=== PATIENT | female | born 1985 | race Two or more races ===

== ENCOUNTER 2020-02-15 14:07 | Outpatient (REF) | payer OTHER, SELFPAY ==
[2020-02-17 13:12] LABS: BV Int Neg Control Negative (Negative); BV Int Pos Control Positive (Positive)
[2020-02-22 14:20] LABS: CT PCR NOT DETECTED (Not Detect.); NG PCR NOT DETECTED (Not Detect.)
== END 2020-02-15 14:08 | disposition home or self-care (01) ==
LOC: HO.LAB 14:07
PROVIDERS: PCP Internal Medicine; Visit Provider Advanced Practice Midwife
DX: N89.8 Other specified noninflammatory disorders of vagina (principal)
CPT/HCPCS: 87480; 87491; 87510; 87591; 87660

== ENCOUNTER → 2020-03-17 13:53 | Outpatient (BNVA) | payer OTHER, SELFPAY | PROVIDERS: PCP Internal Medicine; Visit Provider Advanced Practice Midwife | DX: Z76.89 Persons encountering health services in other specified circumstances (principal) ==

== ENCOUNTER 2020-07-02 13:53 | Outpatient (REF) | payer OTHER, SELFPAY ==
[2020-07-03 09:38] LABS: CT PCR NOT DETECTED (Not Detect.); NG PCR NOT DETECTED (Not Detect.)
[2020-07-03 09:52] LABS: BV Int Neg Control Negative (Negative); BV Int Pos Control Positive (Positive)
[2020-07-04 17:46] LABS: HPV mRNA E6/E7 rflx Not Detected (Not Detected)
== END 2020-07-02 13:54 | disposition home or self-care (01) ==
LOC: HO.LAB 13:53
PROVIDERS: PCP Internal Medicine; Visit Provider Advanced Practice Midwife
DX: Z01.419 Encounter for gynecological examination (general) (routine) without abnormal findings (principal); Z11.51 Encounter for screening for human papillomavirus (HPV); Z11.3 Encounter for screening for infections with a predominantly sexual mode of transmission; Z20.2 Contact with and (suspected) exposure to infections with a predominantly sexual mode of transmission
CPT/HCPCS: 87480; 87491; 87510; 87591; 87624; 87660; 88141; 88142

== ENCOUNTER 2021-02-12 14:12 | Outpatient (REF) | payer OTHER, SELFPAY | END 2021-02-12 14:13 | disposition home or self-care (01) | LOC: HO.LNP 14:12 | PROVIDERS: Visit Provider Physician Assistant Medical | DX: Z20.822 Contact with and (suspected) exposure to COVID-19 (principal); B34.9 Viral infection, unspecified | CPT/HCPCS: U0003; U0005 ==

== ENCOUNTER 2021-03-06 18:04 | Emergency (ER) | payer OTHER, SELFPAY ==
--- NOTE | 2021-03-06 18:14 | ED_ITS ---
HPI - Overdose General Chief Complaint: ETOH/Substance Use Stated Complaint: too many edibles Time Seen by Provider: 03/06/21 18:26 Source: patient and EMS Mode of arrival: EMS Limitations: no limitations History of Present Illness HPI Narrative: 35-year-old female presents with anxiety from eating too many marijuana edibles. complaint: other (Marijuana edible intoxication) Onset (ago): hour(s) How Overdose Was Discovered: called 911 Context: Intentional Overdose: other (Ate too many edibles) Context: Accidental Overdose: wanted to get high Treatments Prior to Arrival: none Related Data Home Medications Medication Instructions Recorded Confirmed montelukast 10 mg tablet 10 mg PO DAILY 02/15/20 03/02/21 multivit with min-folic tab PO 02/15/20 03/02/21 acid-lutein 200 mcg-137.5 mcg chewable tablet albuterol sulfate 90 mcg/actuation 2 puff INHALATION Q6H PRN 07/02/20 03/02/21 aerosol inhaler Previous Rx's Medication Instructions Recorded fluconazole 150 mg tablet 150 mg PO Q3D 0 Days #2 tab 02/18/20 (Diflucan) valacyclovir 1 gram tablet 1,000 mg PO DAILY #5 tab 07/02/20 albuterol sulfate 90 mcg/actuation 1 inh INHALATION QID PRN #8.5 g 02/12/21 aerosol inhaler amoxicillin 875 mg-potassium 1 tab PO BID 7 Days #14 tab 03/02/21 clavulanate 125 mg tablet (Augmentin) Allergies Allergy/AdvReac Type Severity Reaction Status Date / Time cephalexin [From KEFLEX] Allergy Unknown ANAPHYLAXIS Verified 03/02/21 11:00 Sulfa (Sulfonamide Allergy Unknown rash,swelli Verified 03/02/21 11:00 Antibiotics) ng sulfamethoxazole Allergy Unknown ANAPHYLAXIS Verified 03/02/21 11:00 [From BACTRIM] trimethoprim [From BACTRIM] Allergy Unknown ANAPHYLAXIS Verified 03/02/21 11:00 Review of Systems Review of Systems: Constitutional: No Fever, No Chills ENT/Mouth: No Ear Pain, No Nasal Congestion, No sore throat Eyes: No Eye Pain, No Swelling, No Redness Cardiovascular: No Chest Pain, No SOB Respiratory: No Cough, No Sputum, No Dyspnea Gastrointestinal: No Nausea, No Vomiting, No Diarrhea, No Hematochezia, No Melena Genitourinary: No Dysuria, No Urinary Frequency, No Hematuria Musculoskeletal: No Myalgias Skin: No Skin Lesions, No rash Neuro: No Weakness, No Numbness, No Paresthesias, No Dizziness, No Headache Psych: positive Anxiety, positive marijuana intoxication, no Depression, no SI/HI Heme/Lymph: No Lymphadenopathy Endocrine: No Polyuria, No Polydipsia Yes all other systems are reviewed and are negative REPLACED BY [facility] Past Medical History Attestation statement: The following information was validated with the patient. Source: old records reviewed Medical History Allergic rhinitis Asthma Dizziness Migraine with aura Surgical History No history of previous surgery Family History Family History Father Diabetes mellitus HTN (hypertension) Mother Diabetes mellitus HTN (hypertension) Maternal Grandmother Diabetes mellitus Paternal Grandmother Diabetes mellitus Social History Social History Housing: House Alcohol intake: never Patient : No service: No Current occupational status: employed Gender identity: Female Physical Exam Vital Signs: Vital Signs: Last Vital Signs Temp 97.6 F 03/06/21 18:20 Pulse 112 H 03/06/21 18:20 Resp 22 H 03/06/21 18:20 BP 126/62 03/06/21 18:20 Pulse Ox 100 03/06/21 18:20 BMI result Body Mass Index 44.9 Appearance: Alert. Oriented X3. Mild anxiety distress. Eyes: Pupils equal, round and reactive to light. ENT: Pharynx normal. Moist mucous membranes Neck: Normal inspection. Neck supple. CVS: Normal heart rate and rhythm. Pulses normal. Respiratory: No respiratory distress. Breath sounds normal. Abdomen: Soft and nontender. Skin: Skin warm and dry. Normal skin color. Normal skin turgor. Extremities: No lower extremity edema. Moves all extremities answers Neuro: No motor deficit. No sensory deficit. Cranial nerves 2-12 intact Course Course Course Narrative: 35-year-old female presents via EMS for marijuana edible intoxication. States to feel anxious nauseous. Is describing tingling feelings going down her arms and legs. Emotional support provided. Plan of care is to discharge home when she finds a sober ride. Will give Zofran for nausea. Vital signs are stable and within normal limits. Answering questions politely and appropriately. No Indication of toxicity. No indication of abuse or foul play. MDM - Overdose MDM Narrative Medical decision making narrative: Marijuana intoxication Medical Records Attestation: I reviewed the patient's medical records. Discharge Plan Discharge Clinical Impression: Accidental marijuana overdose Qualifiers: Encounter type: initial encounter Qualified Code(s): T40.711A - Poisoning by cannabis, accidental (unintentional), initial encounter Patient Disposition: Home, Self-Care Instructions: Cannabis Abuse (ED) Additional Instructions: Please decrease the amount of marijuana edibles you use. Thank you for choosing this emergency department for evaluation. Please follow-up with primary care physician as needed. Return to the emergency department for any new, concerning, or worsening symptoms. Prescriptions: No Action fluconazole [Diflucan] 150 mg tablet 150 mg PO Q3D 0 Days Qty: 2 RF: 0 albuterol sulfate 90 mcg/actuation HFA aerosol inhaler 1 inh inhalation QID PRN (Reason: shortness of breath or wheezing) Qty: 8.5 RF: 0 amoxicillin-pot clavulanate [Augmentin] 875-125 mg tablet 1 tab PO BID 7 Days Qty: 14 RF: 0 albuterol sulfate 90 mcg/actuation HFA aerosol inhaler 2 puff inhalation Q6H PRNRF: 0 valacyclovir 1 gram tablet 1,000 mg PO DAILY Qty: 5 RF: 3 [id number] acid-lutein 200-137.5 mcg tablet,chewable PO RF: 0 montelukast 10 mg tablet 10 mg PO DAILY RF: 0
[2021-03-06 18:20] VITALS: BP 126/62; BP 142/74; PULSE 112; RESP 22; TEMP 36.4; O2SAT 100; BMI 44.9
[2021-03-06] MEDS: Ondansetron ODT 4 MG TAB.RAPDIS TRANSLINGU (18:26)
--- NOTE | 2021-03-06 18:26 | ECG_ITS ---
Test Reason : SUBSTANCE ABUSE Blood Pressure : / mmHG Vent. Rate : 087 BPM Atrial Rate : 087 BPM P-R Int : 146 ms QRS Dur : 080 ms QT Int : 350 ms P-R-T Axes : 056 056 034 degrees QTc Int : 421 ms Normal sinus rhythm Normal ECG When compared with ECG of 08-NOV-2013 10:13, No significant change was found Referred By: Main Marshall Electronically Signed By:DANIELLE ROGERS
--- NOTE | 2021-03-06 18:27 | ED_ITS ---
HPI - General Adult General Chief complaint: ETOH/Substance Use Stated complaint: too many edibles Time Seen by Provider: 03/06/21 18:26 Source: patient and EMS Mode of arrival: EMS Limitations: no limitations History of Present Illness HPI narrative: 35-year-old female brought in by ambulance to be evaluated for fe eling palpitation and dizziness. Patient ate an edibles containing marijuana, patient normally consumes marijuana under occasional circumstances only, 4 hours later patient started feeling palpitation, generalized numbness, unable to speak. Patient called 911, on arrival patient's symptoms improved, normal neuro exam. Patient appear anxious. Related Data Home Medications Medication Instructions Recorded Confirmed montelukast 10 mg tablet 10 mg PO DAILY 02/15/20 03/02/21 multivit with min-folic tab PO 02/15/20 03/02/21 acid-lutein 200 mcg-137.5 mcg chewable tablet albuterol sulfate 90 mcg/actuation 2 puff INHALATION Q6H PRN 07/02/20 03/02/21 aerosol inhaler Previous Rx's Medication Instructions Recorded fluconazole 150 mg tablet 150 mg PO Q3D 0 Days #2 tab 02/18/20 (Diflucan) valacyclovir 1 gram tablet 1,000 mg PO DAILY #5 tab 07/02/20 albuterol sulfate 90 mcg/actuation 1 inh INHALATION QID PRN #8.5 g 02/12/21 aerosol inhaler amoxicillin 875 mg-potassium 1 tab PO BID 7 Days #14 tab 03/02/21 clavulanate 125 mg tablet (Augmentin) Allergies Allergy/AdvReac Type Severity Reaction Status Date / Time cephalexin [From KEFLEX] Allergy Unknown ANAPHYLAXIS Verified 03/02/21 11:00 Sulfa (Sulfonamide Allergy Unknown rash,swelli Verified 03/02/21 11:00 Antibiotics) ng sulfamethoxazole Allergy Unknown ANAPHYLAXIS Verified 03/02/21 11:00 [From BACTRIM] trimethoprim [From BACTRIM] Allergy Unknown ANAPHYLAXIS Verified 03/02/21 11:00 Review of Systems Review of Systems: All other systems are reviewed and are negative Constitutional: Reports as per HPI and Reports no additional constitutional complaints Eyes: Reports as per HPI and Reports no additional eye complaints Reports system reviewed and no additional complaints, except as documented Cardiovascular: Reports as per HPI and Reports no additional cardiovascular complaints Respiratory: Reports as per HPI and Reports no additional respiratory complaints Gastrointestinal: Reports as per HPI and Reports no additional gastrointestinal complaints Genitourinary: Reports no additional female genitourinary complaints Musculoskeletal: Reports no additional musculoskeletal complaints Skin/Breast: Reports system reviewed and no additional complaints, except as docu Psychiatric: Reports no additional psychiatric complaints Endocrine: Reports no additional endocrine complaints Hematologic/Lymphatic: Reports no additional hematologic/lymphatic complaints Allergic/Immunologic: Reports no additional allergic/immunologic complaints Reports system reviewed and no additional complaints, except as documented and Reports Abnormal speech present [facility] Past Medical History Medical History Allergic rhinitis Asthma Dizziness Migraine with aura Surgical History No history of previous surgery Family History Family History Father Diabetes mellitus HTN (hypertension) Mother Diabetes mellitus HTN (hypertension) Maternal Grandmother Diabetes mellitus Paternal Grandmother Diabetes mellitus Social History Social History Housing: House Alcohol intake: never Advance Directives: No Advance Directives Information Provided: Yes Patient : No service: No Current occupational status: employed Gender identity: Female Physical Exam Vital Signs: Vital Signs: Last Vital Signs Temp 97.6 F 03/06/21 18:20 Pulse 112 H 03/06/21 18:20 Resp 22 H 03/06/21 18:20 BP 126/62 03/06/21 18:20 Pulse Ox 100 03/06/21 18:20 BMI result Body Mass Index 44.9 Vital signs have been reviewed as appeared to be correct. Blood pressure normal. Heart rate elevated. Respiration rate normal. Temperature normal. Oxygen saturation normal. Appearance: Alert. Oriented X3. No acute distress. Anxious. Head: Normal external exam. Normocephalic. Atraumatic. No Awad signs noted. No raccoon eyes noted Eyes: PERRLA. EOMI. Conjunctiva and sclera normal. Eyelids normal. ENT: TM's Normal. Pharynx normal. Uvula midline. Moist mucous membranes. No trismus noted. No drooling noted. No muffled voice noted. Neck: Normal inspection. Neck supple. FROM. No adenopathy. Thyroid Normal. No meningeal signs. No neck mass noted. CVS: Normal heart rate and rhythm. Heart sound normal. No murmurs noted. Pulses normal throughout. Respiratory: No respiratory distress. Painless inspiration. Breath sounds normal. No wheezes/rales/rhonchi noted. Chest nontender. No accessory muscle usage noted or decreased air movement noted. Abdomen: Soft and nontender. Bowel sounds normal in all 4 quadrants. No distention noted. No organomegaly noted. No visible injury noted. Back: No CVA tenderness. Full range of motion noted. Skin: Skin warm and dry. Normal skin color. Normal skin turgor. No rashes/lesions/lacerations noted. Extremities: No lower extremity edema. Extremities exhibit normal range of motion. Extremities nontender. Neuro: Oriented X 3. Cranial nerve exam: II-XII are grossly intact No motor deficit. No sensory deficit. Reflexes normal. Course Course Course Narrative: Assessment and plan. 35-year-old female developed anxiety attack triggered by edible marijuana, patient received a L of fluid, improvement of the symptoms. Medical Decision Making Lab Data Lab results reviewed: Yes I reviewed the patient's lab results. Result diagrams: 03/06/21 19:00 03/06/21 19:00 Labs: Lab Results 03/06/21 03/06/21 03/06/21 Range/Units 18:38 18:38 18:38 WBC (4.8-10.8) X10*3/uL RBC (4.20-5.50) X10*6/uL Hgb (12.0-16.0) g/dl Hct (37.0-47.0) % MCV (80.0-98.0) fL MCH (27.0-33.0) pg MCHC (31.0-35.0) g/dl RDW (11.0-16.0) % Plt Count (160-400) X10*3/uL MPV (9.4-12.3) fL Immature Gran % (Auto) (0.0-0.4) % Neut % (Auto) (45-73) % Lymph % (Auto) (20-40) % [place] % (Auto) (2-11) % Eos % (Auto) (0-4) % Baso % (Auto) (0-2) % Lymph # (Auto) (1.2-4.9) X10*3/uL [place] # (Auto) (0.1-1.2) X10*3/uL Eos # (Auto) (0.0-0.4) X10*3/uL Baso # (Auto) (0.0-0.2) X10*3/uL Abs Immat Gran (auto) (0.00-0.03) X10*3/uL Absolute Neuts (auto) (2.0-8.3) x10*3/uL Absolute Nucleated RBC (0.0-0.012) X10*3/uL Nucleated RBC % (auto) (0.0-0.2) /100WBC Sodium (135-145) mmol/L Potassium (3.3-5.1) mmol/L Chloride (96-108) mmol/L Carbon Dioxide (22-29) mmol/L Anion Gap (12-20) BUN (9-16) mg/dL Creatinine (0.5-1.4) mg/dL Estim Creat Clear Calc Estimated GFR Random Glucose (60-115) mg/dL Calcium (8.4-10.2) mg/dL Total Bilirubin (0.0-1.0) mg/dL Direct Bilirubin (0.0-0.5) mg/dL AST (5-31) U/L ALT (0-31) U/L Alkaline Phosphatase (39-117) U/L Total Protein (6.5-8.0) g/dL Albumin (3.5-5.0) g/dL Lipase (8-78) U/L Urine Color YELLOW Urine Appearance CLEAR Urine pH 5.5 (5.0-8.0) Ur Specific [place] >= 1.030 H (1.005-1.025) Urine Protein TRACE (NEG-TRACE) MG/DL Urine Glucose (UA) NEG (NEG) MG/DL Urine Ketones NEG (NEG) MG/DL Urine Blood 2+ H (NEG) Urine Nitrite NEG (NEG) Ur Leukocyte Esterase NEG (NEG) Urine Test NEGATIVE (NEGATIVE) Urine Opiates Screen Not Detected (Not Detect) Urine Fentanyl Screen Not Detected (Not Detect) Ur Barbiturates Screen Not Detected (Not Detect) Ur Phencyclidine Scrn Not Detected (Not Detect) Ur Amphetamines Screen Not Detected (Not Detect) U Benzodiazepines Scrn Not Detected (Not Detect) Urine Cocaine Screen Not Detected (Not Detect) U Marijuana (THC) Screen POSITIVE H (Not Detect) 03/06/21 03/06/21 Range/Units 19:00 19:00 WBC 9.7 (4.8-10.8) X10*3/uL RBC 4.72 (4.20-5.50) X10*6/uL Hgb 12.8 (12.0-16.0) g/dl Hct 39.7 (37.0-47.0) % MCV 84.1 (80.0-98.0) fL MCH 27.1 (27.0-33.0) pg MCHC 32.2 (31.0-35.0) g/dl RDW 13.5 (11.0-16.0) % Plt Count 291 (160-400) X10*3/uL MPV 9.7 (9.4-12.3) fL Immature Gran % (Auto) 0.2 (0.0-0.4) % Neut % (Auto) 68.0 (45-73) % Lymph % (Auto) 25.3 (20-40) % [place] % (Auto) 5.7 (2-11) % Eos % (Auto) 0.6 (0-4) % Baso % (Auto) 0.2 (0-2) % Lymph # (Auto) 2.5 (1.2-4.9) X10*3/uL [place] # (Auto) 0.6 (0.1-1.2) X10*3/uL Eos # (Auto) 0.1 (0.0-0.4) X10*3/uL Baso # (Auto) 0.0 (0.0-0.2) X10*3/uL Abs Immat Gran (auto) 0.02 (0.00-0.03) X10*3/uL Absolute Neuts (auto) 6.6 (2.0-8.3) x10*3/uL Absolute Nucleated RBC 0.000 (0.0-0.012) X10*3/uL Nucleated RBC % (auto) 0.0 (0.0-0.2) /100WBC Sodium 140 (135-145) mmol/L Potassium 3.8 (3.3-5.1) mmol/L Chloride 105 (96-108) mmol/L Carbon Dioxide 27 (22-29) mmol/L Anion Gap 12 (12-20) BUN 9 (9-16) mg/dL Creatinine 0.83 (0.5-1.4) mg/dL Estim Creat Clear Calc 123.0 Estimated GFR > 60 Random Glucose 99 (60-115) mg/dL Calcium 9.7 (8.4-10.2) mg/dL Total Bilirubin 0.6 (0.0-1.0) mg/dL Direct Bilirubin 0.2 (0.0-0.5) mg/dL AST 15 (5-31) U/L ALT 19 (0-31) U/L Alkaline Phosphatase 77 (39-117) U/L Total Protein 7.3 (6.5-8.0) g/dL Albumin 4.1 (3.5-5.0) g/dL Lipase 14 (8-78) U/L Urine Color Urine Appearance Urine pH (5.0-8.0) Ur Specific [place] (1.005-1.025) Urine Protein (NEG-TRACE) MG/DL Urine Glucose (UA) (NEG) MG/DL Urine Ketones (NEG) MG/DL Urine Blood (NEG) Urine Nitrite (NEG) Ur Leukocyte Esterase (NEG) Urine Test (NEGATIVE) Urine Opiates Screen (Not Detect) Urine Fentanyl Screen (Not Detect) Ur Barbiturates Screen (Not Detect) Ur Phencyclidine Scrn (Not Detect) Ur Amphetamines Screen (Not Detect) U Benzodiazepines Scrn (Not Detect) Urine Cocaine Screen (Not Detect) U Marijuana (THC) Screen (Not Detect) ECG Data Attestation: I personally reviewed and interpreted this ECG as follows: Interpretation: Normal sinus rhythm at 87 beats per minutes, normal intervals, normal axis deviation, no ST-T changes. Discharge Plan Discharge Clinical Impression: Accidental marijuana overdose Qualifiers: Encounter type: initial encounter Qualified Code(s): T40.711A - Poisoning by cannabis, accidental (unintentional), initial encounter Patient Disposition: Home, Self-Care Instructions: Cannabis Abuse (ED) Additional Instructions: Please decrease the amount of marijuana edibles you use. Thank you for choosing this emergency department for evaluation. Please follow-up with primary care physician as needed. Return to the emergency department for any new, concerning, or worsening symptoms. Prescriptions: No Action fluconazole [Diflucan] 150 mg tablet 150 mg PO Q3D 0 Days Qty: 2 RF: 0 albuterol sulfate 90 mcg/actuation HFA aerosol inhaler 1 inh inhalation QID PRN (Reason: shortness of breath or wheezing) Qty: 8.5 RF: 0 amoxicillin-pot clavulanate [Augmentin] 875-125 mg tablet 1 tab PO BID 7 Days Qty: 14 RF: 0 albuterol sulfate 90 mcg/actuation HFA aerosol inhaler 2 puff inhalation Q6H PRNRF: 0 valacyclovir 1 gram tablet 1,000 mg PO DAILY Qty: 5 RF: 3 [id number] acid-lutein 200-137.5 mcg tablet,chewable PO RF: 0 montelukast 10 mg tablet 10 mg PO DAILY RF: 0 Referrals: Yary Way MD [Primary Care Provider] - 2 weeks
[2021-03-06] MEDS: 0.9 % Sodium Chloride 1,000 ML 999 ML IVCONT (19:01)
[2021-03-06 19:07] LABS: MANUAL DIFF FLAG NO
--- NOTE | 2021-03-06 19:08 | PC.NURSE ---
IV established, labs and urine obtained and sent. IVF infusing per MAR.
[2021-03-06 19:09] LABS: Basophils Percent Auto 0.2 % (0-2); Eosinophils Absolute Auto 0.1 X10*3/uL (0.0-0.4); Eosinophils Percent Auto 0.6 % (0-4); Hematocrit 39.7 % (37.0-47.0); Hemoglobin 12.8 g/dl (12.0-16.0); Imm Gran Abs Auto 0.02 X10*3/uL (0.00-0.03); Imm Gran Pct Auto 0.2 % (0.0-0.4); Lymphocytes Absolute Auto 2.5 X10*3/uL (1.2-4.9); Lymphocytes Percent Auto 25.3 % (20-40); Mean Corpuscular HGB Conc 32.2 g/dl (31.0-35.0); Mean Corpuscular Hemoglobin 27.1 pg (27.0-33.0); Mean Corpuscular Volume 84.1 fL (80.0-98.0); Mean Platelet Volume 9.7 fL (9.4-12.3); Monocytes Absolute Auto 0.6 X10*3/uL (0.1-1.2); Monocytes Percent Auto 5.7 % (2-11); Neutrophils Absolute Auto 6.6 x10*3/uL (2.0-8.3); Platelet Count 291 X10*3/uL (160-400); Red Blood Count 4.72 X10*6/uL (4.20-5.50); Red Cell Distribution Width 13.5 % (11.0-16.0); White Blood Count 9.7 X10*3/uL (4.8-10.8)
[2021-03-06 19:11] LABS: Appearance Urine CLEAR; Color Urine YELLOW; Glucose Urine UA NEG (NEG); Leukocyte Esterase Urine NEG (NEG); Nitrite Urine NEG (NEG); PH 5.5 (5.0-8.0); Specific Gravity - Urine >= 1.030 (1.005-1.025); UACC Culture Trigger NO; Urine Blood 2+ (NEG); Urine Ketones NEG (NEG); Urine Protein TRACE MG/DL (NEG-TRACE)
[2021-03-06 19:14] LABS: UPreg QC Valid YES; Urine Pregnancy NEGATIVE (NEGATIVE)
[2021-03-06 19:22] LABS: Amphetamine Screen Urine Not Detected (Not Detect); Barbiturates, Urine Not Detected (Not Detect); Benzodiazepines Screen Urine Not Detected (Not Detect); Cannabinoid Screen Urine POSITIVE (Not Detect); Cocaine Screen Urine Not Detected (Not Detect); Fentanyl, urine Not Detected (Not Detect); Opiate Screen Urine Not Detected (Not Detect); Phencyclidine Screen Urine Not Detected (Not Detect)
[2021-03-06 19:34] LABS: Alanine Aminotransferase 19 U/L (0-31); Albumin Level 4.1 g/dL (3.5-5.0); Alkaline Phosphatase 77 U/L (39-117); Anion Gap 12 (12-20); Aspartate Amino Transferase 15 U/L (5-31); Bilirubin Direct 0.2 mg/dL (0.0-0.5); Bilirubin Total 0.6 mg/dL (0.0-1.0); Blood Urea Nitrogen 9 mg/dL (9-16); Calcium 9.7 mg/dL (8.4-10.2); Carbon Dioxide 27 mmol/L (22-29); Chloride 105 mmol/L (96-108); Estimated Glomerular Filt Rate > 60; Glucose Random 99 mg/dL (60-115); Lipase 14 U/L (8-78); Potassium 3.8 mmol/L (3.3-5.1); Sodium 140 mmol/L (135-145); Total Protein 7.3 g/dL (6.5-8.0)
[2021-03-06 20:11] VITALS: BP 113/63; PULSE 86; RESP 18; TEMP 36.6; O2SAT 100
[2021-03-06 21:14] LABS: Bacteria Urine TRACE /LPF; Squamous Epithelial Cell Urine TRACE /LPF
== END 2021-03-06 20:23 | disposition home or self-care (01) ==
LOC: HO.ED 18:59
PROVIDERS: Emergency Provider Emergency Medicine; PCP Internal Medicine
DX: F41.9 Anxiety disorder, unspecified (principal); T40.711A Poisoning by cannabis, accidental (unintentional), initial encounter; Y92.9 Unspecified place or not applicable; F12.90 Cannabis use, unspecified, uncomplicated
CPT/HCPCS: 36415; 80048; 80076; 80307; 81001; 81025; 83690; 85025; 93005; 96360; 99284

== ENCOUNTER 2021-05-19 13:55 | Outpatient (REF) | payer OTHER, SELFPAY ==
[2021-05-20 09:46] LABS: CT PCR NOT DETECTED (Not Detect.); NG PCR NOT DETECTED (Not Detect.)
[2021-05-20 10:06] LABS: BV Int Neg Control Negative (Negative); BV Int Pos Control Positive (Positive)
== END 2021-05-19 13:56 | disposition home or self-care (01) ==
LOC: HO.LAB 13:55
PROVIDERS: PCP Internal Medicine; Visit Provider Advanced Practice Midwife
DX: N76.0 Acute vaginitis (principal)
CPT/HCPCS: 87480; 87491; 87510; 87591; 87660

== ENCOUNTER 2021-06-29 11:52 | Outpatient (REF) | payer OTHER, SELFPAY ==
[2021-07-01 02:02] LABS: Rubella IgG Antibody 4.69 Index
[2021-07-01 11:16] LABS: TS Negative Control Passed; TS Panel A 0; TS Panel B 0; TS Positive Control Passed; TSpotTB Negative (Negative)
== END 2021-06-29 11:53 | disposition home or self-care (01) ==
LOC: HO.LAB 11:52
PROVIDERS: PCP Internal Medicine; Visit Provider Internal Medicine
DX: Z01.84 Encounter for antibody response examination (principal); Z11.1 Encounter for screening for respiratory tuberculosis
CPT/HCPCS: 36415; 86481; 86735; 86762; 86765; 86787

== ENCOUNTER 2021-10-27 17:12 | Emergency (ER) | payer OTHER, SELFPAY | END 2021-10-27 18:44 | disposition left against medical advice (07) | PROVIDERS: Emergency Provider Emergency Medicine | DX: F41.1 Generalized anxiety disorder (principal); F43.0 Acute stress reaction ==

== ENCOUNTER 2021-11-12 01:33 | Emergency (ER) | payer OTHER, SELFPAY ==
--- NOTE | ~2021-11-12 | XR_ITS ---
EXAMINATION: XR CHEST CLINICAL INFORMATION: Chest pressure COMPARISON: None TECHNIQUE: 2 views of the chest were obtained. FINDINGS: Normal symmetric lung volumes. No parenchymal consolidation. No pleural effusion. No pneumothorax. Cardiomediastinal silhouette and pulmonary vascularity are within normal limits. No acute osseous abnormalities. XR/XR chest 2V IMPRESSION: No acute findings
[2021-11-12 01:49] VITALS: BP 149/77; PULSE 93; RESP 16; TEMP 36.2; O2SAT 98; BMI 44.9
--- NOTE | 2021-11-12 02:54 | ECG_ITS ---
Test Reason : ANIEXTY Blood Pressure : / mmHG Vent. Rate : 074 BPM Atrial Rate : 074 BPM P-R Int : 148 ms QRS Dur : 082 ms QT Int : 382 ms P-R-T Axes : 046 045 037 degrees QTc Int : 424 ms Normal sinus rhythm Normal ECG When compared with ECG of 06-MAR-2021 19:03, No significant change was found Referred By: Tana Maza Electronically Signed By:DAVIDA LIMA
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
[2021-11-12 03:26] LABS: Basophils Percent Auto 0.3 % (0-2); Eosinophils Percent Auto 0.3 % (0-4); Hematocrit 43.5 % (37.0-47.0); Hemoglobin 14.3 g/dl (12.0-16.0); Imm Gran Abs Auto 0.03 X10*3/uL (0.00-0.03); Imm Gran Pct Auto 0.3 % (0.0-0.4); Lymphocytes Absolute Auto 1.7 X10*3/uL (1.2-4.9); Lymphocytes Percent Auto 17.6 % (20-40); MANUAL DIFF FLAG NO; Mean Corpuscular HGB Conc 32.9 g/dl (31.0-35.0); Mean Corpuscular Hemoglobin 28.5 pg (27.0-33.0); Mean Corpuscular Volume 86.7 fL (80.0-98.0); Mean Platelet Volume 10.5 fL (9.4-12.3); Monocytes Absolute Auto 0.5 X10*3/uL (0.1-1.2); Monocytes Percent Auto 5.2 % (2-11); Neutrophils Absolute Auto 7.1 x10*3/uL (2.0-8.3); Neutrophils Percent Auto 76.3 % (45-73); Platelet Count 257 X10*3/uL (160-400); Red Blood Count 5.02 X10*6/uL (4.20-5.50); Red Cell Distribution Width 13.8 % (11.0-16.0); White Blood Count 9.4 X10*3/uL (4.8-10.8)
[2021-11-12 03:28] VITALS: BP 117/65; PULSE 72; RESP 16; TEMP 36.8; O2SAT 97
[2021-11-12 03:48] LABS: Troponin-I High Sensitivity < 3.5 ng/L (<3.5-17.0)
[2021-11-12 04:41] LABS: Anion Gap 15 (12-20); Blood Urea Nitrogen 7 mg/dL (9-16); Calcium 9.4 mg/dL (8.4-10.2); Carbon Dioxide 26 mmol/L (22-29); Chloride 103 mmol/L (96-108); Creatinine Clr Calc Pharmacy 129.6; Estimated Glomerular Filt Rate > 60; Glucose Random 116 mg/dL (60-115); Potassium 4.4 mmol/L (3.3-5.1); Sodium 140 mmol/L (135-145)
== END 2021-11-12 04:45 | disposition home or self-care (01) ==
PROVIDERS: Nurse Practitioner Family; Emergency Provider Emergency Medicine; PCP Internal Medicine
DX: F41.9 Anxiety disorder, unspecified (principal); F41.0 Panic disorder [episodic paroxysmal anxiety]
CPT/HCPCS: 36415; 71046; 80048; 84484; 85025; 93005; 99283; 99284

== ENCOUNTER 2021-12-01 10:55 | Outpatient (REF) | payer OTHER, SELFPAY ==
[2021-12-02 03:18] LABS: CT PCR NOT DETECTED (Not Detect.); NG PCR NOT DETECTED (Not Detect.)
[2021-12-02 13:22] LABS: BV Int Neg Control Negative (Negative); BV Int Pos Control Positive (Positive)
[2021-12-07 23:37] LABS: HPV mRNA E6/E7 rflx Not Detected (Not Detected)
== END 2021-12-01 10:56 | disposition home or self-care (01) ==
LOC: HO.LNP 10:55
PROVIDERS: Visit Provider Advanced Practice Midwife
DX: Z01.419 Encounter for gynecological examination (general) (routine) without abnormal findings (principal); Z11.3 Encounter for screening for infections with a predominantly sexual mode of transmission; Z11.51 Encounter for screening for human papillomavirus (HPV)
CPT/HCPCS: 87480; 87491; 87510; 87591; 87624; 87660; 88142

== ENCOUNTER 2022-01-06 18:55 | Emergency (ER) | payer OTHER, SELFPAY ==
[2022-01-06 20:09] VITALS: BP 150/83; PULSE 72; RESP 16; TEMP 36.8; O2SAT 99; BMI 43.2
[2022-01-06 20:29] LABS: MANUAL DIFF FLAG NO
[2022-01-06 20:31] LABS: Basophils Percent Auto 0.1 % (0-2); Eosinophils Absolute Auto 0.1 X10*3/uL (0.0-0.4); Eosinophils Percent Auto 0.6 % (0-4); Hematocrit 38.3 % (37.0-47.0); Hemoglobin 12.8 g/dl (12.0-16.0); Imm Gran Abs Auto 0.02 X10*3/uL (0.00-0.03); Imm Gran Pct Auto 0.2 % (0.0-0.4); Lymphocytes Absolute Auto 2.8 X10*3/uL (1.2-4.9); Lymphocytes Percent Auto 30.3 % (20-40); Mean Corpuscular HGB Conc 33.4 g/dl (31.0-35.0); Mean Corpuscular Hemoglobin 27.5 pg (27.0-33.0); Mean Corpuscular Volume 82.4 fL (80.0-98.0); Mean Platelet Volume 10.2 fL (9.4-12.3); Monocytes Absolute Auto 0.6 X10*3/uL (0.1-1.2); Monocytes Percent Auto 6.1 % (2-11); Neutrophils Absolute Auto 5.8 x10*3/uL (2.0-8.3); Neutrophils Percent Auto 62.7 % (45-73); Platelet Count 293 X10*3/uL (160-400); Red Blood Count 4.65 X10*6/uL (4.20-5.50); Red Cell Distribution Width 13.7 % (11.0-16.0); White Blood Count 9.3 X10*3/uL (4.8-10.8)
[2022-01-06 20:45] LABS: Alanine Aminotransferase 20 U/L (0-31); Albumin Level 4.2 g/dL (3.5-5.0); Alkaline Phosphatase 78 U/L (39-117); Anion Gap 15 (12-20); Aspartate Amino Transferase 14 U/L (5-31); Bilirubin Total 0.3 mg/dL (0.0-1.0); Blood Urea Nitrogen 8 mg/dL (9-16); Calcium 9.7 mg/dL (8.4-10.2); Carbon Dioxide 25 mmol/L (22-29); Chloride 105 mmol/L (96-108); Creatinine Clr Calc Pharmacy 130.1; Estimated Glomerular Filt Rate > 60; Glucose Random 103 mg/dL (60-115); Potassium 3.9 mmol/L (3.3-5.1); Sodium 141 mmol/L (135-145)
[2022-01-06 20:46] LABS: COVID-19 Test Negative (Negative); IDNOW Serial# 55D5AD1C
--- NOTE | 2022-01-07 00:15 | ED_ITS ---
HPI - Dizziness General Chief Complaint: Dizziness Stated Complaint: dizziness/vertigo symptoms/weakness Time Seen by Provider: 01/07/22 00:15 Source: patient Mode of arrival: ambulatory Limitations: no limitations History of Present Illness HPI Narrative: 36-year-old female presents with 3 days of intermittent dizziness, nausea, trouble focusing, photophobia, feeling like things are moving in slow motion, pressure around her head and pulse a guidry behind her eyes, and intermittent blurred vision. She has been able to eat and drink without difficulty, denies fevers, chills, chest pain or pressure, palpitations, near-syncope, abdominal pain, abdominal distention, dysuria, hematuria, edema, weakness or fatigue. MD elicited complaint: dizziness and vertigo Pertinent past history: BPPV Onset (ago): day(s) Timing: gradual onset Severity: moderate Description: lightheadedness Context: anxiety History of similar symptoms: Yes Exacerbating factors: movement/ambulation Relieving factors: nothing Associated symptoms: nausea Stroke scale total: 0 Related Data Previous Rx's Medication Instructions Recorded albuterol sulfate 90 mcg/actuation 1 inh inhalation QID PRN shortness 04/22/21 aerosol inhaler of breath or wheezing #8.5 grams meclizine 25 mg tablet 25 mg PO DAILY PRN motion sickness 04/22/21 30 days #30 tabs montelukast 10 mg tablet 10 mg PO DAILY 90 days #90 tabs 04/22/21 valacyclovir 1 gram tablet 1,000 mg PO DAILY #5 tabs 04/22/21 citalopram 10 mg tablet 10 mg PO DAILY 90 days #90 tabs 11/30/21 hydroxyzine HCl 25 mg tablet 25 mg PO BID PRN itching 30 days 11/30/21 #60 tabs fluconazole 150 mg tablet 150 mg PO DAILY 1 dose #1 tab 12/04/21 (Diflucan) metronidazole 500 mg tablet 500 mg PO BID 7 days #14 tabs 12/04/21 qsdjxqulhd-tbpkrvvojodpw-otgkvvex 1 cap PO Q6H PRN migraine headache 01/07/22 50 mg-300 mg-40 mg capsule #14 caps (Fioricet) Allergies Allergy/AdvReac Type Severity Reaction Status Date / Time cephalexin [From KEFLEX] Allergy Unknown ANAPHYLAXIS Verified 12/01/21 10:04 Sulfa (Sulfonamide Allergy Unknown rash,swelli Verified 12/01/21 10:04 Antibiotics) ng sulfamethoxazole Allergy Unknown ANAPHYLAXIS Verified 12/01/21 10:04 [From BACTRIM] trimethoprim [From BACTRIM] Allergy Unknown ANAPHYLAXIS Verified 12/01/21 10:04 Review of Systems Review of Systems: Constitutional: No Fever, No Chills ENT/Mouth: No Ear Pain, No Hoarseness, No sore throat Eyes: No Eye Pain, No Swelling, No Redness, No Foreign Body Cardiovascular: No Chest Pain, No SOB Respiratory: No Cough, No Dyspnea Gastrointestinal: No Nausea, No Vomiting, No Diarrhea, No abdominal Pain Genitourinary: No Dysuria, No Hematuria Musculoskeletal: No joint pain, No Myalgias, No Joint Swelling Skin: No Skin lacerations, No rash Neuro: Positive photophobia, No Weakness, No Numbness, No Paresthesias, No Loss of Consciousness, positive Dizziness, positive Headache Psych: No Anxiety/Panic, No Depression Heme/Lymph: no easy bruising, no Lymphadenopathy Endocrine: No Polyuria, No Polydipsia Yes all other systems are reviewed and are negative [facility] Past Medical History Attestation statement: The following information was validated with the patient. Source: old records reviewed Medical History Allergic rhinitis Asthma Dizziness NATALIE (generalized anxiety disorder) Immunization due Migraine with aura Physical exam Surgical History No history of previous surgery Family History Family History Father Diabetes mellitus HTN (hypertension) Mother Diabetes mellitus HTN (hypertension) Maternal Grandmother Diabetes mellitus Paternal Grandmother Diabetes mellitus Social History Social History Housing: House Alcohol intake: never Patient Tobacco Use Status: Never used Tobacco e-Cigarette/Vaping Use: Never Used Second Hand Smoke Exposure: No Advance Directives: No Advance Directives Information Provided: No service: No Current occupational status: employed Current occupational exposures/hazards: No Gender identity: Female Cognitive needs: No Hearing needs: No Vision needs: No Physical Exam Vital Signs: Vital Signs: Last Vital Signs Temp 98.2 F 01/06/22 20:09 Pulse 66 01/07/22 00:59 Resp 16 01/06/22 20:09 BP 106/48 L 01/07/22 00:59 Pulse Ox 99 01/06/22 20:09 O2 Del Method 01/06/22 20:09 BMI result Body Mass Index 43.2 Appearance: Alert. Oriented X3. No acute distress. Eyes: Pupils equal, round and reactive to light. EOMI. No pain on extraocular movements. Sclera nonicteric. ENT: Pharynx normal. Neck: Normal inspection. Neck supple. No nuchal rigidity. No vertebral tenderness. CVS: Normal heart rate and rhythm. Pulses normal. Respiratory: No respiratory distress. Breath sounds normal. Abdomen: Soft and nontender. No rigidity or distention. Skin: Skin warm and dry. Normal skin color. Normal skin turgor. Extremities: No lower extremity edema. Gait well-balanced well coordinated. Neuro: No motor deficit. No sensory deficit. Cranial nerves 2-12 intact. Course Course Course Narrative: 36-year-old female presents for evaluation of several days of dizziness, nauseousness, unable to focus, photophobia, band like pressure going around her forehead and pulsation behind her eyes, and intermittent blurry vision. She states that she does have significant anxiety, on was not sure if the symptoms were consistent anxiety and panic. She has multiple episodes like this in the past. She does have a prescription for meclizine, hydroxyzine which she has taken. She states these medications are ineffective for the symptoms that she has been experiencing. NIH stroke scale is 0, cranial nerves 2-12 intact, no focal neural deficits. Labs drawn while patient was in the emergency department waiting room, negative for acute findings requiring emergent intervention, urinalysis and U preg are pending. Urinalysis is negative, test is negative, will give Fioricet for suspected complex migraine symptoms. Urinalysis negative for acute findings. Fioricet and Zofran given 01:50, patient states that she does not feel significantly worse or better, but has no symptoms at this time. I do feel like patient's complaints are consistent with migraine symptoms, could also be anxiety. While patient does not have any neural deficits, has full range of motion to all extremities, gait is well balanced well coordinated, and symptoms have been present for several days low likelihood intracranial bleeding. Will have patient follow-up with primary care physician for further workup. She does have an ophthalmology appointment within the next month. Will give patient a prescription for Fioricet, and have patient follow-up with primary. Patient verbalized understanding of and agrees plan of care discharge home. Verbalized understanding of signs symptoms indicating need for emergent intervention. MDM - Dizziness MDM Narrative Medical decision making narrative: Migraine, viral syndrome, UTI, , anxiety Medical Records Attestation: I reviewed the patient's medical records. Lab Data Attestation: I reviewed the patient's lab results. Result diagrams: 01/06/22 20:21 01/06/22 20:21 Labs: Lab Results 01/06/22 01/06/22 01/06/22 Range/Units 20:21 20:21 20:21 WBC 9.3 (4.8-10.8) X10*3/uL RBC 4.65 (4.20-5.50) X10*6/uL Hgb 12.8 (12.0-16.0) g/dl Hct 38.3 (37.0-47.0) % MCV 82.4 (80.0-98.0) fL MCH 27.5 (27.0-33.0) pg MCHC 33.4 (31.0-35.0) g/dl RDW 13.7 (11.0-16.0) % Plt Count 293 (160-400) X10*3/uL MPV 10.2 (9.4-12.3) fL Immature Gran % (Auto) 0.2 (0.0-0.4) % Neut % (Auto) 62.7 (45-73) % Lymph % (Auto) 30.3 (20-40) % [place] % (Auto) 6.1 (2-11) % Eos % (Auto) 0.6 (0-4) % Baso % (Auto) 0.1 (0-2) % Lymph # (Auto) 2.8 (1.2-4.9) X10*3/uL [place] # (Auto) 0.6 (0.1-1.2) X10*3/uL Eos # (Auto) 0.1 (0.0-0.4) X10*3/uL Baso # (Auto) 0.0 (0.0-0.2) X10*3/uL Abs Immat Gran (auto) 0.02 (0.00-0.03) X10*3/uL Absolute Neuts (auto) 5.8 (2.0-8.3) x10*3/uL Absolute Nucleated RBC 0.000 (0.0-0.012) X10*3/uL Nucleated RBC % (auto) 0.0 (0.0-0.2) /100WBC Sodium 141 (135-145) mmol/L Potassium 3.9 (3.3-5.1) mmol/L Chloride 105 (96-108) mmol/L Carbon Dioxide 25 (22-29) mmol/L Anion Gap 15 (12-20) BUN 8 L (9-16) mg/dL Creatinine 0.76 (0.5-1.4) mg/dL Estim Creat Clear Calc 130.1 Estimated GFR > 60 Random Glucose 103 (60-115) mg/dL Calcium 9.7 (8.4-10.2) mg/dL Total Bilirubin 0.3 (0.0-1.0) mg/dL AST 14 (5-31) U/L ALT 20 (0-31) U/L Alkaline Phosphatase 78 (39-117) U/L Total Protein 7.0 (6.5-8.0) g/dL Albumin 4.2 (3.5-5.0) g/dL Urine Color Urine Appearance Urine pH (5.0-9.0) Ur Specific [place] (1.005-1.025) Urine Protein (Neg-Trace) mg/dL Urine Glucose (UA) (Negative) mg/dL Urine Ketones (Negative) mg/dL Urine Blood (Negative) Urine Nitrite (Negative) Ur Leukocyte Esterase (Negative) Urine Test (NEGATIVE) COVID-19 (GREGORY) Negative (Negative) COVID-19 Clin Com See Note 01/07/22 01/07/22 Range/Units 00:32 00:32 WBC (4.8-10.8) X10*3/uL RBC (4.20-5.50) X10*6/uL Hgb (12.0-16.0) g/dl Hct (37.0-47.0) % MCV (80.0-98.0) fL MCH (27.0-33.0) pg MCHC (31.0-35.0) g/dl RDW (11.0-16.0) % Plt Count (160-400) X10*3/uL MPV (9.4-12.3) fL Immature Gran % (Auto) (0.0-0.4) % Neut % (Auto) (45-73) % Lymph % (Auto) (20-40) % [place] % (Auto) (2-11) % Eos % (Auto) (0-4) % Baso % (Auto) (0-2) % Lymph # (Auto) (1.2-4.9) X10*3/uL [place] # (Auto) (0.1-1.2) X10*3/uL Eos # (Auto) (0.0-0.4) X10*3/uL Baso # (Auto) (0.0-0.2) X10*3/uL Abs Immat Gran (auto) (0.00-0.03) X10*3/uL Absolute Neuts (auto) (2.0-8.3) x10*3/uL Absolute Nucleated RBC (0.0-0.012) X10*3/uL Nucleated RBC % (auto) (0.0-0.2) /100WBC Sodium (135-145) mmol/L Potassium (3.3-5.1) mmol/L Chloride (96-108) mmol/L Carbon Dioxide (22-29) mmol/L Anion Gap (12-20) BUN (9-16) mg/dL Creatinine (0.5-1.4) mg/dL Estim Creat Clear Calc Estimated GFR Random Glucose (60-115) mg/dL Calcium (8.4-10.2) mg/dL Total Bilirubin (0.0-1.0) mg/dL AST (5-31) U/L ALT (0-31) U/L Alkaline Phosphatase (39-117) U/L Total Protein (6.5-8.0) g/dL Albumin (3.5-5.0) g/dL Urine Color Yellow Urine Appearance Cloudy Urine pH 5.0 (5.0-9.0) Ur Specific [place] 1.020 (1.005-1.025) Urine Protein Negative (Neg-Trace) mg/dL Urine Glucose (UA) Negative (Negative) mg/dL Urine Ketones Negative (Negative) mg/dL Urine Blood Negative (Negative) Urine Nitrite Negative (Negative) Ur Leukocyte Esterase Negative (Negative) Urine Test NEGATIVE (NEGATIVE) COVID-19 ([place]) (Negative) COVID-19 Clin Com Discharge Plan Discharge Clinical Impression: Dizziness, Migraine Patient Disposition: Home, Self-Care Instructions: Migraine Headache (ED), Vertigo (ED) Additional Instructions: You were evaluated for dizziness, nausea, photosensitivity, and a band-like pressure across her head and behind her eyes. Your symptoms are consistent with a migraine. Please take Fioricet as needed for symptoms consistent with migraine and tension headache. Continue take your prescribed medications as directed. Drink plenty of fluids. Follow-up with primary care physician, you may need Neurology referral for migraine symptoms. Please keep your ophthalmology appointment. Thank you for choosing this emergency department for evaluation. Please follow-up with primary care physician as needed. Return to the emergency department for any new, concerning, or worsening symptoms. Prescriptions: New gbqpnicvhb-xbsimbbpojrwv-bswz [Fioricet] 50-300-40 mg capsule 1 cap PO Q6H PRN (Reason: migraine headache) Qty: 14 0RF No Action metronidazole 500 mg tablet 500 mg PO BID 7 Days Qty: 14 0RF Rx Instructions: Take with food, Avoid alcohol and vinegar products fluconazole [Diflucan] 150 mg tablet 150 mg PO DAILY Qty: 1 1RF Rx Instructions: administer on day 1 of therapy albuterol sulfate 90 mcg/actuation HFA aerosol inhaler 1 inh inhalation QID PRN (Reason: shortness of breath or wheezing) Qty: 8.5 0RF montelukast 10 mg tablet 10 mg PO DAILY 90 Days Qty: 90 0RF valacyclovir 1 gram tablet 1,000 mg PO DAILY Qty: 5 3RF meclizine 25 mg tablet 25 mg PO DAILY PRN (Reason: motion sickness) 30 Days Qty: 30 1RF hydroxyzine HCl 25 mg tablet 25 mg PO BID PRN (Reason: itching) 30 Days Qty: 60 0RF citalopram 10 mg tablet 10 mg PO DAILY 90 Days Qty: 90 1RF Referrals: Yary Way MD [Primary Care Provider] - 1 week (Migraine symptoms) Stand Alone Forms: Work/School Release
[2022-01-07 00:37] LABS: Appearance Urine Cloudy; Color Urine Yellow; Glucose Urine UA Negative (Negative); Leukocyte Esterase Urine Negative (Negative); Nitrite Urine Negative (Negative); Urine Blood Negative (Negative); Urine Ketones Negative (Negative); Urine Protein Negative (Neg-Trace)
[2022-01-07 00:39] LABS: UPreg QC Valid YES; Urine Pregnancy NEGATIVE (NEGATIVE)
[2022-01-07 00:57] VITALS: BP 127/79; PULSE 64
[2022-01-07 00:58] VITALS: BP 127/71; PULSE 65
[2022-01-07 00:59] VITALS: BP 106/48; PULSE 66
[2022-01-07] MEDS: Butalb/Acetamin/Caff 50/325/40 TABLET 1 TAB PO (01:28)
[2022-01-07] MEDS: Ondansetron ODT 4 MG TAB.RAPDIS TRANSLINGU (01:28)
[2022-01-07 02:11] VITALS: BP 108/91; PULSE 98; RESP 18; O2SAT 99
== END 2022-01-07 02:21 | disposition home or self-care (01) ==
PROVIDERS: Emergency Provider Internal Medicine; PCP Internal Medicine
DX: G43.909 Migraine, unspecified, not intractable, without status migrainosus (principal); R42 Dizziness and giddiness; Z20.822 Contact with and (suspected) exposure to COVID-19; Z79.899 Other long term (current) drug therapy
CPT/HCPCS: 80053; 81003; 81025; 85025; 87635; 99283; 99284

== ENCOUNTER 2022-03-18 10:07 | Outpatient (REF) | payer OTHER, SELFPAY ==
[2022-04-03 03:18] LABS: HPV mRNA E6/E7 rflx Not Detected (Not Detected)
== END 2022-03-18 10:08 | disposition home or self-care (01) ==
LOC: HO.LNP 10:07
PROVIDERS: PCP Internal Medicine; Visit Provider Advanced Practice Midwife
DX: R87.615 Unsatisfactory cytologic smear of cervix (principal); Z79.899 Other long term (current) drug therapy; Z12.4 Encounter for screening for malignant neoplasm of cervix
CPT/HCPCS: 87624; 88142

== ENCOUNTER → 2022-03-29 10:59 | Outpatient (BNVA) | payer OTHER, SELFPAY | PROVIDERS: PCP Internal Medicine; Visit Provider Physician Assistant Surgical | DX: Z13.89 Encounter for screening for other disorder (principal) ==

== ENCOUNTER 2022-04-01 13:35 | Outpatient (REF) | payer OTHER, SELFPAY | END 2022-04-01 13:36 | disposition home or self-care (01) | LOC: HO.LNP 13:35 | PROVIDERS: PCP Internal Medicine; Visit Provider Obstetrics & Gynecology | DX: N87.0 Mild cervical dysplasia (principal) | CPT/HCPCS: 57456; 88305 ==

== ENCOUNTER → 2022-04-06 15:04 | Outpatient (BNVA) | payer OTHER, SELFPAY | PROVIDERS: PCP Internal Medicine; Visit Provider Physician Assistant Surgical | DX: Z13.89 Encounter for screening for other disorder (principal) ==

== ENCOUNTER → 2022-04-15 14:51 | Outpatient (BNVA) | payer OTHER, SELFPAY | PROVIDERS: PCP Internal Medicine; Visit Provider Obstetrics & Gynecology | DX: Z13.89 Encounter for screening for other disorder (principal) ==

== ENCOUNTER 2022-06-01 08:03 | Outpatient (REF) | payer OTHER, SELFPAY ==
--- NOTE | ~2022-06-01 | XR_ITS ---
EXAMINATION: XR CHEST CLINICAL INFORMATION: Morbid obesity. COMPARISON: 11/12/2021 TECHNIQUE: 2 views of the chest were obtained. FINDINGS: Large body habitus. Lungs are well-inflated and clear. Trachea is midline in position. No interstitial disease, consolidation or mass. No pleural effusion or pneumothorax. Cardiac silhouette and pulmonary vessels are normal in size. The mediastinum and kavon have normal contour. Mild dextrocurvature and minimal spondylosis of thoracic spine. Otherwise, the visualized bones, and upper abdomen, are unremarkable. XR/XR chest 2V IMPRESSION: No acute cardiopulmonary abnormality.
--- NOTE | ~2022-06-01 | CT_ITS ---
EXAMINATION: CT HEAD WITHOUT CONTRAST CLINICAL INFORMATION: Headache. COMPARISON: No relevant prior imaging. TECHNIQUE: Contiguous axial imaging was performed from the skull base to vertex without intravenous administration of contrast. This CT examination was performed using dose optimization techniques as appropriate, variously including the following: *Automated exposure control *Adjustment of mA and/or kV according to patient size (this includes techniques or standardized protocols for targeted exams where dose is matched to indication/reason for exam; i.e. extremities or head) *Use of iterative reconstruction technique DLP: 738 mGy-cm FINDINGS: There is no acute intracranial hemorrhage or abnormal extra-axial collection. No intracranial mass effect or midline shift. Lateral and third ventricles are normal. No hydrocephalus. Stallworth-white matter differentiation is preserved and there is no evidence of acute territorial infarct. The calvarium and skull base are intact. No mastoid middle ear effusion. No active paranasal sinus disease. Globes and orbits are grossly symmetric. CT/CT head/brain wo IV con IMPRESSION: Normal CT scan of the head.
--- NOTE | 2022-06-01 08:10 | ECG_ITS ---
Test Reason : morbid obesity Blood Pressure : / mmHG Vent. Rate : 060 BPM Atrial Rate : 060 BPM P-R Int : 138 ms QRS Dur : 082 ms QT Int : 392 ms P-R-T Axes : 049 056 046 degrees QTc Int : 392 ms Normal sinus rhythm Normal ECG When compared with ECG of 12-NOV-2021 03:06, No significant change was found Referred By: Parag Lee Electronically Signed By:DARLYN HAWK MD
[2022-06-01 08:23] LABS: MANUAL DIFF FLAG NO
[2022-06-01 09:42] LABS: Basophils Percent Auto 0.5 % (0-2); Eosinophils Absolute Auto 0.1 X10*3/uL (0.0-0.4); Eosinophils Percent Auto 1.4 % (0-4); Hematocrit 42.1 % (37.0-47.0); Hemoglobin 13.3 g/dl (12.0-16.0); Imm Gran Abs Auto 0.03 X10*3/uL (0.00-0.03); Imm Gran Pct Auto 0.5 % (0.0-0.4); Lymphocytes Percent Auto 30.8 % (20-40); Mean Corpuscular HGB Conc 31.6 g/dl (31.0-35.0); Mean Corpuscular Volume 82.2 fL (80.0-98.0); Mean Platelet Volume 10.3 fL (9.4-12.3); Monocytes Absolute Auto 0.4 X10*3/uL (0.1-1.2); Monocytes Percent Auto 6.2 % (2-11); Neutrophils Percent Auto 60.6 % (45-73); Platelet Count 342 X10*3/uL (160-400); Red Blood Count 5.12 X10*6/uL (4.20-5.50); Red Cell Distribution Width 13.6 % (11.0-16.0); White Blood Count 6.5 X10*3/uL (4.8-10.8)
[2022-06-01 09:49] LABS: Estimated Average Glucose 100 mg/dL; Hemoglobin A1c % 5.1 %
[2022-06-01 11:16] LABS: Alanine Aminotransferase 18 U/L (0-31); Albumin Level 4.2 g/dL (3.5-5.0); Alkaline Phosphatase 81 U/L (39-117); Anion Gap 16 (12-20); Aspartate Amino Transferase 16 U/L (5-31); Bilirubin Total 0.7 mg/dL (0.0-1.0); Blood Urea Nitrogen 11 mg/dL (9-16); C Reactive Protein 0.87 mg/dL (< or = 0.50); Calcium 9.3 mg/dL (8.4-10.2); Carbon Dioxide 26 mmol/L (22-29); Chloride 103 mmol/L (96-108); Cholesterol 183 mg/dL; Estimated Glomerular Filt Rate > 60; Glucose Fasting 89 mg/dL (60-99); Glucose Random 89 mg/dL (60-115); HDL Cholesterol 48 mg/dL; Iron 70 mcg/dL (30-160); LDL Cholesterol Calculated 112 mg/dl; Percent Iron Saturation 24 % (15-50); Potassium 4.2 mmol/L (3.3-5.1); Sodium 141 mmol/L (135-145); Total Iron Binding Capacity 286 mcg/dL (228-428); Total Protein 7.1 g/dL (6.5-8.0); Triglycerides 115 mg/dL; Unsaturated Iron Binding 216 ug/dL
[2022-06-01 11:56] LABS: Ferritin 45 ng/mL (10-122)
[2022-06-01 12:30] LABS: Folate 6.5 ng/mL (> or = 4.0); Insulin 24 uU/mL (2-29); TSH reflex Free T4 1.47 uIU/mL (0.32-4.0); Vitamin B12 353 pg/mL (200-900)
[2022-06-02 14:24] LABS: Calcium (PTHI) 9.6 mg/dL (8.6-10.2); PTHI 58 pg/mL (16-77)
[2022-06-05 01:18] LABS: Zinc 75 mcg/dL (60-130)
[2022-06-06 15:04] LABS: Vitamin B1 14 nmol/L (8-30)
[2022-06-08 18:58] LABS: Vitamin A 44 mcg/dL (38-98)
== END 2022-06-01 08:04 | disposition home or self-care (01) ==
LOC: HO.CT 08:03
PROVIDERS: Absent Provider Physician Assistant Surgical; PCP Internal Medicine; Visit Provider Nurse Practitioner Family
DX: Z00.00 Encounter for general adult medical examination without abnormal findings (principal); G43.109 Migraine with aura, not intractable, without status migrainosus; E66.01 Morbid (severe) obesity due to excess calories
CPT/HCPCS: 36415; 70450; 71046; 80053; 80061; 82306; 82607; 82728; 82746; 83036; 83525; 83540; 83970; 84425; 84443; 84590; 84630; 85025; 86140; 93005

== ENCOUNTER 2022-06-07 08:10 | Outpatient (REF) | payer OTHER, SELFPAY ==
[2022-06-09 15:20] LABS: H Pylori Breath Test Negative (Negative)
== END 2022-06-07 08:11 | disposition home or self-care (01) ==
LOC: HO.LNP 08:10
PROVIDERS: PCP Internal Medicine; Visit Provider Physician Assistant Surgical
DX: E66.01 Morbid (severe) obesity due to excess calories (principal); Z71.3 Dietary counseling and surveillance; Z11.0 Encounter for screening for intestinal infectious diseases; Z79.899 Other long term (current) drug therapy; Z68.42 Body mass index [BMI] 45.0-49.9, adult
CPT/HCPCS: 83013

== ENCOUNTER → 2022-07-07 08:07 | Outpatient (BNVA) | payer OTHER, SELFPAY | PROVIDERS: PCP Internal Medicine; Visit Provider Nurse Practitioner Family | DX: Z13.89 Encounter for screening for other disorder (principal) ==

== ENCOUNTER → 2022-07-20 16:08 | Outpatient (REF) | payer OTHER, SELFPAY | LOC: HO.SL 16:08 | PROVIDERS: PCP Internal Medicine; Visit Provider Nurse Practitioner Family | DX: G47.19 Other hypersomnia (principal); R06.83 Snoring; E66.01 Morbid (severe) obesity due to excess calories | CPT/HCPCS: 95806 ==

== ENCOUNTER → 2022-08-03 08:24 | Outpatient (BNVA) | payer OTHER, SELFPAY | PROVIDERS: PCP Internal Medicine; Visit Provider Nurse Practitioner Family ==

== ENCOUNTER → 2022-09-08 09:01 | Outpatient (BNVA) | payer OTHER, SELFPAY | PROVIDERS: PCP Internal Medicine; Visit Provider Nurse Practitioner Family | DX: E66.01 Morbid (severe) obesity due to excess calories (principal); R06.83 Snoring; G47.19 Other hypersomnia ==

== ENCOUNTER 2023-01-07 08:31 | Outpatient (AMB) | payer OTHER, SELFPAY ==
--- NOTE | 2023-01-07 08:33 | A.OFFVIS_ITS ---
Intake VS Expanded 01/07/23 08:39 BP 135/71 Blood Pressure Location Rt brachial Blood Pressure Position Sitting Pulse 77 Pulse Source Pulse Oximeter Temp 95.8 F L Temperature Source Temporal Artery Scan Pulse Oximetry 98 Oxygen Delivery Method Room Air Height 5 ft 5 in Weight 289 lb 3.2 oz BMI 48.1 Body Fat % 49.4 Body Fat Mass 142.8 Fat Free Mass 146.2 Visceral Fat Rating 16.0 Body Water % 36.2 Body Water Mass 104.8 Muscle Mass/Score 138.8 Basal Metabolic Rate/Score 2,111 Intake Visit Reasons: (OV) Re-Establish [facility] Joint Creaser Required: No Allergies cephalexin [From KEFLEX] Allergy (Unknown, Verified 01/07/23 08:35) ANAPHYLAXIS Sulfa (Sulfonamide Antibiotics) Allergy (Unknown, Verified 01/07/23 08:35) rash,swelling sulfamethoxazole [From BACTRIM] Allergy (Unknown, Verified 01/07/23 08:35) ANAPHYLAXIS trimethoprim [From BACTRIM] Allergy (Unknown, Verified 01/07/23 08:35) ANAPHYLAXIS Medication List - Last Reconciled 01/07/23 by AJ Norton albuterol sulfate 90 mcg/actuation 1 inh inhalation QID PRN bupropion HCl 75 mg PO QAM dabymulsyj-jpllutmjjbvym-pyyk 50-300-40 mg (Fioricet) 1 cap PO Q6H PRN cholecalciferol (vitamin D3) 125 mcg PO DAILY cyanocobalamin (vitamin B-12) 500 mcg PO DAILY hydroxyzine HCl 25 mg PO BID PRN 30 days magnesium oxide 400 mg PO BEDTIME 30 days meclizine 25 mg PO DAILY PRN 30 days riboflavin (vitamin B2) 400 mg PO DAILY 30 days sertraline 100 mg PO DAILY sumatriptan succinate 50 - 100 mg orally at onset of headache, may repeat in 2 hrs PRN; max 2 tabs per day or 4 tabs/week (may take with Ibuprofen) 30 days valacyclovir 1,000 mg PO DAILY HPI HPI Comments History of Present Illness Details 37-year-old female returns to the [facility] to reestablish care. She was seen from March through May 2022 with a 1 lb weight gain. Last known weight in May of 2022 was 271.4 lb. Weight today is 289.2 lb with a BMI of 48.1. She states that she had to withdraw from the program in May to address mental health issues which she feels she has successfully done. She has obtained a new behavior health therapist and has been started on new medications that have substantially helped her mental well-being and she feels as though she is now in a much better place and able to commit to the surgical weight loss program. Has body composition scale and will communicate weights weekly. Meal plan: nothing organized Drinking 128 oz daily, no soda or juice Exercise: joined [employer], 3 x per week, willing to join [employer] [facility] Medical History Immunization due NATALIE (generalized anxiety disorder) Physical exam Migraine with aura Allergic rhinitis Asthma Dizziness Surgical History No history of previous surgery Family History Father Diabetes mellitus HTN (hypertension) Mother Diabetes mellitus HTN (hypertension) Maternal Grandmother Diabetes mellitus Paternal Grandmother Diabetes mellitus Brother Diabetes mellitus Brother Diabetes mellitus Social History Housing: House Alcohol intake: current Alcohol intake frequency: holidays/special occasions only Patient Tobacco Use Status: Never used Tobacco e-Cigarette/Vaping Use: Never Used Second Hand Smoke Exposure: No service: No Current occupational status: employed Current occupational exposures/hazards: No Gender identity: Female Cognitive needs: No Hearing needs: No Vision needs: No Female Reproductive History Menstrual Age of Menarche: 12 Review of Systems Const All systems reviewed & are unremarkable except as noted in HPI and below Physical Exam Vital Signs: Last Vital Signs Temp 95.8 F L 01/07/23 08:39 Pulse 77 01/07/23 08:39 BP 135/71 01/07/23 08:39 Pulse Ox 98 01/07/23 08:39 Oxygen Delivery Method Room Air 01/07/23 08:39 BMI result Body Mass Index 48.1 Const General: cooperative, healthy appearing and no acute distress Orientation/consciousness: patient oriented x3 HEENT Head: Yes normal to inspection Ears: hearing grossly normal bilaterally General nose exam: Normal external nose present Face and sinus: Yes normal facial exam Eyes General: appearance normal, both eyes and all related structures Resp Effort & Inspection: normal respiratory effort Auscultation: clear to auscultation bilaterally Cardio Rate: regular rate Rhythm: regular rhythm Heart sounds: S1 normal heart sound present and S2 normal heart sound present GI Inspection: Yes normal to inspection, No distended and Yes obesity Palpation (GI): Soft to palpation, nontender and no guarding Auscultation: normal bowel sounds Skin General skin exam: no rashes or lesions noted Neuro General: patient oriented x3 Extrem General: No edema Psych Appearance: grossly normal Mental Status: mental status grossly normal Speech and movement: Normal speech and movement present Affect: normal affect Attitude: cooperative Assessment & Plan Assessment & Plan (1) Obesity, morbid, BMI 40.0-49.9: Code(s): E66.01 - Morbid (severe) obesity due to excess calories Plan: This is a?37 yo female who will start our SWL program to prepare for bariatric surgery.? Blood work, h pylori , CXR, ECG, Abd US and UGI have been ordered. She is being scheduled for RD and BH initial consultations. She will start SWL classes and watch the first three videos before her next appointment. ? Adequate sleep of 7-8 hours per night discussed, awakening at 06:00 and going to bed around 9:00 ? You mentioned that you have purchased a body composition scale, so be sure and check weight weekly. The best time to do this is first thing in the morning after going to the bathroom. 1. Nutritional counseling: Be sure to careful read the number of scoops per shake Start with 2 Celebrate Rebuild shakes ([facility] [employer], [employer], [employer]), (2 scoops in 20 oz unsweetened almond milk) First shake at 7am-9am, Second shake at 10am-12pm 2 protein bar ([employer]scape[employer] bars at [facility] [employer], [employer], [employer]) First bar at 12pm-2pm. Second bar at 3pm-5pm Dinner at 6pm (10 forks of protein and 10 forks of salad/vegetables). Meal to include lean meat (beef, fish, pork, turkey, chicken), cooked vegetables or a salad with olive oil and/or fruits (berries, pears, apples, kiwi). Avoid salt, breads, potatoes, rice, pasta, desserts. Try to drink 64 oz of water daily and avoid soda and juices. ?2. Each shake would be drunk slowly, like coffee in a period of 2 hours. ?3. Cut each bar in 4 pieces and eat each piece in 30 min ?to make each bar last 2 hours. ?4. I emphasized the importance of measuring accurately the food portion and measure it carefully when serving the food on the plate ?5. The meal portions include 10 full-size forks of meat and 10 full-size forks of salad. You always eat the meat portion but you can replace up to half of the forks of salad/vegetables with rice, potatoes or pasta, or a fruit ?if you like. The less you do it the better weight loss will be. ?6. One full-size fork is what can be scooped on the fork without falling aside and not what can be bit with the fork. Use regular forks like those you find in a typical restaurant. ?7.? Please send me weight measurements as soon as possible and then once a week. Always include your diet and exercise plan. Alternatively come weekly at the office for weight checks and send me the measurements. ?8. Exercise counseling: Begin by watching a stretching for beginners video. Start slowly and begin to stretch your muscles. You should do this before and after each exercise session to prevent injury. Please join [employer] [facility] near your home. Ask the territory account manager or one of the trainers how to use the machines if you are unfamiliar with them. Start elliptical with a resistance of 2. Increase resistance by 1 every 3 min to your most comfortable resistance with a max resistance of 8. Reduce the resistance by 1 every 3 minutes back down to 2 and repeat cycles for 300 calories. Alternatively, start treadmill with a speed of 3.0 and incline of 0, increasing incline by 1 every 3 minutes to the highest comfortable level (max 6 for now) then decrease in the same fashion. Repeat p rocess to a goal of 300 calories. Goal of 2000 calories burned or more weekly. You may also consider use of the stationary bike. The easiest would be to chose the fat-burn or interval training program on the machine and do this until you reach the 300 calorie goal. Alternatively, you can manually adjust the resistance in a similar fashion as mentioned above, (resistance of 2-8 with a goal speed of 12 mph). Tracking calories is essential. 9. Alternatively start walking outside daily, tracking calories with a goal of 300 calories per day, daily. You can download the benedict [employer] which can track your time, distance and calories while walking outside. You press start in the benedict when you start and then stop when you are finished. 10.? It is important to communicate by text with me weekly including your weight measurements from your scale and if you are having any issues with the plans 11. Please get labs, EKG and chest X-Ray within 1 week. 12. Discussed and answered all questions regarding?obtained consent to participate in the [place] [facility]?Registry. 13. Please follow the diet plan exactly, without any change. If you do not like something about the plan or you feel hungry, you need to communicate with me so I can help you revise the plan. You should not change the plan yourself. Text me at [phone] 14. Goal is to lose at least 12 pounds in the first month 15. Goal is to lose 10% of your weight before surgery, which is about 29 lbs. Ultimate weight goal: 260 lbs before surgery Patient is morbidly obese and is not considered stable at this time.?I spent a total of 70 minutes reviewing/updating records, examining the patient and counseling the patient on weight management as detailed above. Orders: Orders Lipid Panel Today E53.8 - Deficiency of other specified B group vitamins, E55.9 - Vitamin D deficiency, unspecified, E66.01 - Morbid (severe) obesity due to excess calories IRON PROFILE Today E53.8 - Deficiency of other specified B group vitamins, E55.9 - Vitamin D deficiency, unspecified, E66.01 - Morbid (severe) obesity due to excess calories Complete Blood Count Auto Diff Today E53.8 - Deficiency of other specified B group vitamins, E55.9 - Vitamin D deficiency, unspecified, E66.01 - Morbid (severe) obesity due to excess calories Zinc Today E53.8 - Deficiency of other specified B group vitamins, E55.9 - Vitamin D deficiency, unspecified, E66.01 - Morbid (severe) obesity due to excess calories Vitamin A Today E53.8 - Deficiency of other specified B group vitamins, E55.9 - Vitamin D deficiency, unspecified, E66.01 - Morbid (severe) obesity due to excess calories C Reactive Protein Today E53.8 - Deficiency of other specified B group vitamins, E55.9 - Vitamin D deficiency, unspecified, E66.01 - Morbid (severe) obesity due to excess calories PTHI Today E53.8 - Deficiency of other specified B group vitamins, E55.9 - Vitamin D deficiency, unspecified, E66.01 - Morbid (severe) obesity due to excess calories Vitamin D 25-OH Total Today E53.8 - Deficiency of other specified B group vitamins, E55.9 - Vitamin D deficiency, unspecified, E66.01 - Morbid (severe) obesity due to excess calories Hemoglobin A1c Today E53.8 - Deficiency of other specified B group vitamins, E55.9 - Vitamin D deficiency, unspecified, E66.01 - Morbid (severe) obesity due to excess calories US abdomen comp w elastography Today E53.8 - Deficiency of other specified B group vitamins, E55.9 - Vitamin D deficiency, unspecified, E66.01 - Morbid (severe) obesity due to excess calories XR chest 2V Today E53.8 - Deficiency of other specified B group vitamins, E55.9 - Vitamin D deficiency, unspecified, E66.01 - Morbid (severe) obesity due to excess calories FL upper GI w air Today E53.8 - Deficiency of other specified B group vitamins, E55.9 - Vitamin D deficiency, unspecified, E66.01 - Morbid (severe) obesity due to excess calories Insulin Today E53.8 - Deficiency of other specified B group vitamins, E55.9 - Vitamin D deficiency, unspecified, E66.01 - Morbid (severe) obesity due to excess calories Vitamin B12 and Folate Today E53.8 - Deficiency of other specified B group vitamins, E55.9 - Vitamin D deficiency, unspecified, E66.01 - Morbid (severe) obesity due to excess calories Comprehensive Met. Panel Today E53.8 - Deficiency of other specified B group vitamins, E55.9 - Vitamin D deficiency, unspecified, E66.01 - Morbid (severe) obesity due to excess calories Vitamin B1 Today E53.8 - Deficiency of other specified B group vitamins, E55.9 - Vitamin D deficiency, unspecified, E66.01 - Morbid (severe) obesity due to excess calories Ferritin Today E53.8 - Deficiency of other specified B group vitamins, E55.9 - Vitamin D deficiency, unspecified, E66.01 - Morbid (severe) obesity due to excess calories TSH reflex Free T4 Today E53.8 - Deficiency of other specified B group vitamins, E55.9 - Vitamin D deficiency, unspecified, E66.01 - Morbid (severe) obesity due to excess calories H Pylori Breath Test Today E53.8 - Deficiency of other specified B group vitamins, E55.9 - Vitamin D deficiency, unspecified, E66.01 - Morbid (severe) obesity due to excess calories ECG 12 lead EKG Today E53.8 - Deficiency of other specified B group vitamins, E55.9 - Vitamin D deficiency, unspecified, E66.01 - Morbid (severe) obesity due to excess calories Referrals Nutrition/Dietitian Referral E53.8 - Deficiency of other specified B group vitamins, E55.9 - Vitamin D deficiency, unspecified, E66.01 - Morbid (severe) obesity due to excess calories Behavioral Health Referral E53.8 - Deficiency of other specified B group vitamins, E55.9 - Vitamin D deficiency, unspecified, E66.01 - Morbid (severe) obesity due to excess calories Coding Level of Care Code Est Pt Level 5 (92057) Diagnoses Obesity, morbid, BMI 40.0-49.9 E66.01 Time Spent (min) 75
[2023-01-07 08:39] VITALS: BP 135/71; PULSE 77; TEMP 35.4; O2SAT 98; BMI 48.1
== END 2023-01-07 09:16 | disposition home or self-care (01) ==
PROVIDERS: PCP Internal Medicine; Visit Provider Physician Assistant Surgical
DX: E66.01 Morbid (severe) obesity due to excess calories (principal); Z68.42 Body mass index [BMI] 45.0-49.9, adult
CPT/HCPCS: 99215

== ENCOUNTER → 2023-01-07 08:31 | Outpatient (BNVA) | payer OTHER, SELFPAY | PROVIDERS: PCP Internal Medicine; Visit Provider Physician Assistant Surgical ==

== ENCOUNTER → 2023-01-24 15:00 | Outpatient (BNVA) | payer OTHER, SELFPAY | PROVIDERS: PCP Internal Medicine; Visit Provider Dietitian, Registered | DX: E66.01 Morbid (severe) obesity due to excess calories (principal); E53.8 Deficiency of other specified B group vitamins; E55.9 Vitamin D deficiency, unspecified; Z83.3 Family history of diabetes mellitus; Z71.3 Dietary counseling and surveillance | CPT/HCPCS: 97802 ==

== ENCOUNTER 2023-01-28 13:41 | Outpatient (REF) | payer OTHER, SELFPAY ==
--- NOTE | 2023-01-28 13:48 | ECG_ITS ---
Test Reason : E66.01 Blood Pressure : / mmHG Vent. Rate : 070 BPM Atrial Rate : 070 BPM P-R Int : 146 ms QRS Dur : 082 ms QT Int : 390 ms P-R-T Axes : 048 050 052 degrees QTc Int : 421 ms Normal sinus rhythm Normal ECG When compared with ECG of 01-JUN-2022 08:23, No significant change was found Referred By: Parag Lee Electronically Signed By:SHEMAR MARTINEZ MD
[2023-01-28 14:02] LABS: MANUAL DIFF FLAG NO
[2023-01-28 14:12] LABS: Basophils Percent Auto 0.2 % (0-2); Eosinophils Absolute Auto 0.1 X10*3/uL (0.0-0.4); Eosinophils Percent Auto 0.9 % (0-4); Hematocrit 39.4 % (37.0-47.0); Hemoglobin 12.9 g/dl (12.0-16.0); Imm Gran Abs Auto 0.01 X10*3/uL (0.00-0.03); Imm Gran Pct Auto 0.2 % (0.0-0.4); Lymphocytes Absolute Auto 1.8 X10*3/uL (1.2-4.9); Lymphocytes Percent Auto 28.2 % (20-40); Mean Corpuscular HGB Conc 32.7 g/dl (31.0-35.0); Mean Corpuscular Hemoglobin 26.6 pg (27.0-33.0); Mean Corpuscular Volume 81.2 fL (80.0-98.0); Mean Platelet Volume 9.9 fL (9.4-12.3); Monocytes Absolute Auto 0.4 X10*3/uL (0.1-1.2); Monocytes Percent Auto 5.8 % (2-11); Neutrophils Absolute Auto 4.1 x10*3/uL (2.0-8.3); Neutrophils Percent Auto 64.7 % (45-73); Platelet Count 290 X10*3/uL (160-400); Red Blood Count 4.85 X10*6/uL (4.20-5.50); White Blood Count 6.3 X10*3/uL (4.8-10.8)
[2023-01-28 14:45] LABS: Estimated Average Glucose 97 mg/dL
[2023-01-28 15:24] LABS: Alanine Aminotransferase 21 U/L (0-31); Albumin Level 3.9 g/dL (3.5-5.0); Alkaline Phosphatase 84 U/L (39-117); Anion Gap 11 (12-20); Aspartate Amino Transferase 21 U/L (5-31); Bilirubin Total 0.6 mg/dL (0.0-1.0); Blood Urea Nitrogen 6 mg/dL (9-16); C Reactive Protein 2.68 mg/dL (< or = 0.50); Calcium 9.2 mg/dL (8.4-10.2); Carbon Dioxide 25 mmol/L (22-29); Chloride 106 mmol/L (96-108); Cholesterol 195 mg/dL (<200); Estimated Glomerular Filt Rate > 60; Glucose Random 90 mg/dL (60-115); HDL Cholesterol 38 mg/dL (>40); Iron 78 mcg/dL (30-160); LDL Cholesterol Calculated 131 mg/dL (<100); Percent Iron Saturation 28 % (15-50); Potassium 3.7 mmol/L (3.3-5.1); Sodium 138 mmol/L (135-145); Total Iron Binding Capacity 275 mcg/dL (228-428); Total Protein 7.3 g/dL (6.5-8.0); Triglycerides 130 mg/dL (<150); Unsaturated Iron Binding 197 ug/dL
[2023-01-28 15:29] LABS: Ferritin 84 ng/mL (10-122); Insulin 18 uU/mL (2-29); TSH reflex Free T4 1.26 uIU/mL (0.32-4.0); Vitamin D 25-OH Total 31.6 ng/mL (>30)
[2023-01-28 15:41] LABS: Folate 8.6 ng/mL (> or = 4.0); Vitamin B12 458 pg/mL (200-900)
[2023-01-31 11:53] LABS: Calcium (PTHI) 9.3 mg/dL (8.6-10.2); PTHI 57 pg/mL (16-77)
[2023-02-01 00:52] LABS: Zinc 75 mcg/dL (60-130)
[2023-02-01 17:57] LABS: Vitamin A 30 mcg/dL (38-98)
[2023-02-03 08:54] LABS: Vitamin B1 9 nmol/L (8-30)
== END 2023-01-28 13:42 | disposition home or self-care (01) ==
LOC: HO.LAB 13:41
PROVIDERS: PCP Internal Medicine; Visit Provider Physician Assistant Surgical
DX: E66.01 Morbid (severe) obesity due to excess calories (principal); E55.9 Vitamin D deficiency, unspecified; E53.8 Deficiency of other specified B group vitamins
CPT/HCPCS: 36415; 80053; 80061; 82306; 82607; 82728; 82746; 83036; 83525; 83540; 83970; 84425; 84443; 84590; 84630; 85025; 86140; 93005

== ENCOUNTER 2023-01-31 16:16 | Outpatient (AMB) | payer OTHER, SELFPAY ==
--- NOTE | 2023-01-31 10:51 | A.OFFVIS_ITS ---
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 Allergies cephalexin [From KEFLEX] Allergy (Unknown, Verified 01/07/23 08:35) ANAPHYLAXIS Sulfa (Sulfonamide Antibiotics) Allergy (Unknown, Verified 01/07/23 08:35) rash,swelling sulfamethoxazole [From BACTRIM] Allergy (Unknown, Verified 01/07/23 08:35) ANAPHYLAXIS trimethoprim [From BACTRIM] Allergy (Unknown, Verified 01/07/23 08:35) ANAPHYLAXIS Medication List - Last Reconciled 01/31/23 by AJ Norton albuterol sulfate 90 mcg/actuation 1 inh inhalation QID PRN bupropion HCl 75 mg PO QAM smijeaczge-eblstcqzpzfit-zbhp 50-300-40 mg (Fioricet) 1 cap PO Q6H PRN cholecalciferol (vitamin D3) 125 mcg PO DAILY cyanocobalamin (vitamin B-12) 500 mcg PO DAILY hydroxyzine HCl 25 mg PO BID PRN 30 days magnesium oxide 400 mg PO BEDTIME 30 days meclizine 25 mg PO DAILY PRN 30 days riboflavin (vitamin B2) 400 mg PO DAILY 30 days sertraline 100 mg PO DAILY sumatriptan succinate 50 - 100 mg orally at onset of headache, may repeat in 2 hrs PRN; max 2 tabs per day or 4 tabs/week (may take with Ibuprofen) 30 days valacyclovir 1,000 mg PO DAILY HPI HPI Comments History of Present Illness Details The patient is a pleasant 37 year old female who returns to the clinic for pre-operative surgical weight loss management. They were last seen in the office on 01/07/23, recorded weight at that time was 289.2 pounds, with a BMI of 48.1. Today's weight is 289 pounds and BMI is 48.1. There has been a weight loss of 0.2 pounds since initiating the surgical weight loss program on 01/07/23 with a total body weight loss of 0.06 %. Pre op work up completed as follows: SWL classes:? []/8 BH appts: 02/01/23 ? ? RD appts: f/u 03/09/23 Labs: 01/28/23-B12:458 H. pylori: 02/01/23 CXR: not yet done EK01/28/23-normal ABD U/S: 02/08/23 UGI: 03/29/23 The patient reports she is doing well. She had rice a couple of times. She did not start the meal plan until about 2.5 weeks ago. She has been using 8 oz of almond milk per shake. The patient does have a body composition scale, but has not set it up yet. They also have not been communicating weekly. She has not been follwoing the plan exactly as she has been having the bars between shakes Current meal plan includes: 2 Celebrate Rebuild shakes, (2 scoops in 20 oz unsweetened almond milk) First shake at 7am-9am, Second shake at 10am-12pm 2 protein bar (Celebrate bars at [facility] [employer], [employer], [employer]) First bar at 12pm-2pm. Second bar at 3pm-5pm Dinner at 6pm (10 forks of protein and 10 forks of salad/vegetables). Drinking 40 oz of water, no soda or juice Current exercise plan includes: 2 x per week, PF, elliptical, 300 calori es, job requiring training at this time PFSH Medical History Immunization due NATALIE (generalized anxiety disorder) Physical exam Migraine with aura Allergic rhinitis Asthma Dizziness Surgical History No history of previous surgery Family History Father Diabetes mellitus HTN (hypertension) Mother Diabetes mellitus HTN (hypertension) Maternal Grandmother Diabetes mellitus Paternal Grandmother Diabetes mellitus Brother Diabetes mellitus Brother Diabetes mellitus Social History Housing: House Alcohol intake: current Alcohol intake frequency: holidays/special occasions only Patient Tobacco Use Status: Never used Tobacco e-Cigarette/Vaping Use: Never Used Second Hand Smoke Exposure: No service: No Current occupational status: employed Current occupational exposures/hazards: No Gender identity: Female Cognitive needs: No Hearing needs: No Vision needs: No Female Reproductive History Menstrual Age of Menarche: 12 Assessment & Plan Assessment & Plan (1) Obesity, morbid, BMI 40.0-49.9: Code(s): E66.01 - Morbid (severe) obesity due to excess calories Plan: Patient was encouraged to re read the e-mail that I sent her on 01/07/2023 as this has a very detailed and explicit schedule to follow. She was additionally encouraged to go to the gym more frequently than twice a week, reminded the goal is 300 calories per day, 2000 calories per week. Given her current work requirements this has been challenging but she states that she is going to be off of training soon and will be able to spend more time at the gym. She was additionally encouraged to download the benedict for the body composition scale and continue texting weekly her weight. Telehealth Telehealth Location of provider rendering services: practice address Location of patient: address on file Patient Identification confirmed using: Name, : Yes Telehealth method: voice only Patient verbally consented to treatment: Yes Patient verbally consented to billing insurance company: Yes Patient informed of any privacy concerns related to visit: Yes Minutes spent on Phone/Video with Pt.: 15 Coding Level of Care Code Tele Est Pt Level 3 (61194) Diagnoses Obesity, morbid, BMI 40.0-49.9 E66.01 Time Spent (min) 20
[2023-01-31 10:52] VITALS: BMI 48.1
== END 2023-01-31 16:19 | disposition home or self-care (01) ==
LOC: HO.HBS 16:16
PROVIDERS: PCP Internal Medicine; Visit Provider Physician Assistant Surgical
DX: E66.01 Morbid (severe) obesity due to excess calories (principal)
CPT/HCPCS: 99213

== ENCOUNTER → 2023-01-31 16:16 | Outpatient (BNVA) | payer OTHER, SELFPAY | PROVIDERS: PCP Internal Medicine; Visit Provider Physician Assistant Surgical ==

== ENCOUNTER 2023-02-01 12:30 | Outpatient (AMB) | payer OTHER, SELFPAY ==
--- NOTE | 2023-02-01 12:42 | A.OFFWM_ITS ---
Intake Intake Visit Reasons: VIDEO BH Intake Allergies cephalexin [From KEFLEX] Allergy (Unknown, Verified 01/07/23 08:35) ANAPHYLAXIS Sulfa (Sulfonamide Antibiotics) Allergy (Unknown, Verified 01/07/23 08:35) rash,swelling sulfamethoxazole [From BACTRIM] Allergy (Unknown, Verified 01/07/23 08:35) ANAPHYLAXIS trimethoprim [From BACTRIM] Allergy (Unknown, Verified 01/07/23 08:35) ANAPHYLAXIS [facility] Medical History Immunization due NATALIE (generalized anxiety disorder) Physical exam Migraine with aura Allergic rhinitis Asthma Dizziness Surgical History No history of previous surgery Family History Father Diabetes mellitus HTN (hypertension) Mother Diabetes mellitus HTN (hypertension) Maternal Grandmother Diabetes mellitus Paternal Grandmother Diabetes mellitus Brother Diabetes mellitus Brother Diabetes mellitus Housing: House Alcohol intake: current Alcohol intake frequency: holidays/special occasions only Patient Tobacco Use Status: Never used Tobacco e-Cigarette/Vaping Use: Never Used Second Hand Smoke Exposure: No service: No Current occupational status: employed Current occupational exposures/hazards: No Gender identity: Female Cognitive needs: No Hearing needs: No Vision needs: No Female Reproductive History Menstrual Age of Menarche: 12 Behavioral Health Assessment Weight Management Therapy Therapy Notes Details Patient is in therapy with Dr. Brewer at [facility] as well as the perscriber Chani Shultz. She is being treated for depression and anxiety as well as panic attacks. She reported improvement in her symptoms since starting treatment there. She has no history of inpatient psychiatric admissions or hx of disordered eating. She has no hx of alcohol or drug abuse. Pt stated that after working in a difficult job environment for years, she started to struggle with her mental health. Presenting Concerns Referral Source provider Reason for referral weight loss surgery evaluation Precipitating Event obesity Living Situation Current Living Situation Rent At risk of losing current housing? No Satisfied with current living situation? Yes Comments Pt lives with her two children 15 and 9 years old. She is from her for 4 years now and they co-parent together. Food/Weight/Diet Expectations of change weight loss and maintenance History/Relationship with food Pt stated that her biggest issue is that she snacks a lot on candy, chips, baked goods, juices. Also will skip meals, eat fast, over eat, emotional eat, binge eat (one week). History/Relationship with weight Patient stated that she has been overweight all of her life. She is currently at her heaviest. History/Relationship with dieting no hx of dieting. At age 16 she lost weight due to walking to work twice a day and not eating as much. Binge Eating Do you frequently eat large amounts of food in short periods of time, not feeling physically hungry? Yes Do you feel out of control when you eat a large amount of food in a short period of time? Yes Do you eat large amounts of food rapidly and typically alone? Yes Night Eating Do you wake up at least once during the night to eat? No If you wake up in the night, do you find that it is necessary to eat something in order to fall back asleep? No Do you have little or no appetite in the morning and feel very hungry in the evening, often overeating between dinner and when you go to bed? Yes Social History Family history and relationship Pt reported that she was born and raised by her mother with her sister. Patient reported trauma in her childhood. She has two children and is from her . 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 none reported Education Highest grade completed 12 th grade Preferred learning style Auditory, Verbal, Written, Learn by doing and Visual Currently enrolled in educational program? No Interested in further educational program? 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 No Financial Situation Describe current financial situation Occasional struggle Financial assistance? None Service Service? No Mental Health and Addiction Treatment Current/Past substance abuse? No Current/Past addictive behavior concerns? No Medical and Physical Health Summary Physical exam in the last year? Yes Pain Screening Current pain? No Pain in the last few months? No Medications Is the patient compliant with medications? Yes Does the patient have [place] Guardian in place? Not applicable Does the patient use complimentary health approaches? No Trauma/Abuse History History of trauma? Yes Questionnaires PHQ-9 Over the last 2 weeks, how often have you been bothered by any of the following problems? 1. Little interest or pleasure in doing things: several days 2. Feeling down, depressed, or hopeless: not at all 3. Trouble falling or staying asleep, or sleeping too much: nearly every day 4. Feeling tired or having little energy: nearly every day 5. Poor appetite or overeating: more than half the days 6. Feeling bad about yourself - or that you are a failure or have let yourself or your family down: not at all 7. Trouble concentrating on things, such as reading the newspaper or watching television: more than half the days 8. Moving or speaking so slowly that other people could have noticed. Or the opposite - being so fidgety or restless that you have been moving around a lot more than usual: more than half the days 9. Thoughts that you would be better off or of hurting yourself in some way: not at all Total score: 13 Depression Screening Interpretation: Positive Depression Screening Done: Yes Source: Developed by Drs. Edd Madison, Bushra Burdick, El Esposito and colleagues, with an educational delmer from [employer]. Binge Eating Scale Group 1 A. I don't feel self-conscious about my wt. or body size when I'm with others. B. I feel concerned about how I look to others, but it normally does not make me fell disappointed with myself C. I do get self-conscious about my appearance and wt. which makes me feel disappointed in myself. D. I feel very self-conscious about my wt. and frequently I feel intense shame and disgust for myself. I try to avoid social contacts because of my self- consciousness. Response Group 1: B Group 2 A. I don't have any difficulty eating slowly in the proper manner. B. Although I seem to gobble down foods, I don't end up feeling stuffed because of eating to much. C. At times, I tend to eat quickly and then, I feel uncomfortably full afterwards. D. I have the habit of bolting down my food, without really chewing it. When this happens I usually feel uncomfortably stuffed because I've eaten to much. Response Group 2: D Group 3 A. I feel capable to control my eating urges when I want to. B. I feel like I have failed to control my eating more than the average person. C. I feel utterly helpless when it comes to feeling in control of my eating urges. D. Because I feel so helpless about controlling my eating I have become very desperate about trying to get control. Response Group 3: C Group 4 A. I don't have the habit of eating when I'm bored. B. I sometimes eat when I'm bored, but often I'm able to get busy and get my mind off food. C. I have a regular habit of eating when I'm bored, but occasionally, I can use some other activity to get my mind off eating. D. I have a strong habit of eating when I'm bored. Nothing seems to help me breath the habit. Response Group 4: B Group 5 A. I'm usually physically hungry when I eat something. B. Occasionally, I eat something on impulse even though I really am not hungry. C. I have the regular habit of eating foods, that I might not really enjoy, to satisfy a hungry feeling even though physically, I don't need the food. D. Although I'm not physically hungry, I get a hungry feeling in my mouth that only seems to be satisfied when I eat a food, like sandwich, that fills my mouth. Sometimes, when I eat the food to satisfy my mouth hunger, I then spit the food out so I won't gain weight. Response Group 5: C Group 6 A. I don't feel any guilt or self-hate after I overeat. B. After I overeat, occasionally I feel guilt or self-hate. C. Almost all the time I experience strong guilt or self-hate after I overeat. Response Group 6: C Group 7 A. I don't lose total control of my eating when dieting even after periods when I overeat. B. Sometimes when I eat a forbidden food on a diet, I feel like I blew it and eat even more. C. Frequently, I have the habit of saying to myself, I've blown it now, why not go all the way, when I overeat on a diet. When that happens I eat more. D. I have a regular habit of starting a strict diets for myself but I break the diets by going on an eating binge. My life seems to be either a feast or famine. Response Group 7: C Group 8 A. I rarely eat so much food that I feel uncomfortably stuffed afterwards. B. Usually about once a month, I each such a quantity of food, I end up feeling very stuffed. C. I have regular periods during the month when I eat large amounts of food, either at mealtime or at snacks. D. I eat so much food that I regularly feel quite uncomfortable after eating and sometimes a bit nauseous. Response Group 8: C Group 9 A. My level of calorie intake does not go up very high or go down very low on a regular basis. B. Sometimes after I overeat, I will try to reduce my caloric intake to almost nothing to compensate for the excess calories I've eaten. C. I have a regular habit of overeating during the night. It seems that my routine is not to be hungry in the morning but overeat in the evening. D. In my adult years, I have had week-long periods where I practically starve myself. This follows periods when I overeat. It seems I live a life of either feast or famine. Response Group 9: B Group 10 A. I usually am able to stop eating when I want to. I know when enough is enough. B. Every so often, I experience a compulsion to eat which I can't seem to control. C. Frequently, I experience strong urges to eat which I seem unable to control, but at other times I can control my eating urges. D. I feel incapable of controlling urges to eat. I have a fear of not being able to stop eating voluntarily. Response Group 10: B Group 11 A. I don't have any problem stopping eating when I feel full. B. I usually can stop eating when I feel full but occasionally overeat leaving me feeling uncomfortably stuffed. C. I have a problem stopping eating once I start and usually I feel uncomfo rtably stuffed after I eat a meal. D. Because I have a problem not being able to stop eating when I want, I sometimes have to induce vomiting to relieve my stuffed feeling. Response Group 11: B Group 12 A. I seem to eat just as much when I'm with others, Family social gatherings as when I'm by myself. B. Sometimes, when I'm with other persons, I don't eat as much as I want to eat because I'm self-conscious about my eating. C. Frequently, I eat only a small amount of food when others are present, because I'm very embarrassed about my eating. D. I feel so ashamed about overeating that I pick times to overeat when I know no one will see me. I feel like a closet eater. Response Group 12: C Group 13 A. I eat three meals a day with only an occasional between meal snack. B. I eat 3 meals a day, but I also normally snack between meals. C. When I am snacking heavily, I get in the habit of skipping regular meals. D. There are regular periods when I seem to be continually eating, with no planned meals. Response Group 13: C Group 14 A. I don't think much about trying to control unwanted eating urges. B. At least some of the time, I feel my thoughts are pre-occupied with trying to control my eating urges. C. I feel that frequently I spend much time thinking about how much I ate or about trying not to eat anymore. D. It seems to me that most of my waking hours are pre-occupied by thoughts about eating or not eating. I feel like I'm constantly struggling not to eat. Response Group 14: B Group 15 A. I don't think about food a great deal. B. I have strong craving for food but they last only for brief periods of time. C. I have days when I can't seem to think about anything else but food. D. Most of my days seem to be pre-occupied with thoughts about food. I feel like I live to eat. Response Group 15: B Group 16 A. I usually know whether or not I'm physically hungry. I take the right portion of food to satisfy me. B. Occasionally, I feel uncertain about knowing whether or not I'm physically hungry. A these times it's hard to know how much food I should take to satisfy me. C. Even though I might know how many calories I should eat, I don't have any idea what is a normal amount of food for me. Response Group 16: C Binge Eating Score: 26 Score less than 17 Minimal Risk Score between 18-26 Moderate Risk Score between 27-46 High Risk Assessment & Plan Assessment & Plan (1) Moderate recurrent major depression: Code(s): F33.1 - Major depressive disorder, recurrent, moderate Plan Patient is aware of how her mental health symptoms (binge eating, emotional eating, depression, trauma) could impact her later on in regards to weight loss surgery and weight regain. She understands that she needs to continue working with her providers on healing and improving symptoms. She will be seen again. Telehealth Telehealth Location of provider rendering services: other Location of patient: other Patient Identification confirmed using: Name, : Yes Telehealth method: video Patient verbally consented to treatment: Yes Patient verbally consented to billing insurance company: Yes Patient informed of any privacy concerns related to visit: Yes Minutes spent on Phone/Video with Pt.: 45 Coding Level of Care Code Tele Psy Diag Yamsineal ([id number]) Diagnoses Moderate recurrent major depression F33.1 Time Spent (min) 45
== END 2023-02-01 13:23 | disposition home or self-care (01) ==
LOC: HO.HBST 12:43
PROVIDERS: PCP Internal Medicine; Visit Provider Counselor Mental Health
DX: F33.1 Major depressive disorder, recurrent, moderate (principal)
CPT/HCPCS: 90791

== ENCOUNTER → 2023-02-01 12:30 | Outpatient (BNVA) | payer OTHER, SELFPAY | PROVIDERS: PCP Internal Medicine; Visit Provider Counselor Mental Health ==

== ENCOUNTER 2023-02-08 09:44 | Outpatient (REF) | payer OTHER, SELFPAY ==
--- NOTE | ~2023-02-08 | US_ITS ---
EXAMINATION: US COMPLETE ABDOMEN WITH LIVER ELASTOGRAPHY CLINICAL INFORMATION: Morbid obesity. COMPARISON: Abdominal ultrasound dated 08/07/2008. TECHNIQUE: Real-time imaging of the abdominal viscera. Noninvasive ultrasound liver fibrosis assessment is performed using [employer]ast[employer] point quantification shear wave elastography (2D-SWE) with a C5-2 MHz transducer. Multiple elastography samples are obtained. FINDINGS: PANCREAS: Limited. The visualized pancreatic head and body are normal in appearance. The remainder of the pancreas is obscured from visualization by the overlying bowel gas. ABDOMINAL AORTA: The proximal, middle, and distal aortic segments are normal in caliber. INFERIOR VENA CAVA: Visualized portions are normal. LIVER: The liver demonstrates normal size, contour and increased echogenicity. No focal lesion or intrahepatic biliary duct dilatation. The right lobe measures 16.0 cm in length. The left lobe measures 11.4 cm in length. Portal flow is towards the liver (hepatopetal). Shear wave liver elastography median stiffness is 1.46 m/s (reference: normal median stiffness is 1.3 m/s or less). IQR/median stiffness to assess sampling precision is 0.11 (reference: good quality data set is IQR/median stiffness of 0.15 or less). GALLBLADDER: Normal. The gallbladder is physiologically distended without evidence of stones, sludge, polyps, wall thickening or pericholecystic fluid. COMMON BILE DUCT: Normal in caliber measuring 0.4 cm in diameter. RIGHT KIDNEY: Normal. No hydronephrosis. No renal calculi or focal parenchymal lesions. The kidney measures 11.4 cm in maximum dimension. LEFT KIDNEY: Normal. No hydronephrosis. No renal calculi or focal parenchymal lesions. The kidney measures 11.5 cm in maximum dimension. SPLEEN: Normal. The spleen measures 10.8 cm in maximum dimension. FREE FLUID: None. US/US abdomen comp w elastography IMPRESSION: 1. There is generalized increase in hepatic echotexture, consistent with fatty infiltration or hepatocellular disease. Please correlate clinically. No focal hepatic mass or intrahepatic biliary dilatation is seen. 2. Liver elastography: In the absence of other known clinical signs, measurements rule out compensated advanced chronic liver disease. If there are known clinical signs, further testing may be needed for confirmation. 3. Technically limited ultrasound examination of the pancreas. REFERENCE: Society of Radiologists in Ultrasound Liver Stiffness Thresholds (2020): LIVER STIFFNESS THRESHOLDS: *Liver Stiffness equal or less than 1.3 m/s: High probability of being normal. *Liver Stiffness less than 1.7 m/s: In the absence of other known clinical signs, rules out compensated advanced chronic liver disease. *Liver Stiffness 1.7-2.1 m/s: Suggestive of compensated advanced chronic liver disease but need further test for confirmation. *Liver Stiffness over 2.1 m/s: Rules in compensated advanced chronic liver disease. *Liver Stiffness over 2.4 m/s: Suggestive of clinically significant portal hypertension. QUALITY OF DATA SET: *IQR/Median value equal or less than 0.15 implies a quality data set. *IQR/Median value over 0.15 implies a poor quality data set. SIGNIFICANT CHANGE FROM PRIOR EXAM: Significant change if liver stiffness measurement is 10% or greater from prior exam. OTHER CONSIDERATIONS: The stage of liver fibrosis may be overestimated in the setting of acute hepatitis, liver inflammation, elevated liver function tests, hepatic vascular congestion, obstructive cholestasis, non-fasting state, and infiltrative diseases such as amyloidosis and lymphoma. In some patients with NAFLD, the liver stiffness thresholds for compensated advanced chronic liver disease may be lower. In causes other than viral hepatitis and NAFLD, liver stiffness thresholds are not well established.
== END 2023-02-08 09:45 | disposition home or self-care (01) ==
LOC: HO.US 09:44
PROVIDERS: PCP Internal Medicine; Visit Provider Physician Assistant Surgical
DX: E66.01 Morbid (severe) obesity due to excess calories (principal); E55.9 Vitamin D deficiency, unspecified; E53.8 Deficiency of other specified B group vitamins
CPT/HCPCS: 76705; 76981

== ENCOUNTER 2023-02-17 12:09 | Outpatient (AMB) | payer OTHER, SELFPAY ==
--- NOTE | 2023-02-17 15:00 | A.OFFWM_ITS ---
Intake Intake Visit Reasons: VIDEO BH F/U Allergies cephalexin [From KEFLEX] Allergy (Unknown, Verified 01/07/23 08:35) ANAPHYLAXIS Sulfa (Sulfonamide Antibiotics) Allergy (Unknown, Verified 01/07/23 08:35) rash,swelling sulfamethoxazole [From BACTRIM] Allergy (Unknown, Verified 01/07/23 08:35) ANAPHYLAXIS trimethoprim [From BACTRIM] Allergy (Unknown, Verified 01/07/23 08:35) ANAPHYLAXIS [facility] Medical History Immunization due NATALIE (generalized anxiety disorder) Physical exam Migraine with aura Allergic rhinitis Asthma Dizziness Surgical History No history of previous surgery Family History Father Diabetes mellitus HTN (hypertension) Mother Diabetes mellitus HTN (hypertension) Maternal Grandmother Diabetes mellitus Paternal Grandmother Diabetes mellitus Brother Diabetes mellitus Brother Diabetes mellitus Social History Housing: House Alcohol intake: current Alcohol intake frequency: holidays/special occasions only Patient Tobacco Use Status: Never used Tobacco e-Cigarette/Vaping Use: Never Used Second Hand Smoke Exposure: No service: No Current occupational status: employed Current occupational exposures/hazards: No Gender identity: Female Cognitive needs: No Hearing needs: No Vision needs: No Female Reproductive History Menstrual Age of Menarche: 12 Behavioral Health Assessment Weight Management Therapy Therapy Notes Details Patient stated that she would like to start exercising more and prioritizing herself. She was thinking of decreasing her hours by not working her second job to full devote to this program and herself. We talked about her past history of trauma and also recent with how it correlates with emotional eating. She has a history of depression, more severe after she broke up with her and lost him and family/community. Patient is in therapy with Dr. Brewer at [facility] as well as the perscriber Chani Shultz. She is being treated for depression and anxiety as well as panic attacks. She reported improvement in her symptoms since starting treatment there. She has no history of inpatient psychiatric admissions or hx of disordered eating. She has no hx of alcohol or drug abuse. Pt stated that after working in a difficult job environment for years, she started to struggle with her mental health. Presenting Concerns Referral Source provider Reason for referral weight loss surgery evaluation Precipitating Event obesity Living Situation Current Living Situation Rent At risk of losing current housing? No Satisfied with current living situation? Yes Comments Pt lives with her two children 15 and 9 years old. She is from her for 4 years now and they co-parent together. Food/Weight/Diet Expectations of change weight loss and maintenance History/Relationship with food Pt stated that her biggest issue is that she snacks a lot on candy, chips, baked goods, juices. Also will skip meals, eat fast, over eat, emotional eat, binge eat (one week). History/Relationship with weight Patient stated that she has been overweight all of her life. She is currently at her heaviest. History/Relationship with dieting no hx of dieting. At age 16 she lost weight due to walking to work twice a day and not eating as much. Binge Eating Do you frequently eat large amounts of food in short periods of time, not feeling physically hungry? Yes Do you feel out of control when you eat a large amount of food in a short period of time? Yes Do you eat large amounts of food rapidly and typically alone? Yes Night Eating Do you wake up at least once during the night to eat? No If you wake up in the night, do you find that it is necessary to eat something in order to fall back asleep? No Do you have little or no appetite in the morning and feel very hungry in the evening, often overeating between dinner and when you go to bed? Yes Social History Family history and relationship Pt reported that she was born and raised by her mother with her sister. Patient reported trauma in her childhood. She has two children and is from her . 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 none reported Education Highest grade completed 12 th grade Preferred learning style Auditory, Verbal, Written, Learn by doing and Visual Currently enrolled in educational program? No Interested in further educational program? 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 No Financial Situation Describe current financial situation Occasional struggle Financial assistance? None Service Service? No Mental Health and Addiction Treatment Current/Past substance abuse? No Current/Past addictive behavior concerns? No Medical and Physical Health Summary Physical exam in the last year? Yes Pain Screening Current pain? No Pain in the last few months? No Medications Is the patient compliant with medications? Yes Does the patient have [place] Guardian in place? Not applicable Does the patient use complimentary health approaches? No Trauma/Abuse History History of trauma? Yes Assessment & Plan Assessment & Plan (1) Moderate recurrent major depression: Code(s): F33.1 - Major depressive disorder, recurrent, moderate Plan Patient is aware of how her mental health symptoms (binge eating, emotional eating, depression, trauma) could impact her later on in regards to weight loss surgery and weight regain. She understands that she needs to continue working with her providers on healing and improving symptoms. Patient sees her therapist monthly. In this marine underwriter's opinion, that is not enough to be able to do active work in the areas of attachment and trauma. She will be seen again and we will work on some of the core struggles. . Telehealth Telehealth Location of provider rendering services: other Location of patient: other Patient Identification confirmed using: Name, : Yes Telehealth method: video Patient verbally consented to treatment: Yes Patient verbally consented to billing insurance company: Yes Patient informed of any privacy concerns related to visit: Yes Minutes spent on Phone/Video with Pt.: 40 Coding Level of Care Code Tele Psytx 45 mins (14565) Diagnoses Moderate recurrent major depression F33.1 Time Spent (min) 40
== END 2023-02-17 15:00 | disposition home or self-care (01) ==
LOC: HO.HBST 12:09
PROVIDERS: PCP Internal Medicine; Visit Provider Counselor Mental Health
DX: F33.1 Major depressive disorder, recurrent, moderate (principal)
CPT/HCPCS: 90834

== ENCOUNTER → 2023-02-17 12:09 | Outpatient (BNVA) | payer OTHER, SELFPAY | PROVIDERS: PCP Internal Medicine; Visit Provider Counselor Mental Health ==

== ENCOUNTER 2023-03-03 08:21 | Outpatient (AMB) | payer OTHER, SELFPAY ==
--- NOTE | 2023-03-03 08:33 | A.OFFPC_ITS ---
Vital Signs 03/03/23 08:34 Height 5 ft 5 in Weight 295 lb 6 oz BMI 49.1 BP 120/72 Blood Pressure Location Lt brachial Position Sitting Pulse 82 Pulse Source Pulse Oximeter Pulse Oximetry (%) 97 Oxygen Delivery Method Room Air Intake Visit Reasons: panic attacks Intake Note: Patient is here to follow up on panic attacks, medication does not always help. Music Worker Required: No Nutrition Internship: Not Required per policy Accompanied by: Self / Same As Patient Allergies cephalexin [From KEFLEX] Allergy (Unknown, Verified 03/03/23 09:11) ANAPHYLAXIS Sulfa (Sulfonamide Antibiotics) Allergy (Unknown, Verified 03/03/23 09:11) rash,swelling sulfamethoxazole [From BACTRIM] Allergy (Unknown, Verified 03/03/23 09:11) ANAPHYLAXIS trimethoprim [From BACTRIM] Allergy (Unknown, Verified 03/03/23 09:11) ANAPHYLAXIS Medication List - Last Reconciled 03/03/23 by Efrem Jacobson MD albuterol sulfate 90 mcg/actuation 1 inh inhalation QID PRN khrelkkisr-hxllnrgyrmfbw-oyjn 50-300-40 mg (Fioricet) 1 cap PO Q6H PRN cholecalciferol (vitamin D3) 125 mcg PO DAILY cyanocobalamin (vitamin B-12) 500 mcg PO DAILY hydroxyzine HCl 25 mg PO BID PRN 30 days magnesium oxide 400 mg PO BEDTIME 30 days meclizine 25 mg PO DAILY PRN 30 days riboflavin (vitamin B2) 400 mg PO DAILY 30 days sertraline 100 mg PO DAILY sumatriptan succinate 50 - 100 mg orally at onset of headache, may repeat in 2 hrs PRN; max 2 tabs per day or 4 tabs/week (may take with Ibuprofen) 30 days valacyclovir 1,000 mg PO DAILY vitamin A palmitate 3,000 mcg PO DAILY 90 days Tobacco use date assessed: 03/03/23 Dental Screening Dental Screen Date: 03/03/23 Did you have a dental visit in the last 12 months?: Yes Did you have a dental problem in the last 6 months where you did not have access to dental care?: No Was dental information given to patient?: Patient has dentist HPI panic attacks HPI Details 37-year-old female presents to the [facility] for a sick visit. I am covering for her primary care provider. Patient gives history of panic attacks for the past 18 months. She has started sertraline and sees a therapist. Symptoms have resolved but recently she started getting symptoms of trembling. She is wondering if it is a part of anxiety or any other neurological condition. She was seen by a neurologist last year for migraine headaches. No longer taking the medications. The only medication she is on is sertraline and vitamin supplementation. Patient is gainfully employed and works at [employer]. Denies any substance use or smoking. [facility] Medical History Immunization due NATALIE (generalized anxiety disorder) Physical exam Migraine with aura Allergic rhinitis Asthma Dizziness Surgical History No history of previous surgery Family History Father Diabetes mellitus HTN (hypertension) Mother Diabetes mellitus HTN (hypertension) Maternal Grandmother Diabetes mellitus Paternal Grandmother Diabetes mellitus Brother Diabetes mellitus Brother Diabetes mellitus Social History Housing: House Alcohol intake: current Alcohol intake frequency: holidays/special occasions only Patient Tobacco Use Status: Never used Tobacco e-Cigarette/Vaping Use: Never Used Second Hand Smoke Exposure: No service: No Current occupational status: employed Current occupational exposures/hazards: No Gender identity: Female Cognitive needs: No Hearing needs: No Vision needs: No Female Reproductive History Menstrual Age of Menarche: 12 Questionnaire PHQ-9 Over the last 2 weeks, how often have you been bothered by any of the following problems? 1. Little interest or pleasure in doing things: several days 2. Feeling down, depressed, or hopeless: several days 3. Trouble falling or staying asleep, or sleeping too much: several days 4. Feeling tired or having little energy: several days 5. Poor appetite or overeating: several days 6. Feeling bad about yourself - or that you are a failure or have let yourself or your family down: several days 7. Trouble concentrating on things, such as reading the newspaper or watching television: several days 8. Moving or speaking so slowly that other people could have noticed. Or the opposite - being so fidgety or restless that you have been moving around a lot more than usual: several days 9. Thoughts that you would be better off or of hurting yourself in some way: not at all Total score: 8 Source: Developed by Drs. Edd Madison, Bushra Burdick, El Esposito and colleagues, with an educational delmer from [employer]. Thrive Questionnaire Date Thrive assessed: 04/29/22 NATALIE-7 AMB Questionnaire NATALIE-7 Date NATALIE - 7 assessed: 03/03/23 Feeling nervous, anxious, or on edge: 1 = Several days Not being able to stop or control worryin = Several days Worrying too much about different things: 1 = Several days Trouble relaxin = Several days Being so restless that it is hard to sit still: 1 = Several days Becoming easily annoyed or irritable: 3 = Nearly every day Feeling afraid as if something awful might happen: 1 = Several days Total NATALIE-7 score (0-4 normal; 5-9 mild; 10-14 moderate; 15-21 severe): 9 Source: Developed by Drs. Edd Madison, Bushra Burdick, El Esposito and colleagues, with an educational delmer from [employer]. Physical exam (Primary Care) Vital Signs: Last Vital Signs Pulse 82 03/03/23 08:34 BP 120/72 03/03/23 08:34 Pulse Ox 97 03/03/23 08:34 Oxygen Delivery Method Room Air 03/03/23 08:34 Care Plan Goal for BP management: Blood pressure is in range. Continue current medications. BMI result Body Mass Index 49.1 BMI Assessment/Plan discussion: High Tobacco/Smoking Status: Tobacco use Status Tobacco use date assessed 03/03/23 03/03/23 08:42 Patient Tobacco Use Status Never used Tobacco 03/03/23 08:42 e-Cigarette/Vaping Use Never Used 03/03/23 08:42 PHQ-9: PHQ-9 Score PHQ-9: Total score 8 03/03/23 08:42 Thrive Assessment: Date of Thrive Assessment Date Thrive assessed 04/29/22 03/03/23 08:42 Const General: cooperative and healthy appearing Nutritional Appearance: well nourished Orientation/consciousness: patient oriented x3 Limitations: no limitations HENMT Head: Yes normal to inspection Eyes General: appearance normal, both eyes and all related structures Neck Neck: Yes normal visual inspection Chest Chest palpation & inspection: normal palpation of entire chest wall Resp Effort & Inspection: normal respiratory effort Neuro Other: Neurological exam was essentially normal. No tremors noted. General: patient oriented x3 Assessment and Plan Assessment & Plan (1) Moderate recurrent major depression: Code(s): F33.1 - Major depressive disorder, recurrent, moderate Plan: Current symptoms could be an exacerbation of anxiety. Concurrent neurological illness is unlikely. Patient was advised that her sertraline dose could be increased or a short-acting benzodiazepine added. However it would be prudent to wait another 4 weeks and observe the symptoms before any medication changes are made. Patient agreed. She has a follow-up appointment in 4 weeks. Coding Level of Care Code Est Pt Level 4 (54744) Diagnoses Moderate recurrent major depression F33.1
[2023-03-03 08:34] VITALS: BP 120/72; PULSE 82; O2SAT 97; BMI 49.1
== END 2023-03-03 09:12 | disposition home or self-care (01) ==
PROVIDERS: PCP Internal Medicine; Visit Provider Internal Medicine
DX: F33.1 Major depressive disorder, recurrent, moderate (principal)
CPT/HCPCS: 99214

== ENCOUNTER 2023-03-10 10:25 | Outpatient (REF) | payer OTHER, SELFPAY ==
[2023-03-10 14:04] LABS: CT PCR NOT DETECTED (Not Detect.); NG PCR NOT DETECTED (Not Detect.)
[2023-03-11 15:22] LABS: BV Int Neg Control Negative (Negative); BV Int Pos Control Positive (Positive)
== END 2023-03-10 10:26 | disposition home or self-care (01) ==
LOC: HO.LNP 10:25
PROVIDERS: PCP Internal Medicine; Visit Provider Advanced Practice Midwife
DX: R10.2 Pelvic and perineal pain (principal); N92.6 Irregular menstruation, unspecified
CPT/HCPCS: 0353U; 81025; 87480; 87510; 87660

== ENCOUNTER 2023-03-10 10:25 | Outpatient (AMB) | payer OTHER, SELFPAY ==
--- NOTE | 2023-03-10 10:29 | A.OFFVIS_ITS ---
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 Present (Inez Dean RADHA) Accompanied by: Self / Same As Patient Allergies cephalexin [From KEFLEX] Allergy (Unknown, Verified 03/10/23 10:39) ANAPHYLAXIS Sulfa (Sulfonamide Antibiotics) Allergy (Unknown, Verified 03/10/23 10:39) rash,swelling sulfamethoxazole [From BACTRIM] Allergy (Unknown, Verified 03/10/23 10:39) ANAPHYLAXIS trimethoprim [From BACTRIM] Allergy (Unknown, Verified 03/10/23 10:39) ANAPHYLAXIS Is last menstrual period known: Yes Last menstrual period: 03/05/23 HPI HPI Comments History of Present Illness Details Patient is here today with concerns that her last menstrual period was off, late for 4 days, stop and started flow. Home test was negative. She reports some pelvic cramping and some pressure. She is sexually active not using condoms not avoiding , she reports if it happens she would be fine with that. She is not taking vitamins at this time. She denies any stressors are additional changes in her life that may affect her menstrual cycle. [facility] Medical History Immunization due NATALIE (generalized anxiety disorder) Physical exam Migraine with aura Allergic rhinitis Asthma Dizziness Surgical History No history of previous surgery Family History Father Diabetes mellitus HTN (hypertension) Mother Diabetes mellitus HTN (hypertension) Maternal Grandmother Diabetes mellitus Paternal Grandmother Diabetes mellitus Brother Diabetes mellitus Brother Diabetes mellitus Social History Housing: House Alcohol intake: current Alcohol intake frequency: holidays/special occasions only Patient Tobacco Use Status: Never used Tobacco e-Cigarette/Vaping Use: Never Used Second Hand Smoke Exposure: No service: No Current occupational status: employed Current occupational exposures/hazards: No Gender identity: Female Cognitive needs: No Hearing needs: No Vision needs: No Female Reproductive History Menstrual Age of Menarche: 12 Date of last menstrual period: 03/05/23 Review of Systems Const All systems reviewed & are unremarkable except as noted in HPI and below Physical Exam Vital Signs: Last Vital Signs BP 124/82 03/10/23 10:38 BMI result Body Mass Index 48.8 Const General: cooperative, healthy appearing and no acute distress Orientation/consciousness: patient oriented x3 GI Inspection: Yes normal to inspection Palpation (GI): Soft to palpation and Other GI palpation findings present (Nontender) Rectal Exam - Female: visual inspection normal General: Yes bladder normal to palpation External Female Exam: normal appearance of the urethra Speculum Exam - Vagina: normal appearance of the vagina, normal palpation and normal vaginal discharge Speculum Exam - Cervix: normal appearance of the cervix and normal palpation Bimanual exam- vagina & uterus: normal bimanual exam, normal palpation, uterine size normal, bladder normal to palpation, normal palpation, uterine shape normal and non-tender Bimanual Exam- Adnexa, other: normal adnexae and Other (Slightly tender in the right adnexa) Neuro General: patient oriented x3 Results AMB Test Urine AMB Test Urine Negative Last Edit by Inez Dean CMA on 10:41 Assessment & Plan Assessment & Plan (1) Pelvic cramping: Code(s): R10.2 - Pelvic and perineal pain Plan Plan pelvic ultrasound, urine clean-catch. Start vitamins. If late menses do a home test, if positive report to the office. Discussed AMA in referral to BABS services, patient declines today. Encouraged a healthy diet and lifestyle OTC meds for any pelvic discomfort if any significant pain repeat report to the emergency room. Return to the office in 2 weeks for ultrasound results. All of her questions and concerns were addressed to the best of my ability and shared decision making. She is agreeable to the plan of care. This note is constructed using voice recognition software. While every effort has been made to ensure accuracy, associate teacher errors may have been included. Orders: Orders AMB HCG Urine Test Today Z32.02 - Encounter for test, result negative US pelvic and transvaginal Today R10.2 - Pelvic and perineal pain CT NG by PCR Today N92.6 - Irregular menstruation, unspecified Bacterial Vaginosis Panel Today N92.6 - Irregular menstruation, unspecified Medications: New PNV,calcium [id number]-yojgk acid 27 mg iron- 1 mg ( Vitamins Plus Low Iron) 1 tab PO DAILY 90 tabs 4RF Coding Level of Care Code Est Pt Level 4 (51835) Diagnoses Pelvic cramping R10.2
[2023-03-10 10:38] VITALS: BP 124/82; BMI 48.8
== END 2023-03-10 10:49 | disposition home or self-care (01) ==
LOC: HO.HWS 10:25
PROVIDERS: PCP Internal Medicine; Visit Provider Advanced Practice Midwife
DX: R10.2 Pelvic and perineal pain (principal); Z32.02 Encounter for pregnancy test, result negative
CPT/HCPCS: 99214

== ENCOUNTER 2023-03-11 13:43 | Outpatient (REF) | payer OTHER, SELFPAY | END 2023-03-11 13:44 | disposition home or self-care (01) | LOC: HO.US 13:43 | PROVIDERS: PCP Internal Medicine; Visit Provider Advanced Practice Midwife | DX: R10.2 Pelvic and perineal pain (principal) | CPT/HCPCS: 76830; 76856 ==

== ENCOUNTER 2023-03-25 10:45 | Outpatient (AMB) | payer OTHER, SELFPAY ==
--- NOTE | 2023-03-25 10:46 | A.OFFVIS_ITS ---
Intake Vital Signs 03/25/23 10:49 Height 5 ft 5 in Weight 293 lb 3.437 oz BMI 48.8 BP 116/72 Intake Visit Reasons: US follow up [employer] Required: No Information Interpreted: non-clinical & clinical Accompanied by: Self / Same As Patient Allergies cephalexin [From KEFLEX] Allergy (Unknown, Verified 03/25/23 10:49) ANAPHYLAXIS Sulfa (Sulfonamide Antibiotics) Allergy (Unknown, Verified 03/25/23 10:49) rash,swelling sulfamethoxazole [From BACTRIM] Allergy (Unknown, Verified 03/25/23 10:49) ANAPHYLAXIS trimethoprim [From BACTRIM] Allergy (Unknown, Verified 03/25/23 10:49) ANAPHYLAXIS Is last menstrual period known: Yes Last menstrual period: 03/05/23 HPI HPI Comments History of Present Illness Details Patient presents for ultrasound follow-up results due to heavy menstrual bleeding. She also reports just recently starting treatment for BV over the last 2 days. She reports UTI symptoms, foul urine odor. Currently sexually active and not using condoms. Menses approximately 2 weeks ago. She denies any contraindications to control such as: history of DVT or pulmonary emboli, high blood pressure, liver disease, thrombolic disorders, Lupus, +YARY, breast cancer, or smoking. History of migraine with aura. [facility] Medical History (Updated 03/25/23 @ 10:50 by Inez Dean CMA) Morbid obesity Immunization due NATALIE (generalized anxiety disorder) Physical exam Migraine with aura Allergic rhinitis Asthma Dizziness Surgical History No history of previous surgery Family History Father Diabetes mellitus HTN (hypertension) Mother Diabetes mellitus HTN (hypertension) Maternal Grandmother Diabetes mellitus Paternal Grandmother Diabetes mellitus Brother Diabetes mellitus Brother Diabetes mellitus Social History Housing: House Alcohol intake: current Alcohol intake frequency: holidays/special occasions only Patient Tobacco Use Status: Never used Tobacco e-Cigarette/Vaping Use: Never Used Second Hand Smoke Exposure: No service: No Current occupational status: employed Current occupational exposures/hazards: No Gender identity: Female Cognitive needs: No Hearing needs: No Vision needs: No Female Reproductive History Menstrual Age of Menarche: 12 Date of last menstrual period: 03/05/23 Review of Systems Const All systems reviewed & are unremarkable except as noted in HPI and below Physical Exam Vital Signs: Last Vital Signs BP 116/72 03/25/23 10:49 BMI result Body Mass Index 48.8 Const General: cooperative, healthy appearing and no acute distress Orientation/consciousness: patient oriented x3 GI Inspection: Yes normal to inspection Palpation (GI): Soft to palpation and Other GI palpation findings present (Nontender) Rectal Exam - Female: visual inspection normal General: Yes bladder normal to palpation (slightly tender) External Female Exam: normal appearance of the urethra Speculum Exam - Vagina: normal appearance of the vagina, normal palpation and normal vaginal discharge Speculum Exam - Cervix: normal appearance of the cervix and normal palpation Bimanual exam- vagina & uterus: normal bimanual exam, normal palpation, uterine size normal, bladder normal to palpation (slightly tender), normal palpation, uterine shape normal and non-tender Bimanual Exam- Adnexa, other: normal adnexae Neuro General: patient oriented x3 Results AMB Urinalysis Dipstick UR Leukocytes Trace Last Edit by Inez Dean CMA on 03/25/23 11:21 UR Nitrite Negative Last Edit by Inez Dean CMA on 03/25/23 11:21 UR Urobilinogen Normal Last Edit by Inez Dean CMA on 03/25/23 11:21 UR Protein Trace Last Edit by Inez Dean CMA on 03/25/23 11:21 UR Ph 7.0 Last Edit by Inez Dean CMA on 03/25/23 11:21 UR Blood Negative Last Edit by Inez Dean CMA on 03/25/23 11:21 UR Specific [place] 1.020 Last Edit by Inez Dean CMA on 03/25/23 11:21 UR Ketone Trace Last Edit by Inez Dean CMA on 03/25/23 11:21 UR Bilirubin Negative Last Edit by Inez Dean CMA on 03/25/23 11:21 UR Glucose Negative Last Edit by Inez Dean CMA on 03/25/23 11:21 Results Reviewed Results Reviewed: [address] [address] Ultrasound Report Signed Patient: Jazmin Christian MR#: [id number] : 1985 Acct:[id number] Age/Sex: 37 / F ADM Date: 03/11/23 Loc: HO.US Attending Dr: Harmony Galicia CNM Ordering Physician: Harmony Galicia CNM Date of Service: 03/11/23 Procedure(s): US pelvic and transvaginal Accession Number(s): [id number] cc: Harmony Galicia CNM; Yary Way MD~ EXAMINATION: US PELVIS CLINICAL INFORMATION: Pelvic and perineal pain pelvic and perineal pain COMPARISON: 04/15/2008 LMP 01/27/2023 TECHNIQUE: Ultrasound of the pelvis is performed using both transabdominal and transvaginal transducers along with Doppler. Transvaginal imaging is performed due to inadequate visualization transabdominally. FINDINGS: Uterus: The uterus is anteverted and measures 8.5 x 4.7 x 4.6 cm. The double wall endometrial thickness is 0.7 mm. The uterus is smooth in contour and has normal myometrial echogenicity. No visible fibroid. Adnexa: There is single evidence of a degree. Fibroid measured 0.7 x 0.7 x 0.9 cm. Both ovaries are visualized. There is normal color flow to the adnexa. There is no ovarian torsion. There is no pelvic ascites or fluid collection. Right ovary measures 2.7 x 1.3 x 1.1 cm. The volume of right ovary is 2.1 cm. Left ovary measures left ovary measures 2.8 x 1.7 x 1.9 cm. The volume of left ovary is 4.6 mL US/US pelvic and transvaginal IMPRESSION: Small exophytic uterine fibroid, unremarkable ovaries Dictated By: Jatinder Schumacher MD Signed By: <Electronically signed by Jatinder Schumacher MD in OV> 03/16/23 1620 DD/ 1419 TD/TT: [employer] Bench: [address] [address] Ultrasound Report Signed Patient: Jazmin Christian MR#: [id number] : 1985 Acct:[id number] Age/Sex: 37 / F ADM Date: 03/11/23 Loc: HO.US Attending Dr: Harmony Galicia CNM Ordering Physician: Harmony Galicia CNM Date of Service: 03/11/23 Procedure(s): US pelvic and transvaginal Accession Number(s): [id number] cc: Harmony Galicia CNM; Yary Way MD~ EXAMINATION: US PELVIS CLINICAL INFORMATION: Pelvic and perineal pain pelvic and perineal pain COMPARISON: 04/15/2008 LMP 01/27/2023 TECHNIQUE: Ultrasound of the pelvis is performed using both transabdominal and transvaginal transducers along with Doppler. Transvaginal imaging is performed due to inadequate visualization transabdominally. FINDINGS: Uterus: The uterus is anteverted and measures 8.5 x 4.7 x 4.6 cm. The double wall endometrial thickness is 0.7 mm. The uterus is smooth in contour and has normal myometrial echogenicity. No visible fibroid. Adnexa: There is single evidence of a degree. Fibroid measured 0.7 x 0.7 x 0.9 cm. Both ovaries are visualized. There is normal color flow to the adnexa. There is no ovarian torsion. There is no pelvic ascites or fluid collection. Right ovary measures 2.7 x 1.3 x 1.1 cm. The volume of right ovary is 2.1 cm. Left ovary measures left ovary measures 2.8 x 1.7 x 1.9 cm. The volume of left ovary is 4.6 mL US/US pelvic and transvaginal IMPRESSION: Small exophytic uterine fibroid, unremarkable ovaries Dictated By: Jatinder Schumacher MD Signed By: <Electronically signed by Jatinder Schumacher MD in OV> 03/16/23 1620 DD/ 1419 TD/TT: [employer] Bench: Assessment & Plan Assessment & Plan (1) UTI (urinary tract infection): Code(s): N39.0 - Urinary tract infection, site not specified Qualifiers: Encounter type: initial encounter (2) Encounter to discuss test results: Code(s): Z71.2 - Person consulting for explanation of examination or test findings (3) Fibroid: Code(s): D21.9 - Benign neoplasm of connective and other soft tissue, unspecified (4) control counseling: Code(s): Z30.09 - Encounter for other general counseling and advice on contraception Plan Discussed; UTI. Await urine culture results for sensitivity Increase hydration, mostly water. Limit caffeine to one cup a day or eliminate altogether. Avoid carbonated, sugary or artificial sweetened beverages. Always clean and wipe from front to back. Empty your bladder often and when the urge. Urinate after intimacy. Take as directed and complete any medications that may be ordered. Report to the ED immediately if any fever >100.4, flu like symptoms, lighthead edness, dizziness, significant flank pain. Counseled re: Leiomyoma: common pelvic neoplasm. Differential diagnosis-may include leiomyosarcoma which is a rare uterine sarcoma 3-7/100,000, difficult to distinguish from fibroids on ultrasound from uterine sarcoma's. Unlikely any single test will have a highly positive predictive value. Hysterectomy is not recommended for sole purpose of excluding malignant neoplasm. Report any AUB. Pelvic pressure, bloating, or pain. Patient prefers US eval in 6 months. Expectant management follow up in 6 months, then yearly for stability. Referral to MD if indicated for level of care. Control Counseling Use and side effects of control: Guidelines per CDC reviewed, options for her with migraines with aura. She prefers not to do an IUD at this time and is concerned about weight gain. Instructed to start the progesterone only pill within the first 5 days of the menstrual period. Recommended to take pill at same time every day and with food to prevent stomach upset. Switch to bedtime intake with food if still experiencing nausea. Consider setting the cell phone for alerts as a reminder to take the pill at the same time. Use a back up method (condoms or abstinence if needed) if any late or missed doses until the end of the pill pack. Take the dose as soon as possible, and take your regular pill on time. If you miss the pill often, then consider another option of control. Always use condoms for STI prevention if indicated. Instructed patient to take for at least 3 months the body is acclimated to it. Most side effects go away with time in the first three months. Warnings: go to ED if and loss of vision/blindness, severe headache, chest pain or difficulty breathing, severe abdominal pain, or any pain or swelling in an extremity. Return in 3 months for pill check, or sooner if any concerns. All of her questions and concerns were addressed to the best of my ability and shared decision making. She is agreeable to plan of care. Orders: Orders US pelvic and transvaginal 6 Months D21.9 - Benign neoplasm of connective and other soft tissue, unspecified Urine Culture Today N39.0 - Urinary tract infection, site not specified AMB Urinalysis Dipstick Today N39.0 - Urinary tract infection, site not specified Medications: New nitrofurantoin monohyd/m-cryst 100 mg (Macrobid) must administer with a meal/food 100 mg PO BID 5 days 10 caps 0RF UTI norethindrone (contraceptive) (Itzel) 0.35 mg PO DAILY 90 days 90 tabs 0RF OCP Coding Level of Care Code Est Pt Level 4 (86043) Diagnoses UTI (urinary tract infection) N39.0 Encounter type: initial encounter Encounter to discuss test results Z71.2 Fibroid D21.9 control counseling Z30.09
[2023-03-25 10:49] VITALS: BP 116/72; BMI 48.8
== END 2023-03-25 11:38 | disposition home or self-care (01) ==
PROVIDERS: PCP Internal Medicine; Visit Provider Advanced Practice Midwife
DX: N39.0 Urinary tract infection, site not specified (principal); Z71.2 Person consulting for explanation of examination or test findings; D21.9 Benign neoplasm of connective and other soft tissue, unspecified; Z30.09 Encounter for other general counseling and advice on contraception
CPT/HCPCS: 99214

== ENCOUNTER 2023-03-25 10:45 | Outpatient (REF) | payer OTHER, SELFPAY | END 2023-03-25 10:46 | disposition home or self-care (01) | LOC: HO.LNP 10:45 | PROVIDERS: PCP Internal Medicine; Visit Provider Advanced Practice Midwife | DX: N39.0 Urinary tract infection, site not specified (principal); D21.9 Benign neoplasm of connective and other soft tissue, unspecified | CPT/HCPCS: 81002; 87086 ==

== ENCOUNTER 2023-03-25 21:44 | Emergency (ER) | payer OTHER, SELFPAY ==
--- NOTE | ~2023-03-25 | CT_ITS ---
EXAMINATION: CT ABDOMEN AND PELVIS WITHOUT CONTRAST CLINICAL INFORMATION: Flank pain. Evaluate for stones. COMPARISON: Pelvic ultrasound 03/11/2023. Abdominal ultrasound 02/08/2023. TECHNIQUE: Multidetector volumetric imaging was performed from the superior aspect of the liver through the pubic symphysis. Sagittal and coronal reformatted images were obtained on the technologist's workstation. This CT examination was performed using dose optimization techniques as appropriate, variously including the following: *Automated exposure control *Adjustment of mA and/or kV according to patient size (this includes techniques or standardized protocols for targeted exams where dose is matched to indication/reason for exam; i.e. extremities or head) *Use of iterative reconstruction technique DLP: 1039 mGy-cm FINDINGS: The lack of intravenous contrast limits evaluation of the solid visceral organs including the liver, spleen, pancreas, and kidneys. LUNG BASES: The visualized lung bases are unremarkable. LIVER, GALLBLADDER, AND BILIARY TREE: Decreased attenuation of liver parenchyma suggestive of hepatic steatosis is. No focal hepatic lesion or biliary ductal dilatation is present. The gallbladder is unremarkable with no evidence of radiopaque gallstones, gallbladder wall thickening, or obvious pericholecystic inflammatory changes. PANCREAS: Unremarkable. SPLEEN: Unremarkable. ADRENAL GLANDS: Unremarkable. KIDNEYS AND URETERS: The kidneys are normal in size, shape, and attenuation. No hydronephrosis, hydroureter, or calculi seen. No perinephric stranding. BLADDER: Unremarkable. GASTROINTESTINAL TRACT: The small and large bowel are unremarkable. The appendix is unremarkable. ABDOMINAL WALL: No significant hernia is appreciated. LYMPH NODES: No lymphadenopathy by CT short axis size criteria. VASCULAR: Normal caliber abdominal aorta. PELVIC VISCERA: Unremarkable. OSSEOUS STRUCTURES: No acute or aggressive appearing osseous findings. CT/CT abdomen pelvis wo IV con IMPRESSION: 1. Hepatic steatosis. 2. No nephrolithiasis or hydronephrosis. 3. Aside from hepatic steatosis, no acute abdominal or pelvic abnormalities to explain the patient's symptoms.
[2023-03-25 22:18] VITALS: BP 151/91; PULSE 89; RESP 16; TEMP 36.6; O2SAT 97; BMI 46.6
[2023-03-25 23:16] LABS: Basophils Percent Auto 0.2 % (0-2); Eosinophils Absolute Auto 0.1 X10*3/uL (0.0-0.4); Eosinophils Percent Auto 0.9 % (0-4); Hematocrit 38.6 % (37.0-47.0); Hemoglobin 12.8 g/dl (12.0-16.0); Imm Gran Abs Auto 0.04 X10*3/uL (0.00-0.03); Imm Gran Pct Auto 0.4 % (0.0-0.4); Lymphocytes Absolute Auto 2.4 X10*3/uL (1.2-4.9); Lymphocytes Percent Auto 24.5 % (20-40); MANUAL DIFF FLAG NO; Mean Corpuscular HGB Conc 33.2 g/dl (31.0-35.0); Mean Corpuscular Hemoglobin 26.5 pg (27.0-33.0); Mean Corpuscular Volume 79.9 fL (80.0-98.0); Mean Platelet Volume 9.6 fL (9.4-12.3); Monocytes Absolute Auto 0.6 X10*3/uL (0.1-1.2); Monocytes Percent Auto 5.7 % (2-11); Neutrophils Absolute Auto 6.8 x10*3/uL (2.0-8.3); Neutrophils Percent Auto 68.3 % (45-73); Platelet Count 290 X10*3/uL (160-400); Red Blood Count 4.83 X10*6/uL (4.20-5.50); Red Cell Distribution Width 14.2 % (11.0-16.0)
[2023-03-25 23:18] LABS: Appearance Urine Clear; Color Urine Yellow; Glucose Urine UA Negative (Negative); Leukocyte Esterase Urine Trace (Negative); Nitrite Urine Negative (Negative); PH 5.5 (5.0-9.0); Specific Gravity - Urine 1.025 (1.005-1.025); UMIC TRIGGER UACC YES; Urine Blood Negative (Negative); Urine Ketones Negative (Negative); Urine Protein Negative (Neg-Trace)
[2023-03-25 23:30] LABS: Alanine Aminotransferase 25 U/L (0-31); Albumin Level 4.2 g/dL (3.5-5.0); Alkaline Phosphatase 89 U/L (39-117); Anion Gap 13 (12-20); Aspartate Amino Transferase 18 U/L (5-31); Bilirubin Total 0.3 mg/dL (0.0-1.0); Blood Urea Nitrogen 10 mg/dL (9-16); Carbon Dioxide 25 mmol/L (22-29); Chloride 104 mmol/L (96-108); Creatinine Clr Calc Pharmacy 127.9; Estimated Glomerular Filt Rate > 60; Glucose Random 153 mg/dL (60-115); Potassium 3.8 mmol/L (3.3-5.1); Sodium 138 mmol/L (135-145); Total Protein 7.9 g/dL (6.5-8.0)
[2023-03-25 23:40] LABS: Bacteria Urine None Seen (None Seen); Calcium Oxalate Crystals Urine Present; Hyaline Casts Urine 0-2 /LPF (0-2); RBC Urine 0-2 /HPF (0-2); WBC Urine 0-5 /HPF (0-5)
--- NOTE | 2023-03-25 23:58 | ED_ITS ---
HPI - General Adult General Chief complaint: General Medical Stated complaint: UTI, pain Time Seen by Provider: 03/25/23 23:58 Source: patient and RN notes reviewed History of Present Illness HPI narrative: 37-year-old female with a history of asthma, presents for evaluation of lower abdominal pain and pressure. Patient states she 1st began having pressure to her lower abdomen approximately 1 week ago. It has progressively worsened since that time. She reports having her menses for only 1 day earlier in the month which was abnormal for her. She had made a follow-up appoint with her OBGYN which was today. Patient had previously had pelvic ultrasound. In addition to today's visit, she was diagnosed with a urinary tract infection and placed on nitrofurantoin. Patient states that while she was ambulating earlier today she had increased lower abdominal pain and therefore presents to the emergency department. She does report dysuria and urgency. She denies any fevers chills nausea or vomiting. Patient states that her pain has worsened, in his particularly on the right lower abdomen. It is sharp in nature. It does not radiate to her back. She denies any history of kidney stones and thinks that her mom has a history of this. Related Data Home Medications Medication Instructions Recorded Confirmed sertraline 25 mg tablet 100 mg PO DAILY 01/07/23 03/03/23 Previous Rx's Medication Instructions Recorded albuterol sulfate 90 mcg/actuation 1 inh inhalation QID PRN shortness 04/22/21 aerosol inhaler of breath or wheezing #8.5 grams meclizine 25 mg tablet 25 mg PO DAILY PRN motion sickness 04/22/21 30 days #30 tabs zckhmmkzcu-plphhgteekmmw-riekwuhb 1 cap PO Q6H PRN migraine headache 01/07/22 50 mg-300 mg-40 mg capsule #14 caps (Fioricet) cholecalciferol (vitamin D3) 125 125 mcg PO DAILY #90 caps 06/01/22 mcg (5,000 unit) capsule sumatriptan succinate 100 mg tablet 50 - 100 mg (0.5 - 1 x 100 mg) PO 08/03/22 .COMPLEX PRN migraine headache 30 days #12 tabs valacyclovir 1 gram tablet 1,000 mg PO DAILY #5 tabs 08/20/22 hydroxyzine HCl 25 mg tablet 25 mg PO BID PRN itching 30 days 12/11/22 #60 tabs vitamin A palmitate 3,000 mcg 3,000 mcg PO DAILY 90 days #90 caps 02/02/23 (10,000 unit) capsule magnesium oxide 400 mg PO BEDTIME 30 days #30 tabs 02/03/23 cyanocobalamin (vitamin B-12) 500 500 mcg PO DAILY #90 tabs 02/07/23 mcg tablet riboflavin (vitamin B2) 400 mg 400 mg PO DAILY 30 days #30 tabs 02/07/23 tablet vitamin with calcium 1 tab PO DAILY #90 tabs 03/10/23 no.72-iron 27 mg-folic acid 1 mg tablet ( Vitamins Plus Low Iron) metronidazole 500 mg tablet 500 mg PO BID 7 days #14 tabs 03/23/23 nitrofurantoin 100 mg PO BID UTI 5 days #10 caps 03/25/23 monohydrate/macrocrystals 100 mg capsule (Macrobid) norethindrone (contraceptive) 0.35 0.35 mg PO DAILY OCP 90 days #90 03/25/23 mg tablet (Itzel) tabs phenazopyridine 100 mg tablet 100 mg PO TID PRN pain 6 doses #6 03/26/23 (Pyridium) tabs Allergies Allergy/AdvReac Type Severity Reaction Status Date / Time cephalexin [From KEFLEX] Allergy Unknown ANAPHYLAXIS Verified 03/25/23 22:18 Sulfa (Sulfonamide Allergy Unknown rash,swelli Verified 03/25/23 22:18 Antibiotics) ng sulfamethoxazole Allergy Unknown ANAPHYLAXIS Verified 03/25/23 22:18 [From BACTRIM] trimethoprim [From BACTRIM] Allergy Unknown ANAPHYLAXIS Verified 03/25/23 22:18 Review of Systems 2 Constitutional: Constitutional: Denies chills, Denies fever(s) and Denies headache(s) Eyes: Eyes: Denies change in vision and Denies other (No redness.) ENT: Denies headache(s), Denies nasal congestion, Denies nasal discharge, Denies neck pain and Denies sore throat Cardiovascular: Cardiovascular: Denies chest pain, Denies palpitations, Denies dyspnea, Denies dyspnea on exertion and Denies orthopnea Respiratory: Respiratory: Denies cough, Denies dyspnea and Denies dyspnea on exertion Gastrointestinal: Gastrointestinal: Reports abdominal pain, Denies melena, Denies hematochezia, Denies diarrhea, Denies nausea and Denies vomiting Genitourinary: Genitourinary: Reports dysuria and Reports urinary urgency C omments: She denies any vaginal discharge bleeding or spotting. Musculoskeletal: Musculoskeletal: Denies back pain, Denies muscle weakness, Denies neck pain and Denies numbness Integumentary/Breasts: Skin/Breast: Denies rash Neurologic: Denies headache(s), Denies focal weakness and Denies numbness Psychiatric: Psychiatric: Denies depression Endocrine: Endocrine: Denies palpitations [facility] Past Medical History Attestation statement: The following information was validated with the patient. Onset Date is defined in the Problem List Problems that require an onset date and time if occurred within 24 hrs of arrival to the ED Aortic Dissection and Rupture; Neurologic impairment; Cardiopulmonary Arrest; Endotracheal Intubation; Insertion or Replacement of Mechanical Circulatory Assist Device Medical History Morbid obesity Immunization due NATALIE (generalized anxiety disorder) Physical exam Migraine with aura Allergic rhinitis Asthma Dizziness Surgical History No history of previous surgery Family History Family History Father Diabetes mellitus HTN (hypertension) Mother Diabetes mellitus HTN (hypertension) Maternal Grandmother Diabetes mellitus Paternal Grandmother Diabetes mellitus Brother Diabetes mellitus Brother Diabetes mellitus Social History Social History Housing: House Alcohol intake: current Alcohol intake frequency: holidays/special occasions only Patient Tobacco Use Status: Never used Tobacco e-Cigarette/Vaping Use: Never Used Second Hand Smoke Exposure: No Advance Directives: No Advance Directives Information Provided: Yes service: No Current occupational status: employed Current occupational exposures/hazards: No Gender identity: Female Cognitive needs: No Hearing needs: No Vision needs: No Physical Exam ED Vital Signs: Vital Signs - 24 hr 03/25/23 22:18 Temperature 97.8 F Pulse Rate 89 Respiratory Rate 16 Blood Pressure 151/91 H Pulse Oximetry 97 Oxygen Delivery Method Room Air BMI result Body Mass Index 46.6 Const General: cooperative Resp Auscultation: clear to auscultation bilaterally Cardio Rate: regular rate Rhythm: regular rhythm GI Other: Abdomen is soft with mild tenderness to the right lower quadrant. There is no rebound or guarding. No CVAT. No peritoneal signs. No suprapubic tenderness. Course Course Course Narrative: 1:00 a.m. patient is resting comfortably at this time. Reviewed CT findings, no acute process. Patient feels comfortable with discharge plan home. She will continue her nitrofurantoin. Trial of Pyridium for any urinary discomfort. In addition the patient will continue Tylenol ibuprofen. She will continue to monitor for symptoms and follow up with her OBGYN. Patient expresses understanding of all discharge instructions has no further questions at this time. Medical Decision Making Medical Decision Making [facility] Narrative: 37-year-old female with lower abdominal pain, diagnosis of UTI today. Patient is well-appearing and nontoxic. He does have tenderness to the right quadrant. Check labs, UA. There is no leukocytosis. Renal function is normal. Urinalysis with trace leukocytes but no white blood cells or bacteria. Calcium oxalate crystals are present. This would be concerning for possible kidney stone. Also consideration for appendicitis or ovarian pathology. Check CT for further evaluation. Patient had vaginal examination by her OBGYN today. No reviewed, no acute process. Defer on any repeat exam at this time. Differential Diagnosis Differential Diagnoses: The differential diagnosis associated with the presentation includes Appendicitis Nephrolithiasis Pyelonephritis UTI Ovarian cyst Lab Data [facility] Lab Attestation statement: I reviewed the patient's lab results. 03/25/23 23:10 03/25/23 23:10 Labs: Lab Results 03/25/23 Range/Units 23:10 WBC 10.0 (4.8-10.8) X10*3/uL RBC 4.83 (4.20-5.50) X10*6/uL Hgb 12.8 (12.0-16.0) g/dl Hct 38.6 (37.0-47.0) % MCV 79.9 L (80.0-98.0) fL MCH 26.5 L (27.0-33.0) pg MCHC 33.2 (31.0-35.0) g/dl RDW 14.2 (11.0-16.0) % Plt Count 290 (160-400) X10*3/uL MPV 9.6 (9.4-12.3) fL Immature Gran % (Auto) 0.4 (0.0-0.4) % Neut % (Auto) 68.3 (45-73) % Lymph % (Auto) 24.5 (20-40) % [place] % (Auto) 5.7 (2-11) % Eos % (Auto) 0.9 (0-4) % Baso % (Auto) 0.2 (0-2) % Lymph # (Auto) 2.4 (1.2-4.9) X10*3/uL [place] # (Auto) 0.6 (0.1-1.2) X10*3/uL Eos # (Auto) 0.1 (0.0-0.4) X10*3/uL Baso # (Auto) 0.0 (0.0-0.2) X10*3/uL Abs Immat Gran (auto) 0.04 H (0.00-0.03) X10*3/uL Absolute Neuts (auto) 6.8 (2.0-8.3) x10*3/uL Absolute Nucleated RBC 0.000 (0.0-0.012) X10*3/uL Nucleated RBC % (auto) 0.0 (0.0-0.2) /100WBC Sodium 138 (135-145) mmol/L Potassium 3.8 (3.3-5.1) mmol/L Chloride 104 (96-108) mmol/L Carbon Dioxide 25 (22-29) mmol/L Anion Gap 13 (12-20) BUN 10 (9-16) mg/dL Creatinine 0.80 (0.5-1.4) mg/dL Estim Creat Clear Calc 127.9 Estimated GFR > 60 Random Glucose 153 H (60-115) mg/dL Calcium 10.0 D (8.4-10.2) mg/dL Total Bilirubin 0.3 (0.0-1.0) mg/dL AST 18 (5-31) U/L ALT 25 (0-31) U/L Alkaline Phosphatase 89 (39-117) U/L Total Protein 7.9 (6.5-8.0) g/dL Albumin 4.2 (3.5-5.0) g/dL Urine Color Yellow Urine Appearance Clear Urine pH 5.5 (5.0-9.0) Ur Specific [place] 1.025 (1.005-1.025) Urine Protein Negative (Neg-Trace) mg/dL Urine Glucose (UA) Negative (Negative) mg/dL Urine Ketones Negative (Negative) mg/dL Urine Blood Negative (Negative) Urine Nitrite Negative (Negative) Ur Leukocyte Esterase Trace H (Negative) Urine RBC 0-2 (0-2) /HPF Urine WBC 0-5 (0-5) /HPF Ur Squamous Epith Cells 6-10 (0-2) /HPF Calcium Oxalate Crystal Present Urine Bacteria None Seen (None Seen) Hyaline Casts 0-2 (0-2) /LPF Radiology Impression Discussion of test interpretation with radiology: I have reviewed the radiologist's reading. Radiologist Impression: [address] [address] [address] Scan Report Signed Patient: Jazmin Christian MR#: [id number] : 1985 Acct:[id number] Age/Sex: 37 / F ADM Date: 03/26/23 Loc: HO.ED Attending Dr: Ordering Physician: Yash Escobedo Date of Service: 03/26/23 Procedure(s): CT abdomen pelvis wo IV con Accession Number(s): [id number] cc: Yary Way MD; Yash Escobedo~ EXAMINATION: CT ABDOMEN AND PELVIS WITHOUT CONTRAST CLINICAL INFORMATION: Flank pain. Evaluate for stones. COMPARISON: Pelvic ultrasound 03/11/2023. Abdominal ultrasound 02/08/2023. TECHNIQUE: Multidetector volumetric imaging was performed from the superior aspect of the liver through the pubic symphysis. Sagittal and coronal reformatted images were obtained on the technologist's workstation. This CT examination was performed using dose optimization techniques as appropriate, variously including the following: *Automated exposure control *Adjustment of mA and/or kV according to patient size (this includes techniques or standardized protocols for targeted exams where dose is matched to indication/reason for exam; i.e. extremities or head) *Use of iterative reconstruction technique DLP: 1039 mGy-cm FINDINGS: The lack of intravenous contrast limits evaluation of the solid visceral organs including the liver, spleen, pancreas, and kidneys. LUNG BASES: The visualized lung bases are unremarkable. LIVER, GALLBLADDER, AND BILIARY TREE: Decreased attenuation of liver parenchyma suggestive of hepatic steatosis is. No focal hepatic lesion or biliary ductal dilatation is present. The gallbladder is unremarkable with no evidence of radiopaque gallstones, gallbladder wall thickening, or obvious pericholecystic inflammatory changes. PANCREAS: Unremarkable. SPLEEN: Unremarkable. ADRENAL GLANDS: Unremarkable. KIDNEYS AND URETERS: The kidneys are normal in size, shape, and attenuation. No hydronephrosis, hydroureter, or calculi seen. No perinephric stranding. BLADDER: Unremarkable. GASTROINTESTINAL TRACT: The small and large bowel are unremarkable. The appendix is unremarkable. ABDOMINAL WALL: No significant hernia is appreciated. LYMPH NODES: No lymphadenopathy by CT short axis size criteria. VASCULAR: Normal caliber abdominal aorta. PELVIC VISCERA: Unremarkable. OSSEOUS STRUCTURES: No acute or aggressive appearing osseous findings. CT/CT abdomen pelvis wo IV con IMPRESSION: 1. Hepatic steatosis. 2. No nephrolithiasis or hydronephrosis. 3. Aside from hepatic steatosis, no acute abdominal or pelvic abnormalities to explain the patient's symptoms. Dictated By: Krys Shaikh Signed By: <Electronically signed by Krys Shaikh in OV> Discharge Plan Discharge Clinical Impression: Bilateral lower abdominal pain, Dysuria Patient Disposition: Home, Self-Care Instructions: Dysuria (ED), Abdominal Pain (ED) Additional Instructions: Continue to drink plenty of fluids. Tylenol or ibuprofen as directed for pain. Pyridium as directed for urinary discomfort. This will turn your urine orange. If you wear soft contacts, do not wear them while taking this medication as it will turn the orange. Follow-up with your primary care provider. Call this week to schedule a follow- up appointment. Return to the emergency department if you have any worsening of symptoms, or any concerns. Get well soon! Prescriptions: New phenazopyridine [Pyridium] 100 mg tablet 100 mg PO TID PRN (Reason: pain) Qty: 6 0RF No Action cholecalciferol (vitamin D3) 125 mcg (5,000 unit) capsule 125 mcg PO DAILY Qty: 90 1RF valacyclovir 1 gram tablet 1,000 mg PO DAILY Qty: 5 3RF hydroxyzine HCl 25 mg tablet 25 mg PO BID PRN (Reason: itching) 30 Days Qty: 60 0RF vitamin A palmitate 3,000 mcg (10,000 unit) capsule 3,000 mcg PO DAILY 90 Days Qty: 90 0RF magnesium oxide 400 mg magnesium tablet 400 mg PO BEDTIME 30 Days Qty: 30 1RF riboflavin (vitamin B2) 400 mg tablet 400 mg PO DAILY 30 Days Qty: 30 6RF cyanocobalamin (vitamin B-12) 500 mcg tablet 500 mcg PO DAILY Qty: 90 1RF metronidazole 500 mg tablet 500 mg PO BID 7 Days Qty: 14 0RF Rx Instructions: Take with food, Avoid alcohol and vinegar products ocidxdlfma-evqytwigucrae-[id number] [Fioricet] 50-300-40 mg capsule 1 cap PO Q6H PRN (Reason: migraine headache) Qty: 14 0RF albuterol sulfate 90 mcg/actuation HFA aerosol inhaler 1 inh inhalation QID PRN (Reason: shortness of breath or wheezing) Qty: 8.5 0RF meclizine 25 mg tablet 25 mg PO DAILY PRN (Reason: motion sickness) 30 Days Qty: 30 1RF sertraline 25 mg tablet 100 mg PO DAILY sumatriptan succinate 100 mg tablet 50 - 100 mg PO .COMPLEX PRN (Reason: migraine headache) 30 Days Qty: 12 6RF Rx Instructions: 50 - 100 mg orally at onset of headache, may repeat in 2 hrs PRN; max 2 tabs per day or 4 tabs/week (may take with Ibuprofen) Vitamin Plus Low Iron 27 mg iron- 1 mg tablet 1 tab PO DAILY Qty: 90 4RF nitrofurantoin monohyd/m-cryst [Macrobid] 100 mg capsule 100 mg PO BID 5 Days Qty: 10 0RF Rx Instructions: must administer with a meal/food norethindrone (contraceptive) [Itzel] 0.35 mg tablet 0.35 mg PO DAILY 90 Days Qty: 90 0RF Stand Alone Forms: Work/School Release
[2023-03-26 01:28] VITALS: BP 147/78; PULSE 77; RESP 14; TEMP 36.7; O2SAT 99
== END 2023-03-26 01:38 | disposition home or self-care (01) ==
PROVIDERS: Emergency Provider Emergency Medicine; PCP Internal Medicine
DX: R10.32 Left lower quadrant pain (principal); R10.31 Right lower quadrant pain; R30.0 Dysuria; E66.9 Obesity, unspecified; Z68.42 Body mass index [BMI] 45.0-49.9, adult
CPT/HCPCS: 36415; 74176; 80053; 81001; 85025; 99284

== ENCOUNTER 2023-04-14 12:57 | Outpatient (REF) | payer OTHER, SELFPAY ==
[2023-04-15 02:51] LABS: CT PCR NOT DETECTED (Not Detect.); NG PCR NOT DETECTED (Not Detect.)
[2023-04-15 08:02] LABS: Syphilis Screen Nonreactive (Nonreactive)
[2023-04-15 08:17] LABS: HBsAGNum1 0.36 S/CO (0.00-0.99); HIV AB/AG Nonreactive (Nonreactive); HIV Num 1 0.06 S/CO (0.00-0.99); Hepatitis B Surface Antigen Negative (Negative); ~HepC Num1 0.11 S/CO (0.00-0.79); ~Hepatitis C Antibody Nonreactive (Nonreactive)
[2023-04-15 14:00] LABS: BV Int Neg Control Negative (Negative); BV Int Pos Control Positive (Positive)
[2023-04-21 04:23] LABS: HPV mRNA E6/E7 rflx Not Detected (Not Detected)
== END 2023-04-14 12:58 | disposition home or self-care (01) ==
LOC: HO.LNP 12:57
PROVIDERS: PCP Internal Medicine; Visit Provider Advanced Practice Midwife
DX: Z01.419 Encounter for gynecological examination (general) (routine) without abnormal findings (principal); Z11.51 Encounter for screening for human papillomavirus (HPV); N87.0 Mild cervical dysplasia; Z20.2 Contact with and (suspected) exposure to infections with a predominantly sexual mode of transmission
CPT/HCPCS: 0353U; 86780; 86803; 87340; 87389; 87480; 87510; 87624; 87660; 88142

== ENCOUNTER 2023-04-14 12:57 | Outpatient (AMB) | payer OTHER, SELFPAY ==
--- NOTE | 2023-04-14 12:58 | A.OFFVIS_ITS ---
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 Allergies cephalexin [From KEFLEX] Allergy (Unknown, Verified 04/14/23 13:07) ANAPHYLAXIS Sulfa (Sulfonamide Antibiotics) Allergy (Unknown, Verified 04/14/23 13:07) rash,swelling sulfamethoxazole [From BACTRIM] Allergy (Unknown, Verified 04/14/23 13:07) ANAPHYLAXIS trimethoprim [From BACTRIM] Allergy (Unknown, Verified 04/14/23 13:07) ANAPHYLAXIS Medication List - Last Reconciled 04/14/23 by Cheryl Bailey CNM albuterol sulfate 90 mcg/actuation 1 inh inhalation QID PRN cyeuplrsky-gklgbacwffdwd-icgn 50-300-40 mg (Fioricet) 1 cap PO Q6H PRN cholecalciferol (vitamin D3) 125 mcg PO DAILY cyanocobalamin (vitamin B-12) 500 mcg PO DAILY hydroxyzine HCl 25 mg PO BID PRN 30 days magnesium oxide 400 mg PO BEDTIME 30 days meclizine 25 mg PO DAILY PRN 30 days norethindrone (contraceptive) (Itzel) 0.35 mg PO DAILY 90 days phenazopyridine (Pyridium) 100 mg PO TID PRN 6 doses PNV,calcium 41-dcgy-gxnrq acid 27 mg iron- 1 mg ( Vitamins Plus Low Iron) 1 tab PO DAILY riboflavin (vitamin B2) 400 mg PO DAILY 30 days sertraline 100 mg PO DAILY sumatriptan succinate 50 - 100 mg orally at onset of headache, may repeat in 2 hrs PRN; max 2 tabs per day or 4 tabs/week (may take with Ibuprofen) 30 days valacyclovir 1,000 mg PO DAILY vitamin A palmitate 3,000 mcg PO DAILY 90 days Is last menstrual period known: Yes (04/05/23) Last menstrual period: 04/05/23 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 She is doing much better in terms of panic attacks this year she is feels that she is on the right dose of the medication for her and she has a prescribing MD as well as a therapist in [place]. She is hoping to get working on weight loss this year however she is very nervous about the idea of weight loss surgery she had been referred to the weight management program but that was the thing that made her nervous she is also somewhat interested in getting a breast reduction though I cautioned not to do that before she loses weight. She has not sure when her primary care provider appointment is coming up and she could not remember what labs she might have done but thought it was over year ago (((at the end of the visit I found that there were labs in the system that she had done recently which according to the glucose which she said was fasting, was elevated.)) [facility] Medical History Morbid obesity Immunization due NATALIE (generalized anxiety disorder) Physical exam Migraine with aura Allergic rhinitis Asthma Dizziness Surgical History No history of previous surgery Family History Father Diabetes mellitus HTN (hypertension) Mother Diabetes mellitus HTN (hypertension) Maternal Grandmother Diabetes mellitus Paternal Grandmother Diabetes mellitus Brother Diabetes mellitus Brother Diabetes mellitus Social History Housing: House Alcohol intake: current Alcohol intake frequency: does not drink Patient Tobacco Use Status: Never used Tobacco e-Cigarette/Vaping Use: Never Used Second Hand Smoke Exposure: No service: No Current occupational status: employed Current occupational exposures/hazards: No Gender identity: Female Cognitive needs: No Hearing needs: No Vision needs: No Female Reproductive History Menstrual Age of Menarche: 12 Duration of menses: 3-5 days Date of last menstrual period: 04/05/23 control method: none Total pregnancies: 2 Full term: 2 Number of Living Children: 2 Date of last pap smear: 03/18/22 History of abnormal pap smear: Yes History of STI: No Physical Exam Vital Signs: Last Vital Signs BP 132/80 04/14/23 13:05 BMI result Body Mass Index 48.3 Const General: healthy appearing, comfortable, no acute distress, well developed and alert Nutritional Appearance: average body habitus and obese Orientation/consciousness: patient oriented x3 Limitations: no limitations HEENT Head: Yes normocephalic Neck Neck: Yes normal visual inspection Thyroid: Thyroid normal Chest Chest palpation & inspection: normal inspection of the chest Breast/axilla inspection: normal inspection of the breasts and normal inspection of the axillae Breast/axilla palpation: normal palpation of the breasts and normal palpation of the axillae Resp Effort & Inspection: normal respiratory effort GI Inspection: Yes normal to inspection, No Abdominal wall edema and No distended Palpation (GI): Soft to palpation and nontender Other: Vagina pink moist cervix appears multiparous pink smooth with no lesions normal discharge scant uterus small midposition nontender adnexa nontender fair tone with Kegel General: Yes bladder normal to palpation External Female Exam: normal external appearance and normal appearance of the urethra Speculum Exam - Vagina: normal appearance of the vagina, normal palpation and normal vaginal discharge Speculum Exam - Cervix: normal appearance of the cervix, normal palpation and nontender Bimanual exam- vagina & uterus: normal bimanual exam, normal palpation, uterine size normal, bladder normal to palpation, consistency normal, normal palpation, uterine mobility normal, uterine shape normal, No Cervical tenderness present, non-tender and no cervical motion tenderness Bimanual Exam- Adnexa, other: normal adnexae, no masses, normal and No adnexal tenderness Neuro General: patient oriented x3 Results Reviewed Results Reviewed: Name: Jazmin Christian Age/Sex: 36/F Attending: Cheryl Bailey CNM : 1985 Submitted by: Cheryl Bailey CNM Copies to: Yary Way MD MR #: [id number] Status: DEP REF Collected: 03/18/22 Location: [facility] Received: 03/18/22 ADDENDUM REPORT Addendum Addendum #1 HPV mRNA E6/E7: Not Detected This assay detects E6/E7 viral messenger RNA (mRNA) from 14 high-risk HPV types (16, 18, 31, 33, 35, 39, 45, 51, 52, 56, 58, 59, 66, 68) HPV testing performed by [employer] [facility] [place], [place]. See reference laboratory portion of the EMR for entire report. Electronically Signed By: Aida Lancaster 04/07/22 0901 Interpretation General Category: Epithelial cell abnormality. Adequacy: Endocervical component present. Interpretation: Low grade squamous intraepithelial lesion (KALEY I). Coccobacilli consistent with shift in vaginal david. Clinical Information LMP: 02/2022 Previous PAP test: 2020, Abnormal Other history: Ascus Material Received ThinPrep-Cervical Copies To Cheryl Bailey [address] [place] [address] Patient: Jazmin Christian Age/Sex: 36/F MR#: [id number] Page 1 of 2 Gynecologic Cytology CY23-[address] MD [address] [place] [address] [address] [place] [address] Electronically Signed By: Aida Lancaster 03/30/22 1741 The Pap Test is a screening procedure with the inherent possibility of both false negative and false positive results. Results should be interpreted in the context of historic and current clinical findings. Reliability of the Pap Test is enhanced by performing the test on a regular repetitive basis. Patient: Jazmin Christian Age/Sex: 36/F MR#: [id number] Name: Jazmin Christian Age/Sex: 36/F Attending: Eduardo Ross MD : 1985 Submitted by: Eduardo Ross MD Copies to: Yary Way MD MR #: [id number] Status: DEP REF Collected: 04/01/22 Location: [facility] Received: 04/02/22 Diagnosis Endocervix, curettage: - Inflamed squamous epithelium with reactive changes. - Strips of endocervical epithelium within normal limits; mucoinflammatory material. Clinical History Dysplasia of cervix, low grade KALEY 1 Microscopic Description Microscopic sections reviewed. Material Received ECC Gross Description Received in formalin labeled ECC is a 0.4 x 0.5 x 0.1 cm. aggregate of mucus, blood and multiple irregular fragments of soft, dinero-pink and red-maroon tissue. The specimen is submitted in toto in a single cassette labeled A. KG Copies To Yary Way MD [address] [place] [address] [address] [place] [address] Eduardo Ross MD [address] [place] [address] [address] [place] [address] NOTE: Some or all of the immunohistochemical tests reported herein may have been developed and their performance characteristics determined by [facility]. They have not been cleared or approved by the U.S. Food and Drug Administration (FDA). However, the FDA has determined that such clearance or approval is not necessary. This laboratory is certified under the Clinical Laboratory Improvement Amendments of 1988 (CLIA) as qualified to perform high complexity clinical laboratory testing. Patient: Jazmin Christian Age/Sex: 36/F MR#: [id number] Page 1 of 2 Patient: Jazmin Christian MR#: [id number] : 1985 Acct:[id number] Age/Sex: 37 / F ADM Date: 03/11/23 Loc: HO.US Attending Dr: Harmony Galicia CNM Ordering Physician: Harmony Galicia CNM Date of Service: 03/11/23 Procedure(s): US pelvic and transvaginal Accession Number(s): [id number] cc: Harmony Galicia CNM; Yary Way MD~ EXAMINATION: US PELVIS CLINICAL INFORMATION: Pelvic and perineal pain pelvic and perineal pain COMPARISON: 04/15/2008 LMP 01/27/2023 TECHNIQUE: Ultrasound of the pelvis is performed using both transabdominal and transvaginal transducers along with Doppler. Transvaginal imaging is performed due to inadequate visualization transabdominally. FINDINGS: Uterus: The uterus is anteverted and measures 8.5 x 4.7 x 4.6 cm. The double wall endometrial thickness is 0.7 mm. The uterus is smooth in contour and has normal myometrial echogenicity. No visible fibroid. Adnexa: There is single evidence of a degree. Fibroid measured 0.7 x 0.7 x 0.9 cm. Both ovaries are visualized. There is normal color flow to the adnexa. There is no ovarian torsion. There is no pelvic ascites or fluid collection. Right ovary measures 2.7 x 1.3 x 1.1 cm. The volume of right ovary is 2.1 cm. Left ovary measures left ovary measures 2.8 x 1.7 x 1.9 cm. The volume of left ovary is 4.6 mL US/US pelvic and transvaginal IMPRESSION: Small exophytic uterine fibroid, unremarkable ovaries Dictated By: Jatinder Schumacher MD Signed By: <Electronically signed by Jatinder Schumacher MD in OV> 03/16/23 1620 DD/ 1419 TD/TT: Name: Jazmin Christian Age/Sex: 37/F : 1985 Unit#: [id number] Attend Dr: Shruthi Wells DO Re03/26/23 Status: DEP ER Location: .ED Disch: SPEC : [id number] JULIO CESAR: 03/25/23 STATUS: COMP REQ : [id number] RECD: 03/25/[address]: Shruthi Wells DO COMP: 03/25/23 ENTERED: 03/25/[address]: Generic ED Physician Yary Way MD ORDERED: CMP Test Result Flag Reference Sodium 138 135-145 mmol/L Potassium 3.8 3.3-5.1 mmol/L CL 104 96-108 mmol/L CO2 25 22-29 mmol/L Gap 13 12-20 BUN 10 9-16 mg/dL Creat 0.80 0.5-1.4 mg/dL Estimated CrCl 127.9 Provided height and weight: 165.1 cm, 127.006 kg. eGFR (calculated from the MDRD study equation) and eCrCl (calculated from the Cockcroft-Gault equation) are based on different parameters and may not yield comparable results. If eCrCl result is absurd, please check patient's height/weight. EGFR > 60 NOTE: For -Cymraes individuals, multiply the result by 1.210. Chronic Kidney Disease: Estimated GFR < 60 mL/min/1.73m2 Severe Kidney Disease: Estimated GFR < 15 mL/min/1.73m2 Glucose, Random 153 H 60-115 mg/dL CA 10.0 # 8.4-10.2 mg/dL Total Bili 0.3 0.0-1.0 mg/dL AST (GOT) 18 5-31 U/L ALT (GPT) 25 0-31 U/L Protein, Total 7.9 6.5-8.0 g/dL Alb 4.2 3.5-5.0 g/dL Alk Phos 89 39-117 U/L Name: Jazmin Christian Age/Sex: 37/F : 1985 Unit#: [id number] Attend Dr: Parag Lee Re01/28/23 Status: DEP [facility] Dis[facility]: SPEC : [id number] JULIO CESAR: 01/28/23 STATUS: COMP REQ : [id number] RECD: 01/28/[address]: Parag Lee COMP: 01/28/23-152 ENTERED: 01/28/23-[address]: Yary Way MD ORDERED: CMP, IRON PROF, Ferritin, C Reactive Prot, Lipid Panel, Vitamin D 25- OH, Insulin Test Result Flag Reference Sodium 138 135-145 mmol/L Potassium 3.7 3.3-5.1 mmol/L CL 106 96-108 mmol/L CO2 25 22-29 mmol/L Gap 11 L 12-20 BUN 6 L 9-16 mg/dL Creat 0.65 0.5-1.4 mg/dL EGFR > 60 NOTE: For -Cymraes individuals, multiply the result by 1.210. Chronic Kidney Disease: Estimated GFR < 60 mL/min/1.73m2 Severe Kidney Disease: Estimated GFR < 15 mL/min/1.73m2 Glucose, Random 90 60-115 mg/dL CA 9.2 8.4-10.2 mg/dL Iron 78 30-160 mcg/dL TIBC 275 228-428 mcg/dL Saturation 28 15-50 % UIBC 197 ug/dL Ferritin 84 10-122 ng/mL Total Bili 0.6 0.0-1.0 mg/dL AST (GOT) 21 5-31 U/L ALT (GPT) 21 0-31 U/L CRP 2.68 H < or = 0.50 mg/dL Protein, Total 7.3 6.5-8.0 g/dL Alb 3.9 3.5-5.0 g/dL Triglyceride 130 <150 mg/dL Desirable Triglyceride: less than 150 mg/dL Borderline High Triglyceride 150-199 mg/dL High Triglyceride: 200-499 mg/dL Very High Triglyceride: greater than or equal to 5OO mg/dL Cholesterol 195 <200 mg/dL Desirable Cholesterol: less than 200 mg/dL Borderline High Cholesterol: 200-239 mg/dL High Cholesterol: greater than 239 mg/dL LDL Calculated 131 H <100 mg/dL Desirable LDL: less than 100 mg/dL Near Optimal/Above Optimal LDL: 110-129 mg/dL Borderline High LDL: 130-159 mg/dL High LDL: 160-189 mg/dL Very High LDL: greater than or equal to 190 mg/dL HDL 38 L >40 mg/dL Desirable HDL: greater than 40 mg/dL Note: This HDL assay may give artificially low results in patients with liver disease. Alk Phos 84 39-117 U/L Vit D 25-OH Tot 31.6 >30 ng/mL Health Based Reference Values* < 20 ng/mL Deficient 20-30 ng/mL Insufficient > 30 ng/mL Sufficient *Jocelyne CONRAD. N Engl J Med. 2007;357:266-280 Care must be taken in interpreting Vitamin D results from different laboratories and methodologies. Published data demonstrated that results from patients undergoing hemodialysis may show a negative bias when tested with various automated 25-OH vitamin D assays when compared to LC-MS/MS. When testing samples from patients whose predominant form of Vitamin D is Vitamin D2, such as patients receiving Vitamin D2 supplementation, results that are subtherapeutic should be confirmed with another method such as LC-MS/MS. TSH 1.26 0.32-4.0 uIU/mL Insulin, total 18 2-29 uU/mL This test was performed using the Berger chemiluminescent method. Values obtained from different assay methods cannot be used interchangeably. This insulin assay shows a possible cross-reactivity with antibodies generated against insulin (immunoreactive insulin and some patients treated with bovine or porcine insulin). Insulin levels may be measured lower in patients with insulin autoimmune syndrome or familial high pro-insulinemia. Assessment & Plan Assessment & Plan (1) Dysplasia of cervix, low grade (KALEY 1): Comment: kaley 1, hpv neg, colpo and ecc neg- cotest in 1 yr( ) Code(s): N87.0 - Mild cervical dysplasia (2) LGSIL on Pap smear of cervix: Comment: Colpo and ECC negative Code(s): R87.612 - Low grade squamous intraepithelial lesion on cytologic smear of cervix (LGSIL) (3) Screen for sexually transmitted diseases: Code(s): Z11.3 - Encounter for screening for infections with a predominantly sexual mode of transmission Plan -----Discussed in this visit the following: healthy balanced diet, regular and consistent exercise, getting recommended health screens, doing the best she can for her particular health concerns, kegel exercises, pap smear screening and followup recommendations, mammography screening and SBE, normal changes in cycles in her life stage--- . Patient is not planning to be sexually active currently so did not need any other method of control. Discussed safer sex. Discussed following up with her primary care provider and was encouraging this when I found that there had been some lab work already done but that she needs follow-up from/with the primary care provider to discuss the results. Discussed considerations around weight loss and that this would be a very good time to tackle this problem and discussed that there are also other modalities that are proving to be of assistance to people including various weight loss surgeries and medications. Discussed ways to increase one's motivation to begin to work at the problem before there are other health problems from the weight. Patient is going to call her primary care provider and follow-up on labs that already have been done and begin to make plans to address it. Orders: Orders Hepatitis C Antibody Today N87.0 - Mild cervical dysplasia, R87.612 - Low grade squamous intraepithelial lesion on cytologic smear of cervix (LGSIL), Z11.3 - E ncounter for screening for infections with a predominantly sexual mode of transmission Syphilis Screen Today N87.0 - Mild cervical dysplasia, R87.612 - Low grade squamous intraepithelial lesion on cytologic smear of cervix (LGSIL), Z11.3 - Encounter for screening for infections with a predominantly sexual mode of transmission CT NG by PCR Today Z01.419 - Encounter for gynecological examination (general) (routine) without abnormal findings Pap Smear Today N87.0 - Mild cervical dysplasia Hepatitis B Surface Antigen Today N87.0 - Mild cervical dysplasia, R87.612 - Low grade squamous intraepithelial lesion on cytologic smear of cervix (LGSIL), Z11.3 - Encounter for screening for infections with a predominantly sexual mode of transmission HIV Ab/Ag Today N87.0 - Mild cervical dysplasia, R87.612 - Low grade squamous intraepithelial lesion on cytologic smear of cervix (LGSIL), Z11.3 - Encounter for screening for infections with a predominantly sexual mode of transmission Bacterial Vaginosis Panel Today Z01.419 - Encounter for gynecological examination (general) (routine) without abnormal findings Coding Level of Care Code Est Pt Prev Care 18-39y([id number]) Diagnoses Dysplasia of cervix, low grade (KALEY 1) N87.0 LGSIL on Pap smear of cervix R87.612 Screen for sexually transmitted diseases Z11.3
[2023-04-14 13:05] VITALS: BP 132/80; BMI 48.3
== END 2023-04-14 13:57 | disposition home or self-care (01) ==
LOC: HO.HWSM 12:57
PROVIDERS: PCP Internal Medicine; Visit Provider Advanced Practice Midwife
DX: Z01.419 Encounter for gynecological examination (general) (routine) without abnormal findings (principal); R87.612 Low grade squamous intraepithelial lesion on cytologic smear of cervix (LGSIL)
CPT/HCPCS: 99395

== ENCOUNTER 2023-09-23 11:02 | Outpatient (REF) | payer OTHER, SELFPAY ==
--- NOTE | ~2023-09-23 | US_ITS ---
EXAMINATION: US PELVIS COMPLETE CLINICAL INFORMATION: Benign neoplasm of connective and other soft tissue; the last menstrual period was one month prior. COMPARISON: Pelvic ultrasound dated 03/11/2023; CT abdomen and pelvis dated 03/26/2023. TECHNIQUE: Transabdominal and transvaginal imaging were performed. FINDINGS: The uterus is of normal size and echogenicity, measuring 10.0 x 4.5 x 5.5 cm. The uterus is anteverted and anteflexed. A regular, homogeneous endometrium is identified measuring 0.7 cm. There is trace endometrial free fluid. FIBROIDS: There is 1 fibroid seen. 1. Location: Posterior body, exophytic subserosal. Size: 0.6 x 0.7 x 0.6 cm. Prior: 0.7 x 0.7 x 0.9 cm. Fibroid characteristics: Hypoechoic. Both ovaries are of normal size and echogenicity. The right ovary measures 3.6 x 1.7 x 1.7 cm for a volume of 5.4 mL. The right ovary contains an 8 mm dominant physiologic follicle. The left ovary measures 2.1 x 1.1 x 1.7 cm for a volume of 2.1 mL. The left ovary contains a 7 mm dominant physiologic follicle. There is no pelvic free fluid. US/US pelvic and transvaginal IMPRESSION: 1. A small uterine fibroid is seen, as detailed. 2. Nabothian cysts are seen within the cervix.
== END 2023-09-23 11:03 | disposition home or self-care (01) ==
LOC: HO.US 11:02
PROVIDERS: PCP Internal Medicine; Visit Provider Advanced Practice Midwife
DX: D21.9 Benign neoplasm of connective and other soft tissue, unspecified (principal)
CPT/HCPCS: 76830; 76856

== ENCOUNTER 2023-11-01 17:37 | Emergency (ER) | payer OTHER, SELFPAY ==
[2023-11-01 17:41] VITALS: BP 140/83; PULSE 89; RESP 18; TEMP 36.6; O2SAT 99; BMI 46.6
--- NOTE | 2023-11-01 17:41 | ED_ITS ---
HPI - General Adult General Chief complaint: General Medical Stated complaint: provider sent/feels like she's going to pass out Time Seen by Provider: 11/02/23 00:43 Source: patient Mode of arrival: ambulatory Limitations: no limitations History of Present Illness ED Provider: Dr. Sheree Flores HPI narrative: patient comes to the emergency room complaining of having a strange sensation consisting of feeling brain shaking, eyes moving around, a burning sensation running from the head to the toes. Patient states that she has history of anxiety, is very compliant with her medications. Patient states that when she is menstruating, she tends to have more triggers for anxiety. At this time, patient states that she feels completely back to normal. Related Data Home Medications ?Medication ?Instructions ?Recorded ?Confirmed sertraline 25 mg tablet 100 mg PO DAILY 01/07/23 04/14/23 Previous Rx's ?Medication ?Instructions ?Recorded albuterol sulfate 90 mcg/actuation 1 inh inhalation QID PRN shortness 04/22/21 aerosol inhaler of breath or wheezing #8.5 grams meclizine 25 mg tablet 25 mg PO DAILY PRN motion sickness 04/22/21 30 days #30 tabs miofgexyfx-nuxmnmeespvmj-uzocvcsv 1 cap PO Q6H PRN migraine headache 01/07/22 50 mg-300 mg-40 mg capsule #14 caps (Fioricet) cholecalciferol (vitamin D3) 125 125 mcg PO DAILY #90 caps 06/01/22 mcg (5,000 unit) capsule sumatriptan succinate 100 mg tablet 50 - 100 mg (0.5 - 1 x 100 mg) PO 08/03/22 .COMPLEX PRN migraine headache 30 days #12 tabs valacyclovir 1 gram tablet 1,000 mg PO DAILY #5 tabs 08/20/22 hydroxyzine HCl 25 mg tablet 25 mg PO BID PRN itching 30 days 12/11/22 #60 tabs vitamin A palmitate 3,000 mcg 3,000 mcg PO DAILY 90 days #90 caps 02/02/23 (10,000 unit) capsule magnesium oxide 400 mg PO BEDTIME 30 days #30 tabs 02/03/23 cyanocobalamin (vitamin B-12) 500 500 mcg PO DAILY #90 tabs 02/07/23 mcg tablet riboflavin (vitamin B2) 400 mg 400 mg PO DAILY 30 days #30 tabs 02/07/23 tablet vitamin with calcium 1 tab PO DAILY #90 tabs 03/10/23 no.72-iron 27 mg-folic acid 1 mg tablet ( Vitamins Plus Low Iron) norethindrone (contraceptive) 0.35 0.35 mg PO DAILY OCP 90 days #90 03/25/23 mg tablet (Itzel) tabs phenazopyridine 100 mg tablet 100 mg PO TID PRN pain 6 doses #6 03/26/23 (Pyridium) tabs metronidazole 500 mg tablet 500 mg PO BID 7 days #14 tabs 04/15/23 Allergies Allergy/AdvReac Type Severity Reaction Status Date / Time cephalexin [From KEFLEX] Allergy Unknown ANAPHYLAXIS Verified 11/01/23 17:43 Sulfa (Sulfonamide Allergy Unknown rash,swelli Verified 11/01/23 17:43 Antibiotics) ng sulfamethoxazole Allergy Unknown ANAPHYLAXIS Verified 11/01/23 17:43 [From BACTRIM] trimethoprim [From BACTRIM] Allergy Unknown ANAPHYLAXIS Verified 11/01/23 17:43 Review of Systems 2 Review of Systems: Constitutional : No Weight loss, No Fever, No Chills, No Night Sweats, No Fatigue, No Malaise , strange sensation running from head to toes ENT/Mouth : No Hearing loss, No Ear Pain, No Nasal Congestion, No Sinus Pain, No Hoarseness, No sore throat, No Rhinorrhea, No Swallowing Difficulty Eyes: No Eye Pain, No Swelling, No Redness, No Foreign Body, No Discharge, No Vision Changes Cardiovascular : No Chest Pain, No SOB, No Dyspnea on Exertion, No Orthopnea, No Edema, No Palpitations Respiratory : No Cough, No Sputum, No Wheezing, No Smoke Exposure, No Dyspnea Gastrointestinal : No Nausea, No Vomiting, No Diarrhea, No Constipation, No abdominal Pain, No Hematochezia, No Melena Genitourinary : no irregular bleeding, No Dysuria, No Urinary Frequency, No Hematuria, No Urinary Incontinence, No Urgency, No Flank Pain, No Urinary Flow Changes, No Hesitancy Musculoskeletal : No joint pain, No Myalgias, No Joint Swelling Skin : No Skin Lesions, No rash Neuro : No Weakness, No Numbness, No Paresthesias, No Loss of Consciousness, No Dizziness, No Headache Psych : admits to having anxiety,No Depression, No SI/HI/AH/VH, No Social Issues, Heme/Lymph: No Bruising, No Bleeding,No Lymphadenopathy Endocrine : No Polyuria, No Polydipsia, No Temperature Intolerance [facility] Past Medical History Medical History Morbid obesity Immunization due NATALIE (generalized anxiety disorder) Physical exam Migraine with aura Allergic rhinitis Asthma Dizziness Surgical History No history of previous surgery Family History Family History Father Diabetes mellitus HTN (hypertension) Mother Diabetes mellitus HTN (hypertension) Maternal Grandmother Diabetes mellitus Paternal Grandmother Diabetes mellitus Brother Diabetes mellitus Brother Diabetes mellitus Social History Social History Housing: House Alcohol intake: current Alcohol intake frequency: holidays/special occasions only Patient Tobacco Use Status: Never used Tobacco Smoked in Last 30 Days: No e-Cigarette/Vaping Use: Never Used Second Hand Smoke Exposure: No Use of substances other than those prescribed or required for medical reasons: No Advance Directives: No Advance Directives Information Provided: No Do you have a plan to hurt others: No Plan Patient : No service: No Current occupational status: employed Current occupational exposures/hazards: No Gender identity: Female Cognitive needs: No Hearing needs: No Vision needs: No Physical Exam ED Vital Signs: Vital Signs - 24 hr 11/01/23 17:41 11/01/23 22:16 11/02/23 00:17 Temperature 97.8 F 98.1 F 97.8 F Pulse Rate 89 95 104 H Respiratory Rate 18 18 19 Blood Pressure 140/83 H 153/75 H 143/70 H Pulse Oximetry 99 98 97 Oxygen Delivery Method Room Air Room Air Room Air BMI result Body Mass Index 46.6 Const Other: Appearance: Alert. Oriented X3. No acute distress. Eyes: Pupils equal, round and reactive to light. ENT: Pharynx normal. Neck: Normal inspection. Neck supple. No lymph nodes noted. No crepitus CVS: Normal heart rate and rhythm. Pulses normal. Normal S1 and S2 Respiratory: No respiratory distress. Breath sounds normal. No Wheezing. No rales Abdomen: Soft and nontender. No rigidity. No distention. Skin: Skin warm and dry. Normal skin color. Normal skin turgor. Extremities: No lower extremity edema. No Lacerations. No Rash Neuro: Oriented X 3. No motor deficit. No sensory deficit. Moving all extremities. No slurred speech. CN 2 through 12 grossly intact Psych: calm, cooperative, normal affect Course Course Course Narrative: RME, this is a rapid medical exam performed by Keith Forrest please refer to primary provider for complete H&P- 38 year old female presents for evaluation of headache and a burning sensation. She reports that while at work she experienced a headache and described a burning sensation from my head to my toes. This episode lasted about 30 seconds before resolving completely. She felt as though she was going to pass out.She called her doctor and was referred to the ED. She has a history of migraine headaches Medical Decision Making Medical Decision Making MDM Narrative: my interpretation of labs, normal hematology, chemistry, troponin, negative hCG - my interpretation of EKG: Normal sinus rhythm, 179, no ST segment depression or elevation, no T-wave inversion, QTC 431 - patient is asymptomatic - patient's symptoms likely secondary to anxiety Differential Diagnosis Differential Diagnoses: The differential diagnosis associated with the presentation includes ( anxiety, ACS) Lab Data [facility] Lab Attestation statement: I reviewed the patient's lab results. 11/01/23 18:02 11/01/23 18:02 Labs: Lab Results 11/01/23 Range/Units 18:02 WBC 9.6 (4.8-10.8) X10*3/uL RBC 4.89 (4.20-5.50) X10*6/uL Hgb 13.1 (12.0-16.0) g/dl Hct 38.7 (37.0-47.0) % MCV 79.1 L (80.0-98.0) fL MCH 26.8 L (27.0-33.0) pg MCHC 33.9 (31.0-35.0) g/dl RDW 14.8 (11.0-16.0) % Plt Count 309 (160-400) X10*3/uL MPV 9.5 (9.4-12.3) fL Immature Gran % (Auto) 0.5 H (0.0-0.4) % Neut % (Auto) 65.0 (45-73) % Lymph % (Auto) 26.1 (20-40) % Gates % (Auto) 7.2 (2-11) % Eos % (Auto) 0.9 (0-4) % Baso % (Auto) 0.3 (0-2) % Lymph # (Auto) 2.5 (1.2-4.9) X10*3/uL Gates # (Auto) 0.7 (0.1-1.2) X10*3/uL Eos # (Auto) 0.1 (0.0-0.4) X10*3/uL Baso # (Auto) 0.0 (0.0-0.2) X10*3/uL Abs Immat Gran (auto) 0.05 H (0.00-0.03) X10*3/uL Absolute Neuts (auto) 6.2 (2.0-8.3) x10*3/uL Absolute Nucleated RBC 0.000 (0.0-0.012) X10*3/uL Nucleated RBC % (auto) 0.0 (0.0-0.2) /100WBC Sodium 140 (135-145) mmol/L Potassium 3.9 (3.3-5.1) mmol/L Chloride 104 (96-108) mmol/L Carbon Dioxide 26 (22-29) mmol/L Anion Gap 14 (12-20) BUN 12 (9-16) mg/dL Creatinine 0.77 (0.5-1.4) mg/dL Estim Creat Clear Calc 131.6 Estimated GFR > 60 Random Glucose 95 (60-115) mg/dL Calcium 10.1 (8.4-10.2) mg/dL Total Bilirubin 0.3 (0.0-1.0) mg/dL AST 25 (5-31) U/L ALT 29 (0-31) U/L Alkaline Phosphatase 87 (39-117) U/L Total Protein 8.0 (6.5-8.0) g/dL Albumin 4.3 (3.5-5.0) g/dL Lipase 17 (8-78) U/L Beta HCG, Quant < 2 mIU/mL Independent Interpretation I performed an independent interpretation of an: EKG Discharge Plan Discharge Clinical Impression: Anxiety Patient Disposition: Home, Self-Care Instructions: Anxiety (ED) Additional Instructions: Please follow-up with your primary care physician tomorrow. If you have any worsening or new symptoms, please return to the emergency room or call 911 Prescriptions: No Action cholecalciferol (vitamin D3) 125 mcg (5,000 unit) capsule 125 mcg PO DAILY Qty: 90 1RF valacyclovir 1 gram tablet 1,000 mg PO DAILY Qty: 5 3RF hydroxyzine HCl 25 mg tablet 25 mg PO BID PRN (Reason: itching) 30 Days Qty: 60 0RF vitamin A palmitate 3,000 mcg (10,000 unit) capsule 3,000 mcg PO DAILY 90 Days Qty: 90 0RF magnesium oxide 400 mg magnesium tablet 400 mg PO BEDTIME 30 Days Qty: 30 1RF riboflavin (vitamin B2) 400 mg tablet 400 mg PO DAILY 30 Days Qty: 30 6RF cyanocobalamin (vitamin B-12) 500 mcg tablet 500 mcg PO DAILY Qty: 90 1RF metronidazole 500 mg tablet 500 mg PO BID 7 Days Qty: 14 0RF wjnqixeoqh-xlaewbebjjlmd-bwas [Fioricet] 50-300-40 mg capsule 1 cap PO Q6H PRN (Reason: migraine headache) Qty: 14 0RF phenazopyridine [Pyridium] 100 mg tablet 100 mg PO TID PRN (Reason: pain) Qty: 6 0RF albuterol sulfate 90 mcg/actuation HFA aerosol inhaler 1 inh inhalation QID PRN (Reason: shortness of breath or wheezing) Qty: 8.5 0RF meclizine 25 mg tablet 25 mg PO DAILY PRN (Reason: motion sickness) 30 Days Qty: 30 1RF sertraline 25 mg tablet 100 mg PO DAILY sumatriptan succinate 100 mg tablet 50 - 100 mg PO .COMPLEX PRN (Reason: migraine headache) 30 Days Qty: 12 6RF Rx Instructions: 50 - 100 mg orally at onset of headache, may repeat in 2 hrs PRN; max 2 tabs per day or 4 tabs/week (may take with Ibuprofen) Vitamin Plus Low Iron 27 mg iron- 1 mg tablet 1 tab PO DAILY Qty: 90 4RF norethindrone (contraceptive) [Itzel] 0.35 mg tablet 0.35 mg PO DAILY 90 Days Qty: 90 0RF Stand Alone Forms: Work/School Release Print Language: Paraguayan
--- NOTE | 2023-11-01 17:42 | ECG_ITS ---
Test Reason : PRESYNCOPAL Blood Pressure : / mmHG Vent. Rate : 079 BPM Atrial Rate : 079 BPM P-R Int : 138 ms QRS Dur : 080 ms QT Int : 376 ms P-R-T Axes : 038 055 040 degrees QTc Int : 431 ms Normal sinus rhythm Normal ECG When compared with ECG of 28-JAN-2023 13:55, No significant change was found Referred By: Darshan Forrest Electronically Signed By:DAVIDA LIMA
[2023-11-01 18:07] LABS: MANUAL DIFF FLAG NO
[2023-11-01 18:08] LABS: Basophils Percent Auto 0.3 % (0-2); Eosinophils Absolute Auto 0.1 X10*3/uL (0.0-0.4); Eosinophils Percent Auto 0.9 % (0-4); Hematocrit 38.7 % (37.0-47.0); Hemoglobin 13.1 g/dl (12.0-16.0); Imm Gran Abs Auto 0.05 X10*3/uL (0.00-0.03); Imm Gran Pct Auto 0.5 % (0.0-0.4); Lymphocytes Absolute Auto 2.5 X10*3/uL (1.2-4.9); Lymphocytes Percent Auto 26.1 % (20-40); Mean Corpuscular HGB Conc 33.9 g/dl (31.0-35.0); Mean Corpuscular Hemoglobin 26.8 pg (27.0-33.0); Mean Corpuscular Volume 79.1 fL (80.0-98.0); Mean Platelet Volume 9.5 fL (9.4-12.3); Monocytes Absolute Auto 0.7 X10*3/uL (0.1-1.2); Monocytes Percent Auto 7.2 % (2-11); Neutrophils Absolute Auto 6.2 x10*3/uL (2.0-8.3); Platelet Count 309 X10*3/uL (160-400); Red Blood Count 4.89 X10*6/uL (4.20-5.50); Red Cell Distribution Width 14.8 % (11.0-16.0); White Blood Count 9.6 X10*3/uL (4.8-10.8)
[2023-11-01 18:24] LABS: Alanine Aminotransferase 29 U/L (0-31); Albumin Level 4.3 g/dL (3.5-5.0); Alkaline Phosphatase 87 U/L (39-117); Anion Gap 14 (12-20); Aspartate Amino Transferase 25 U/L (5-31); Bilirubin Total 0.3 mg/dL (0.0-1.0); Blood Urea Nitrogen 12 mg/dL (9-16); Calcium 10.1 mg/dL (8.4-10.2); Carbon Dioxide 26 mmol/L (22-29); Chloride 104 mmol/L (96-108); Creatinine Clr Calc Pharmacy 131.6; Estimated Glomerular Filt Rate > 60; Glucose Random 95 mg/dL (60-115); Lipase 17 U/L (8-78); Potassium 3.9 mmol/L (3.3-5.1); Sodium 140 mmol/L (135-145)
[2023-11-01 18:31] LABS: HCG Quantitative < 2 mIU/mL
[2023-11-01 22:16] VITALS: BP 153/75; PULSE 95; RESP 18; TEMP 36.7; O2SAT 98
[2023-11-02 00:17] VITALS: BP 143/70; PULSE 104; RESP 19; TEMP 36.6; O2SAT 97
[2023-11-02 01:12] VITALS: BP 143/70; PULSE 104; RESP 19; TEMP 36.6; O2SAT 97
== END 2023-11-02 01:15 | disposition home or self-care (01) ==
PROVIDERS: Physician Assistant; Emergency Provider Emergency Medicine; PCP Internal Medicine Nephrology
DX: F41.1 Generalized anxiety disorder (principal); R10.2 Pelvic and perineal pain; R94.31 Abnormal electrocardiogram [ECG] [EKG]; Z79.899 Other long term (current) drug therapy
CPT/HCPCS: 36415; 80053; 83690; 84702; 85025; 93005; 99283; 99284

== ENCOUNTER 2023-12-16 08:52 | Outpatient (REF) | payer OTHER, SELFPAY ==
[2023-12-16 11:56] LABS: HCG Quantitative < 2 mIU/mL
[2023-12-18 18:48] LABS: Follicle Stimulating Hormone 7.1 mIU/mL
[2023-12-23 11:47] LABS: Testosterone, Free 1.2 pg/mL (0.1-6.4); Testosterone, Total 9 ng/dL (2-45)
[2023-12-29 21:44] LABS: Estradiol Free 0.38 pg/mL; Estradiol, Ultrasensitive 19 pg/mL
== END 2023-12-16 08:53 | disposition home or self-care (01) ==
LOC: HO.LAB 08:52
PROVIDERS: Absent Provider Advanced Practice Midwife; PCP Internal Medicine; Visit Provider Surgery
DX: L68.0 Hirsutism (principal); N92.6 Irregular menstruation, unspecified; R23.2 Flushing
CPT/HCPCS: 36415; 82670; 82681; 83001; 83498; 84402; 84403; 84443; 84702

== ENCOUNTER 2023-12-16 09:51 | Outpatient (AMB) | payer OTHER, SELFPAY ==
--- NOTE | 2023-12-16 09:59 | A.OFFVIS_ITS ---
Intake Visit Reasons: Ultrasound follow up Management Information Systems Director: Management Information Systems Director Present Allergies cephalexin [From KEFLEX] Allergy (Unknown, Verified 12/16/23 09:59) ANAPHYLAXIS Sulfa (Sulfonamide Antibiotics) Allergy (Unknown, Verified 12/16/23 09:59) rash,swelling sulfamethoxazole [From BACTRIM] Allergy (Unknown, Verified 12/16/23 09:59) ANAPHYLAXIS trimethoprim [From BACTRIM] Allergy (Unknown, Verified 12/16/23 09:59) ANAPHYLAXIS Is last menstrual period known: Yes Last menstrual period: 12/13/23 HPI Comments Details: Patient is here for a follow up ultrasound due to a history of fibroids, check for stability. She also was prescribed Henny and never started it as she is concerned about other symptoms including hot flashes, weight gain, facial hair growth, and reports her cycles have been very irregular spotting 2 weeks before her cycle bleeds heavy for the 1st 1-3 days over 5 days of her cycle. She denies being sexually active for the last 4-5 months. Currently having back issues started prednisone today. [facility] Medical History Morbid obesity Immunization due NATALIE (generalized anxiety disorder) Physical exam Migraine with aura Allergic rhinitis Asthma Dizziness Surgical History No history of previous surgery Family History Father Diabetes mellitus HTN (hypertension) Mother Diabetes mellitus HTN (hypertension) Maternal Grandmother Diabetes mellitus Paternal Grandmother Diabetes mellitus Brother Diabetes mellitus Brother Diabetes mellitus Social History Housing: House Alcohol intake: current Alcohol intake frequency: holidays/special occasions only Patient Tobacco Use Status: Never used Tobacco e-Cigarette/Vaping Use: Never Used Second Hand Smoke Exposure: No service: No Current occupational status: employed Current occupational exposures/hazards: No Gender identity: Female Cognitive needs: No Hearing needs: No Vision needs: No Female Reproductive History Menstrual Age of Menarche: 12 Date of last menstrual period: 12/13/23 Review of Systems Const All systems reviewed & are unremarkable except as noted in HPI and below Endo Reports no additional complaints Physical Exam Const General: cooperative, healthy appearing and no acute distress Psych Appearance: well kempt Attitude: cooperative Thought process: Normal thought process present Results Reviewed Results Reviewed: [address] [address] Ultrasound Report Signed Patient: Jazmin Christian MR#: [id number] : 1985 Acct:[id number] Age/Sex: 37 / F ADM Date: 09/23/23 Loc: .[place] Attending Dr: Harmony Galicia CNM Ordering Physician: Harmony Galicia CNM Date of Service: 09/23/23 Procedure(s): US pelvic and transvaginal Accession Number(s): [id number] cc: Harmony Galicia CNM; Laz Schmitz MD~ EXAMINATION: US PELVIS COMPLETE CLINICAL INFORMATION: Benign neoplasm of connective and other soft tissue; the last menstrual period was one month prior. COMPARISON: Pelvic ultrasound dated 03/11/2023; CT abdomen and pelvis dated 03/26/2023. TECHNIQUE: Transabdominal and transvaginal imaging were performed. FINDINGS: The uterus is of normal size and echogenicity, measuring 10.0 x 4.5 x 5.5 cm. The uterus is anteverted and anteflexed. A regular, homogeneous endometrium is identified measuring 0.7 cm. There is trace endometrial free fluid. FIBROIDS: There is 1 fibroid seen. 1. Location: Posterior body, exophytic subserosal. Size: 0.6 x 0.7 x 0.6 cm. Prior: 0.7 x 0.7 x 0.9 cm. Fibroid characteristics: Hypoechoic. Both ovaries are of normal size and echogenicity. The right ovary measures 3.6 x 1.7 x 1.7 cm for a volume of 5.4 mL. The right ovary contains an 8 mm dominant physiologic follicle. The left ovary measures 2.1 x 1.1 x 1.7 cm for a volume of 2.1 mL. The left ovary contains a 7 mm dominant physiologic follicle. There is no pelvic free fluid. US/US pelvic and transvaginal IMPRESSION: 1. A small uterine fibroid is seen, as detailed. 2. Nabothian cysts are seen within the cervix. Dictated By: Leonardo Celestin MD Signed By: <Electronically signed by Leonardo Celestin MD in OV> 10/11/232020 DD/ 1139 TD/TT: Child Life Assistant: ADILIA Assessment & Plan Assessment & Plan (1) Fibroid: Code(s): D21.9 - Benign neoplasm of connective and other soft tissue, unspecified Category: Medical Plan Discussed: Ultrasound findings-small stable fibroid. Cycle history irregular advised endometrial biopsy procedure, preprocedure planning including eating and drinking and taking Tylenol 2 tablets 1 hour before the procedure. Plan lab workup due to concerns, advised labs today. No unprotected intimacy. Plan ultrasound follow up for yearly check in March and schedule her annual a month later to review. Counseled re: Leiomyoma: common pelvic neoplasm. Differential diagnosis-may include but not limited to- leiomyosarcoma which is a rare uterine sarcoma 3- 7/100,000, difficult to distinguish from fibroids on ultrasound from uterine sarcoma's. Unlikely any single test will have a highly positive predictive value. Hysterectomy is not recommended for sole purpose of excluding malignant neoplasm. Consult for surgical exploration, medical treatment, other treatments, verses expectant management, pros and cons, risks and benefits. Expectant management follow up in 6 months, then yearly for stability. Referral to MD if indicated for level of care if indicated. Schedule lab follow up in [facility] same-day visit in 2-3 weeks. All of her questions and concerns were addressed to the best of my ability and shared decision making. She is agreeable to the plan of care. This note is constructed using voice recognition software. While every effort has been made to ensure accuracy, early childhood education instructor errors may have been included. Orders: Orders Testosterone, Free/Total Today L68.0 - Hirsutism, N92.6 - Irregular menstruation, unspecified, R23.2 - Flushing 17 Hydroxyprogesterone Today L68.0 - Hirsutism, N92.6 - Irregular menstruation, unspecified, R23.2 - Flushing Estrad Free (Tot Ultra + Free) Today L68.0 - Hirsutism, N92.6 - Irregular menstruation, unspecified, R23.2 - Flushing HCG Quantitative Today N92.6 - Irregular menstruation, unspecified US pelvic and transvaginal 03/19/24 D21.9 - Benign neoplasm of connective and other soft tissue, unspecified Thyroid Stimulating Hormone Today L68.0 - Hirsutism, N92.6 - Irregular menstruation, unspecified, R23.2 - Flushing Follicle Stimulating Hormone Today L68.0 - Hirsutism, N92.6 - Irregular menstruation, unspecified, R23.2 - Flushing Coding Level of Care Code Est Pt Level 4 (75762) Diagnoses Fibroid D21.9
== END 2023-12-16 10:21 | disposition home or self-care (01) ==
PROVIDERS: PCP Internal Medicine Nephrology; Visit Provider Advanced Practice Midwife
DX: D21.9 Benign neoplasm of connective and other soft tissue, unspecified (principal)
CPT/HCPCS: 99214

== ENCOUNTER 2023-12-19 08:07 | Outpatient (AMB) | payer OTHER, SELFPAY ==
--- NOTE | 2023-12-19 14:19 | A.OFFVIS_ITS ---
VS Expanded 12/19/23 14:28 Height 5 ft 5 in Weight 308 lb 6 oz BMI 51.3 Body Fat % 50.2 Body Fat Mass 154.8 Fat Free Mass 153.6 Visceral Fat Rating 17 Body Water % 35.7 Body Water Mass 110 Basal Metabolic Rate/Score 2,230 Intake Visit Reasons: TV Re-Est SWL BMI 51.3 Allergies cephalexin [From KEFLEX] Allergy (Unknown, Verified 12/19/23 14:19) ANAPHYLAXIS Sulfa (Sulfonamide Antibiotics) Allergy (Unknown, Verified 12/19/23 14:19) rash,swelling sulfamethoxazole [From BACTRIM] Allergy (Unknown, Verified 12/19/23 14:19) ANAPHYLAXIS trimethoprim [From BACTRIM] Allergy (Unknown, Verified 12/19/23 14:19) ANAPHYLAXIS Medication List - Last Reconciled 12/19/23 by Jack Pham MD albuterol sulfate 90 mcg/actuation 2 puffs inhalation Q6H PRN cyclobenzaprine 10 mg PO BEDTIME PRN hydroxyzine HCl 25 mg PO BID PRN 30 days omeprazole 40 mg PO DAILY sertraline 100 mg PO DAILY HPI HPI TV Re-Est SWL BMI 51.3: Details: Start time: 2pm, End time: 2.40pm ?I spent 35 minutes speaking with the patient on the phone plus an additional 5 minutes reviewing and updating records for a total of 40 minutes HPI Comments Details: Previous weight loss efforts: WW, Exercise, [facility] program Wakes up: 7.30am, sleeps: 11pm Breakfast: skips Lunch: 12pm (oatmeal, toast) Dinner: 6pm (rice, beans, chicken) Snacks: 10am (chips), 4pm (chips or chocolate), 8pm (chocolate, chips) Exercise: none Fluids: Coffee: none, tea: none, soda: occasionally Sparkling flavored water, Coke zero, ETOH: none PFSH Medical History (Updated 12/19/23 @ 14:23 by Jack Pham MD) Back pain Depression GERD (gastroesophageal reflux disease) Morbid obesity Immunization due NATALIE (generalized anxiety disorder) Physical exam Migraine with aura Allergic rhinitis Asthma Dizziness Surgical History No history of previous surgery Family History Father Diabetes mellitus HTN (hypertension) Mother Diabetes mellitus HTN (hypertension) Maternal Grandmother Diabetes mellitus Paternal Grandmother Diabetes mellitus Brother Diabetes mellitus Brother Diabetes mellitus Social History Housing: House Alcohol intake: current Alcohol intake frequency: holidays/special occasions only Patient Tobacco Use Status: Never used Tobacco e-Cigarette/Vaping Use: Never Used Second Hand Smoke Exposure: No service: No Current occupational status: employed Current occupational exposures/hazards: No Gender identity: Female Cognitive needs: No Hearing needs: No Vision needs: No Female Reproductive History Menstrual Age of Menarche: 12 Telehealth Telehealth Telehealth Platform: Telephone Location of provider rendering services: practice address Location of patient: address on file Patient Identification confirmed using: Name, : Yes Telehealth method: voice only Patient verbally consented to treatment: Yes Patient verbally consented to billing insurance company: Yes Patient informed of any privacy concerns related to visit: Yes Minutes spent on Phone/Video with Pt.: 40 Assessment & Plan Assessment & Plan (1) Morbid obesity: Code(s): E66.01 - Morbid (severe) obesity due to excess calories Category: Medical Plan: 1.? Plan for lap sleeve gastrectomy. If diaphragmatic or ventral hernias are present at time of surgery, these will be repaired laparoscopically as well. Risks and complications include possible conversion to an open procedure, anasto motic leak, bleeding requiring transfusion, small bowel obstruction, , DVT and pulmonary embolism, cardiac, or pulmonary complications, as ferry terminal agent complications such as anastomotic ulcer, insufficient weight loss and vitamin deficiencies. I emphasized the importance of close follow-up, adherence to instructions and good communication. 2. You will receive a link of our software benedict to generate an individualized nutritional and exercise plan specific for you. Please send me a screenshot of the plans you will generate Meal to include lean meat (beef, fish, pork, turkey, chicken), or swiss yogurt, or egg whites, or beans with a salad with olive oil and fruits (berries, pears, apples, kiwi). Avoid salt, breads, potatoes, rice, pasta, desserts. ?3. If you choose shakes, each shake would be drunk slowly, like coffee in a period of 2 hours. ?4. If you choose bars, cut each bar in 4 pieces and eat each piece in 30min ?to make each bar last 2 hours. ?5. I emphasized the importance of measuring accurately the food portion and measure it when serving the food in plate ?6. The meal portions include a specific number of forks of meat and salad. You always eat the meat portion but you can replace up to half of salad/vegetables portion with rice, potatoes or pasta, or a fruit ?if you like. The less you do it the better weight loss will be. ?7. One full-size fork is what it can be scooped on the fork without falling aside and not what can be bit with the fork. Use regular forks like those you find in a typical restaurant. ?8.? Please send me weight measurements as soon as possible and then once a week. Always include your diet and exercise plan. 9. The best choice would be to purchase a stationary bike, elliptical or treadmill at home that can track calories. Let me know if you do so I can give you an exercise plan. ?10.?It is important of avoiding and for at least 18 months postoperatively and has been discussed at the infosession. ?11. Goal is to lose at least 1.5-2lbs per week ?12. Goal to lose 10% of your weight before surgery, which is about 31lbs. Ultimate weight goal: 278lbs before surgery 13. Please follow the diet plan exactly without any change. If you don't like something about the plan or you feel hungry you need to communicate with me so I can help you revise the plan. You should not change the plan yourself. 14. To be scheduled for EGD due to history of GERD. The possibility of biopsies was discussed. Patient needs to avoid use of NSAIDs and aspirin for 1 week prior to EGD. Risks of perforation and bleeding was discussed with the patient. This will be an outpatient procedure with IV sedation. Orders: Orders Hemoglobin A1c Today E66.01 - Morbid (severe) obesity due to excess calories, J45.909 - Unspecified asthma, uncomplicated, K21.9 - Gastro-esophageal reflux disease without esophagitis H Pylori Breath Test Today E66.01 - Morbid (severe) obesity due to excess calories, J45.909 - Unspecified asthma, uncomplicated, K21.9 - Gastro-esophageal reflux disease without esophagitis Complete Blood Count Auto Diff Today E66.01 - Morbid (severe) obesity due to excess calories, J45.909 - Unspecified asthma, uncomplicated, K21.9 - Gastro- esophageal reflux disease without esophagitis Lipid Panel Today E66.01 - Morbid (severe) obesity due to excess calories, J45.909 - Unspecified asthma, uncomplicated, K21.9 - Gastro-esophageal reflux disease without esophagitis IRON PROFILE Today E66.01 - Morbid (severe) obesity due to excess calories, J45.909 - Unspecified asthma, uncomplicated, K21.9 - Gastro-esophageal reflux disease without esophagitis Vitamin B12 and Folate Today E66.01 - Morbid (severe) obesity due to excess calories, J45.909 - Unspecified asthma, uncomplicated, K21.9 - Gastro-esophageal reflux disease without esophagitis Zinc Today E66.01 - Morbid (severe) obesity due to excess calories, J45.909 - Unspecified asthma, uncomplicated, K21.9 - Gastro-esophageal reflux disease without esophagitis Vitamin B1 Today E66.01 - Morbid (severe) obesity due to excess calories, J45.909 - Unspecified asthma, uncomplicated, K21.9 - Gastro-esophageal reflux disease without esophagitis Vitamin A Today E66.01 - Morbid (severe) obesity due to excess calories, J45.909 - Unspecified asthma, uncomplicated, K21.9 - Gastro-esophageal reflux disease without esophagitis Vitamin D 25-OH Total Today E66.01 - Morbid (severe) obesity due to excess calories, J45.909 - Unspecified asthma, uncomplicated, K21.9 - Gastro-esophageal reflux disease without esophagitis FL upper GI w air Today E66.01 - Morbid (severe) obesity due to excess calories, J45.909 - Unspecified asthma, uncomplicated, K21.9 - Gastro-esophageal reflux disease without esophagitis Insulin Today E66.01 - Morbid (severe) obesity due to excess calories, J45.909 - Unspecified asthma, uncomplicated, K21.9 - Gastro-esophageal reflux disease without esophagitis Comprehensive Met. Panel Today E66.01 - Morbid (severe) obesity due to excess calories, J45.909 - Unspecified asthma, uncomplicated, K21.9 - Gastro-esophageal reflux disease without esophagitis C Reactive Protein Today E66.01 - Morbid (severe) obesity due to excess calories, J45.909 - Unspecified asthma, uncomplicated, K21.9 - Gastro-esophageal reflux disease without esophagitis TSH reflex Free T4 Today E66.01 - Morbid (severe) obesity due to excess calories, J45.909 - Unspecified asthma, uncomplicated, K21.9 - Gastro-esophageal reflux disease without esophagitis Ferritin Today E66.01 - Morbid (severe) obesity due to excess calories, J45.909 - Unspecified asthma, uncomplicated, K21.9 - Gastro-esophageal reflux disease without esophagitis US abdomen comp w elastography Today E66.01 - Morbid (severe) obesity due to excess calories, J45.909 - Unspecified asthma, uncomplicated, K21.9 - Gastro- esophageal reflux disease without esophagitis XR chest 2V Today E66.01 - Morbid (severe) obesity due to excess calories, J45.909 - Unspecified asthma, uncomplicated, K21.9 - Gastro-esophageal reflux disease without esophagitis ECG 12 lead EKG Today E66.01 - Morbid (severe) obesity due to excess calories, J45.909 - Unspecified asthma, uncomplicated, K21.9 - Gastro-esophageal reflux disease without esophagitis Referrals Behavioral Health Referral E66.01 - Morbid (severe) obesity due to excess calories, J45.909 - Unspecified asthma, uncomplicated, K21.9 - Gastro-esophageal reflux disease without esophagitis Nutrition/Dietitian Referral E66.01 - Morbid (severe) obesity due to excess calories, J45.909 - Unspecified asthma, uncomplicated, K21.9 - Gastro-esophageal reflux disease without esophagitis
[2023-12-19 14:28] VITALS: BMI 51.3
== END 2023-12-19 14:41 | disposition home or self-care (01) ==
LOC: HO.HBS 08:07
PROVIDERS: PCP Internal Medicine; Visit Provider Surgery
DX: E66.01 Morbid (severe) obesity due to excess calories (principal); Z68.43 Body mass index [BMI] 50.0-59.9, adult
CPT/HCPCS: 99214

== ENCOUNTER → 2023-12-19 08:07 | Outpatient (BNVA) | payer OTHER, SELFPAY | PROVIDERS: PCP Internal Medicine; Visit Provider Surgery ==

== ENCOUNTER 2023-12-23 10:39 | Outpatient (REF) | payer OTHER, SELFPAY ==
[2023-12-23 13:16] LABS: MANUAL DIFF FLAG NO
[2023-12-23 13:41] LABS: Basophils Percent Auto 0.3 % (0-2); Eosinophils Absolute Auto 0.1 X10*3/uL (0.0-0.4); Eosinophils Percent Auto 0.9 % (0-4); Hemoglobin 12.8 g/dl (12.0-16.0); Imm Gran Abs Auto 0.11 X10*3/uL (0.00-0.03); Imm Gran Pct Auto 1.4 % (0.0-0.4); Lymphocytes Absolute Auto 1.9 X10*3/uL (1.2-4.9); Lymphocytes Percent Auto 24.4 % (20-40); Mean Corpuscular HGB Conc 32.8 g/dl (31.0-35.0); Mean Corpuscular Hemoglobin 26.2 pg (27.0-33.0); Mean Corpuscular Volume 79.8 fL (80.0-98.0); Mean Platelet Volume 9.9 fL (9.4-12.3); Monocytes Absolute Auto 0.5 X10*3/uL (0.1-1.2); Monocytes Percent Auto 6.2 % (2-11); Neutrophils Absolute Auto 5.2 x10*3/uL (2.0-8.3); Neutrophils Percent Auto 66.8 % (45-73); Platelet Count 327 X10*3/uL (160-400); Red Blood Count 4.89 X10*6/uL (4.20-5.50); Red Cell Distribution Width 14.9 % (11.0-16.0); White Blood Count 7.8 X10*3/uL (4.8-10.8)
[2023-12-23 13:47] LABS: Estimated Average Glucose 114 mg/dL; Hemoglobin A1C 125.4677 umol/L; Hemoglobin A1c % 5.6 % (<6.0); Total Hemoglobin (HGBA1C) 3301.2279 umol/L
[2023-12-23 13:59] LABS: Alanine Aminotransferase 33 U/L (0-31); Albumin Level 4.1 g/dL (3.5-5.0); Alkaline Phosphatase 84 U/L (39-117); Anion Gap 11 (12-20); Aspartate Amino Transferase 25 U/L (5-31); Bilirubin Total 0.4 mg/dL (0.0-1.0); Blood Urea Nitrogen 10 mg/dL (9-16); C Reactive Protein 2.45 mg/dL (< or = 0.50); Calcium 9.7 mg/dL (8.4-10.2); Carbon Dioxide 24 mmol/L (22-29); Chloride 106 mmol/L (96-108); Cholesterol 212 mg/dL (<200); Estimated Glomerular Filt Rate > 60; Glucose Random 107 mg/dL (60-115); HDL Cholesterol 42 mg/dL (>40); Iron 72 mcg/dL (30-160); LDL Cholesterol Calculated 141 mg/dL (<100); Percent Iron Saturation 25 % (15-50); Sodium 137 mmol/L (135-145); Total Iron Binding Capacity 293 mcg/dL (228-428); Total Protein 7.4 g/dL (6.5-8.0); Triglycerides 146 mg/dL (<150); Unsaturated Iron Binding 221 ug/dL
[2023-12-23 14:18] LABS: Ferritin 129 ng/mL (10-122); Insulin 29 uU/mL (2-29); TSH reflex Free T4 1.26 uIU/mL (0.32-4.0); Vitamin D 25-OH Total 35.4 ng/mL (>30)
[2023-12-23 14:31] LABS: Folate 13.8 ng/mL (> or = 4.0); Vitamin B12 370 pg/mL (200-900)
== END 2023-12-23 10:40 | disposition home or self-care (01) ==
LOC: HO.HHCL 10:39
PROVIDERS: Visit Provider Surgery
DX: E66.01 Morbid (severe) obesity due to excess calories (principal); K21.9 Gastro-esophageal reflux disease without esophagitis; J45.909 Unspecified asthma, uncomplicated; Z13.1 Encounter for screening for diabetes mellitus
CPT/HCPCS: 36415; 80053; 80061; 82306; 82607; 82728; 82746; 83036; 83525; 83540; 84443; 85025; 86140

== ENCOUNTER 2024-01-04 08:22 | Outpatient (REF) | payer OTHER, SELFPAY ==
--- NOTE | ~2024-01-04 | XR_ITS ---
EXAMINATION: XR CHEST 2 VIEWS CLINICAL INFORMATION: Morbid (severe) obesity due to excess calories E66.01. COMPARISON: XR Chest 06/01/2022 TECHNIQUE: 2 views of the chest were obtained. FINDINGS: Low lung volumes. Right hemidiaphragm remains elevated. No focal consolidation. No pleural effusion. Cardiac silhouette is unchanged. XR/XR chest 2V IMPRESSION: No acute abnormality. Electronically signed by: Rohan Ayala MD 02/23/2024 02:20 PM [facility]
--- NOTE | 2024-01-04 09:27 | ECG_ITS ---
Test Reason : OBS Blood Pressure : / mmHG Vent. Rate : 063 BPM Atrial Rate : 063 BPM P-R Int : 150 ms QRS Dur : 082 ms QT Int : 398 ms P-R-T Axes : 047 064 052 degrees QTc Int : 407 ms Normal sinus rhythm Normal ECG When compared with ECG of 01-NOV-2023 17:53, No significant change was found Referred By: Jack Pham Electronically Signed By:Hugh Carlson
== END 2024-01-04 08:23 | disposition home or self-care (01) ==
LOC: HO.US 08:22
PROVIDERS: PCP Internal Medicine; Visit Provider Surgery
DX: E66.01 Morbid (severe) obesity due to excess calories (principal); K21.9 Gastro-esophageal reflux disease without esophagitis; J45.909 Unspecified asthma, uncomplicated
CPT/HCPCS: 71046; 76700; 76981; 93005

== ENCOUNTER → 2024-01-04 09:27 | Outpatient (BNV) | payer OTHER, SELFPAY | PROVIDERS: PCP Internal Medicine; Visit Provider Internal Medicine Cardiovascular Disease | DX: E66.01 Morbid (severe) obesity due to excess calories (principal) | CPT/HCPCS: 93010 ==

== ENCOUNTER 2024-01-06 10:27 | Outpatient (REF) | payer OTHER, SELFPAY ==
[2024-01-06 18:18] LABS: Bacterial Vaginosis PCR POSITIVE (Negative); Candida Group PCR NOT DETECTED (Not Detect); Candida glab krusei PCR NOT DETECTED (Not Detect); Trichomonas vaginalis PCR NOT DETECTED (Not Detect)
[2024-01-07 10:48] LABS: CT PCR NOT DETECTED (Not Detect.); NG PCR NOT DETECTED (Not Detect.)
== END 2024-01-06 10:28 | disposition home or self-care (01) ==
LOC: HO.LAB 10:27
PROVIDERS: PCP Internal Medicine Nephrology; Visit Provider Advanced Practice Midwife
DX: N93.9 Abnormal uterine and vaginal bleeding, unspecified (principal); D21.9 Benign neoplasm of connective and other soft tissue, unspecified
CPT/HCPCS: 0352U; 58100; 81025; 87491; 87591; 88305

== ENCOUNTER 2024-01-06 10:27 | Outpatient (AMB) | payer OTHER, SELFPAY ==
--- NOTE | 2024-01-06 10:32 | MHC.OFFVIS ---
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 She is considering a Mirena IUD, had it in the past immediate the in the hospital and had an issue with it migrating and was concerned if that would happen again. She admits to forgetting pills. She is currently not sexually active. She denies any pelvic pain or vaginal odor. WXG=898, H/H=12.8/39.0. [facility] Medical History (Updated 12/19/23 @ 14:23 by Jack Pham MD) Back pain Depression GERD (gastroesophageal reflux disease) Morbid obesity Immunization due NATALIE (generalized anxiety disorder) Physical exam Migraine with aura Allergic rhinitis Asthma Dizziness Surgical History No history of previous surgery Family History Father Diabetes mellitus HTN (hypertension) Mother Diabetes mellitus HTN (hypertension) Maternal Grandmother Diabetes mellitus Paternal Grandmother Diabetes mellitus Brother Diabetes mellitus Brother Diabetes mellitus Social History Housing: House Alcohol intake: current Alcohol intake frequency: holidays/special occasions only Patient Tobacco Use Status: Never used Tobacco e-Cigarette/Vaping Use: Never Used Second Hand Smoke Exposure: No service: No Current occupational status: employed Current occupational exposures/hazards: No Gender identity: Female Cognitive needs: No Hearing needs: No Vision needs: No Female Reproductive History Menstrual Age of Menarche: 12 Date of last menstrual period: 12/13/23 Review of Systems Const All systems reviewed & are unremarkable except as noted in HPI and below Physical Exam Vital Signs: Last Vital Signs BP 114/70 01/06/24 10:40 Const General: cooperative, healthy appearing and no acute distress Orientation/consciousness: patient oriented x3 GI Inspection: Yes normal to inspection Palpation (GI): Soft to palpation and Other GI palpation findings present (Nontender) Rectal Exam - Female: visual inspection normal General: Yes bladder normal to palpation External Female Exam: normal appearance of the urethra Speculum Exam - Vagina: normal appearance of the vagina, normal palpation, normal vaginal discharge and vaginal bleeding (Small amount at cervix) Speculum Exam - Cervix: normal appearance of the cervix and normal palpation Bimanual exam- vagina & uterus: normal bimanual exam, normal palpation, uterine size normal, bladder normal to palpation, normal palpation, uterine shape normal and non-tender Bimanual Exam- Adnexa, other: normal adnexae OB/external & speculum: vaginal bleeding (Small amount at cervix) Neuro General: patient oriented x3 Office Procedures Endometrial Biopsy Details: The patient is here today for an endometrial biopsy due to AUB to rule out any pathology including atypical, hyperplasia or cancer cells of the uterus. She was counseled regarding anticipatory guidance for the procedure including the risks for pain, infection, bleeding, perforation, potential injury to the tissues may include the cervix, uterus, tubes, bladder and bowels. These injuries may include further treatment and evaluation including surgery, blood transfusions, antibiotics, hospitalizations and anesthesia. Permanent injury and scarring can occur. She was consented for the procedure, and the consent forms were signed. She is agreeable to have the procedure today. All questions were answered. Endometrial Biopsy Procedure: The patient was placed in the dorsal lithotomy position and a sterile speculum inserted. Using aseptic technique for the procedure. The cervix was cleansed with Betadine x 3 swabs. A single toothed tenaculum was placed on the cervix for stabilization and the uterus was sounded to 9 cm with a 4mm pipelle, and tissue sample obtained. Minimal bleeding was observed. The tissue sample was placed in formalin in a patient labeled container by staff assisting and sent to the pathology department for processing and interpretation. The patient tolerate the procedure well and was in good condition when leaving the department. Endometrial Biopsy Post Procedure Care: Nothing in the vagina including: tampons, douching or intimacy until all the bleeding has subsided. There may be some post procedure bleeding for several days, this bleeding is usually light and may turn to a light brown or pink color. Mild cramps may occurs. Nothing in the vaginal including: tampons, douching, or intimacy until all the bleeding has subsided. You may take an over the counter mild analgesic such as Tylenol or Advil (if no allergies) per the manufactures recommendation on dosing, frequency, and follow the directions completely. Call the office if any: fever (over 100.4), flu like symptoms, abdominal pain (worse than cramping), foul smelling, infected appearing vaginal discharge, or heavy bleeding. If indicated: Use condoms to prevent and STI's, and only after the bleeding has stopped completely. Return to the office in 2 weeks for results and plan of care. This note is constructed using voice recognition software. While every effort has been made to ensure accuracy, intellectual property counsel errors may have been included. [id number] Biopsy Results AMB Test Urine AMB Test Urine Negative Last Edit by RADHA Kraft on 01/06/24 10:42 Assessment & Plan Assessment & Plan (1) Abnormal uterine bleeding (AUB): Code(s): N93.9 - Abnormal uterine and vaginal bleeding, unspecified Plan Plans Mirena IUD at her next visit. Anticipatory guidance reviewed advised to take 3 Advil with food and fluids 1 hour before her appointment. Previous experience with the Mirena IUD may have been contributed to early insertion and migration due to involution. Reviewed risks benefits. See procedure notes. All of her questions and concerns were addressed to the best of my ability and shared decision making. She is agreeable to the plan of care. This note is constructed using voice recognition software. While every effort has been made to ensure accuracy, intellectual property counsel errors may have been included. Orders: Orders AMB HCG Urine Test Today N93.9 - Abnormal uterine and vaginal bleeding, unspecified Surgical Today D21.9 - Benign neoplasm of connective and other soft tissue, unspecified, N93.9 - Abnormal uterine and vaginal bleeding, unspecified Bacterial Vaginosis Panel Today N93.9 - Abnormal uterine and vaginal bleeding, unspecified CT NG by PCR Today N93.9 - Abnormal uterine and vaginal bleeding, unspecified Coding Level of Care Code Procedure Only Diagnoses Abnormal uterine bleeding (AUB) N93.9 CPT Codes Endometrial Biopsy - CPT: 91321-[id number] Biopsy ([id number])
[2024-01-06 10:40] VITALS: BP 114/70
== END 2024-01-06 14:45 | disposition home or self-care (01) ==
PROVIDERS: PCP Internal Medicine Nephrology; Visit Provider Advanced Practice Midwife
DX: N93.9 Abnormal uterine and vaginal bleeding, unspecified (principal)
CPT/HCPCS: 58100

== ENCOUNTER 2024-01-06 10:56 | Outpatient (REF) | payer OTHER, SELFPAY | END 2024-01-06 10:57 | disposition home or self-care (01) | LOC: HO.LNP 10:56 | PROVIDERS: Visit Provider Advanced Practice Midwife | DX: Z13.89 Encounter for screening for other disorder (principal) ==

== ENCOUNTER 2024-01-20 08:29 | Outpatient (AMB) | payer OTHER, SELFPAY ==
--- NOTE | 2024-01-20 08:37 | MHC.OFFVIS ---
Vital Signs 01/20/24 08:39 Height 5 ft 5 in Weight 308 lb BMI 51.2 BP 124/78 Intake Visit Reasons: Mirena insertion/EMB results Allergies cephalexin [From KEFLEX] Allergy (Unknown, Verified 01/06/24 10:32) ANAPHYLAXIS Sulfa (Sulfonamide Antibiotics) Allergy (Unknown, Verified 01/06/24 10:32) rash,swelling sulfamethoxazole [From BACTRIM] Allergy (Unknown, Verified 01/06/24 10:32) ANAPHYLAXIS trimethoprim [From BACTRIM] Allergy (Unknown, Verified 01/06/24 10:32) ANAPHYLAXIS HPI Comments Details: Patient is here today for a follow up EMB results and a Mirena insert. History of AUB. [facility] Medical History (Updated 01/20/24 @ 09:10 by Harmony Galicia CNM) IUD (intrauterine device) in place Back pain Depression GERD (gastroesophageal reflux disease) Morbid obesity Immunization due NATALIE (generalized anxiety disorder) Physical exam Migraine with aura Allergic rhinitis Asthma Dizziness Surgical History No history of previous surgery Family History Father Diabetes mellitus HTN (hypertension) Mother Diabetes mellitus HTN (hypertension) Maternal Grandmother Diabetes mellitus Paternal Grandmother Diabetes mellitus Brother Diabetes mellitus Brother Diabetes mellitus Social History Housing: House Alcohol intake: current Alcohol intake frequency: holidays/special occasions only Patient Tobacco Use Status: Never used Tobacco e-Cigarette/Vaping Use: Never Used Second Hand Smoke Exposure: No service: No Current occupational status: employed Current occupational exposures/hazards: No Gender identity: Female Cognitive needs: No Hearing needs: No Vision needs: No Female Reproductive History Menstrual Age of Menarche: 12 Date of last menstrual period: 01/16/24 control method: none and progestin IUCD Total pregnancies: 2 Full term: 2 Review of Systems Const All systems reviewed & are unremarkable except as noted in HPI and below Physical Exam Vital Signs: Last Vital Signs BP 124/78 01/20/24 08:39 BMI result Body Mass Index 51.2 Const General: cooperative, healthy appearing and no acute distress Orientation/consciousness: patient oriented x3 GI Inspection: Yes normal to inspection Palpation (GI): Soft to palpation and Other GI palpation findings present (Nontender) Rectal Exam - Female: visual inspection normal General: Yes bladder normal to palpation External Female Exam: normal appearance of the urethra Speculum Exam - Vagina: normal appearance of the vagina, normal palpation, normal vaginal discharge and vaginal bleeding Speculum Exam - Cervix: normal appearance of the cervix and normal palpation Bimanual exam- vagina & uterus: normal bimanual exam, normal palpation, uterine size normal, bladder normal to palpation, normal palpation, uterine shape normal and non-tender Bimanual Exam- Adnexa, other: normal adnexae OB/external & speculum: vaginal bleeding Neuro General: patient oriented x3 Office Procedures IUD Insert/Removal Details 11321-YYI Insertion Procedure code (CPT) selection complete Contraception Insert/Removal Details Details: The patient is here today for a Mirena IUD insertion. She was counseled on the side effects including: menstrual cycle changes, pain, infection, bleeding, or expulsion. Risks of injury to the vagina, cervix, uterus, tubes, ovaries, bowel, bladder, and any adjacent tissue, resulting in nerve damage, scarring, and pain. Risks complications for the procedure that may require other test including ultrasounds, Xray, CT or MRI scan, surgery, anesthesia, blood transfusion. A urine test was completed and was negative. She was consented for the IUD insertion and has signed the consent form. All questions were answered. IUD Insertion: The patient was placed in the dorsal lithotomy position and a sterile speculum was inserted. The procedure was completed under aseptic technique. The cervix was cleansed with a Betadine solution x 3 swabs. A single toothed tenaculum was applied to the cervix for stabilization, and the uterus was sounded to 8.5 cm. The device was inserted and released with a gentle motion. Bleeding from the tenaculum sites and the procedure were minimal. The strings were trimmed to 3cm. All of the equipment was removed and the bimanual was normal, no tip was palpable at the cervical os. The patient tolerated the procedure well and left the office in good condition. Post IUD Insertion Care: There may be some post insertion bleeding for several days that is usually light and can turn to a light brown or pink in color. Mild cramping may occur. Nothing in the vagina including: tampons, douching or intimacy for several days. You may take an over the counter mild analgesia like Tylenol or Advil (if no allergies), per the manufacturers recommendations on dosing and frequency. Follow the directions completely. Call the office if any: fever (over 100.4), flu like symptoms, abdominal pain, worsening cramping not resolved with over the counter medications, foul smelling vaginal odor, signs of infected appearing discharge, or heavy bleeding. Use a condom for a back up method if indicated for 7 days. Always use a condom for STI prevention; IUD's are not protective against STD's. Return to the office in 4-6 weeks for IUD recheck. This note is constructed using voice recognition software. While every effort has been made to ensure accuracy, sales and marketing assistant errors may have been included. 88456 - Insertion Office Meds Mirena 21 mcg/24 hr (up to 8 years) 52 mg intrauterine device Performing Provider: Harmony Galicia CNM [place] [facility] [place] [facility] Administered by: RADHA Kraft on 01/20/24 09:27 Dose Route Admin Location Dispensed Lot Number Expiration Date [facility] Management Scientist 1 device intrauterine 1 device [id number] 03/13/26 [id number] [employer] Results AMB Test Urine AMB Test Urine Negative Last Edit by RADHA Kraft on 01/20/24 08:44 Results Reviewed Results Reviewed: Laboratory Last Values Tst Clinic Negative 01/20/24 08:44 Name: Jazmin Christian Age/Sex: 38/F Attending: Harmony Galicia CNM : 1985 Submitted by: Harmony Galicia CNM Copies to: Darshan Schmitz MD MR #: [id number] Status: DEP REF Collected: 01/06/24 Location: .LAB Received: 01/09/24 Diagnosis Endometrium, biopsy: Benign proliferative endometrium with focal breakdown; no atypia or carcinoma. Clinical History AUB, fibroid Microscopic Description Microscopic sections reviewed. Material Received Endometrial bx Gross Description Received in formalin labeled ?EMB? a 2.8 x 2.5 x 0.5-0.8 cm aggregate of multiple dinero and maroon-brown irregular and tubular cast fragments of congested and hemorrhagic tissue, mucus and blood, submitted in toto in cassettes A1 and A2. CEDS Copies To Harmony Galicia CNM [facility] [place] [facility] [address] [place] [address] Darshan Schmitz MD [address] [facility] [address] [place], [place] [id number] NOTE: Unless otherwise stated, all tissue is formalin-fixed and paraffin-embedded. Some or all of the immunohistochemical tests reported herein may have been developed and their performance characteristics determined by [facility]. They have not been cleared or approved by the U.S. Food and Drug Administration (FDA). However, the FDA has determined that such clearance or approval is not necessary. This laboratory is certified under the Clinical Laboratory Improvement Amendments of 1988 (CLIA) as qualified to perform high complexity clinical laboratory testing. Electronically Signed By: Aida Lancaster 01/10/24 4018 Patient: Jazmin Christian Age/Sex: 38/F MR#: [id number] Page 1 of 1 Assessment & Plan Assessment & Plan (1) Encounter for insertion of Mirena IUD: Code(s): Z30.430 - Encounter for insertion of intrauterine contraceptive device (2) Encounter to discuss test results: Code(s): Z71.2 - Person consulting for explanation of examination or test findings (3) Abnormal uterine bleeding (AUB): Code(s): N93.9 - Abnormal uterine and vaginal bleeding, unspecified Plan Discussed: Endometrial biopsy results no atypia or carcinoma. See procedure notes. This note is constructed using voice recognition software. While every effort has been made to ensure accuracy, sales and marketing assistant errors may have been included. Orders: Orders AMB HCG Urine Test Today Z32.02 - Encounter for test, result negative Coding Level of Care Code Procedure Only Diagnoses Encounter for insertion of Mirena IUD Z30.430 Encounter to discuss test results Z71.2 Abnormal uterine bleeding (AUB) N93.9 CPT Codes Details - CPT: 11792-VTK Insertion ([id number]) Details - Contraception: 11004 - Insertion ([id number])
[2024-01-20 08:39] VITALS: BP 124/78; BMI 51.2
== END 2024-01-20 09:11 | disposition home or self-care (01) ==
LOC: HO.HWS 08:30
PROVIDERS: PCP Internal Medicine Nephrology; Visit Provider Advanced Practice Midwife
DX: Z30.430 Encounter for insertion of intrauterine contraceptive device (principal); Z71.2 Person consulting for explanation of examination or test findings; N93.9 Abnormal uterine and vaginal bleeding, unspecified; Z32.02 Encounter for pregnancy test, result negative
CPT/HCPCS: 58300

== ENCOUNTER → 2024-01-20 08:29 | Outpatient (BNVA) | payer OTHER, SELFPAY | PROVIDERS: PCP Internal Medicine Nephrology; Visit Provider Advanced Practice Midwife | DX: Z30.430 Encounter for insertion of intrauterine contraceptive device (principal); N93.9 Abnormal uterine and vaginal bleeding, unspecified | CPT/HCPCS: 58300; 81025; J7298 ==

== ENCOUNTER → 2024-01-25 13:18 | Outpatient (BNVA) | payer OTHER, SELFPAY | PROVIDERS: PCP Internal Medicine Nephrology; Visit Provider Counselor Mental Health ==

== ENCOUNTER → 2024-01-25 13:18 | Outpatient (AMB) | payer OTHER, SELFPAY ==
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
== END ==
LOC: HO.HBST 13:18
PROVIDERS: PCP Internal Medicine Nephrology; Visit Provider Counselor Mental Health
DX: F43.10 Post-traumatic stress disorder, unspecified (principal)
CPT/HCPCS: 90791

== ENCOUNTER 2024-02-02 14:07 | Emergency (ER) | payer OTHER, SELFPAY ==
--- NOTE | ~2024-02-02 | XR_ITS ---
EXAMINATION: XR CHEST CLINICAL INFORMATION: URI SYmptoms COMPARISON: X-ray dated January 04, 2024. TECHNIQUE: Frontal view of the chest was obtained. FINDINGS: Poor inspiratory x-ray. No gross consolidation, pleural effusion or pneumothorax. Questionable pulmonary crowding in the perihilar region. Cardiomediastinal silhouette demonstrates normal size. Calcified plaque aortic arch. Multilevel thoracic spondylosis. XR/XR chest 1V IMPRESSION: No acute airspace disease. Limited exam. Electronically signed by: Rasta Solorio MD 02/02/2024 03:56 PM EST
--- NOTE | 2024-02-02 14:10 | ECG_ITS ---
Test Reason : CHEST PAIN Blood Pressure : / mmHG Vent. Rate : 090 BPM Atrial Rate : 090 BPM P-R Int : 150 ms QRS Dur : 084 ms QT Int : 352 ms P-R-T Axes : 038 053 029 degrees QTc Int : 430 ms Normal sinus rhythm Normal ECG When compared with ECG of 04-JAN-2024 09:26, No significant change was found Referred By: Louis Nino Electronically Signed By:DARLYN HAWK MD
[2024-02-02 14:31] VITALS: BP 142/78; PULSE 85; RESP 20; TEMP 37; O2SAT 94; BMI 51.8
--- NOTE | 2024-02-02 14:35 | ED_ITS ---
HPI - General Adult General Chief complaint: Upper Respiratory Symptoms Stated complaint: Chest pain, congestion Time Seen by Provider: 02/02/24 15:35 Source: patient and RN notes reviewed Mode of arrival: ambulatory Limitations: no limitations History of Present Illness ED Provider: Riri Barraza PA-C HPI narrative: This is a 38 y/o F, hx of asthma, who presents to the ed with complaints of dry cough, and left rib pain. Reports subjective fevers. Has been using child's inhaler at home with some relief. No documented fevers, chills, abdominal pain, nausea, vomiting or diarrhea. She reports pain in ribs does worsen with deep inspiration. She is on control, otherwise no recent travel, surgeries, hospitalizations, hx of cancer or DVT/PE. No leg edema or hemoptysis. No other complaints or concerns at this time. MD complaint: couogh Onset (ago): day(s) Relieving factors: medication Exacerbating factors: none Associated symptoms: chest pain and cough Treatments prior to arrival: none Related Data Home Medications ?Medication ?Instructions ?Recorded ?Confirmed sertraline 25 mg tablet 100 mg PO DAILY 01/07/23 12/19/23 albuterol sulfate 90 mcg/actuation 2 puff inhalation Q6H PRN 12/19/23 12/19/23 aerosol inhaler omeprazole 40 mg capsule,delayed 40 mg PO DAILY 12/19/23 12/19/23 release Previous Rx's ?Medication ?Instructions ?Recorded hydroxyzine HCl 25 mg tablet 25 mg PO BID PRN itching 30 days 12/11/22 #60 tabs metronidazole 500 mg tablet 500 mg PO BID 7 days #14 tabs 01/10/24 albuterol sulfate 90 mcg/actuation 2 puff inhalation Q6H PRN 02/02/24 aerosol inhaler shortness of breath or wheezing #6.7 grams prednisone 20 mg tablet 40 mg (2 x 20 mg) PO DAILY 4 days 02/02/24 #8 tabs Allergies Allergy/AdvReac Type Severity Reaction Status Date / Time cephalexin [From KEFLEX] Allergy Unknown ANAPHYLAXIS Verified 02/02/24 14:33 Sulfa (Sulfonamide Allergy Unknown rash,swelli Verified 02/02/24 14:33 Antibiotics) ng sulfamethoxazole Allergy Unknown ANAPHYLAXIS Verified 02/02/24 14:33 [From BACTRIM] trimethoprim [From BACTRIM] Allergy Unknown ANAPHYLAXIS Verified 02/02/24 14:33 Review of Systems 2 Review of Systems: Yes all other systems are reviewed and are negative Constitutional: Constitutional: Reports as per [facility] Past Medical History Medical History (Updated 02/02/24 @ 19:03 by AJ Roque) IUD (intrauterine device) in place Back pain Depression GERD (gastroesophageal reflux disease) Morbid obesity Immunization due NATALIE (generalized anxiety disorder) Physical exam Migraine with aura Allergic rhinitis Asthma Dizziness Surgical History No history of previous surgery Family History Family History Father Diabetes mellitus HTN (hypertension) Mother Diabetes mellitus HTN (hypertension) Maternal Grandmother Diabetes mellitus Paternal Grandmother Diabetes mellitus Brother Diabetes mellitus Brother Diabetes mellitus Social History Social History Housing: House Alcohol intake: current Alcohol intake frequency: holidays/special occasions only Patient Tobacco Use Status: Never used Tobacco e-Cigarette/Vaping Use: Never Used Second Hand Smoke Exposure: No Advance Directives: No Advance Directives Information Provided: No service: No Current occupational status: employed Current occupational exposures/hazards: No Gender identity: Female Cognitive needs: No Hearing needs: No Vision needs: No Physical Exam ED Vital Signs: Vital Signs - 24 hr 02/02/24 14:31 02/02/24 18:42 02/02/24 18:48 Temperature 98.6 F 97.4 F Pulse Rate 85 95 96 Respiratory Rate 20 18 18 Blood Pressure 142/78 H 127/81 Pulse Oximetry 94 100 Oxygen Delivery Method Room Air Room Air 02/02/24 19:14 Temperature 97.4 F Pulse Rate 96 Respiratory Rate 18 Blood Pressure 127/81 Pulse Oximetry 100 Oxygen Delivery Method Room Air BMI result Body Mass Index 51.8 Const General: cooperative, comfortable and no acute distress Orientation/consciousness: patient oriented x3 Limitations: no limitations HENMT Head: Yes normal to inspection, Yes normocephalic and Yes atraumatic Ears: hearing grossly normal bilaterally General nose exam: Normal external nose present Face and sinus: Yes normal facial exam Mouth: Normal oral and palatal mucosa present, oropharynx normal and moist mucous membranes Throat: Yes posterior oropharynx normal Eyes General: appearance normal, both eyes and all related structures Eyelids: Yes eyelids normal Conjunctivae: conjunctivae normal Sclerae: sclerae normal Pupils: Equal, round and reactive pupils present EOM: EOMs intact bilaterally Neck Neck: Yes normal visual inspection, Yes full ROM and Yes no lymphadenopathy Lymphatic: no lymphadenopathy noted Chest Chest palpation & inspection: normal inspection of the chest Resp Other: Lungs are diminished in the lower lung bases with faint inspiratory and expiratory wheezes noted in the BL bases. No respiratory distress or accessory muscle use noted. Effort & Inspection: normal respiratory effort and able to speak in complete sentences Cardio Rate: regular rate Rhythm: regular rhythm Heart sounds: S1 normal heart sound present and S2 normal heart sound present GI Inspection: Yes normal to inspection Skin General skin exam: no rashes or lesions noted Trauma: no lacerations or abrasions Wounds: no wounds Neuro General: patient oriented x3 and moves all extremities Cranial nerves: Yes Equal, round and reactive pupils present Extrem General: Yes normal to inspection Right upper extremity: normal to inspection Left upper extremity: normal to inspection Right lower extremity: normal to inspection Left lower extremity: normal to inspection Course Course Course Narrative: RME: 38-year-old fever presents to ED for dry cough with pain neck pain due to coughing, night sweats, chills, and body aches. Patient states history of pneumonia. Lungs are clear. Chest x-ray SARs strep ordered. EKG normal sinus Medications Administered Discontinued Medications Generic Name Dose Route Start Last Admin Trade Name Freq PRN Reason Stop Dose Admin Albuterol Sulfate 5 mg/ 7.5 mg 02/02/24 18:36 02/02/24 18:41 Albuterol Sulfate 2.5 mg INHALE 02/02/24 18:37 7.5 mg ONCE ONE Administration Prednisone 40 mg 02/02/24 19:03 02/02/24 19:11 Prednisone 20 Mg Tablet PO 02/02/24 19:04 40 mg ONCE ONE Administration Medical Decision Making Medical Decision Making [facility] Narrative: 38 y/o F here with cough and pleuritic left sided rib pain x 3 day. No fevers or chills. Lungs are diminished with faint inspiratory and expiratory wheezese noted. VSS. Viral swabs were obtained and negative. CXR revealing no pneumonia. Given pleuritic pain, and risk factor of IUD, PE is unlikely, however ddimer was performed and is negative. Cut off for DVT/PE is 243, and pt's dimer is 204. Pt was given updraft in the department and patient is feeling much better. pain in rib region has resolved completely after updraft. Sxs likely viral in nature, however with treat with prednisone and inhaler. Given strict return precautions. Pt stable for d.c Differential Diagnosis Differential Diagnoses: The differential diagnosis associated with the presentation includes Pneumonia, URI, bronchitis, RAD Lab Data MDM Lab Attestation statement: I reviewed the patient's lab results. No leukocytosis, stable H&H,Chem with no electrolyte derangements. dimer 204. neg viral swabs. 02/02/24 17:37 02/02/24 17:37 Labs: Lab Results 02/02/24 02/02/24 Range/Units 15:42 17:37 WBC 8.5 (4.8-10.8) X10*3/uL RBC 5.05 (4.20-5.50) X10*6/uL Hgb 13.0 (12.0-16.0) g/dl Hct 38.6 (37.0-47.0) % MCV 76.4 L (80.0-98.0) fL MCH 25.7 L (27.0-33.0) pg MCHC 33.7 (31.0-35.0) g/dl RDW 14.9 (11.0-16.0) % Plt Count 280 (160-400) X10*3/uL MPV 9.1 L (9.4-12.3) fL Immature Gran % (Auto) 0.5 H (0.0-0.4) % Neut % (Auto) 66.8 (45-73) % Lymph % (Auto) 22.0 (20-40) % Luce % (Auto) 6.7 (2-11) % Eos % (Auto) 3.5 (0-4) % Baso % (Auto) 0.5 (0-2) % Lymph # (Auto) 1.9 (1.2-4.9) X10*3/uL Luce # (Auto) 0.6 (0.1-1.2) X10*3/uL Eos # (Auto) 0.3 (0.0-0.4) X10*3/uL Baso # (Auto) 0.0 (0.0-0.2) X10*3/uL Abs Immat Gran (auto) 0.04 H (0.00-0.03) X10*3/uL Absolute Neuts (auto) 5.7 (2.0-8.3) x10*3/uL Absolute Nucleated RBC 0.000 (0.0-0.012) X10*3/uL Nucleated RBC % (auto) 0.0 (0.0-0.2) /100WBC D-Dimer High Sensitivty 204 NG/ML Sodium 138 (135-145) mmol/L Potassium 3.8 (3.3-5.1) mmol/L Chloride 103 (96-108) mmol/L Carbon Dioxide 26 (22-29) mmol/L Anion Gap 13 (12-20) BUN 8 L (9-16) mg/dL Creatinine 0.77 (0.5-1.4) mg/dL Estim Creat Clear Calc 140.4 Estimated GFR > 60 Random Glucose 134 H (60-115) mg/dL Calcium 9.8 (8.4-10.2) mg/dL Magnesium 1.8 (1.6-2.6) mg/dL Total Bilirubin 0.4 (0.0-1.0) mg/dL AST 29 (5-31) U/L ALT 35 H (0-31) U/L Alkaline Phosphatase 87 (39-117) U/L Troponin I High Sens < 2.7 (<3.5-17.0) ng/L Total Protein 7.7 (6.5-8.0) g/dL Albumin 4.2 (3.5-5.0) g/dL Influenza Type A (PCR) NEGATIVE (Negative) Influenza Type B (PCR) NEGATIVE (Negative) RSV RNA Qual (PCR) NEGATIVE (Negative) SARS-CoV-2 RNA (RT-PCR) NEGATIVE (Negative) S. pyogenes GrpA RADHAMES Negative (Negative) Independent Interpretation I performed an independent interpretation of an: EKG Interpretation: NSR at a ventricular rate of 90 bpm. No STEMI Radiology Impression Discussion of test interpretation with radiology: I have reviewed the radiologist's reading. Radiologist Impression: XR/XR chest 1V IMPRESSION: No acute airspace disease. Limited exam. Electronically signed by: Rasta Solorio MD 02/02/2024 03:56 PM EST Dictated By: Rasta Ellison MD Discharge Plan Discharge Clinical Impression: Upper respiratory infection Patient Disposition: Home, Self-Care Instructions: Upper Respiratory Infection (ED), Viral Syndrome (ED) Additional Instructions: You were seen in the emergency department today. Your chest x-ray does not show a pneumonia. You tested negative for COVID, flu, and RSV. Your EKG was reassuring. Your blood work was reassuring. You likely have a virus that is triggering your asthma. Please take prescribed prednisone as directed. Finish the entire course even if your symptoms improve. Use the albuterol inhaler as needed for shortness for breath. Use spacer as this helps distribute the medication in your lungs. Drink plenty of fluids and get plenty of rest. If any new or worsening symptoms occur including but not limited to severe chest pain, shortness of breath. please seek emergent care. Follow-up with your primary care physician Prescriptions: New prednisone 20 mg tablet 40 mg PO DAILY 4 Days Qty: 8 0RF Rx Instructions: start tomorrow (02/02) albuterol sulfate 90 mcg/actuation HFA aerosol inhaler 2 puff inhalation Q6H PRN (Reason: shortness of breath or wheezing) Qty: 6.7 0RF No Action hydroxyzine HCl 25 mg tablet 25 mg PO BID PRN (Reason: itching) 30 Days Qty: 60 0RF metronidazole 500 mg tablet 500 mg PO BID 7 Days Qty: 14 0RF Rx Instructions: Take with food, Avoid alcohol and vinegar products sertraline 25 mg tablet 100 mg PO DAILY albuterol sulfate 90 mcg/actuation HFA aerosol inhaler 2 puff inhalation Q6H PRN omeprazole 40 mg capsule,delayed release(DR/EC) 40 mg PO DAILY Stand Alone Forms: Work/School Release Interventions: ED Discharge Assessment Last Done: 02/02/24 19:14 Discharge Date/Time: 02/02/24 19:14 Print Language: Belarusian
[2024-02-02 16:04] LABS: IDNOW Serial# 08D9AD1C; Strep A Nucleic Acid Negative (Negative)
[2024-02-02 16:43] LABS: Influenza A PCR NEGATIVE (Negative); Influenza B PCR NEGATIVE (Negative); Resp Syncy Virus RNA Qual PCR NEGATIVE (Negative); SARS COV2 PCR INHOUSE NEGATIVE (Negative)
[2024-02-02 17:41] LABS: MANUAL DIFF FLAG NO
[2024-02-02 17:43] LABS: Basophils Percent Auto 0.5 % (0-2); Eosinophils Absolute Auto 0.3 X10*3/uL (0.0-0.4); Eosinophils Percent Auto 3.5 % (0-4); Hematocrit 38.6 % (37.0-47.0); Imm Gran Abs Auto 0.04 X10*3/uL (0.00-0.03); Imm Gran Pct Auto 0.5 % (0.0-0.4); Lymphocytes Absolute Auto 1.9 X10*3/uL (1.2-4.9); Mean Corpuscular HGB Conc 33.7 g/dl (31.0-35.0); Mean Corpuscular Hemoglobin 25.7 pg (27.0-33.0); Mean Corpuscular Volume 76.4 fL (80.0-98.0); Mean Platelet Volume 9.1 fL (9.4-12.3); Monocytes Absolute Auto 0.6 X10*3/uL (0.1-1.2); Monocytes Percent Auto 6.7 % (2-11); Neutrophils Absolute Auto 5.7 x10*3/uL (2.0-8.3); Neutrophils Percent Auto 66.8 % (45-73); Platelet Count 280 X10*3/uL (160-400); Red Blood Count 5.05 X10*6/uL (4.20-5.50); Red Cell Distribution Width 14.9 % (11.0-16.0); White Blood Count 8.5 X10*3/uL (4.8-10.8)
[2024-02-02 17:49] LABS: D Dimer High Sensitivity 204 NG/ML
[2024-02-02 17:56] LABS: Alanine Aminotransferase 35 U/L (0-31); Albumin Level 4.2 g/dL (3.5-5.0); Alkaline Phosphatase 87 U/L (39-117); Anion Gap 13 (12-20); Aspartate Amino Transferase 29 U/L (5-31); Bilirubin Total 0.4 mg/dL (0.0-1.0); Blood Urea Nitrogen 8 mg/dL (9-16); Calcium 9.8 mg/dL (8.4-10.2); Carbon Dioxide 26 mmol/L (22-29); Chloride 103 mmol/L (96-108); Creatinine Clr Calc Pharmacy 140.4; Estimated Glomerular Filt Rate > 60; Glucose Random 134 mg/dL (60-115); Magnesium 1.8 mg/dL (1.6-2.6); Potassium 3.8 mmol/L (3.3-5.1); Sodium 138 mmol/L (135-145); Total Protein 7.7 g/dL (6.5-8.0)
[2024-02-02 18:06] LABS: Troponin-I High Sensitivity < 2.7 ng/L (<3.5-17.0)
[2024-02-02] MEDS: Albuterol Sulfate 5 MG, Albuterol Sulfate (0.083%) 2.5 MG 7.5 MG INHALE (18:41)
[2024-02-02 18:42] VITALS: PULSE 95; RESP 18; O2SAT 96
[2024-02-02 18:48] VITALS: BP 127/81; PULSE 96; RESP 18; TEMP 36.3; O2SAT 100
[2024-02-02] MEDS: predniSONE 20 MG TABLET 40 MG PO (19:11)
[2024-02-02 19:14] VITALS: BP 127/81; PULSE 96; RESP 18; TEMP 36.3; O2SAT 100
== END 2024-02-02 19:14 | disposition home or self-care (01) ==
PROVIDERS: Physician Assistant; Physician Assistant Medical; Emergency Provider Internal Medicine
DX: R07.89 Other chest pain (principal); R07.81 Pleurodynia; R05.9 Cough, unspecified; Z79.899 Other long term (current) drug therapy; Z03.818 Encounter for observation for suspected exposure to other biological agents ruled out
CPT/HCPCS: 0241U; 36415; 71045; 80053; 83735; 84484; 85025; 85379; 87651; 93005; 94640; 99284

== ENCOUNTER → 2024-02-02 14:10 | Outpatient (BNV) | payer OTHER, SELFPAY | PROVIDERS: Emergency Provider Internal Medicine; Visit Provider Internal Medicine Cardiovascular Disease | DX: R07.9 Chest pain, unspecified (principal) | CPT/HCPCS: 93010 ==

== ENCOUNTER → 2024-02-02 14:34 | Outpatient (BNV) | payer OTHER, SELFPAY | PROVIDERS: Visit Provider Radiology Diagnostic Radiology | DX: J06.9 Acute upper respiratory infection, unspecified (principal) | CPT/HCPCS: 71045 ==

== ENCOUNTER 2024-02-10 12:11 | Outpatient (AMB) | payer OTHER, SELFPAY ==
--- NOTE | 2024-02-10 12:12 | MHC.OFFWIV ---
Intake Vital Signs 02/10/24 12:16 Weight 311 lb BP 120/80 Blood Pressure Location Lt brachial Position Sitting Pulse 84 Pulse Source Pulse Oximeter Pulse Oximetry (%) 98 Oxygen Delivery Method Room Air Intake Visit Reasons: EP SOB, cough, tightness, shoulder blade pain Intake Note: Patinet here for SOB, cough, chest tightness that has bee present for about 2 weeks. Patient Tobacco Use Status: Never used Tobacco Allergies cephalexin [From KEFLEX] Allergy (Unknown, Verified 02/10/24 12:44) ANAPHYLAXIS Sulfa (Sulfonamide Antibiotics) Allergy (Unknown, Verified 02/10/24 12:44) rash,swelling sulfamethoxazole [From BACTRIM] Allergy (Unknown, Verified 02/10/24 12:44) ANAPHYLAXIS trimethoprim [From BACTRIM] Allergy (Unknown, Verified 02/10/24 12:44) ANAPHYLAXIS Medication List - Last Reconciled 02/10/24 by Efrem Jacobson MD albuterol sulfate 90 mcg/actuation 2 puffs inhalation Q6H PRN albuterol sulfate 90 mcg/actuation 2 puffs inhalation Q6H PRN hydroxyzine HCl 25 mg PO BID PRN 30 days omeprazole 40 mg PO DAILY sertraline 100 mg PO DAILY Do you need a note to return to daycare/school/sports/work: No HPI EP SOB, cough, tightness, shoulder blade pain HPI Details Patient presents for a sick visit. Reporting symptoms of sinus congestion, sore throat and difficulty swallowing. Low-grade fever. No family member is sick. No recent travel. Patient reports symptoms of malaise and fatigue. [facility] Medical History (Updated 02/03/24 @ 00:01 by [facility] Alfonso) IUD (intrauterine device) in place Back pain Depression GERD (gastroesophageal reflux disease) Morbid obesity Immunization due NATALIE (generalized anxiety disorder) Physical exam Migraine with aura Allergic rhinitis Asthma Dizziness Surgical History No history of previous surgery Family History Father Diabetes mellitus HTN (hypertension) Mother Diabetes mellitus HTN (hypertension) Maternal Grandmother Diabetes mellitus Paternal Grandmother Diabetes mellitus Brother Diabetes mellitus Brother Diabetes mellitus Social History Housing: House Alcohol intake: current Alcohol intake frequency: holidays/special occasions only Patient Tobacco Use Status: Never used Tobacco e-Cigarette/Vaping Use: Never Used Second Hand Smoke Exposure: No service: No Current occupational status: employed Current occupational exposures/hazards: No Gender identity: Female Cognitive needs: No Hearing needs: No Vision needs: No Female Reproductive History Menstrual Age of Menarche: 12 Physical Exam Vital Signs: Last Vital Signs Pulse 84 02/10/24 12:16 BP 120/80 02/10/24 12:16 Pulse Ox 98 02/10/24 12:16 Oxygen Delivery Method Room Air 02/10/24 12:16 Const General: cooperative and healthy appearing Nutritional Appearance: well nourished Orientation/consciousness: patient oriented x3 Limitations: no limitations HEENT Head: Yes normal to inspection Eyes General: appearance normal, both eyes and all related structures Neck Neck: Yes normal visual inspection Chest Chest palpation & inspection: normal palpation of entire chest wall Resp Effort & Inspection: normal respiratory effort Neuro General: patient oriented x3 Assessment & Plan Assessment & Plan (1) Upper respiratory tract infection: Code(s): J06.9 - Acute upper respiratory infection, unspecified Plan: Antibiotics ordered. Increase fluid intake. Tylenol for aches and pains. If symptoms worsen, follow-up here for a recheck. Coding Level of Care Code Est Pt Level 3 (01782) Diagnoses Upper respiratory tract infection J06.9
[2024-02-10 12:16] VITALS: BP 120/80; PULSE 84; O2SAT 98
== END 2024-02-10 13:15 | disposition home or self-care (01) ==
PROVIDERS: PCP Internal Medicine; Visit Provider Internal Medicine
DX: J06.9 Acute upper respiratory infection, unspecified (principal)

== ENCOUNTER → 2024-02-14 10:19 | Outpatient (AMB) | payer OTHER, SELFPAY ==
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
== END ==
LOC: HO.HBST 10:19
PROVIDERS: PCP Internal Medicine; Visit Provider Counselor Mental Health
DX: F43.10 Post-traumatic stress disorder, unspecified (principal)
CPT/HCPCS: 90834

== ENCOUNTER 2024-02-27 09:00 | Outpatient (REF) | payer OTHER, SELFPAY ==
--- NOTE | ~2024-02-27 | FL_ITS ---
EXAMINATION: XR FLUOROSCOPY UPPER GI WITH AIR CLINICAL INFORMATION: Preoperative evaluation prior to bariatric surgery. COMPARISON: None TECHNIQUE: Fluoroscopic air contrast upper GI examination was performed utilizing standard techniques with thin and thick barium and effervescent granules. Numerous spot images were obtained. FINDINGS: Dual and single contrast images of the esophagus demonstrate normal caliber, contour, and mucosal pattern. No evidence of stricture, mass, or ulcerations identified. Esophageal peristalsis was normal. A very small type I hiatal hernia is present. Mild gastroesophageal reflux is seen in the distal esophagus. Dual contrast and single contrast images of the stomach demonstrated a normal contour. Evaluation of the gastric mucosa is somewhat limited due to underdistention of stomach from poor tolerance of the effervescent granules. No obvious mass, ulceration, or other abnormality is seen. Contrast freely passed into the gastric antrum and duodenal bulb without delay. Single and air-contrast images of the duodenal bulb demonstrate no abnormality. The duodenal sweep has a normal appearance, course, and mucosal fold appearance. The imaged proximal jejunum has a normal fold pattern and caliber. FLUOROSCOPY TIME: 4 minutes 2 seconds Number of Spot Images: 9 Number of Cine: 14 DOSE AREA PRODUCT: 3083 uGy-m2 (microgray-meter squared) FL/FL upper GI w air IMPRESSION: 1. Very small type I hiatal hernia with mild gastritis esophageal reflux. 2. Limited evaluation of the gastric mucosa due to underdistention of stomach from poor tolerance of the effervescent granules. No obvious mass, ulceration, or other abnormality is seen. This procedure was performed by Darshan Degroot PA-C, and supervised by Dr. Gandhi Electronically signed by: Tod Gandhi MD 02/28/2024 11:05 AM [facility] [place]
== END 2024-02-27 09:01 | disposition home or self-care (01) ==
LOC: HO.XRAY 09:00
PROVIDERS: Visit Provider Surgery
DX: E66.01 Morbid (severe) obesity due to excess calories (principal); K21.9 Gastro-esophageal reflux disease without esophagitis; J45.909 Unspecified asthma, uncomplicated
CPT/HCPCS: 74246

== ENCOUNTER → 2024-02-27 09:02 | Outpatient (BNV) | payer OTHER, SELFPAY | PROVIDERS: Visit Provider Physician Assistant Surgical | DX: K21.9 Gastro-esophageal reflux disease without esophagitis (principal); Z01.818 Encounter for other preprocedural examination | CPT/HCPCS: 74246 ==

== ENCOUNTER → 2024-03-05 12:19 | Outpatient (BNVA) | payer OTHER, SELFPAY | PROVIDERS: Visit Provider Counselor Mental Health ==

== ENCOUNTER → 2024-03-05 12:19 | Outpatient (AMB) | payer OTHER, SELFPAY ==
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
== END ==
LOC: HO.HBST 12:19
PROVIDERS: Visit Provider Counselor Mental Health
DX: F43.10 Post-traumatic stress disorder, unspecified (principal)
CPT/HCPCS: 90834

== ENCOUNTER 2024-03-13 08:03 | Day surgery (SDC) | payer OTHER, SELFPAY ==
[2024-03-09 08:57] VITALS: BMI 51.2
[2024-03-13 08:24] LABS: UPreg QC Valid YES
[2024-03-13 08:26] LABS: Urine Pregnancy NEGATIVE (NEGATIVE)
[2024-03-13 08:33] VITALS: BP 122/83; PULSE 91; RESP 14; TEMP 36.3; O2SAT 96; BMI 51.9
[2024-03-13] MEDS: Lactated Ringers 1,000 ML 80 ML IVCONT (08:48)
--- NOTE | 2024-03-13 09:03 | HO.ANESPROP2 ---
HPI - Anesthesia Eval Consult details Narrative: 38yo female patient for EGD PMFSH Active Problems Active Problems: All Active Problems PTSD (post-traumatic stress disorder) (Acute) Back pain (Acute) Depression (Acute) Asthma (Acute) GERD (gastroesophageal reflux disease) (Acute) Morbid obesity (Acute) Hot flashes (Acute) Fibroid (Acute) Vitamin B12 deficiency (Acute) Vitamin D deficiency (Acute) Diarrhea (Acute) Occipital neuralgia of right side (Acute) Stabbing headache (Acute) Excessive daytime sleepiness (Acute) Loud snoring (Acute). Being tested for AGUSTÍN Headache (Acute) Migraine with aura (Acute) Skin lesion (Acute) LGSIL on Pap smear of cervix (Acute) Dysplasia of cervix, low grade (KALEY 1) (Acute) Screen for sexually transmitted diseases (Acute) Moderate recurrent major depression (Acute) Immunization due (Acute) Acute vaginitis (Acute) NATALIE (generalized anxiety disorder) (Acute) Physical exam (Acute) Otitis media (Acute) Viral syndrome (Acute) Conjunctivitis (Acute) Obesity, morbid, BMI 40.0-49.9 (Acute) Screening for malignant neoplasm of cervix (Acute) Encounter for well woman exam with routine gynecological exam (Acute) Vaginal discharge (Acute) Vaginal irritation (Acute) Dizziness (Acute) Super morbid obesity BMI 51.9 Past Medical History Medical History IUD (intrauterine device) in place Back pain Depression GERD (gastroesophageal reflux disease) Morbid obesity Immunization due NATALIE (generalized anxiety disorder) Physical exam Migraine with aura Allergic rhinitis Asthma Dizziness Family History Family History Father Diabetes mellitus HTN (hypertension) Mother Diabetes mellitus HTN (hypertension) Maternal Grandmother Diabetes mellitus Paternal Grandmother Diabetes mellitus Brother Diabetes mellitus Brother Diabetes mellitus Family history of problems with anesthesia: No Surgical History Surgical History No history of previous surgery History of Problems with Anesthesia: No Social History Social History Housing: House Are you a primary healthcare associate to a significant other at home: No Do you presently have visiting nurse or other home services: No Alcohol intake: current Alcohol intake frequency: holidays/special occasions only Patient Tobacco Use Status: Never used Tobacco e-Cigarette/Vaping Use: Never Used Second Hand Smoke Exposure: No Use of substances other than those prescribed or required for medical reasons: No Have you been hit, kicked, punched, or otherwise hurt by someone within the past year? If so, by whom?: No Are you DNR?: No Advance Directives: No Advance Directives Information Provided: Yes Advance Directives on File: No Recently lost weight without trying: No Nutrition Risks: No Nutritional Risk Patient : No FDLMP: 02/16/24 service: No Current occupational status: employed Current occupational exposures/hazards: No Gender identity: Female Cognitive needs: No Hearing needs: No Vision needs: No Meds Allergies Allergy/AdvReac Type Severity Reaction Status Date / Time cephalexin [From KEFLEX] Allergy Unknown ANAPHYLAXIS Verified 03/13/24 08:21 Sulfa (Sulfonamide Allergy Unknown rash,swelli Verified 03/13/24 08:21 Antibiotics) ng sulfamethoxazole Allergy Unknown ANAPHYLAXIS Verified 03/13/24 08:21 [From BACTRIM] trimethoprim [From BACTRIM] Allergy Unknown ANAPHYLAXIS Verified 03/13/24 08:21 Active Medications: Current Medications Albuterol Sulfate (Albuterol Sulfate (0.083%) 2.5 Mg/3 Ml Vial.Neb) 2.5 mg INHALE ONCE PRN PRN Reason: Shortness of Breath/Wheezing Lactated Ringer's (Lr) 1,000 mls @ 80 mls/hr IVCONT .[id number] [facility] Last Admin: 03/13/24 08:48 Dose: 80 mls/hr Lactated Ringer's (Lr) 1,000 mls @ 80 mls/hr IVCONT .[id number] [facility] Lactated Ringer's (Lr) 1,000 mls @ 100 mls/hr IVCONT .Q10H [facility] Lactated Ringer's (Lr) 1,000 mls @ 80 mls/hr IVCONT .[id number] [facility] Home Medications ?Medication ?Instructions ?Recorded ?Confirmed ?Last Taken ?Type sertraline 25 mg tablet 100 mg PO DAILY 01/07/23 03/13/24 Unknown History albuterol sulfate 90 mcg/actuation 2 puff inhalation Q6H PRN Wheezing 12/19/23 03/13/24 03/13/24 History aerosol inhaler omeprazole 40 mg capsule,delayed 40 mg PO DAILY 12/19/23 03/13/24 Unknown History release Exam Height,Weight and Vital Signs: Height 5 ft 5 in Weight 141.521 kg Last Vital Signs Temp 97.3 F 03/13/24 08:33 Pulse 91 03/13/24 08:33 Resp 14 03/13/24 08:33 BP 122/83 03/13/24 08:33 Pulse Ox 96 03/13/24 08:33 O2 Del Method Room Air 03/13/24 08:33 Pertinent Lab Results Pertinent Lab Results: Laboratory Tests 03/13/24 08:15 Urine Test NEGATIVE Airway Mallampati Class: II TM Dist: >3cm Neck ROM: Full Loose/Missing/Broken Teeth: No Heart: RRR Lungs: CTAB Assessment and Plan Assessment Anesthesia Assessment: Anesthesia Plan Discussed and Chart Reviewed Final Anesthetic Review Family History of Problems with Anesthesia: No History of Problems with Anesthesia: No NPO: Yes ASA Class: III Final Preanesthetic Review: No Changes in Pt Med Stat, Meds/Allgs Chart Reviewed, Consent Obtained/Reviewed and Anes Risks/Benef Reviewed Patient Risk: Intermediate Procedure Risk: Low Assessment/Block/Sedation in SS: Assess/Block/Sedation-SS Anesthetic Plan Anesthetic Plan: TIVA Disposition: Standard PACU
--- NOTE | 2024-03-13 11:32 | P.BOP_ITS ---
Brief Operative Note Date of Service: 03/13/24 Pre-op diagnosis: GERD Post-op diagnosis: same (& diaphragmatic hernia) Procedure: PROCEDURE DATE: 03/13/2024 PREOPERATIVE DIAGNOSIS: GERD POSTOPERATIVE DIAGNOSIS: ?Same as above. 1) small diaphragmatic hernia PROCEDURE: Ziywctot-[id number]-[id number] with biopsies Surgeon: ?Kiet Pham M.D.. Ph.D. Automatic Spinning Lathe Operator: None ? Anesthesia: IV sedation Estimated blood loss: ?Minimal FINDINGS AND PROCEDURE: ? OPERATIVE INDICATIONS: ?The patient is a 38 year old female known to me who is interested in bariatric surgery. The patient has GERD. Based on this information I recommended an upper endoscopy to evaluate the patient's symptoms. Risks and complications of the surgery were discussed with the patient in advance particularly the possibility of perforation or bleeding that may require surgical intervention. The patient understood the risks and was in agreement with the plan. ? PROCEDURE: After informed consent was obtained by the patient, the patient was ?transferred to the Operating Room and was placed in the supine position.? After successful induction of IV sedation, a mouth block was inserted and the patient was placed in the left lateral decubitus position. An upper endoscopy was performed next, the oropharynx and esophagus appeared within the normal limits. There was a small 2cm diaphragmatic hernia. The z-line was smooth. Two biopsies were obtained from the distal esophagus 2-3 cm proximal to the GE junction and two additional biopsies from the GE junction. The stomach was entered and it appeared to be of normal size. There was no gastritis. There was no stricture or ulcer. A biopsy was obtained from the gastric fundus and the antrum. No significant bleeding was noted from any of the biopsy sites. Retroflexion of the scope confirmed the presence of a small diaphragmatic hernia. The scope was then advanced into the duodenum which appeared to be normal as well. At that point the duodenum ?and the stomach were decompressed and the scope was withdrawn from the patient's mouth. The patient extubated and was transferred in stable condition to the Recovery Room for further care. I was present and performed all steps of the procedure. There were no residents to assist with this case. Kiet Pham M.D., Ph.D. Surgeon: Jack Pham MD Anesthesia: MAC Was an Automatic Spinning Lathe Operator used for this Procedure?: No Estimated blood loss (mL): 0 IV fluids (mL): 400 Urine output (mL): 0 (No [facility] to record output) Pathology: other (1) antrum x1, 2) fundus x1, 3) GE junction x2, 4) distal esop hagus x2) Condition: stable Disposition: PACU
--- NOTE | 2024-03-13 11:32 | MHC.SHP ---
Pre-Procedural Eval Section A - 24 Hr Update-Section A only Date of Service: 03/13/24 The patient is an INPATIENT: No The patient has been examined within 24 hours of the surgical procedure. The History & Physical has been completed within 30 days and I have reviewed it.: Yes Section B - Complete if H&P > 30 days Chief Complaint: Morbid (severe) obesity due to excess calories Details of Present Illness: GERD Relevant Family History (Specify if Yes): No Relevant Social History: None Present Medications: None Medical History: No relevant PMH History of Previous Operations: No relevant previous surgery Allergies: Allergies Allergy/AdvReac Type Severity Reaction Status Date / Time cephalexin [From KEFLEX] Allergy Unknown ANAPHYLAXIS Verified 03/13/24 08:21 Sulfa (Sulfonamide Allergy Unknown rash,swelli Verified 03/13/24 08:21 Antibiotics) ng sulfamethoxazole Allergy Unknown ANAPHYLAXIS Verified 03/13/24 08:21 [From BACTRIM] trimethoprim [From BACTRIM] Allergy Unknown ANAPHYLAXIS Verified 03/13/24 08:21 Review of Systems Sugical H&P ROS: Negative: Constitution, Cardiovascular, Respiratory, Neurological, Psychiatric, Hem-Onc, Allergic/Immunologic, Gastrointestinal, Genitourinary, Musculoskeletal, Integumentary, Endocrine and Eyes/Ears/Nose/Throat Exam Surgical H&P Exam: Normal: HEENT, Normal: Heart, Normal: Lungs, Normal: Extremities, Normal: Abdomen, Normal: Skin and Normal: Neurological Plan Diagnosis/Plan: Unchanged (EGD to assess etiology of GERD. Risks of bleeding and perforation were discussed with the patient and she is in agreement with the plan.) I have reviewed the history and physical and performed a pertinent physical examination on my patient. No changes have occurred unless specified. Time Spent With Patient Time: Total time managing care of this patient today ____ minutes.
[2024-03-13 12:23] VITALS: BP 100/61; PULSE 98; RESP 24; TEMP 36.6; O2SAT 97
[2024-03-13 12:39] VITALS: BP 120/71; PULSE 103; RESP 17; TEMP 36.4; O2SAT 95
== END 2024-03-13 13:04 | disposition home or self-care (01) ==
PROVIDERS: Nurse Practitioner; PCP Internal Medicine; Visit Provider Surgery
PROC: 0DJ08ZZ Inspection of Upper Intestinal Tract, Via Natural or Artificial Opening Endoscopic (ICD-10-PCS; CPT 43235; principal; 2024-03-13 10:30)
DX: K21.9 Gastro-esophageal reflux disease without esophagitis (principal); E66.01 Morbid (severe) obesity due to excess calories; Z68.43 Body mass index [BMI] 50.0-59.9, adult; K44.9 Diaphragmatic hernia without obstruction or gangrene; J45.909 Unspecified asthma, uncomplicated; F32.A Depression, unspecified; F41.9 Anxiety disorder, unspecified; G43.109 Migraine with aura, not intractable, without status migrainosus; Z79.899 Other long term (current) drug therapy; Z88.2 Allergy status to sulfonamides; Z88.1 Allergy status to other antibiotic agents
CPT/HCPCS: 43239; 81025; 88305; 88313; 88342; J1596; J2704

== ENCOUNTER → 2024-03-13 08:03 | Outpatient (BNV) | payer OTHER, SELFPAY | PROVIDERS: PCP Internal Medicine; Visit Provider Surgery | DX: K44.9 Diaphragmatic hernia without obstruction or gangrene (principal) | CPT/HCPCS: 43239 ==

== ENCOUNTER 2024-05-07 08:56 | Outpatient (REF) | payer OTHER, SELFPAY ==
--- OUTSIDE RECORDS SUMMARY | 2024-05-07 09:26 | XMS_ITS | Clinical Summary ---
Author Organization [facility] Address [address] 7 [place] [address] Care Team Providers Care Endodontic Assistant Name Role Phone Unavailable Primary Care Provider Unavailabl e Immunizations Name Administration Dates Next Due Influenza, seasonal, injectable, preservative fr ee 11/24/2023 Pfizer Covid-19 Vaccine 12+ 06/29/2023 Tdap 06/29/2023 Social History Tobacco Use Types Packs/Day Years Used Date Smoking Tobacco: Never Assessed Comments Unknown Sex and Gender Information Value Date Recorded Sex Assigned at Female 06/29/2023 12:09 PM EDT Legal Sex Female 3:32 PM EST Gender Identity Female 06/29/2023 12:09 PM EDT Sexual Orientation Straight 06/29/2023 12 :10 PM EDT Plan of Treatment Upcoming Encounters Date Type Department Care Team (Late st Contact Info) Description 05/09/2024 1:00 PM EST Office Visit [facility] [address] [place] [address] Deborah Hyatt Health Maintenance Due Date Last Done Comments Depression Screening 1984 HIV Screening 1984 Lipid Panel 1984 SDOH Screening 1984 Alcohol/Substance Use Screening 1996 Tobacco Screening 1996 Family Planning (PISQ) 10/16/1999 Hepatitis C Screening 2002 Hepatitis B Vaccines (1 of 3 - 19+ 3-dose series) 10/16/2003 Pap Smear 2005 Cervical Cancer Screening 2014 HPV/Cotest 2014 COVID-19 Vaccine ( season) 2023 06/29/2023, 04/12/2021, 04/01/2020, Additional history exists DTaP/Tdap/Td Vaccines (2 - Td or Tdap) 06/28/2033 06/29/2023 Zoster Vaccines (1 of 2) 2034 RSV Patients and Patients Aged 60 years or older (1 - 1-dose 75+ series) 10/16/2059 Influenza Vaccine Completed 11/24/2023, , 12/01/2021, Additional history exists HIB Vaccines Aged Out No longer eligi ble based on patient's age to complete this topic HPV Vaccines Aged Out No longer eligi ble based on patient's age to complete this topic Hepatitis A Vaccines Aged Out No long er eligible based on patient's age to complete this topic IPV Vaccines Aged Out No longer eligi ble based on patient's age to complete this topic Meningococcal Vaccine Aged Out No damien telly eligible based on patient's age to complete this topic Pneumococcal Vaccine: Pediatrics (0 to 5 Years) and At-Risk Patients (6 to 49) Years) Aged Out No longer eligible based on patient's age to complete this topic RSV under 20 months Aged Out No longe r eligible based on patient's age to complete this topic Rotavirus Vaccines Aged Out No longer eligible based on patient's age to complete this topic Insurance , [address] [place] [address] [address] [id number]
--- OUTSIDE RECORDS SUMMARY | 2024-05-07 09:26 | XMS_ITS | Clinical Summary ---
Author Organization [facility] Address [address] [place] [address] Phone Care Team Providers Care Blending Plant Operator Name Role Phone Rachana Schmitz MD Primary Care Provider Allergies Active Allergy Reactions Criticality Noted Date Comments Cephalexin 04/19/2023 Sulfamethoxazole-Trimethoprim 2023 Medications meloxicam (MOBIC) 15 mg tablet Take 1 tablet (15 mg total) by mouth 1 (one) time each day. 4 Active meclizine (ANTIVERT) 25 mg tablet Take by mouth. Active hydrOXYzine HCL (ATARAX) 10 mg tablet Take 1 tablet (10 mg total) by mouth 3 (three) times a day if needed. Active valACYclovir (VALTREX) 1 gram tablet Take 1 tablet (1,000 mg total) by mouth. Active triamcinolone (KENALOG) 0.1 % cream Apply to affect area 2 times daily. 4 Active sertraline (ZOLOFT) 100 mg tablet Take 2 tablets (200 mg total) by mouth 1 (one) time each day. Active predniSONE (DELTASONE) 20 mg tablet Take 3 tabs for 2 days, take 2 tabs for 2 days, take 1 tab for 2 days 4 Active oxyCODONE (ROXICODONE) 5 mg immediate release tablet Take 1 tablet (5 mg total) by mouth. 4 Active omeprazole (PriLOSEC) [address] capsule Take 1 capsule (20 mg total) by mouth 1 (one) time each day. 4 Active albuterol-budesoni de (Airsupra) 90-80 mcg/actuation HFA aerosol inhaler Inhale by mouth. Active PNV no.95/ferrous fum/folic ac ( MULTIVITAMINS ORAL) Take by mouth. Active cyclobenzaprine (FLEXERIL) 10 mg tablet Take 1 tablet (10 mg total) by mouth at bedtime as needed. Active cyanocobalamin (VITAMIN B-12) 500 mcg tablet Take 1 tablet (500 mcg total) by mouth 1 (one) time each day. Active furosemide (LASIX) 20 mg tablet TAKE 1 TABLET BY MOUTH DAILY NEEDED FOR LEG SWELLING 30 tablet 2 Active Active Problems Problem Noted Date Diagnosed Date Hearing loss of left ear 04/19/2023 Hyperglycemia 04/19/2023 Hyperlipidemia 04/19/2023 Low mean corpuscular volume (MCV) 04/19/2023 Migraine 04/19/2023 Obesity (BMI 30-39.9) 04/19/2023 Immunizations Name Administration Dates Next Due Influenza trivalent, 0.5mL, preservative free (Fluarix; FluLaval; Fluzone) ages 6mo and older (Afluria) 3 years and older 11/24/2023 Influenza, Unspecified 01/05/2023 Tdap Tetanus diptheria acell ular pertussis (Boostrix; Adacel) 7yo and older 06/29/2023 Medical History Medical History Date Comments Anxiety disorder DX:Anxiety diso rder Migraine DX:Migraine Family History Medical History Relation Name Comments Diabetes Brother 1 Diabetes Brother 2 Diabetes Father Diabetes Mother Relation Name Status Comments Brother 1 Brother 2 Alive Father Mother Social History Tobacco Use Types Packs/Day Years Used Date Smoking Tobacco: Never Smokeless Tobacco: Never Alcohol Use Standard Drinks/Week Comments Yes 0 (1 standard drink = 0.6 oz pur e alcohol) Comments Unknown Sex and Gender Information Value Date Recorded Sex Assigned at Not on file Legal Sex Female 11:05 AM EDT Gender Identity Not on file Sexual Orientation Not on file Obstetrics History Last Filed Vital Signs Vital Sign Reading Time Taken Comments Blood Pressure 124/84 12/21/2023 12:27 PM EDT Pulse 103 12/21/2023 12:27 PM EDT Temperature - - Respiratory Rate - - Oxygen Saturation - - Inhaled Oxygen Concentration - - Weight 141 kg (311 lb) 12/21/2023 12:27 PM EDT Height 167.6 cm (5' 6 ) 12/21/2023 12:27 PM EDT Body Mass Index 50.2 12/21/2023 12:27 PM EDT Plan of Treatment Upcoming Encounters Date Type Department Care Team (Late st Contact Info) Description 07/10/2024 2:30 PM EDT Office Visit Bariatric Surgery - [place] [address] [place] [id number] Olena Ruiz PA [address] [place] [address] Health Maintenance Due Date Last Done Comments Hepatitis B Vaccines (1 of 3 - 19+ 3-dose series) 10/16/2003 Cervical Cancer Screening: P ap Smear 2005 Depression Screening 10/06/2023 HIV Screening 10/06/2023 Hepatitis C Screening 10/06/2023 Social Influencers of Health Screening 10/06/2023 COVID-19 Vaccine (2 - 2023-2 5 season) 2023 06/29/2023 Cholesterol Screening (Lipid Panel) 11/24/2028 11/25/2023 DTaP,Tdap,and Td Vaccines (2 - Td or Tdap) 06/28/2033 06/29/2023 Influenza Vaccine Completed 11/24/2023, 01/05/2023 HIB Vaccines Aged Out No longer eligi [...] on patient's age to complete this topic MMR Vaccines Aged Out No longer eligi ble based on patient's age to complete this topic Meningococcal ACWY Vaccine Aged Out N o longer eligible based on patient's age to complete this topic Meningococcal B Vacine Aged Out No lo nger eligible based on patient's age to complete this topic Pneumococcal Vaccine: Pediatrics (0 to 5 Years) and At-Risk Patients (6 to 64 Years) Aged Out No longer eligible b ased on patient's age to complete this topic RSV Immunization Patients Under 20 months Aged Out No longer eligible b ased on patient's age to complete this topic Varicella Vaccines Aged Out No longer eligible based on patient's age to complete this topic Insurance [facility] Care Teams Blending Plant Operator Relationship Specialty Start Date End Date Rachana Schmitz MD [address] [place] [address] PCP - General 04/18/23
--- OUTSIDE RECORDS SUMMARY | 2024-05-07 09:26 | XMS_ITS | Data Portability ---
Author Organization [place] - [facility], Allergy Address [address] [place] [phone] Care Team Providers Care Property Management Specialist Name Role Phone KEON ANGEL Primary Care Provider Assessment No assessment recorded. Plan of Treatment Reminders Order Date Submit Date Provider Last Modified By Organization Details Last Modified Time Details Appointments None record ed. Lab None record ed. Referral None record ed. Procedures None record ed. Surgeries None record ed. Imaging None record ed. Medication Orders None record ed. Patient TargetsNo targets recorded. Patient InstructionsNo instructions recorded. Reason for Referral None Reported. Results Created Date Observation Date Name Description Value Unit Range Abnormal Flag Note LastModifiedBy Organization Detail LastModifiedTime 11/16/19 24 audio gram No observ ation record ed. [email or web address] Not Available 2023 15:31:53 Result Notes None recorded. Problems Name Problem SNOMED Code Status Onset Date Resolution Date Notes Provider Name and Address Organization Details Recorded Time Abnormal auditory perception 96462739 Active 024 Clarice barakat [place] - [facility] 4 13:58:28 Benign paroxysmal positional vertigo 433902134 Active 024 FAUSTINO NAVARRO MD [address] [address], [place], [address], [facility] - [facility] 4 15:03:21 Vertigo of central origin 38501063 Active 024 FAUSTINO NAVARRO MD 100 [facility] 100, [facility] [place], [address], [facility] - [facility] 4 15:03:45 Migraine with aura 4013395 Active 024 FAUSTINO NAVARRO MD 100 [facility] 100, [place], [address], [facility] - [facility] 4 15:03:45 Snoring 17100167 Active 024 FAUSTINO NAVARRO MD 100 [facility] 100, [place], [address], [facility] - [facility] 4 15:07:31 Morbid obesity 406250874 Active 024 FAUSTINO NAVARRO MD 100 [facility] 100, [place], [address], [facility] - [facility] 4 15:07:36 Problem Notes None recorded. Procedures Surgical History Date Name Laterality Status Provider Name and Address Organization Details Recorded Time 11/15/2023 Comp Audio with Tymps (98033 & 33294) completed Clarice Martin [place] - [facility] 11/15/2023 13:58:19 Imaging Results Imaging Date Name Status LastModified by Organiz ation Details LastModified Time 11/16/2023 audiogram completed [email or web address] Information no t available 11/16/2023 15:31:53 Procedure Notes None recorded. Medical Equipment None Reported. Allergies Allergen ID Allergen Name Allergen Category Reaction Reaction Severity Criticality Documentation Date Start Date Code Code System Note Provider Name and Address Organization Details Recorded Time 451597 Bactrim medicatio n Not available Not available Not available 11/15/2023 99357 9 RxNorm Yary barakat [place] - [facility] 4 14:18:42 505569 Keflex medicatio n Not available Not available Not available 11/15/2023 98084 7 RxNorm Yary barakat [place] - [facility] 4 14:18:50 Medications Name Sig Start Date Stop Date Status Note LastModified by Organization Details LastModified Time buspirone 5 mg tablet TAKE 1 TABLET BY MOUTH THREE TIMES DAILY ONLY DURING THE 2 WEEKS PRIOR TO MENSTRUAT ION active Not Available Not Available No t Available clonidine HCl 0.1 mg tablet TAKE 1 TABLET BY MOUTH EVERY DAY NEEDED FOR PANIC ATTACKS 11/14 completed Not Available Not Available Not Available azithromyci n 250 mg tablet TAKE 2 TABLETS BY MOUTH FOR 1 DAY THEN TAKE 1 TABLET BY MOUTH DAILY FOR 4 DAYS 11/14 completed Not Available Not Available Not Available valacyclovi r 1 gram tablet TAKE 1 TABLET BY MOUTH DAILY active Not Available Not Available No t Available sertraline 100 mg tablet TAKE 2 TABLETS BY MOUTH EVERY MORNING active Not Available Not Available No t Available metronidazo le 500 mg tablet TAKE 1 TABLET BY MOUTH TWICE DAILY WITH FOOD FOR 7 DAYS. AVOID ALCOHOL AND VINEGAR PRODUCTS active Not Available Not Available No t Available MagOx 400 mg (241.3 mg magnesium) tablet TAKE 1 TABLET BY MOUTH EVERY NIGHT AT BEDTIME 11/14 completed Not Available Not Available Not Available vitamin A 3,000 mcg (10,000 unit) capsule TAKE ONE CAPSULE BY MOUTH EVERY DAY 11/14 completed Not Available Not Available Not Available cyanocobala min (vit B-12) 500 mcg tablet active Not Available Not Available N ot Available bupropion HCl 75 mg tablet TAKE 1 TABLET BY MOUTH EVERY MORNING 11/14 completed Not Available Not Available Not Available hydroxyzine HCl 25 mg tablet TAKE 1 TABLET BY MOUTH TWICE DAILY NEEDED FOR ANXIETY active Not Available Not Available No t Available amoxicillin 875 mg-potassiu m clavulanate 125 mg tablet TAKE 1 TABLET BY MOUTH TWICE DAILY FOR 10 DAYS 11/14 completed Not Available Not Available Not Available nitrofurant oin monohydrate /macrocryst als 100 mg capsule TAKE 1 CAPSULE BY MOUTH TWICE DAILY FOR 5 DAYS FOR UTI 11/14 completed Not Available Not Available Not Available Sheila 0.35 mg tablet TAKE 1 TABLET BY MOUTH EVERY DAY 11/14 completed Not Available Not Available Not Available M-Opal Plus 27 mg iron-1 mg tablet TAKE 1 TABLET BY MOUTH DAILY active Not Available Not Available No t Available Vitals None Recorded Social History None recorded. Functional Status None recorded. Mental Status None recorded. Family History Nothing Reported. Medical History Condition Response Migraines Y Hyperlipidemia Y Gynecological HistoryNo gynecological history recorded. Obstetrics History GPAL:G 0 P 0 0 0 0 Past Encounters Encounter ID Performer Location Encounter Start Date Encounter Closed Date Diagnosis/Indication Diagnosis SNOMED-CT Code Diagnosis ICD10 Code Diagnosis Note [id number] FAUSTINO NAVARRO MD [facility] [address] [place] [address] 11/15/2023 13:38:03 11/15/2023 15:16:10 Abnormal auditory perception 91490375 H93.299 Audiologic al evaluation results: Right ear: {{Normal* Normal through 2 kHz Mild M oderate Mo derately-s evere Kanchan re Profoun d}} {{hearing* sloping to a mild slopi ng to a moderate s loping to moderately severe slo ping to severe slo ping to profound f lat high frequency low frequency mid frequency cookie bite soto curve}} {{with* se nsorineura l hearing loss with condu ctive hearing loss with mixed hearing loss with}} {{excellen t* good fa ir poor no measurable }} word recognitio n. Left ear: {{Normal* Normal through 2 kHz Mild M oderate Mo derately-s evere Kan[place] re Profoun d}} {{hearing* sloping to a mild slopi ng to a moderate s loping to moderately severe slo ping to severe slo ping to profound f lat high frequency low frequency mid frequency cookie bite soto curve}} {{with* se nsorineura l hearing loss with condu ctive hearing loss with mixed hearing loss with}} {{excellen t* good fa ir poor no measurable }} word recognitio n. Tympanomet ry: Right Ear:{{Type A Type As* Type Ad Type C Type C, shallow & rounded Ty pe B Type B with large volume Cou ld not maintain a hermetic seal}} Left Ear:{{Type A* Type As Type Ad Type C Type C, shallow & rounded Ty pe B Type B with large volume Cou ld not maintain a hermetic seal}} Benign par oxysmal positional vertigo 213032286 H81.10 Patient with recent history of episodic positional ly induced vertigo, now resolved. Latia-Hallpi ke was negative for vertigo and rotary nystagmus. We discussed that the patient? s previous pattern of symptoms are most consistent with benign paroxysmal positional vertigo (BPPV) which has resolved spontaeous ly. The pathophysi ology of BPPV was discussed in detail. Patient currently requires no further workup or treatment. BPPV can recur and if the classic positional ly induced symptoms do recur, patient can be provided with a referral to physical therapist maddi hare with performanc e of Katie maneuvers and vestibular therapy. Vertigo of central origin 48462625 H81.4 The patient's history, physical exam and audiometri c findings are consistent with vestibular migraine (migraine associated dizziness) . Today we discussed the pathophysi ology of migraine and migraine associated phenomena such as dizziness and visual aura. We discussed how the patient's balance disturbanc e symptoms are likely mediated by a central processing abnormalit y rather than an isolated inner ear abnormalit y. I gave the patient a significan t amount of literature to review at home regarding how there are many environmen viviane and dietary triggers that can lead to not only migraine headaches but balance disturbanc e symptoms as well. We spent a lot of time discussing the importance of following a migraine diet. We have offered the patient a copy of the Heal Your Headache book to read at home, which gives a step-by-st ep discussion on what causes migraine and how to make the necessary lifestyle and dietary changes to significan tly reduce or eliminate migraine symptoms. I have also recommende d the use of dietary supplement s magnesium, vitamin B2 and feverfew which have been shown to help control migrainous phenomena. We discussed dosage and schedule for these supplement s. We discussed alternativ e of using Migranol, which contains a combinatio n of magnesium, vitamin B2, and feverfew. Follow up: {{As needed* I will see the patient back in 6-8 weeks and if the patient is still symptomati c we could consider pharmacolo gic interventi on, typically in the form of low dose nortriptyl ine}} Migraine with aura 55933 06 G43.109 Snoring 22120919 R06.83 Patient does have chronic loud snoring at night and self-repor vickie sensation of apneic episodes. We discussed that this can be a trigger for migraine as well as exacerbate underlying psychologi lauren disturbanc e. Recommende d she contact her primary care physician to proceed with getting an updated sleep study. Morbid obesity 148721357 E66.01 Health Concerns Section Related Observation LastModified by Organization Detai ls LastModified Time None Recorded Concern Status LastModified by Organization Details LastModified Time None Recorded Advance Directives Directive None Recorded Payers Encounter Date Sequence Insurance Name Policy Number Policy Rey Covered Member ID Rey Member ID Guarantor Name 11/15/2023 1 [facility] [id number] 1 Jazmin Christian [id number] Jazmin Christian Notes Date Note Type Note Provider Name and Address Organization Details Recorded Time 11/15/2023 text/html 38-year-old diabetic female with history of migraine referred for evaluation of dizziness. Patient also diagnosed with BPPV by her primary care physician. Patient reports that for the past 10 years, she has had monthly episodes of spinning lasting about 2 hours at a time. She will take meclizine and feel better soon thereafter. She is also had episodic positionally induced vertigo which has been intermittent. She gets headaches on a monthly basis some of which can be quite severe. She does notice scintillating scotoma in her visual ocampo consistent with migraine with aura. Patient does snore at night. She reports that she had a sleep study in the past which was inconclusive but has not been followed up on. Patient has gained a lot of weight recently due to some mental health issues. FAUSTINO NAVARRO MD [address] [place] [address], [phone], [facility] - [facility] 11/15/2023 15:12:38 OBGyn Episode No OBEpisode recorded.
[2024-05-09 19:28] LABS: Zinc 70 mcg/dL (60-130)
[2024-05-10 18:34] LABS: Vitamin A 51 mcg/dL (38-98)
== END 2024-05-07 08:57 | disposition home or self-care (01) ==
LOC: HO.HHCL 08:56
PROVIDERS: Visit Provider Surgery
DX: E66.01 Morbid (severe) obesity due to excess calories (principal); K21.9 Gastro-esophageal reflux disease without esophagitis; J45.909 Unspecified asthma, uncomplicated
CPT/HCPCS: 36415; 84425; 84590; 84630

== ENCOUNTER 2024-05-11 16:16 | Outpatient (REF) | payer OTHER, SELFPAY ==
--- NOTE | ~2024-05-11 | US_ITS ---
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 COMPARISON: Ultrasound pelvis 10/11/2023. TECHNIQUE: Ultrasound of the pelvis is performed using both transabdominal and transvaginal transducers along with Doppler. Transvaginal imaging is performed due to inadequate visualization transabdominally. FINDINGS: Uterus: The uterus is anteverted, anteflexed and measures 8.1 x 4.8 x 5.0 cm. The double wall endometrial thickness is 0.4 cm. There is IUD in the endometrial canal in correct position. The uterus is smooth in contour and has normal myometrial echogenicity. No visible fibroid. Posterior of the uterus is a anechoic cyst measuring 0.3 x 0.3 x 0.3 cm. Likely extraovarian cyst Adnexa: Both ovaries are visualized. There is normal color flow to the adnexa. There is no ovarian torsion. There is no pelvic ascites or fluid collection. Right ovary measures 3.3 x 1.5 x 2.5 cm. Volume 6.5 mL. There is central echogenic lesion without shadowing measuring 0.5 x 0.5 x 0.6 cm. There are physiological small cysts. Previously right ovary measured 3.6 x 1.7 x 1.7 cm. Left ovary measures 1.6 x 2.4 x 1.5 cm. Volume 3.0 mL. No focal lesion seen. There is no free fluid in the cul-de-sac. US/US pelvic and transvaginal IMPRESSION: New echogenic area in the right ovary likely complex cyst. Otherwise both ovaries are unremarkable. The uterus is unremarkable. There is a IUD in correct position. Posterior to uterus there is a small anechoic cyst measuring 0.3 x 0.3 x 0.3 cm. Likely extraovarian cyst. Electronically signed by: Momo Glasgow MD 05/14/2024 08:07 AM [facility]
--- OUTSIDE RECORDS SUMMARY | 2024-05-11 17:58 | XMS_ITS | Data Portability ---
Author Organization [place] - [facility], Allergy Address [address] [place] [address] Care Team Providers Care Automation Driver Name Role Phone KEON ANGEL Primary Care [...] Organization Details Recorded Time Abnormal auditory perception 24884460 Active 024 Clarice barakat [place] - [facility] 4 13:58:28 Benign paroxysmal positional vertigo 839200559 Active 024 FAUSTINO NAVARRO MD [address] [address], [place], [address], [facility] - [facility] 4 15:03:21 Vertigo of central origin 63282176 Active 024 FAUSTINO NAVARRO MD 100 [facility] 100, [facility] [place], [address], [facility] - [facility] 4 15:03:45 Migraine with aura 1138061 Active 024 FAUSTINO NAVARRO MD 100 [facility] 100, [place], [address], [facility] - [facility] 4 15:03:45 Snoring 91920019 Active 024 FAUSTINO NAVARRO MD 100 [facility] 100, [place], [address], [facility] - [facility] 4 15:07:31 Morbid obesity 847060583 Active 024 FAUSTINO NAVARRO MD 100 [facility] 100, [place], [address], [facility] - [facility] 4 15:07:36 Problem Notes None recorded. Procedures Surgical History Date Name Laterality Status Provider Name and Address Organization Details Recorded Time 11/15/2023 Comp Audio with Tymps (52365 & 95595) completed Clarice Martin [place] - [facility] 11/15/2023 13:58:19 Imaging Results Imaging Date Name Status LastModified by Organiz ation Details LastModified Time 11/16/2023 audiogram completed [email or web address] Information no t available 11/16/2023 15:31:53 Procedure Notes None recorded. Medical Equipment None Reported. Allergies Allergen ID Allergen Name Allergen Category Reaction Reaction Severity Criticality Documentation Date Start Date Code Code System Note Provider Name and Address Organization Details Recorded Time 944910 Bactrim medicatio n Not available Not available Not available 11/15/2023 87004 9 RxNorm Yary barakat [place] - [facility] 4 14:18:42 502307 Keflex medicatio n Not available Not available Not available 11/15/2023 16102 7 RxNorm Yary barakat [place] - [facility] 4 14:18:50 Medications Name Sig Start [...] SNOMED-CT Code Diagnosis ICD10 Code Diagnosis Note [id number] FAUSTINO NAVARRO MD [facility] [address] [place] [address] 11/15/2023 13:38:03 11/15/2023 15:16:10 Abnormal auditory perception 04740032 H93.299 Audiologic al evaluation results: Right ear: [...] hermetic seal}} Benign par oxysmal positional vertigo 390764127 H81.10 Patient with recent history of episodic [...] and vestibular therapy. Vertigo of central origin 53893846 H81.4 The patient's history, physical exam and [...] low dose nortriptyl ine}} Migraine with aura 60503 06 G43.109 Snoring 07812021 R06.83 Patient does have chronic loud snoring at night and self-repor vickie sensation of apneic episodes. We discussed that this can be a trigger for migraine as well as exacerbate underlying psychologi lauren disturbanc e. Recommende d she contact her primary care physician to proceed with getting an updated sleep study. Morbid obesity 721959524 E66.01 Health Concerns Section Related Observation LastModified by Organization Detai ls LastModified Time None Recorded Concern Status LastModified by Organization Details LastModified Time None Recorded Advance Directives Directive None Recorded Payers Encounter Date Sequence Insurance Name Policy Number Policy Rey Covered Member ID Rey Member ID Guarantor Name 11/15/2023 1 [facility] [id number] Jazmin Christian [id number] Jazmin Christian Notes Date Note Type Note [...] some mental health issues. FAUSTINO NAVARRO MD [address] [place] [address], [address], [facility] - [facility] 11/15/2023 15:12:38 OBGyn Episode No OBEpisode recorded.
--- OUTSIDE RECORDS SUMMARY | 2024-05-11 17:58 | XMS_ITS | Clinical Summary ---
Author Organization [employer] Address [address] [facility] 7 [place] [address] Care Team Providers Care Funeral Pre Arrangement Specialist Name Role Phone Unavailable Primary Care Provider [...] 12 :10 PM EDT Plan of Treatment Health Maintenance Due Date Last Done Comments Dental Oral Exam 1984 Dental Prophylaxis 1984 Dental X-Ray: Bitewings 1984 Dental X-Ray: Full Mouth 1984 Depression Screening 1984 HIV Screening 1984 Lipid [...] patient's age to complete this topic Insurance [facility] , [address] [place] [address]
--- OUTSIDE RECORDS SUMMARY | 2024-05-11 17:58 | XMS_ITS | Clinical Summary ---
Author Organization [facility] Address [address] [place] [address] Phone Care Team Providers Care Sluice Tender Name Role Phone Rachana Schmitz MD Primary [...] PM EDT Office Visit Bariatric Surgery - [place] [address] [place] [phone] Olena Ruiz PA [address] [place] [address] Health Maintenance Due Date Last Done Comments [...] patient's age to complete this topic Insurance [facility] Care Teams Sluice Tender Relationship Specialty Start Date End Date Rachana Schmitz MD [address] [place] [address] PCP - General 04/18/23
== END 2024-05-11 16:17 | disposition home or self-care (01) ==
LOC: HO.US 16:16
PROVIDERS: PCP Internal Medicine; Visit Provider Advanced Practice Midwife
DX: D21.9 Benign neoplasm of connective and other soft tissue, unspecified (principal)
CPT/HCPCS: 76830; 76856

== ENCOUNTER → 2024-05-11 16:19 | Outpatient (BNV) | payer OTHER, SELFPAY | PROVIDERS: PCP Internal Medicine; Visit Provider Radiology Diagnostic Radiology | DX: N83.201 Unspecified ovarian cyst, right side (principal) | CPT/HCPCS: 76830; 76856 ==

== ENCOUNTER 2024-06-01 08:04 | Outpatient (AMB) | payer OTHER, SELFPAY ==
--- NOTE | 2024-06-01 08:18 | MHC.OFFVISWM ---
VS Expanded 06/01/24 08:26 Height 5 ft 3.5 in Weight 289 lb BMI 50.4 Body Fat % 64.5 Body Fat Mass 186.4 Fat Free Mass 102.5 Visceral Fat Rating 28 Body Water % 24.3 Body Water Mass 70.2 Basal Metabolic Rate/Score 2,015 Intake Visit Reasons: TV Pre Op LSG 06/12/24 Allergies cephalexin [From KEFLEX] Allergy (Severe, Verified 06/01/24 08:19) ANAPHYLAXIS Sulfa (Sulfonamide Antibiotics) Allergy (Severe, Verified 06/01/24 08:19) Anaphylaxis sulfamethoxazole [From BACTRIM] Allergy (Severe, Verified 06/01/24 08:19) ANAPHYLAXIS trimethoprim [From BACTRIM] Allergy (Severe, Verified 06/01/24 08:19) ANAPHYLAXIS Medication List - Last Reconciled 06/01/24 by Jack Pham MD albuterol sulfate 90 mcg/actuation 2 puffs inhalation Q6H PRN budesonide-formoterol 160-4.5 mcg/actuation (Symbicort) 2 puffs PO BID buspirone 10 mg PO TID PRN hydroxyzine HCl 25 mg PO BID PRN omeprazole 40 mg PO BEDTIME ondansetron 4 mg PO Q12H pantoprazole 40 mg PO DAILY polyethylene glycol 3350 17 grams PO DAILY sertraline 200 mg PO BEDTIME sucralfate 10 mL PO BID HPI HPI TV Pre Op LSG 06/12/24: Details: Start time: 8.08am, End time: 8.38am ?I spent 25 minutes speaking with the patient on the phone plus an additional 5 minutes reviewing and updating records for a total of 30 minutes HPI Comments Details: Overall weight loss: 19.5lbs, or 6.32% TBWL Is doing 2.5 Premier premade shakes and 2 Pure protein bars [facility] Medical History (Updated 05/29/24 @ 10:30 by Mirella De Santiago RN) H/O methicillin resistant Staphylococcus aureus Pre-diabetes Panic attacks Anxiety PTSD (post-traumatic stress disorder) IUD (intrauterine device) in place Back pain Depression GERD (gastroesophageal reflux disease) Morbid obesity NATALIE (generalized anxiety disorder) Migraine with aura Allergic rhinitis Asthma Surgical History (Updated 05/28/24 @ 09:27 by Mirella De Santiago RN) History of esophagogastroduodenoscopy (EGD) Family History (Updated 04/12/24 @ 08:24 by RADHA Phillips) Father Diabetes mellitus HTN (hypertension) Mother Diabetes mellitus HTN (hypertension) Maternal Grandmother Diabetes mellitus Paternal Grandmother Diabetes mellitus Brother Diabetes mellitus Brother Diabetes mellitus Other Mental health disorder Substance use disorder Social History Household Members Other:: 2 minor children-will be with their father while mother having surgery Housing: House Are you a primary healthcare economics manager to a significant other at home: No (shared care with children's father) Do you presently have visiting nurse or other home services: No Alcohol intake: current Alcohol intake frequency: does not drink Patient Tobacco Use Status: Never used Tobacco e-Cigarette/Vaping Use: Never Used Second Hand Smoke Exposure: No service: No Current occupational status: employed 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 Current occupational exposures/hazards: No Gender identity: Female Cognitive needs: No Hearing needs: No Vision needs: Yes (Glasses) Female Reproductive History Menstrual Age of Menarche: 12 Telehealth Telehealth Telehealth Platform: Telephone Location of provider rendering services: practice address Location of patient: address on file Patient Identification confirmed using: Name, : Yes Telehealth method: voice only Patient verbally consented to treatment: Yes Patient verbally consented to billing insurance company: Yes Patient informed of any privacy concerns related to visit: Yes Minutes spent on Phone/Video with Pt.: 30 Assessment & Plan Assessment & Plan (1) Morbid obesity: Code(s): E66.01 - Morbid (severe) obesity due to excess calories Category: Medical Plan: 1. Plan for lap sleeve gastrectomy including upper GI endoscopy. All tests has been completed and reviewed and the patient is cleared for the surgery. ?If diaphragmatic or ventral hernias are present at time of surgery, these will be repaired laparoscopically as well. Risks and complications were discussed in detail including possible conversion to an open procedure, anastomotic leak, bleeding requiring transfusion, small bowel obstruction, , DVT and pulmonary embolism, cardiac, or pulmonary complications, as usp complications such as anastomotic ulcer, insufficient weight loss and vitamin deficiencies. I emphasized the importance of close follow-up, adherence to instructions and good communication. So far she has proven to be an excellent communicator and very compliant with all our directions accomplishing a great weight loss. I believe that she is an excellent candidate and she is ready. 2. Preop prescriptions were provided and explained the purpose of each one. Need to be purchased preop. Start Pantoprazole now as you get it from the pharmacy, 1 pill per day. Sucralfate and Zofran are for after surgery as needed. 3. Bowel prep: please do 7 packets ?of Miralax mixing each one with a an 8oz glass of water, crystal light, gatorade zero, or propel ?on 06/10/24 and the same amount on 06/11/24. The Miralax you begin with one packet at a time in 8oz water or crystal light, gatorade zero, or propel ?as early in the day as you can and you do them back to back until you finish them. Continue the protein shakes during ?the bowel prep. 4. Needs to purchase 1oz medicine cups . 5. Needs to purchase Children's liquid Tylenol for postop pain control. 6. Avoid aspirin, motrin, Advil, Aleve, Meloxicam, Excedrin, Ibuprofen, Naproxyn. Tylenol is OK. 7. She needs to purchase the Celebrate 4:1 protein shakes or the Celebrate multivitamins from the hospital's gift shop. 8. Will do basic preop blood work-up any day between Tuesday06/04/24 and Tuesday06/08/24 fasting for 12 hours and is scheduled to see the Anesthesiologist prior to the day of surgery. 9. Importance of adherence to postop folllow-up and recommendations was underscored and she understands that. 10. Continue present plan over the weekend but stop the bars as of Tuesday06/04/24 and continue with 3 premade Premier protein shakes (4oz Premier mixed with 4oz almond milk) at 8am-10am, 11am-1pm amd 2pm-4pm and TWO more whole-bottle Premier protein shakes at 5pm-7pm and 8pm-10pm 11. No soups, broths or V8 12. The patient's?medical?history has been reviewed and they are considered low risk for post op DVT and therefore DVT prophylaxis is not considered necessary. Travel after surgery was reviewed. The patient has not disclosed any travel plans during the first 30 days after surgery and they have been advised that within the first 30 days after surgery any bus, plane, train or car travel over 2 hours in duration is contraindicated due to the possibility of developing blood clots from immobility. Any travel, needs to include periods of ambulation of 10 minutes in duration every 2 hours.? Patient was instructed to discuss any plans for travel during this period with their bariatric surgeon.? 13. Please take at the day of surgery the following medications: Lisinopril if the blood pressure that day is high enough to justify it based on the parameters at the previous bullet point. 14. Stop any control pills and don't use them for one month after surgery 15. Absolutely no smoking or vaping, or marijuana until the surgery and for at least the first 4 weeks. Only nicotine patches are allowed. 16. Send me weight measurements on Tuesday06/03/24 and 06/10/24 then on Tuesday06/12/24, the day of surgery before you go to the hospital. 17. Avoid any steroids by mouth for any reason. Let me know if someone prescribes them to you 18. These instructions supersede anything else you read in the handbook, anything you watched in videos or classes or you were told by any other provider. If there is any conflict, you follow the above instructions and nothing else. Orders: Orders Type and Screen Today E66.01 - Morbid (severe) obesity due to excess calories Partial Thromboplastin Time Today E66.01 - Morbid (severe) obesity due to excess calories C Reactive Protein Today E66.01 - Morbid (severe) obesity due to excess calories Insulin Today E66.01 - Morbid (severe) obesity due to excess calories Comprehensive Met. Panel Today E66.01 - Morbid (severe) obesity due to excess calories TSH reflex Free T4 Today E66.01 - Morbid (severe) obesity due to excess calories Prothrombin Time INR Today E66.01 - Morbid (severe) obesity due to excess calories Lipid Panel Today E66.01 - Morbid (severe) obesity due to excess calories Hemoglobin A1c Today E66.01 - Morbid (severe) obesity due to excess calories Complete Blood Count Auto Diff Today E66.01 - Morbid (severe) obesity due to excess calories Medications: New sucralfate 10 mL PO BID 600 mL 2RF K21.9 - Gastro-esophageal reflux disease without esophagitis pantoprazole 40 mg PO DAILY 90 tabs 0RF K21.9 - Gastro-esophageal reflux disease without esophagitis ondansetron Only take one every 12 hours as needed if you have nausea 4 mg PO Q12H 20 tabs 0RF nausea and vomiting R11.0 - Nausea polyethylene glycol 3350 Mix each measuring cup with 8oz of water, Crystal light, or Gatorade zero, or Propel and do 7 measuring cups on 06/10/24 and another 7 measuring cups on 06/11/24 17 grams PO DAILY 238 grams 0RF Z01.818 - Encounter for other preprocedural examination
[2024-06-01 08:26] VITALS: BMI 50.4
== END 2024-06-01 08:39 | disposition home or self-care (01) ==
LOC: HO.HBS 08:04
PROVIDERS: PCP Internal Medicine; Visit Provider Surgery
DX: E66.01 Morbid (severe) obesity due to excess calories (principal)
CPT/HCPCS: 99499

== ENCOUNTER → 2024-06-01 08:04 | Outpatient (BNVA) | payer OTHER, SELFPAY | PROVIDERS: PCP Internal Medicine; Visit Provider Surgery ==

== ENCOUNTER 2024-06-05 14:02 | Outpatient (AMB) | payer OTHER, SELFPAY ==
--- NOTE | 2024-06-05 14:06 | A.OFFVIS_ITS ---
Intake Visit Reasons: US follow up Auto Servicer: Auto Servicer Present Allergies cephalexin [From KEFLEX] Allergy (Severe, Verified 06/05/24 14:06) ANAPHYLAXIS Sulfa (Sulfonamide Antibiotics) Allergy (Severe, Verified 06/05/24 14:06) Anaphylaxis sulfamethoxazole [From BACTRIM] Allergy (Severe, Verified 06/05/24 14:06) ANAPHYLAXIS trimethoprim [From BACTRIM] Allergy (Severe, Verified 06/05/24 14:06) ANAPHYLAXIS Is last menstrual period known: Yes Last menstrual period: 06/02/24 HPI Comments Details: Patient is here today for a follow up pelvic ultrasound, history of uterine fibroid. 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 Additionally has cramping in the 1st few days of her cycle, not using anything to help with this discomfort. [facility] Medical History (Updated 06/05/24 @ 14:26 by Harmony Galicia CNM) Complex ovarian cyst H/O methicillin resistant Staphylococcus aureus Pre-diabetes Panic attacks Anxiety PTSD (post-traumatic stress disorder) IUD (intrauterine device) in place Back pain Depression GERD (gastroesophageal reflux disease) Morbid obesity NATALIE (generalized anxiety disorder) Migraine with aura Allergic rhinitis Asthma Surgical History (Updated 05/28/24 @ 09:27 by Mirella De Santiago RN) History of esophagogastroduodenoscopy (EGD) Family History (Updated 04/12/24 @ 08:24 by RADHA Phillips) Father Diabetes mellitus HTN (hypertension) Mother Diabetes mellitus HTN (hypertension) Maternal Grandmother Diabetes mellitus Paternal Grandmother Diabetes mellitus Brother Diabetes mellitus Brother Diabetes mellitus Other Mental health disorder Substance use disorder Social History Household Members Other:: 2 minor children-will be with their father while mother having surgery Housing: House Are you a primary home health care respiratory therapist to a significant other at home: No (shared care with children's father) Do you presently have visiting nurse or other home services: No Alcohol intake: current Alcohol intake frequency: does not drink Patient Tobacco Use Status: Never used Tobacco e-Cigarette/Vaping Use: Never Used Second Hand Smoke Exposure: No service: No Current occupational status: employed 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 Current occupational exposures/hazards: No Gender identity: Female Cognitive needs: No Hearing needs: No Vision needs: Yes (Glasses) Female Reproductive History Menstrual Age of Menarche: 12 Date of last menstrual period: 06/02/24 control method: progestin IUCD (Mirena 01/20/24) Review of Systems Const All systems reviewed & are unremarkable except as noted in HPI and below Endo Reports no additional complaints Physical Exam Const General: cooperative, healthy appearing and no acute distress Psych Appearance: well kempt Attitude: cooperative Thought process: Normal thought process present Results Reviewed Results Reviewed: [address] [address] Ultrasound Report Signed Patient: Jazmin Christian MR#: [id number] : 1985 Acct:[id number] Age/Sex: 38 / F ADM Date: 05/11/24 Loc: HO.US Attending Dr: Harmony Galicia CNM Ordering Physician: Harmony Galicia CNM Date of Service: 05/11/24 Procedure(s): US pelvic and transvaginal Accession Number(s): [id number] cc: Harmony Galicia CNM; Efrem Jacobson MD~ EXAMINATION: US PELVIS CLINICAL INFORMATION: Benign neoplasm of connective and other tissues. COMPARISON: Ultrasound pelvis 10/11/2023. TECHNIQUE: Ultrasound of the pelvis is performed using both transabdominal and transvaginal transducers along with Doppler. Transvaginal imaging is performed due to inadequate visualization transabdominally. FINDINGS: Uterus: The uterus is anteverted, anteflexed and measures 8.1 x 4.8 x 5.0 cm. The double wall endometrial thickness is 0.4 cm. There is IUD in the endometrial canal in correct position. The uterus is smooth in contour and has normal myometrial echogenicity. No visible fibroid. Posterior of the uterus is a anechoic cyst measuring 0.3 x 0.3 x 0.3 cm. Likely extraovarian cyst Adnexa: Both ovaries are visualized. There is normal color flow to the adnexa. There is no ovarian torsion. There is no pelvic ascites or fluid collection. Right ovary measures 3.3 x 1.5 x 2.5 cm. Volume 6.5 mL. There is central echogenic lesion without shadowing measuring 0.5 x 0.5 x 0.6 cm. There are physiological small cysts. Previously right ovary measured 3.6 x 1.7 x 1.7 cm. Left ovary measures 1.6 x 2.4 x 1.5 cm. Volume 3.0 mL. No focal lesion seen. There is no free fluid in the cul-de-sac. US/US pelvic and transvaginal IMPRESSION: New echogenic area in the right ovary likely complex cyst. Otherwise both ovaries are unremarkable. The uterus is unremarkable. There is a IUD in correct position. Posterior to uterus there is a small anechoic cyst measuring 0.3 x 0.3 x 0.3 cm. Likely extraovarian cyst. Electronically signed by: Momo Glasgow MD 05/14/2024 08:07 AM [facility] Dictated By: Momo Glasgow MD Signed By: <Electronically signed by Momo Glasgow MD in OV> 05/14/24 0807 DD/ 1624 TD/TT: 05/11/24 1636 Bunk Assembler: SID Assessment & Plan Assessment & Plan (1) Complex ovarian cyst: Code(s): N83.299 - Other ovarian cyst, unspecified side Category: Medical Plan: Counseled regarding findings of: Complex ovarian cyst, which is often benign, and most resolve on their own o vertime. Some develop into premalignant or malignant tumors. Limitations of testing for diagnostic purposes. Further monitoring and evaluation is recommended with US, possible CT, or MRI study. If persists, or is indicated (Ca-125, Carbohydrate Antigen 19-9, & Carcinoembryonic Antigen) labs will be ordered and referral to [facility] or general gynecology for MD care if indicated for possible surgical consult. Follow up in person for test results. All of her questions and concerns were addressed to the best of my ability and shared decision making. She is agreeable to the plan of care. This note is constructed using voice recognition software. While every effort has been made to ensure accuracy, veterinary physiologist errors may have been included. (2) Encounter to discuss test results: Code(s): Z71.2 - Person consulting for explanation of examination or test findings Plan: Discussed: IMPRESSION: New echogenic area in the right ovary likely complex cyst. Otherwise both ovaries are unremarkable. The uterus is unremarkable. There is a IUD in correct position. Posterior to uterus there is a small anechoic cyst measuring 0.3 x 0.3 x 0.3 cm. Likely extraovarian cyst. Dictated By: Plan Schedule annual exam. Orders: Orders US pelvic and transvaginal 07/09/24 N83.299 - Other ovarian cyst, unspecified side Coding Level of Care Code Est Pt Level 3 (94981) Diagnoses Complex ovarian cyst N83.299 Encounter to discuss test results Z71.2
--- OUTSIDE RECORDS SUMMARY | 2024-06-05 17:31 | XMS_ITS | Clinical Summary ---
Author Organization [facility] Address [address] [place] [address] Phone Care Team Providers Care Glove Presser Name Role Phone Rachana Schmitz MD Primary [...] PM EDT Office Visit Bariatric Surgery - [place] [address] [place] [phone] Olena Ruiz PA [address] [place] [address] Health Maintenance Due Date Last Done Comments [...] patient's age to complete this topic Insurance [facility] Care Teams Glove Presser Relationship Specialty Start Date End Date Rachana Schmitz MD [address] [place] [address] PCP - General 04/18/23
--- OUTSIDE RECORDS SUMMARY | 2024-06-05 17:31 | XMS_ITS | Data Portability ---
Author Organization [place] - [facility], Allergy Address [address] [place] [id number] Care Team Providers Care Refuse Driver Name Role Phone KEON ANGEL Primary [...] Organization Details Recorded Time Abnormal auditory perception 07267111 Active 024 Clarice barakat [place] - [facility] 4 13:58:28 Benign paroxysmal positional vertigo 019111437 Active 024 FAUSTINO NAVARRO MD [address] [address], [place], [address], [facility] - [facility] 4 15:03:21 Vertigo of central origin 31867396 Active 024 FAUSTINO NAVARRO MD [address] [facility] [address], [place], [address], [facility] - [facility] 4 15:03:45 Migraine with aura 7460923 Active 024 FAUSTINO NAVARRO MD [address] [facility] 100, [facility] [place], [address], [facility] - [facility] 4 15:03:45 Snoring 08976382 Active 024 FAUSTINO NAVARRO MD [address] [facility] 100, [facility] [place], [address], [facility] - [facility] 4 15:07:31 Morbid obesity 093479085 Active 024 FAUSTINO NAVARRO MD [address] [facility] 100, [facility] [place], [address], [facility] - [facility] 4 15:07:36 Problem Notes None recorded. Procedures Surgical History Date Name Laterality Status Provider Name and Address Organization Details Recorded Time 11/15/2023 Comp Audio with Tymps (87079 & 58330) completed Clarice Martin [place] - [facility] 11/15/2023 13:58:19 Imaging Results Imaging Date Name Status LastModified by Organiz ation Details LastModified Time 11/16/2023 audiogram completed [email or web address] Information no t available 11/16/2023 15:31:53 Procedure Notes None recorded. Medical Equipment None Reported. Allergies Allergen ID Allergen Name Allergen Category Reaction Reaction Severity Criticality Documentation Date Start Date Code Code System Note Provider Name and Address Organization Details Recorded Time 875818 Bactrim medicatio n Not available Not available Not available 11/15/2023 10503 9 RxNorm Yary barakat [place] - [facility] 4 14:18:42 809505 Keflex medicatio n Not available Not available Not available 11/15/2023 90326 7 RxNorm Yary barakat [place] - [facility] 4 14:18:50 Medications Name Sig Start [...] completed Not Available Not Available Not Available M- Plus 27 mg iron-1 mg tablet TAKE 1 TABLET BY MOUTH DAILY active Not Available Not Available No t Available Vitals None Recorded Social History None recorded. Functional Status None recorded. Mental Status None recorded. Family History Nothing Reported. Medical History Condition Response Hyperlipidemia Y Migraines Y Gynecological HistoryNo gynecological history recorded. Obstetrics History GPAL:G 0 P 0 0 0 0 Past Encounters Encounter ID Performer Location Encounter Start Date Encounter Closed Date Diagnosis/Indication Diagnosis SNOMED-CT Code Diagnosis ICD10 Code Diagnosis Note [id number] FAUSTINO NAVARRO MD [facility] [address] [place] [address] 11/15/2023 13:38:03 11/15/2023 15:16:10 Abnormal auditory perception 23817968 H93.299 Audiologic al evaluation results: Right ear: [...] hermetic seal}} Benign par oxysmal positional vertigo 548714738 H81.10 Patient with recent history of episodic [...] and vestibular therapy. Vertigo of central origin 60173158 H81.4 The patient's history, physical exam and [...] low dose nortriptyl ine}} Migraine with aura 43258 06 G43.109 Snoring 15387519 R06.83 Patient does have chronic loud snoring at night and self-repor vickie sensation of apneic episodes. We discussed that this can be a trigger for migraine as well as exacerbate underlying psychologi lauren disturbanc e. Recommende d she contact her primary care physician to proceed with getting an updated sleep study. Morbid obesity 410016284 E66.01 Health Concerns Section Related Observation LastModified by Organization Detai ls LastModified Time None Recorded Concern Status LastModified by Organization Details LastModified Time None Recorded Advance Directives Directive None Recorded Payers Encounter Date Sequence Insurance Name Policy Number Policy Rey Covered Member ID Rey Member ID Guarantor Name 11/15/2023 1 [facility] [id number] 1 Jazmin Christian [id number] Jazmin Christian Notes Date Note Type Note [...] some mental health issues. FAUSTINO NAVARRO MD [address] [place] [address], [phone], [facility] - [facility] 11/15/2023 15:12:38 OBGyn Episode No OBEpisode recorded.
--- OUTSIDE RECORDS SUMMARY | 2024-06-05 17:31 | XMS_ITS | Clinical Summary ---
Author Organization [employer] Address [address] [facility] [address] [place] [address] Care Team Providers Care Pocketed Spring Machine Operator Name Role Phone Unavailable Primary Care Provider [...] patient's age to complete this topic Insurance [place] [address] , [address] [place] [address]
== END 2024-06-05 15:38 | disposition home or self-care (01) ==
LOC: HO.HWS 14:02
PROVIDERS: PCP Internal Medicine; Visit Provider Advanced Practice Midwife
DX: N83.299 Other ovarian cyst, unspecified side (principal); Z71.2 Person consulting for explanation of examination or test findings
CPT/HCPCS: 99213

== ENCOUNTER → 2024-06-05 14:02 | Outpatient (BNVA) | payer OTHER, SELFPAY | PROVIDERS: PCP Internal Medicine; Visit Provider Advanced Practice Midwife ==

== ENCOUNTER 2024-06-12 05:53 | Day surgery (SDC) | payer OTHER, SELFPAY ==
--- OUTSIDE RECORDS SUMMARY | 2024-05-08 09:07 | XMS_ITS | Clinical Summary ---
Author Organization [facility] Address [address] [place] [address] Phone Care Team Providers Care Vice President Planning Name Role Phone Rachana Schmitz MD Primary [...] PM EDT Office Visit Bariatric Surgery - [place] [address] [place] [phone] Olena Ruiz PA [address] [facility] [place] [address] Health Maintenance Due Date Last Done Comments [...] patient's age to complete this topic Insurance [facility] Care Teams Vice President Planning Relationship Specialty Start Date End Date Rachana Schmitz MD [address] [place] [address] PCP - General 04/18/23
--- OUTSIDE RECORDS SUMMARY | 2024-05-08 09:07 | XMS_ITS | Clinical Summary ---
Author Organization [facility] Address [address] [facility] 7 [place] [address] Care Team Providers Care Cash Room Clerk Name Role Phone Unavailable Primary Care Provider [...] Description 05/09/2024 1:00 PM EST Office Visit [facility] [address] [place] [address] Deborah Hyatt Health Maintenance Due Date Last [...] series) 10/16/2059 Influenza Vaccine Completed 11/24/2023, , 12/02/2022, Additional history exists HIB Vaccines Aged Out [...] complete this topic Insurance , [address] [place] [address] [address] [id number]
[2024-05-29 10:30] VITALS: BMI 48.3
[2024-06-06 08:43] LABS: MANUAL DIFF FLAG NO
[2024-06-06 09:35] LABS: Estimated Average Glucose 117 mg/dL; Hemoglobin A1C 132.8461 umol/L; Hemoglobin A1c % 5.7 % (<6.0); Total Hemoglobin (HGBA1C) 3441.8378 umol/L
[2024-06-06 09:36] LABS: Basophils Percent Auto 0.5 % (0-2); Eosinophils Absolute Auto 0.1 X10*3/uL (0.0-0.4); Eosinophils Percent Auto 1.9 % (0-4); Hematocrit 43.3 % (37.0-47.0); Hemoglobin 13.8 g/dl (12.0-16.0); Imm Gran Abs Auto 0.05 X10*3/uL (0.00-0.03); Imm Gran Pct Auto 0.7 % (0.0-0.4); Lymphocytes Absolute Auto 1.8 X10*3/uL (1.2-4.9); Lymphocytes Percent Auto 24.2 % (20-40); Mean Corpuscular HGB Conc 31.9 g/dl (31.0-35.0); Mean Corpuscular Hemoglobin 25.9 pg (27.0-33.0); Mean Corpuscular Volume 81.2 fL (80.0-98.0); Mean Platelet Volume 9.5 fL (9.4-12.3); Monocytes Absolute Auto 0.4 X10*3/uL (0.1-1.2); Monocytes Percent Auto 5.6 % (2-11); Neutrophils Percent Auto 67.1 % (45-73); Platelet Count 339 X10*3/uL (160-400); Red Blood Count 5.33 X10*6/uL (4.20-5.50); Red Cell Distribution Width 15.1 % (11.0-16.0); White Blood Count 7.5 X10*3/uL (4.8-10.8)
[2024-06-06 10:16] LABS: Alanine Aminotransferase 30 U/L (0-31); Albumin Level 4.2 g/dL (3.5-5.0); Alkaline Phosphatase 97 U/L (39-117); Anion Gap 10 (12-20); Aspartate Amino Transferase 25 U/L (5-31); Bilirubin Total 0.3 mg/dL (0.0-1.0); Blood Urea Nitrogen 9 mg/dL (9-16); C Reactive Protein 1.76 mg/dL (< or = 0.50); Calcium 9.6 mg/dL (8.4-10.2); Carbon Dioxide 29 mmol/L (22-29); Chloride 104 mmol/L (96-108); Cholesterol 204 mg/dL (<200); Creatinine Clr Calc Pharmacy 139.8; Estimated Glomerular Filt Rate > 60; Glucose Random 106 mg/dL (60-115); HDL Cholesterol 47 mg/dL (>40); LDL Cholesterol Calculated 128 mg/dL (<100); Sodium 139 mmol/L (135-145); Total Protein 7.7 g/dL (6.5-8.0); Triglycerides 148 mg/dL (<150)
[2024-06-06 10:40] LABS: TSH reflex Free T4 2.51 uIU/mL (0.32-4.0)
[2024-06-06 11:15] LABS: Insulin 38 uU/mL (2-29)
[2024-06-06 15:31] LABS: Prothrombin Time 11.5 SEC (10.9-12.4)
[2024-06-06 15:34] LABS: Partial Thromboplastin Time 32.2 SEC (26.0-36.8)
--- NOTE | 2024-06-11 12:11 | P.CONAN_ITS ---
Documented by User: Sheila Plaza NP 06/11/24 12:12 HPI - Anesthesia Eval Consult details Narrative: 38yo F for?Gastrectomy Sleeve - EGD, possible diaphragmatic hernia, possible ventral hernia, possible open PMFSH Active Problems Active Problems: All Active Problems Complex ovarian cyst (Acute) PTSD (post-traumatic stress disorder) (Acute) Hot flashes (Acute) Fibroid (Acute) Vitamin B12 deficiency (Acute) Vitamin D deficiency (Acute) Diarrhea (Acute) Occipital neuralgia of right side (Acute) Stabbing headache (Acute) Excessive daytime sleepiness (Acute) Loud snoring (Acute) Headache (Acute) Skin lesion (Acute) LGSIL on Pap smear of cervix (Acute) Dysplasia of cervix, low grade (KALEY 1) (Acute) Screen for sexually transmitted diseases (Acute) Moderate recurrent major depression (Acute) Immunization due (Acute) Acute vaginitis (Acute) Physical exam (Acute) Otitis media (Acute) Viral syndrome (Acute) Conjunctivitis (Acute) Obesity, morbid, BMI 40.0-49.9 (Acute) Screening for malignant neoplasm of cervix (Acute) Encounter for well woman exam with routine gynecological exam (Acute) Vaginal discharge (Acute) Vaginal irritation (Acute) Dizziness (Acute) Back pain (Acute) Depression (Acute) Asthma (Acute) GERD (gastroesophageal reflux disease) (Acute) Morbid obesity (Acute) Migraine with aura (Acute) NATALIE (generalized anxiety disorder) (Acute) Past Medical History Medical History Complex ovarian cyst H/O methicillin resistant Staphylococcus aureus Pre-diabetes Panic attacks Anxiety PTSD (post-traumatic stress disorder) IUD (intrauterine device) in place Back pain Depression GERD (gastroesophageal reflux disease) Morbid obesity NATALIE (generalized anxiety disorder) Migraine with aura Allergic rhinitis Asthma Family History Family History Father Diabetes mellitus HTN (hypertension) Mother Diabetes mellitus HTN (hypertension) Maternal Grandmother Diabetes mellitus Paternal Grandmother Diabetes mellitus Brother Diabetes mellitus Brother Diabetes mellitus Other Mental health disorder Substance use disorder Family history of problems with anesthesia: No Surgical History Surgical History History of esophagogastroduodenoscopy (EGD) History of Problems with Anesthesia: No Social History Social History (Updated 06/12/24 @ 08:57 by Tabitha Arevalo MD) Household Members Other:: 2 minor children-will be with their father while mother having surgery Housing: House Are you a primary hiv/aids care nurse to a significant other at home: No (shared care with children's father) Do you presently have visiting nurse or other home services: No Alcohol intake: current Alcohol intake frequency: does not drink Patient Tobacco Use Status: Never used Tobacco e-Cigarette/Vaping Use: Never Used Second Hand Smoke Exposure: No service: No Current occupational status: employed Current occupation: [employer] Current occupational exposures/hazards: No Gender identity: Female Cognitive needs: No Hearing needs: No Vision needs: Yes (Glasses) Meds Allergies Allergy/AdvReac Type Severity Reaction Status Date / Time cephalexin [From KEFLEX] Allergy Severe ANAPHYLAXIS Verified 06/12/24 06:16 Sulfa (Sulfonamide Allergy Severe Anaphylaxis Verified 06/12/24 06:16 Antibiotics) sulfamethoxazole Allergy Severe ANAPHYLAXIS Verified 06/12/24 06:16 [From BACTRIM] trimethoprim [From BACTRIM] Allergy Severe ANAPHYLAXIS Verified 06/12/24 06:16 Home Medications ?Medication ?Instructions ?Recorded ?Confirmed ?Last Taken ?Type buspirone 10 mg tablet 10 mg PO TID PRN PMS symptoms 04/12/24 06/01/24 Unknown History hydroxyzine HCl 25 mg tablet 25 mg PO BID PRN Anxiety 05/29/24 06/01/24 Unknown History omeprazole 40 mg capsule,delayed 40 mg PO BEDTIME 05/29/24 06/01/24 Unknown History release sertraline 100 mg tablet 200 mg PO BEDTIME 05/29/24 06/01/24 Unknown History levonorgestrel 21 mcg/24 hr (up to intrauterine 06/05/24 Unknown History 8 years) 52 mg intrauterine device (Mirena) Exam Height,Weight and Vital Signs: Height 5 ft 5 in Weight 131.542 kg Pertinent Lab Results Pertinent Lab Results: Laboratory Tests 06/06/24 06/06/24 06/06/24 08:16 08:42 15:08 WBC 7.5 RBC 5.33 Hgb 13.8 Hct 43.3 MCV 81.2 MCH 25.9 L MCHC 31.9 RDW 15.1 Plt Count 339 MPV 9.5 Immature Gran % (Auto) 0.7 H Neut % (Auto) 67.1 Lymph % (Auto) 24.2 [place] % (Auto) 5.6 Eos % (Auto) 1.9 Baso % (Auto) 0.5 Lymph # (Auto) 1.8 [place] # (Auto) 0.4 Eos # (Auto) 0.1 Baso # (Auto) 0.0 Abs Immat Gran (auto) 0.05 H Absolute Neuts (auto) 5.0 Absolute Nucleated RBC 0.000 Nucleated RBC % (auto) 0.0 PT Cancelled 11.5 INR Cancelled 1.0 APTT Cancelled 32.2 Cancelled Coag Test SEE NOTE Sodium 139 Potassium 4.0 Chloride 104 Carbon Dioxide 29 Anion Gap 10 L BUN 9 Creatinine 0.74 Estim Creat Clear Calc 139.8 Estimated GFR > 60 Random Glucose 106 Estimat Average Glucose 117 Hemoglobin A1c % 5.7 Insulin Level 38 H Calcium 9.6 Total Bilirubin 0.3 AST 25 ALT 30 Alkaline Phosphatase 97 C-Reactive Protein 1.76 H Total Protein 7.7 Albumin 4.2 Triglycerides 148 Cholesterol 204 H LDL Cholesterol, Calc 128 H HDL Cholesterol 47 TSH 2.51 Blood Type O Positive Antibody Screen NEGATIVE Narrative Narrative: EKG 01/2024 Vent. Rate : 090 BPM Atrial Rate : 090 BPM P-R Int : 150 ms QRS Dur : 084 ms QT Int : 352 ms P-R-T Axes : 038 053 029 degrees QTc Int : 430 ms Normal sinus rhythm Normal ECG When compared with ECG of 04-JAN-2024 09:26, No significant change was found Assessment and Plan Assessment Anesthesia Assessment: Chart Reviewed Final Anesthetic Review Family History of Problems with Anesthesia: No History of Problems with Anesthesia: No Documented by User: Tabitha Arevalo MD 06/12/24 09:07 HPI - Anesthesia Eval Consult details Narrative: 38yo F for EGD, Laparoscopic Sleeve Gastrectomy, possible diaphragmatic hernia repair, possible ventral hernia repair, possible open PMFSH Past Medical History Medical History Complex ovarian cyst H/O methicillin resistant Staphylococcus aureus Pre-diabetes Panic attacks Anxiety PTSD (post-traumatic stress disorder) IUD (intrauterine device) in place Back pain Depression GERD (gastroesophageal reflux disease) Morbid obesity NATALIE (generalized anxiety disorder) Migraine with aura Allergic rhinitis Asthma Family History Family History Father Diabetes mellitus HTN (hypertension) Mother Diabetes mellitus HTN (hypertension) Maternal Grandmother Diabetes mellitus Paternal Grandmother Diabetes mellitus Brother Diabetes mellitus Brother Diabetes mellitus Other Mental health disorder Substance use disorder Family history of problems with anesthesia: No Surgical History Surgical History History of esophagogastroduodenoscopy (EGD) History of Problems with Anesthesia: No Social History Social History (Updated 06/12/24 @ 08:57 by Tabitha Arevalo MD) Household Members Other:: 2 minor children-will be with their father while mother having surgery Housing: House Are you a primary hiv/aids care nurse to a significant other at home: No (shared care with children's father) Do you presently have visiting nurse or other home services: No Alcohol intake: current Alcohol intake frequency: does not drink Patient Tobacco Use Status: Never used Tobacco e-Cigarette/Vaping Use: Never Used Second Hand Smoke Exposure: No service: No Current occupational status: employed Current occupation: [employer] Current occupational exposures/hazards: No Gender identity: Female Cognitive needs: No Hearing needs: No Vision needs: Yes (Glasses) Meds Allergies Allergy/AdvReac Type Severity Reaction Status Date / Time cephalexin [From KEFLEX] Allergy Severe ANAPHYLAXIS Verified 06/12/24 06:16 Sulfa (Sulfonamide Allergy Severe Anaphylaxis Verified 06/12/24 06:16 Antibiotics) sulfamethoxazole Allergy Severe ANAPHYLAXIS Verified 06/12/24 06:16 [From BACTRIM] trimethoprim [From BACTRIM] Allergy Severe ANAPHYLAXIS Verified 06/12/24 06:16 Home Medications ?Medication ?Instructions ?Recorded ?Confirmed ?Last Taken ?Type buspirone 10 mg tablet 10 mg PO TID PRN PMS symptoms 04/12/24 06/01/24 Unknown History hydroxyzine HCl 25 mg tablet 25 mg PO BID PRN Anxiety 05/29/24 06/01/24 Unknown History omeprazole 40 mg capsule,delayed 40 mg PO BEDTIME 05/29/24 06/01/24 Unknown History release sertraline 100 mg tablet 200 mg PO BEDTIME 05/29/24 06/01/24 Unknown History levonorgestrel 21 mcg/24 hr (up to intrauterine 06/05/24 Unknown History 8 years) 52 mg intrauterine device (Mirena) Exam Height,Weight and Vital Signs: Height 5 ft 5 in Weight 131.542 kg Vital Signs Temp Pulse Resp BP Pulse Ox O2 Del Method 06/12/24 06:55 97.9 F 86 18 158/81 H 95 Room Air Pertinent Lab Results Pertinent Lab Results: Laboratory Tests 06/06/24 06/06/24 06/06/24 08:16 08:42 15:08 WBC 7.5 RBC 5.33 Hgb 13.8 Hct 43.3 MCV 81.2 MCH 25.9 L MCHC 31.9 RDW 15.1 Plt Count 339 MPV 9.5 Immature Gran % (Auto) 0.7 H Neut % (Auto) 67.1 Lymph % (Auto) 24.2 [place] % (Auto) 5.6 Eos % (Auto) 1.9 Baso % (Auto) 0.5 Lymph # (Auto) 1.8 [place] # (Auto) 0.4 Eos # (Auto) 0.1 Baso # (Auto) 0.0 Abs Immat Gran (auto) 0.05 H Absolute Neuts (auto) 5.0 Absolute Nucleated RBC 0.000 Nucleated RBC % (auto) 0.0 PT Cancelled 11.5 INR Cancelled 1.0 APTT Cancelled 32.2 Cancelled Coag Test SEE NOTE Sodium 139 Potassium 4.0 Chloride 104 Carbon Dioxide 29 Anion Gap 10 L BUN 9 Creatinine 0.74 Estim Creat Clear Calc 139.8 Estimated GFR > 60 Random Glucose 106 Estimat Average Glucose 117 Hemoglobin A1c % 5.7 Insulin Level 38 H Calcium 9.6 Total Bilirubin 0.3 AST 25 ALT 30 Alkaline Phosphatase 97 C-Reactive Protein 1.76 H Total Protein 7.7 Albumin 4.2 Triglycerides 148 Cholesterol 204 H LDL Cholesterol, Calc 128 H HDL Cholesterol 47 TSH 2.51 Blood Type O Positive Antibody Screen NEGATIVE Laboratory Results - last 24 hr 06/12/24 06:00 Urine Test NEGATIVE Airway Mallampati Class: III (Small mouth) TM Dist: >3cm Neck ROM: Full Loose/Missing/Broken Teeth: Yes (Missing molars. Denies broken or loose teeth ) Heart: RRR Lungs: CTAB (post respiratory treatment) Assessment and Plan Assessment Anesthesia Assessment: Anesthesia Plan Discussed and Chart Reviewed Final Anesthetic Review Family History of Problems with Anesthesia: No History of Problems with Anesthesia: No NPO: Yes ASA Class: III Final Preanesthetic Review: No Changes in Pt Med Stat, Meds/Allgs Chart Reviewed, Consent Obtained/Reviewed and Anes Risks/Benef Reviewed Patient Risk: Intermediate Procedure Risk: Intermediate Assessment/Block/Sedation in SS: Assess/Block/Sedation-SS Anesthetic Plan Anesthetic Plan: GA Disposition: Standard PACU and Inp. Admit - Standard Bed
[2024-06-12] VITALS (16 sets, daily range): BP systolic 124–159; BP diastolic 56–84; PULSE 71–98; RESP 16–19; TEMP 36.1–36.6; O2SAT 92–98; BMI 47.3
[2024-06-12] MEDS: Lactated Ringers 1,000 ML 999 ML IV (06:28)
[2024-06-12] MEDS: Lactated Ringers 1,000 ML 100 ML IVCONT ×3 (06:28→22:10)
[2024-06-12] MEDS: Aprepitant 32 MG/4.4 ML VIAL IVPUSH (06:43)
[2024-06-12] MEDS: Albuterol Sulfate (0.083%) 2.5 MG/3 ML VIAL.NEB INHALE (06:53)
[2024-06-12 06:54] LABS: UPreg QC Valid YES; Urine Pregnancy NEGATIVE (NEGATIVE)
--- NOTE | 2024-06-12 07:25 | MHC.SHP ---
Pre-Procedural Eval Section A - 24 Hr Update-Section A only Date of Service: 06/12/24 The patient is an INPATIENT: No The patient has been examined within 24 hours of the surgical procedure. The History & Physical has been completed within 30 days and I have reviewed it.: Yes Section B - Complete if H&P > 30 days Chief Complaint: Morbid (severe) obesity due to excess calories Relevant Family History (Specify if Yes): No Relevant Social History: None Present Medications: None Medical History: No relevant PMH History of Previous Operations: No relevant previous surgery Allergies: Allergies Allergy/AdvReac Type Severity Reaction Status Date / Time cephalexin [From KEFLEX] Allergy Severe ANAPHYLAXIS Verified 06/12/24 06:16 Sulfa (Sulfonamide Allergy Severe Anaphylaxis Verified 06/12/24 06:16 Antibiotics) sulfamethoxazole Allergy Severe ANAPHYLAXIS Verified 06/12/24 06:16 [From BACTRIM] trimethoprim [From BACTRIM] Allergy Severe ANAPHYLAXIS Verified 06/12/24 06:16 Review of Systems Sugical H&P ROS: Negative: Constitution, Cardiovascular, Respiratory, Neurological, Psychiatric, Hem-Onc, Allergic/Immunologic, Gastrointestinal, Genitourinary, Musculoskeletal, Integumentary, Endocrine and Eyes/Ears/Nose/Throat Exam Surgical H&P Exam: Normal: HEENT, Normal: Heart, Normal: Lungs, Normal: Extremities, Normal: Abdomen, Normal: Skin and Normal: Neurological Plan Diagnosis/Plan: Unchanged I have reviewed the history and physical and performed a pertinent physical examination on my patient. No changes have occurred unless specified. Time Spent With Patient Time: Total time managing care of this patient today ____ minutes.
--- NOTE | 2024-06-12 07:26 | P.BOP_ITS ---
Brief Operative Note Date of Service: 06/12/24 Pre-op diagnosis: Morbid obesity with comorbidities (see below) Post-op diagnosis: same Procedure: INITIAL PATIENT BMI ON PRESENTATION AT OUR OFFICE: 51.3 kg/m2 LAST BMI BEFORE SURGERY: 47.9 kg/m2 COMORBIDITIES: GERD, Asthma, depression, anxiety, hyperlipidemia ?The patient presented to the Weight Management Program with significant obesity that was negatively impacting the patient's comorbidities as listed above.? The program is a phased program with a special focus on preoperative medical weight management to promote substantial weight loss and prepare the patients for the second phase of the program: bariatric surgery. The patient participated in an intensive weekly lifestyle ?intervention and exercise program during which the patient ?has lost between the initial office visit and the last preoperative visit 21.2lbs, or 6.9% of initial actual body weight. It was deemed appropriate for the patient to now have bariatric surgery. In light of the current Covid-19 pandemic and the well documented strong association of obesity and increased risk of worse outcomes if infected with Covid-19 (REFERENCES: https://pubmed.ncbi.nlm.nih.gov/91941838/ ,? https://pubmed.ncbi.nlm.nih.gov/29051191/ ), any delay in undergoing bariatric surgery may lead to the patient's worsening health condition and increased?risk of more severe Covid-19 disease if infected. In addition a recent?study from [facility] published in [employer] [facility] on 03/09/2021 ([email or web address]) found that, among patients with obesity, substantial weight loss achieved with surgery was associated with improved outcomes of COVID-19 infection. The findings suggest that obesity can be a modifiable risk factor for the severity of COVID-19 infection. In addition, the patient met the BMI-criteria for bariatric surgery based on the BMI on initial presentation. The patient should not be penalized for achieving such weight loss because ?it is not sustainable long-term without surgical intervention and it was achieved in preparation for bariatric surgery ?under my direction and based on my published research ([email or web address]).[email or web address] and? https://www.soard.org/article/[email or web address](74)18140-X/pdf ) ?that a 10% preoperative weight loss improves long-term weight loss after surgery and reduces perioperative complications.? Insurance carriers such as [facility] have endorsed my recommendations ?and have included in their policies criteria to include a 10% preoperative weight loss requirement. PROCEDURE: Esophago-gastroscopy, laparoscopic sleeve gastrectomy and laparoscopic gastropexy INDICATIONS: This is a 38 year-old female who was electively scheduled for laparoscopic, possibly open sleeve gastrectomy. The risks and complications of the procedure were discussed with the patient in advance, particularly the possibility of ; pulmonary embolism; staple line leak; bleeding; GERD; cardiac, pulmonary, or renal complications; as well as long-term problems such as insufficient weight loss, vitamin deficiency, strictures, or ulcers. The patient understood all the risks, and was in agreement to proceed with surgery. DESCRIPTION OF PROCEDURE: After informed consent was obtained from the patient, the patient was given preoperative antibiotics, and was transferred to the operating room. After successful induction of general anesthesia, pneumatic compression devices were placed on both lower extremities. An upper endoscopy was performed next. The oropharynx and esophagus appeared to be within normal limits. There was no diaphragmatic hernia present. The stomach was entered. Then after all fluid and air were suctioned and the stomach was fully decompressed, the scope was withdrawn and secured in the mid esophagus. The patient was then prepped and draped in the usual sterile manner, and abdominal access was established at the right upper quadrant with the Sahra technique. A 12 mm blunt port was inserted, and the abdomen was insufflated with CO2 to a pressure of 15 mmHg. Under direct visualization, additional ports were placed, specifically two 5 mm Versi-step ports to the left upper quadrant, and a 5 mm Versi-Step port to the right upper quadrant. 1% lidocaine plain was used to infiltrate all port sites as well as all fascia defects. Following that, the patient was placed in a steep reverse Trendelenburg position. An additional 5 mm port was placed to the right flank for the Mediflex retractor that was used to retract the left lobe of the liver. The gastro-esophageal fat pad was opened with the ultrasonic device (Thgiovannyerbeat, Olympus) and the anterior esophagus and hiatus were exposed. The angle of His was opened with the ultrasonic device the fundus of the stomach from any diaphragmatic and splenic attachments. I then opened the gastrocolic ligament between the transverse colon and the g reater curvature of the stomach with the ultrasonic device to enter the lesser sac and facilitate the ligation of the short gastric vessels. I started at a mid-point along the greater curvature and using the Thunderbeat, all short gastric vessels were divided all the way to the angle of His until the left kain was completely dissected at its entirety. I then divided the gastro-colic ligament distally to a distance of about 3-4 cm proximal to the pylorus. The stomach was then divided transversely with four Endo TIERA-45 purple and two TIERA-60 articulating purple loads using the [employer] stapler and loads. Every effort was made that the gastric sleeve had a tubular shape and an even caliber throughout. Once the sleeve resection was completed, the staple line of the gastric sleeve was reinforced with Hemoclips. The resected stomach was retrieved without difficulty from the Sahra port. A gastropexy was then performed in order to prevent postoperative GERD and partial gastric volvulus. Several interrupted 2.0 Surgidac sutures were placed between the sleeve's staple line and the previously divided greater omentum and gastro-colic ligament using the Endo-Stitch device. ?An upper endoscopy was performed. There was no narrowing at the GE junction. The scope was easily advanced all the way to the pylorus which was clearly visualized. There was no narrowing anywhere and the sleeve's caliber was even throughout. The sleeve's staple line was inspected and there was no evidence of ischemia, bleeding or dehiscence. At that point the gastroscope was withdrawn from the patient?s mouth while we were decompressing the bowel and the stomach from any remaining air. I looked into the lesser sac to see how the sleeve was situating and it was situating well. There was no bleeding from the staple line, spleen, or short gastric vessels. The Mediflex retractor was removed, and the undersurface of the liver was inspected and there was no bleeding. The patient was placed in supine position. I closed the fascial defect of the 12 mm port site with a figure of eight #1 Polysorb suture. Then 30cc Ropivacaine plain with 10 mg of Dexamethasone were used to infiltrate the fascial closure as well as all skin incisions. At this point, the abdomen was deflated, all ports were removed under direct vision, and no bleeding was noted from any of the port sites. The skin incisions were irrigated with saline and were closed with 4-0 absorbable monofilament sutures. Steri-Strips and OpSites were used to cover all incisions. The patient was extubated and was transferred in stable condition to the recovery room for further care. I was present and performed all [place] parts of the procedure. Mr. Lee was the commercial lending assistant. There were no residents to assist with this case. Kiet Pham MD, PhD, FACS Surgeon: Jack Pham MD Anesthesia: GETA, local and other (TAP block) Was an Auto Apprentice Mechanic used for this Procedure?: No Auto Apprentice Mechanic: Parag Lee Estimated blood loss (mL): 10 IV fluids (mL): 2,500 Urine output (mL): 0 (No [employer] to record output) Pathology: other (1) Stomach, 2) Gastro-esophageal fat pad) Condition: stable Disposition: PACU
--- NOTE | 2024-06-12 07:28 | PM.PNGS ---
Subjective Subjective Date of Service: 06/13/24 Interval history: Feels well. Mild incisional pain. She is tolerating phase 1 bariatric diet Physical Exam Vital Signs: Vital Signs: Last Vital Signs Temp 97.9 F 06/12/24 06:55 Pulse 86 06/12/24 06:55 Resp 18 06/12/24 06:55 BP 158/81 H 06/12/24 06:55 Pulse Ox 95 06/12/24 06:55 O2 Del Method Room Air 06/12/24 06:55 BMI result Body Mass Index 47.3 GI: Inspection: Yes normal to inspection, Yes incision (clean, dry and intact) and Yes obesity Extrem: Right lower extremity: normal to inspection (no calf tenderness) Left lower extremity: normal to inspection (no calf tenderness) Objective Data Active Medications Albuterol Sulfate (Albuterol Sulfate (0.083%) 2.5 Mg/3 Ml Vial.Neb) 2.5 mg INHALE ONCE PRN PRN Reason: Shortness of Breath/Wheezing Last Admin: 06/12/24 06:53 Dose: 2.5 mg Documented By: MARYURI Lactated Ringer's (Lr) 1,000 mls @ 100 mls/hr IVCONT .Q10H [facility] Last Admin: 06/12/24 06:28 Dose: 100 mls/hr Documented By: MARYURI Lactated Ringer's (Lr) 1,000 mls @ 999 mls/hr IV .Q1H1M [facility] Stop: 06/12/24 08:15 Last Admin: 06/12/24 06:28 Dose: 999 mls/hr Documented By: MARYURI Labs 06/13/24 05:56 06/13/24 06:17 Labs: Laboratory Results - last 24 hr 06/12/24 06:00 Urine Test NEGATIVE Procedures Date of Service Date of Service: 06/13/24 Progress Note: A&P Assessment and plan (1) Morbid obesity: Status: Acute Assessment and Plan: s/p laparoscopic sleeve gastrectomy and gastropexy Doing well Will check am labs and if OK the patient will be discharged home (2) GERD (gastroesophageal reflux disease): Status: Acute (3) Back pain: Status: Acute (4) Asthma: Status: Acute (5) Depression: Status: Acute (6) S/P laparoscopic sleeve gastrectomy: Status: Acute Time Spent With Patient Time: Total time managing care of this patient today ____ minutes. Quality Stroke Does the patient have a stroke diagnosis?: No VTE Prior VTE?: No VTE Risk Level:: Surgical - moderate VTE Device Contraindication: N/A - Device Ordered VTE Drug Contraindication: Treatment Not Indicated
[2024-06-12] MEDS: levoFLOXacin/D5W 500 MG/100 ML PIGGYBACK 100 MG IV (07:50)
--- NOTE | 2024-06-12 09:53 | PM.DS ---
DS: Providers Provider Date of Service: 06/13/24 Date of discharge: 06/13/24 Primary care physician: Efrem Jacobson MD DS: Diagnosis Discharge Diagnosis (1) Morbid obesity: Status: Acute (2) GERD (gastroesophageal reflux disease): Status: Acute (3) Back pain: Status: Acute (4) Asthma: Status: Acute (5) Depression: Status: Acute (6) S/P laparoscopic sleeve gastrectomy: Status: Acute DS: Summary Hospital Course Hospital Course: ADMITTING DIAGNOSIS: morbid obesity, asthma, anxiety, depression, gerd, ptsd ? DISCHARGE DIAGNOSIS: same, s/p laparoscopic sleeve gastrectomy ? PAST SURGICAL HISTORY: ? PROCEDURE: upper endoscopy, laparoscopic sleeve gastrectomy ? DISCHARGE SUMMARY: ? History of Present Illness: ? The patient is a?38 year-old woman with a BMI of?51.3 kg/m2 and associated co-morbidities as described above. The patient had extensive work-up,lost?19.3 lbs preoperatively and was electively scheduled for laparoscopic, possible open sleeve gastrectomy and gastropexy. Risks and complications of the surgery were discussed with the patient in advance, particularly the possibility of , pulmonary embolism, anastomotic leak, bleeding, bowel injury, GERD, cardiac, renal or pulmonary complications. The patient understood all the risks and was in agreement with the surgical plan. ? Hospital Course: ? The patient underwent an uneventful laparoscopic sleeve gastrectomy with gastropexy on the day of admission. Postoperatively, the patient was transferred to the surgical floor. The patient received IV Acetaminophen and IV dilaudid for pain control. Patient was started on bariatric phase 1 diet POD #0. On postoperative day one, the patient was feeling well without nausea, vomiting, fevers, or tachycardia. The patient had some mild incisional pain and the abdomen was soft. ? On the morning of postoperative day one, the patient was continued on 1 ounce of water or ice every half hour. During the day, the patient did fairly well, having some incisional pain, but able to ambulate adequately and to tolerate liquids well. ? Since the patient is doing well, we decided that the patient was ready to be discharged. The patient was given instructions to follow-up with me next week and to call my office for any fever over 101, persistent abdominal pain, nausea, vomiting, GERD, symptoms of DVT such as calf tenderness, or leg swelling, or pulmonary embolism such as chest pain or shortness of breath. The patient was also instructed to drink 40-60 ounces of liquids per day using the 1-ounce cups. The patient had been given prescriptions for Tylenol for pain, Zofran prn for nausea, and pantoprazole and carafate previously. The patient was encouraged to ambulate and use the incentive spirometer. The patient was allowed to shower, but no baths, and encouraged to stay active at home. All of these instructions were given to the patient personally. All questions were answered and the patient understood all instructions, the instructions were also given to the patient in print. Time Attestation Total time managing care of this patient today: 25 mintues. Discharge Coordination Time (in mins): 25 Quality: Safe Use of Opioids Does Pt have an Active Cancer Diagnosis on the Problem List?: No Quality: Stroke Does the patient have a stroke diagnosis?: No Physical Exam Vital Signs: Vital Signs: Last Vital Signs Temp 97.9 F 06/12/24 06:55 Pulse 86 06/12/24 06:55 Resp 18 06/12/24 06:55 BP 158/81 H 06/12/24 06:55 Pulse Ox 95 06/12/24 06:55 O2 Del Method Room Air 06/12/24 06:55 BMI result Body Mass Index 47.3 DS: Data Data Completed and Pending Pending studies at discharge: Pending at discharge 06/12/24 08:54 Surgical [PTH] Routine Labs on day of discharge: Laboratory Results - last 24 hr 06/12/24 06:00 Urine Test NEGATIVE Discharge Plan Discharge Patient Disposition: Home, Self-Care Referrals: Efrem Jacobson MD [Primary Care Provider] - 1 Week Discharge Medications: Continued sertraline 100 mg tablet 200 mg PO BEDTIME omeprazole 40 mg capsule,delayed release(DR/EC) 40 mg PO BEDTIME hydroxyzine HCl 25 mg tablet 25 mg PO BID PRN (Reason: Anxiety) albuterol sulfate 90 mcg/actuation HFA aerosol inhaler 2 puff inhalation Q6H PRN (Reason: shortness of breath or wheezing) Qty: 6.7 0RF buspirone 10 mg tablet 10 mg PO TID PRN (Reason: PMS symptoms) budesonide-formoterol [Symbicort] 160-4.5 mcg/actuation HFA aerosol inhaler 2 puff PO BID Qty: 10.2 1RF sucralfate 100 mg/mL suspension 10 ml PO BID Qty: 600 2RF ondansetron 4 mg tablet,disintegrating 4 mg PO Q12H Qty: 20 0RF Rx Instructions: Only take one every 12 hours as needed if you have nausea Mirena 21 mcg/24hr (up to 8 yrs) 52 mg intrauterine device intrauterine No Action prazosin 1 mg capsule 1 mg PO BEDTIME furosemide 20 mg tablet 20 mg PO DAILY PRN (Reason: swelling) pantoprazole 40 mg tablet,delayed release (DR/EC) 40 mg PO DAILY@0630 Discharge Orders: Discharge Order (Routine); Ordered 06/13/24 Ordered By: Jack Pham Activity on Discharge: No heavy lifting Activity Restrictions/Additional Instructions: No tub baths, sex or returning to work until discussed at first post op appointment. No exercise, alcohol, tobacco or illegal drug use. Continue to use incentive spirometer hourly while awake. Walk in home for 5- 10 minutes every 2 hours during the first week. Follow all instructions in the bariatric handbook and call with any questions.Discharge Instructions 1. Please call your doctor or come back to the emergency room should any new symptoms arise. 2. You will receive a courtesy call from [facility] 24-48 hours after discharge. 3. Activity: abstain from alcohol, practice limited stair climbing, no bending, no driving, no exercise, no illicit substances, no lifting, no sex, no tub bath, no work. 4. Diet: continue as discussed with Dr. Pham. 5. Dressing Change/Wound Care: Your incision is covered by clear bandages and guaze underneath. If the area is tender, you may apply an ice pack for short intervals (no more than 20 minutes on, followed by at least 20 minutes off). Do not apply heat. Do not use creams, lotions, or topical antibiotics unless instructed to do so by your surgeon. These can cause infection or allergic reaction. 6. Call your doctor if: - Your temperature exceeds 101.5 F - You experience excessive pain or swelling - You have an unexpected reaction to medication - You have excessive bleeding - You experience continued vomiting/nausea - Your incision begins to separate - Your incision shows signs of infection such as increased redness, swelling, excessive pain, heat, or drainage (light blood or clear fluid is normal) 7. General instructions: No lifting greater than 5 lbs for 1 week and not more than 20lbs the next 3?weeks. No driving until seen at the office in 5-7 days after surgery. If you do not move your bowels in the next 2 days, please tell?Dr. Phma. Please walk around your home every hour or two to prevent blood clots from forming in your legs. You do not need to wake from sleeping to walk. Please sleep in a bed or couch to prevent kinking at the hips and knees. Please take your incentive spirometer (your lung anode adjuster) home with you and use it for the next few days to prevent pneumonia. You may shower, no hot tubs, baths or swimming pools.?Please follow the post op diet instructions you are?given by Dr Pham? and text me daily at 5-6pm for an update.?If you have any issues or concerns or questions please communicate this to him via text.? The Celebrate shakes have all of the bariatric vitamins you need if you consume these shakes. If you are drinking other protein shakes, you will need to purchase the Celebrate multivitamins and calcium that are available in the hospital gift shop on the first floor of the main hospital.??Do not take anything without first discussing with Dr Pham. Please make sure you are consuming at least 40 ounces of fluids per day starting the?day AFTER your discharge from the hospital. Always drink 1-2 ml per minute using the 5ml?syringe. If you drink faster you may experience?bloating,?gas pain, burping, nausea or heartburn. In that case please slow down your pace and use the syringe to?understand better the?proper?pace and volume of drinking. Do not hesitate to contact the office with any questions at . The patient's medical history has been reviewed and they are considered low risk for post op DVT and therefore DVT prophylaxis is not considered necessary. Travel after surgery was reviewed. The patient has not disclosed any travel plans during the first 30 days after surgery and they have been advised that within the first 30 days after surgery any bus, plane, train or car travel over 2 hours in duration is contraindicated due to the possibility of developing blood clots from immobility. Any travel, needs to include periods of ambulation of 10 minutes in duration every 2 hours.? The patient was instructed to discuss any plans for travel during this period with their bariatric surgeon. Print Language: Kazakh
[2024-06-12] MEDS: ondansetron HCL 4 MG/2 ML VIAL IVPUSH (10:05)
[2024-06-12 10:18] LABS: Hematocrit 36.5 % (37.0-47.0); Hemoglobin 12.3 g/dl (12.0-16.0)
[2024-06-12 11:07] LABS: Anion Gap 10 (12-20); Blood Urea Nitrogen 9 mg/dL (9-16); Calcium 9.1 mg/dL (8.4-10.2); Carbon Dioxide 26 mmol/L (22-29); Chloride 105 mmol/L (96-108); Creatinine Clr Calc Pharmacy 126.2; Estimated Glomerular Filt Rate > 60; Glucose Random 154 mg/dL (60-115); Potassium 4.2 mmol/L (3.3-5.1); Sodium 137 mmol/L (135-145)
[2024-06-12] MEDS: Acetaminophen 1,000 MG/100 ML PIGGYBACK 16.7 MG IV ×2 (14:01→20:01)
--- NOTE | 2024-06-12 14:21 | PHA.MEDREC ---
Addendum entered by Lanre Gusman RPh 06/12/24 14:46: Reviewed by [facility] Original Note: Pharmacy Consult ? Medication Reconciliation Pharmacy has reviewed the medication reconciliation done by nursing. Spoke to patient to confirm med list.
[2024-06-12] MEDS: hydrOXYzine HCL 25 MG TABLET PO (18:32)
[2024-06-12] MEDS: Albuterol Sulfate 90 MCG 8 GM INHALER 2 PUFF INHALE (18:33)
[2024-06-12] MEDS: Sertraline HCL 100 MG TABLET 200 MG PO (20:39)
[2024-06-13] MEDS: Acetaminophen 1,000 MG/100 ML PIGGYBACK 16.7 MG IV ×2 (01:37→08:15)
[2024-06-13] MEDS: ondansetron HCL 4 MG/2 ML VIAL IVPUSH (01:37)
[2024-06-13 03:36] VITALS: BP 133/66; PULSE 75; RESP 18; TEMP 36.3; O2SAT 94
[2024-06-13] MEDS: Pantoprazole Sodium 40 MG/10 ML VIAL IVPUSH (05:32)
[2024-06-13 06:25] LABS: MANUAL DIFF FLAG NO
[2024-06-13 06:42] LABS: Basophils Percent Auto 0.1 % (0-2); Hematocrit 35.7 % (37.0-47.0); Imm Gran Abs Auto 0.09 X10*3/uL (0.00-0.03); Imm Gran Pct Auto 0.7 % (0.0-0.4); Lymphocytes Absolute Auto 0.9 X10*3/uL (1.2-4.9); Lymphocytes Percent Auto 6.7 % (20-40); Mean Corpuscular HGB Conc 33.6 g/dl (31.0-35.0); Mean Corpuscular Hemoglobin 26.3 pg (27.0-33.0); Mean Corpuscular Volume 78.3 fL (80.0-98.0); Mean Platelet Volume 9.4 fL (9.4-12.3); Monocytes Absolute Auto 0.5 X10*3/uL (0.1-1.2); Monocytes Percent Auto 3.8 % (2-11); Neutrophils Absolute Auto 12.3 x10*3/uL (2.0-8.3); Neutrophils Percent Auto 88.7 % (45-73); Platelet Count 298 X10*3/uL (160-400); Red Blood Count 4.56 X10*6/uL (4.20-5.50); Red Cell Distribution Width 15.1 % (11.0-16.0); White Blood Count 13.8 X10*3/uL (4.8-10.8)
[2024-06-13 06:42] LABS: Anion Gap 12 (12-20); Blood Urea Nitrogen 7 mg/dL (9-16); Calcium 9.1 mg/dL (8.4-10.2); Carbon Dioxide 25 mmol/L (22-29); Chloride 106 mmol/L (96-108); Creatinine Clr Calc Pharmacy 148.2; Estimated Glomerular Filt Rate > 60; Glucose Random 126 mg/dL (60-115); Potassium 4.1 mmol/L (3.3-5.1); Sodium 139 mmol/L (135-145)
[2024-06-13] MEDS: hydrOXYzine HCL 25 MG TABLET PO (06:56)
[2024-06-13 07:35] VITALS: BP 132/65; PULSE 71; RESP 18; TEMP 36.8; O2SAT 96
[2024-06-13] MEDS: Lactated Ringers 1,000 ML 100 ML IVCONT (08:36)
--- NOTE | 2024-06-13 08:41 | HO.POSTANES ---
Post Anesthesia Evaluation Post Anesthesia Evaluation Date of Service: 06/13/24 Vital Signs: Vital Signs Temp Pulse Resp BP Pulse Ox O2 Del Method 06/13/24 07:35 98.2 F 71 18 132/65 96 Room Air 06/13/24 03:36 97.4 F 75 18 133/66 94 BiPAP 06/12/24 23:32 97.4 F 71 18 129/70 93 CPAP Anesthesia: General Mental Status: Awake Pain Control: Satisfactory Nausea/Vomiting: None Hydration: Adequate Anesthesia-Related Issues: No Anes. Related Issues
[2024-06-13] MEDS: Fluticasone/Vilanterol 200/25 BLST.W.DEV 1 PUFF INHALE (09:12)
[2024-06-13 09:14] VITALS: PULSE 49; RESP 18; O2SAT 97
--- NOTE | 2024-06-13 12:13 | MHC.CM.PN ---
Patient dc'd home self care via private transport prior to CM assessment.
== END 2024-06-13 11:34 | disposition home or self-care (01) ==
LOC: HO.SSS 09:56 → HO.S3 12:03
PROVIDERS: Nurse Practitioner; Physician Assistant Surgical; PCP Internal Medicine; Visit Provider Surgery
PROC: (CPT 43845; principal; 2024-06-12 07:30)
DX: E66.01 Morbid (severe) obesity due to excess calories (principal); Z68.43 Body mass index [BMI] 50.0-59.9, adult; K21.9 Gastro-esophageal reflux disease without esophagitis; E78.5 Hyperlipidemia, unspecified; E78.00 Pure hypercholesterolemia, unspecified; J45.909 Unspecified asthma, uncomplicated; M54.9 Dorsalgia, unspecified; R73.03 Prediabetes; R42 Dizziness and giddiness; G43.109 Migraine with aura, not intractable, without status migrainosus; N89.8 Other specified noninflammatory disorders of vagina; Z86.14 Personal history of Methicillin resistant Staphylococcus aureus infection; F32.A Depression, unspecified; F41.1 Generalized anxiety disorder; F43.10 Post-traumatic stress disorder, unspecified; F41.0 Panic disorder [episodic paroxysmal anxiety]; Z79.51 Long term (current) use of inhaled steroids; Z79.899 Other long term (current) drug therapy; Z88.2 Allergy status to sulfonamides; Z88.1 Allergy status to other antibiotic agents
CPT/HCPCS: 43775; 43659; 36415; 80048; 80053; 80061; 81025; 83036; 83525; 84443; 85014; 85018; 85025; 85610; 85730; 86140; 86850; 86900; 86901; 88304; 88305; 88307; 88342; 94640; A4649; C9145; J0131; J0330; J1100; J1171; J1956; J2003; J2250; J2405; J2470; J2704; J2795; J3010; J7120

== ENCOUNTER → 2024-06-12 05:53 | Outpatient (BNV) | payer OTHER, SELFPAY | PROVIDERS: PCP Internal Medicine; Visit Provider Surgery | DX: E66.813 Obesity, class 3 (principal); Z68.42 Body mass index [BMI] 45.0-49.9, adult | CPT/HCPCS: 43659; 43775 ==

== ENCOUNTER 2024-06-18 13:35 | Outpatient (AMB) | payer OTHER, SELFPAY ==
--- NOTE | 2024-06-18 13:36 | MHC.OFFVISWM ---
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: No Allergies cephalexin [From KEFLEX] Allergy (Severe, Verified 06/18/24 13:37) ANAPHYLAXIS Sulfa (Sulfonamide Antibiotics) Allergy (Severe, Verified 06/18/24 13:37) Anaphylaxis sulfamethoxazole [From BACTRIM] Allergy (Severe, Verified 06/18/24 13:37) ANAPHYLAXIS trimethoprim [From BACTRIM] Allergy (Severe, Verified 06/18/24 13:37) ANAPHYLAXIS Medication List - Last Reconciled 06/18/24 by AJ Norton albuterol sulfate 90 mcg/actuation 2 puffs inhalation Q6H PRN budesonide-formoterol 160-4.5 mcg/actuation (Symbicort) 2 puffs PO BID buspirone 10 mg PO TID PRN furosemide 20 mg PO DAILY PRN hydroxyzine HCl 25 mg PO BID PRN levonorgestrel (Mirena) intrauterine omeprazole 40 mg PO BEDTIME ondansetron 4 mg PO Q12H pantoprazole 40 mg PO DAILY@0630 prazosin 1 mg PO BEDTIME sertraline 200 mg PO BEDTIME sucralfate 10 mL PO BID HPI Comments Details: Patient is a pleasant 38-year-old female who returns to the office today in follow-up. She is 6 days post sleeve gastrectomy performed on 06/12/2024. Tolerating 3 Premier protein shakes, ready to drink, 4 oz mixed with 4 oz of unsweetened almond milk at 10-12, 2-4, 6-8 Tolerating 40-50 oz of fluids. Positive bowel movement. [facility] Medical History Complex ovarian cyst H/O methicillin resistant Staphylococcus aureus Pre-diabetes Panic attacks Anxiety PTSD (post-traumatic stress disorder) IUD (intrauterine device) in place Back pain Depression GERD (gastroesophageal reflux disease) Morbid obesity NATALIE (generalized anxiety disorder) Migraine with aura Allergic rhinitis Asthma Surgical History History of esophagogastroduodenoscopy (EGD) Family History Father Diabetes mellitus HTN (hypertension) Mother Diabetes mellitus HTN (hypertension) Maternal Grandmother Diabetes mellitus Paternal Grandmother Diabetes mellitus Brother Diabetes mellitus Brother Diabetes mellitus Other Mental health disorder Substance use disorder Social History (Updated 06/12/24 @ 08:57 by Tabitha Arevalo MD) Household Members: Family Household Members Other:: 2 minor children-will be with their father while mother having surgery Housing: Apartment Are you a primary child care development specialist to a significant other at home: No (shared care with children's father) Do you presently have visiting nurse or other home services: No Alcohol intake: current Alcohol intake frequency: does not drink Patient Tobacco Use Status: Never used Tobacco e-Cigarette/Vaping Use: Never Used Second Hand Smoke Exposure: No service: No Current occupational status: employed Current occupation: [employer] Current occupational exposures/hazards: No Gender identity: Female Cognitive needs: No Hearing needs: No Vision needs: Yes (Glasses) Female Reproductive History Menstrual Age of Menarche: 12 Physical Exam GI Inspection: Yes incision (Clean, dry, intact.) Assessment & Plan Assessment & Plan (1) S/P laparoscopic sleeve gastrectomy: Code(s): Z98.84 - Bariatric surgery status Category: Surgical Plan: POD 6 s/p LSG on 06/12/[address] Pham Weight loss prior to surgery was 19.3 pounds or 6.2 % TBWL. Original weight on 12/19/2023 was 308.6 pounds and op weight was 289.3 pounds. Be sure to text Dr Pham exactly 1 week after surgery your weight from your home scale so he can adjust your meal plan. Continue meal plan until f/u jeffrey Tuttle in 2 weeks May shower, no submersion in bath for another week Continue abdominal binder with activity and exercise for the next 2 weeks. Exercise prior to surgery was stationary bike and may resume No abdominal exercises for 6 weeks post operatively Will be emailed link to post op video for review Reminded of the pace of drinking, 2 mL per minute, 1 oz/15 min.
[2024-06-18 13:37] VITALS: BP 136/60; PULSE 95; TEMP 36.2; O2SAT 96; BMI 52.3
--- OUTSIDE RECORDS SUMMARY | 2024-06-18 16:08 | XMS_ITS | Clinical Summary ---
Author Organization [employer] Address [address] [facility] [address] [place] [address] Care Team Providers Care Plant Health Manager Name Role Phone Unavailable Primary Care Provider [...] patient's age to complete this topic [place] [address] [address] , [address] [place] [address]
--- OUTSIDE RECORDS SUMMARY | 2024-06-18 16:08 | XMS_ITS | Data Portability ---
Author Organization [place] - [facility], Allergy Address [address] [place] [phone] Care Team Providers Care Wash House Worker Name Role Phone KEON ANGEL Primary Care [...] Organization Details Recorded Time Abnormal auditory perception 64674422 Active 024 Clarice barakat [place] - [facility] 4 13:58:28 Benign paroxysmal positional vertigo 373885650 Active 024 FAUSTINO NAVARRO MD [address] [address], [place], [address], [facility] - [facility] 4 15:03:21 Vertigo of central origin 57956271 Active 024 FAUSTINO NAVARRO MD [address] [facility] [address], [place], [address], [facility] - [facility] 4 15:03:45 Migraine with aura 0252253 Active 024 FAUSTINO NAVARRO MD [address] [facility] [address], [facility] [place], [address], [facility] - [facility] 4 15:03:45 Snoring 02522423 Active 024 FAUSTINO NAVARRO MD [address] [facility] [address], [facility] [place], [address], [facility] - [facility] 4 15:07:31 Morbid obesity 373330114 Active 024 FAUSTINO NAVARRO MD [address] [facility] [address], [facility] [place], [address], [facility] - [facility] 4 15:07:36 Problem Notes None recorded. Procedures Surgical History Date Name Laterality Status Provider Name and Address Organization Details Recorded Time 11/15/2023 Comp Audio with Tymps (77232 & 85273) completed Clarice Martin [place] - [facility] 11/15/2023 13:58:19 Imaging Results Imaging Date Name Status LastModified by Organiz ation Details LastModified Time 11/16/2023 audiogram completed [email or web address] Information no t available 11/16/2023 15:31:53 Procedure Notes None recorded. Medical Equipment None Reported. Allergies Allergen ID Allergen Name Allergen Category Reaction Reaction Severity Criticality Documentation Date Start Date Code Code System Note Provider Name and Address Organization Details Recorded Time 684276 Bactrim medicatio n Not available Not available Not available 11/15/2023 55860 9 RxNorm Yary barakat [place] - [facility] 4 14:18:42 976164 Keflex medicatio n Not available Not available Not available 11/15/2023 26847 7 RxNorm Yary barakat [place] - [facility] 4 14:18:50 Medications Name Sig Start [...] SNOMED-CT Code Diagnosis ICD10 Code Diagnosis Note [id number] FAUSTINO NAVARRO MD [facility] [address] [place] [address] 11/15/2023 13:38:03 11/15/2023 15:16:10 Abnormal auditory perception 25916850 H93.299 Audiologic al evaluation results: Right ear: [...] hermetic seal}} Benign par oxysmal positional vertigo 358643217 H81.10 Patient with recent history of episodic positional ly induced vertigo, now resolved. [place]-Hall[place] ke was negative for vertigo and rotary [...] and vestibular therapy. Vertigo of central origin 27539655 H81.4 The patient's history, physical exam and [...] low dose nortriptyl ine}} Migraine with aura 92789 06 G43.109 Snoring 43396440 R06.83 Patient does have chronic loud snoring at night and self-repor vickie sensation of apneic episodes. We discussed that this can be a trigger for migraine as well as exacerbate underlying psychologi lauren disturbanc e. Recommende d she contact her primary care physician to proceed with getting an updated sleep study. Morbid obesity 937144761 E66.01 Health Concerns Section Related Observation LastModified by Organization Detai ls LastModified Time None Recorded Concern Status LastModified by Organization Details LastModified Time None Recorded Advance Directives Directive None Recorded Payers Encounter Date Sequence Insurance Name Policy Number Policy Rey Covered Member ID Rey Member ID Guarantor Name 11/15/2023 1 [facility] [id number] 1 Jazmin Christian [id number] Jazmin Christian Notes Date Note Type Note [...] mental health issues. FAUSTINO NAVARRO MD [address] [place] [address], [phone], [facility] - [facility] 11/15/2023 15:12:38 OBGyn Episode No OBEpisode recorded.
--- OUTSIDE RECORDS SUMMARY | 2024-06-18 16:08 | XMS_ITS | Clinical Summary ---
Author Organization [facility] Address [address] [place] [address] Phone Care Team Providers Care Slot Key Person Name Role Phone Rachana Schmitz MD Primary [...] PM EDT Office Visit Bariatric Surgery - [facility] [address] [place] [phone] Olena Ruiz PA [address] [place] [address] Health Maintenance Due Date Last Done Comments [...] age to complete this topic Meningococcal B Vaccine Aged Out No l onger eligible based on patient's age to complete [...] patient's age to complete this topic Insurance [facility] Care Teams Slot Key Person Relationship Specialty Start Date End Date Rachana Schmitz MD [address] [place] [id number] PCP - General 04/18/23
== END 2024-06-18 14:00 | disposition home or self-care (01) ==
LOC: HO.HBS 13:35
PROVIDERS: PCP Internal Medicine; Visit Provider Physician Assistant Surgical
DX: Z98.84 Bariatric surgery status (principal)
CPT/HCPCS: 99024

== ENCOUNTER 2024-07-09 11:34 | Outpatient (REF) | payer OTHER, SELFPAY ==
--- NOTE | ~2024-07-09 | US_ITS ---
EXAMINATION: US PELVIS TRANSABDOMINAL AND TRANSVAGINAL HISTORY: N83.299 - Other ovarian cyst, unspecified side COMPARISON: Comparison is made with the prior examination dated 05/03/2024. TECHNIQUE: Transabdominal and endovaginal real-time 2D saha-scale ultrasound was performed. FINDINGS: Uterus: The uterus is normal in size, measuring 8.2 x 3.7 x 4.5 cm. Myometrium has a normal echotexture. No fibroids are identified. Endometrium: The endometrial stripe measures 7 mm in thickness. An IUD is noted in the appropriate position in the endometrial cavity. Right ovary: The right ovary measures 2.3 x 1.5 x 1.1 cm. The right ovary again demonstrates an echogenic area measuring 9 x 7 x 5 mm (previously 5 x 5 x 6 mm). Left ovary: The left ovary measures 2.7 x 1.7 x 2.2 cm. The left ovary is normal in size and echotexture. Pelvic fluid: none. US/US pelvic and transvaginal IMPRESSION: 1. IUD in appropriate position in the endometrial cavity. 2. Echogenic focus in the right ovary which is larger than on the prior study. Follow-up is recommended. Electronically signed by: Edd Whitman MD 07/11/2024 11:32 AM EDT
--- OUTSIDE RECORDS SUMMARY | 2024-07-09 13:58 | XMS_ITS | Clinical Summary ---
Author Organization [employer] Address [address] [facility] [address] [place] [address] Care Team Providers Care Pulpwood Buyer Name Role Phone Unavailable Primary Care Provider [...] patient's age to complete this topic Insurance [place] [address] , [address] [place] [address]
--- OUTSIDE RECORDS SUMMARY | 2024-07-09 13:58 | XMS_ITS | Data Portability ---
Author Organization [place] - [facility], Allergy Address [address] [place] [address] Care Team Providers Care Web Content Specialist Name Role Phone KEON ANGEL Primary Care Provider [phone] Assessment No assessment recorded. Plan of Treatment [...] Organization Details Recorded Time Abnormal auditory perception 42332275 Active 024 Clarice barakat [place] - [facility] 4 13:58:28 Benign paroxysmal positional vertigo 860209864 Active 024 FAUSTINO NAVARRO MD [address] [address], [place], [address], [facility] - [facility] 4 15:03:21 Vertigo of central origin 52520244 Active 024 FAUSTINO NAVARRO MD 100 [facility] 100, [facility] [place], [address], [facility] - [facility] 4 15:03:45 Migraine with aura 9536379 Active 024 FAUSTINO NAVARRO MD 100 [facility] 100, [facility] [place], [address], [facility] - [facility] 4 15:03:45 Snoring 36331463 Active 024 FAUSTINO NAVARRO MD 100 [facility] 100, [facility] [place], [address], [facility] - [facility] 4 15:07:31 Morbid obesity 549535991 Active 024 FAUSTINO NAVARRO MD 100 [facility] 100, [facility] [place], [address], [facility] - [facility] 4 15:07:36 Problem Notes None recorded. Procedures Surgical History Date Name Laterality Status Provider Name and Address Organization Details Recorded Time 11/15/2023 Comp Audio with Tymps (52651 & 11453) completed Clarice Martin [place] - [facility] 11/15/2023 13:58:19 Imaging Results Imaging Date Name Status LastModified by Organiz ation Details LastModified Time 11/16/2023 audiogram completed [email or web address] Information no t available 11/16/2023 15:31:53 Procedure Notes None recorded. Medical Equipment None Reported. Allergies Allergen ID Allergen Name Allergen Category Reaction Reaction Severity Criticality Documentation Date Start Date Code Code System Note Provider Name and Address Organization Details Recorded Time 149645 Bactrim medicatio n Not available Not available Not available 11/15/2023 78047 9 RxNorm Yary barakat [place] - [facility] 4 14:18:42 250078 Keflex medicatio n Not available Not available Not available 11/15/2023 76759 7 RxNorm Yary barakat [place] - [facility] 4 14:18:50 Medications Name Sig Start Date [...] SNOMED-CT Code Diagnosis ICD10 Code Diagnosis Note [id number] FAUSTINO NAVARRO MD [facility] [address] [place] [address] 11/15/2023 13:38:03 11/15/2023 15:16:10 Abnormal auditory perception 81308614 H93.299 Audiologic al evaluation results: Right ear: [...] hermetic seal}} Benign par oxysmal positional vertigo 332349396 H81.10 Patient with recent history of episodic [...] and vestibular therapy. Vertigo of central origin 24390969 H81.4 The patient's history, physical exam and [...] low dose nortriptyl ine}} Migraine with aura 69346 06 G43.109 Snoring 20434859 R06.83 Patient does have chronic loud snoring at night and self-repor vickie sensation of apneic episodes. We discussed that this can be a trigger for migraine as well as exacerbate underlying psychologi lauren disturbanc e. Recommende d she contact her primary care physician to proceed with getting an updated sleep study. Morbid obesity 190122278 E66.01 Health Concerns Section Related Observation LastModified by Organization Detai ls LastModified Time None Recorded Concern Status LastModified by Organization Details LastModified Time None Recorded Advance Directives Directive None Recorded Payers Encounter Date Sequence Insurance Name Policy Number Policy Rey Covered Member ID Rey Member ID Guarantor Name 11/15/2023 1 [facility] [id number] 1 Jazmin Christian [id number] Jazmin Christian Notes Date Note Type Note [...] some mental health issues. FAUSTINO NAVARRO MD [address] [place] [address], [phone], [facility] - [facility] 11/15/2023 15:12:38 OBGyn Episode No OBEpisode recorded.
--- OUTSIDE RECORDS SUMMARY | 2024-07-09 13:58 | XMS_ITS ---
Author Name CRISP Organization Unknown Encounters Encounter Type Encounter Reason Primary Diagnosis Location Date Ambulatory [facility] 02/07/2024 Care Team Organization Name Specialty Phone Email Start Date End Da te [facility] 2024
== END 2024-07-09 11:35 | disposition home or self-care (01) ==
LOC: HO.US 11:34
PROVIDERS: PCP Internal Medicine; Visit Provider Advanced Practice Midwife
DX: N83.299 Other ovarian cyst, unspecified side (principal)
CPT/HCPCS: 76830; 76856

== ENCOUNTER → 2024-07-09 11:35 | Outpatient (BNV) | payer OTHER, SELFPAY | PROVIDERS: PCP Internal Medicine; Visit Provider Radiology Diagnostic Radiology | DX: N83.8 Other noninflammatory disorders of ovary, fallopian tube and broad ligament (principal) | CPT/HCPCS: 76830; 76856 ==

== ENCOUNTER 2024-07-12 15:35 | Outpatient (AMB) | payer OTHER, SELFPAY ==
--- NOTE | 2024-07-12 15:45 | A.OFFPC_ITS ---
Vital Signs 07/12/24 15:46 Height 5 ft 3.5 in Weight 294 lb 2 oz BMI 51.3 BP 140/60 H Blood Pressure Location Lt brachial Position Sitting Pulse 64 Pulse Source Pulse Oximeter Temp 97.3 F Temp Source Temporal Artery Scan Pulse Oximetry (%) 98 Oxygen Delivery Method Room Air Intake Visit Reasons: 3mth f/u Intake Note: Patient is here to follow up on GERD, Migraine. 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: Not Required per policy Accompanied by: Self / Same As Patient Allergies cephalexin [From KEFLEX] Allergy (Severe, Verified 07/13/24 11:11) ANAPHYLAXIS Sulfa (Sulfonamide Antibiotics) Allergy (Severe, Verified 07/13/24 11:11) Anaphylaxis sulfamethoxazole [From BACTRIM] Allergy (Severe, Verified 07/13/24 11:11) ANAPHYLAXIS trimethoprim [From BACTRIM] Allergy (Severe, Verified 07/13/24 11:11) ANAPHYLAXIS Medication List - Last Reconciled 07/13/24 by Efrem Jacobson MD albuterol sulfate 90 mcg/actuation 2 puffs inhalation Q6H PRN budesonide-formoterol 160-4.5 mcg/actuation (Symbicort) 2 puffs PO BID buspirone 10 mg PO TID PRN furosemide 20 mg PO DAILY PRN hydroxyzine HCl 25 mg PO BID PRN levonorgestrel (Mirena) intrauterine omeprazole 40 mg PO BEDTIME ondansetron 4 mg PO Q12H pantoprazole 40 mg PO DAILY@0630 prazosin 1 mg PO BEDTIME sertraline 200 mg PO BEDTIME sucralfate 10 mL PO BID Tobacco use date assessed: 07/12/24 Dental Screening Dental Screen Date: 04/12/24 [facility] Medical History (Updated 07/13/24 @ 11:14 by Efrem Jacobson MD) Obstructive sleep apnea Diarrhea Occipital neuralgia of right side Stabbing headache Excessive daytime sleepiness Loud snoring Headache Skin lesion LGSIL on Pap smear of cervix Dysplasia of cervix, low grade (KALEY 1) Screen for sexually transmitted diseases Immunization due Acute vaginitis Physical exam Otitis media Viral syndrome Conjunctivitis Screening for malignant neoplasm of cervix Encounter for well woman exam with routine gynecological exam Vaginal discharge Vaginal irritation Dizziness Complex ovarian cyst H/O methicillin resistant Staphylococcus aureus Pre-diabetes Panic attacks Anxiety PTSD (post-traumatic stress disorder) IUD (intrauterine device) in place Back pain Depression GERD (gastroesophageal reflux disease) Morbid obesity NATALIE (generalized anxiety disorder) Migraine with aura Allergic rhinitis Asthma Surgical History History of gastric surgery History of esophagogastroduodenoscopy (EGD) Family History Father Diabetes mellitus HTN (hypertension) Mother Diabetes mellitus HTN (hypertension) Maternal Grandmother Diabetes mellitus Paternal Grandmother Diabetes mellitus Brother Diabetes mellitus Brother Diabetes mellitus Other Mental health disorder Substance use disorder Social History Household Members: Family Household Members Other:: 2 minor children-will be with their father while mother having surgery Housing: Apartment Are you a primary multi care technician to a significant other at home: No (shared care with children's father) Do you presently have visiting nurse or other home services: No Alcohol intake: current Alcohol intake frequency: does not drink Patient Tobacco Use Status: Never used Tobacco e-Cigarette/Vaping Use: Never Used Second Hand Smoke Exposure: No service: No Current occupational status: employed Current occupation: [employer] Current occupational exposures/hazards: No Gender identity: Female Cognitive needs: No Hearing needs: No Vision needs: Yes (Glasses) Female Reproductive History Menstrual Age of Menarche: 12 Questionnaire PHQ-9 Over the last 2 weeks, how often have you been bothered by any of the following problems? 1. Little interest or pleasure in doing things: not at all 2. Feeling down, depressed, or hopeless: not at all 3. Trouble falling or staying asleep, or sleeping too much: not at all 4. Feeling tired or having little energy: not at all 5. Poor appetite or overeating: not at all 6. Feeling bad about yourself - or that you are a failure or have let yourself or your family down: not at all 7. Trouble concentrating on things, such as reading the newspaper or watching television: not at all 8. Moving or speaking so slowly that other people could have noticed. Or the opposite - being so fidgety or restless that you have been moving around a lot more than usual: not at all 9. Thoughts that you would be better off or of hurting yourself in some way: not at all Total score: 0 Depression Screening Interpretation: Negative Depression Screening Done: Yes Source: Developed by Drs. Edd Madison, El Luna and colleagues, with an educational delmer from [employer]. Thrive Questionnaire Date Thrive assessed: 04/05/24 I am a: Patient What is your living situation today?: I have a steady place to live Within the past 12 months, did the food you bought not last and you didn't have the money to get more?: Sometimes True Within the past 12 months, did you worry whether your food would run out before you got money to buy more?: Sometimes True Do you have trouble paying for medicines?: No Do you have trouble getting transportation to medical appointments?: No Do you have trouble paying your heating and electricity bill?: No Do you have trouble taking care of your child, family member or friend?: No Do you have trouble with day-to-day activities such as bathing, preparing meals, shopping, managing finances, etc.?: No Are you currently unemployed and looking for a job?: No Are you interested in more education?: Yes Please select the resources that you would like help with: None Currently or been in a relationship where the following occur: No concerns reported THRIVE Score: 2 AUDIT C Alcohol Use Questionnaire (AUDIT-C) 1. How often do you have a drink containing alcohol?: Monthly or less 2. How many drinks containing alcohol do you have on a typical day when you are drinking?: 1 or 2 Total Score: 1 NATALIE-7 AMB Questionnaire NATALIE-7 Date NATALIE - 7 assessed: 04/12/24 Source: Developed by Drs. Edd Madison, Bushra Burdick, El Esopsito and colleagues, with an educational delmer from [employer]. Physical exam (Primary Care) Vital Signs: Last Vital Signs Temp 97.3 F 07/12/24 15:46 Pulse 64 07/12/24 15:46 BP 140/60 H 07/12/24 15:46 Pulse Ox 98 07/12/24 15:46 Oxygen Delivery Method Room Air 07/12/24 15:46 Care Plan Goal for BP management: BP in range BMI result Body Mass Index 51.3 BMI Assessment/Plan discussion: High (recently had bariatric surgery) BMI High, discussed plan: lifestyle, weight reduction and dietary Tobacco/Smoking Status: Tobacco use Status Tobacco use date assessed 07/12/24 07/12/24 15:56 Patient Tobacco Use Status Never used Tobacco 07/12/24 15:56 e-Cigarette/Vaping Use Never Used 07/12/24 15:56 PHQ-9: PHQ-9 Score PHQ-9: Total score 0 07/12/24 15:56 Depression Screening Interpretation: Negative Thrive Assessment: Date of Thrive Assessment Date Thrive assessed 04/05/24 07/12/24 15:56 Currently or been in a relationship where the following occur: No concerns reported Coding Level of Care Code New Pt Level 4 (47618) Complex EM visit Add On G2211 Diagnoses Moderate recurrent major depression F33.1 Obesity, morbid, BMI 40.0-49.9 E66.01 Asthma J45.909 Obstructive sleep apnea G47.33 Assessment & Plan Assessment & Plan (1) Moderate recurrent major depression: Code(s): F33.1 - Major depressive disorder, recurrent, moderate Category: Medical Plan: Condition is stable on current medications. (2) Obesity, morbid, BMI 40.0-49.9: Code(s): E66.01 - Morbid (severe) obesity due to excess calories Category: Medical Plan: Recently had bariatric surgery. In the process of starting a protein diet. (3) Asthma: Comment: taking Symbicort BID & has rescue inhaler Code(s): J45.909 - Unspecified asthma, uncomplicated Category: Medical Plan: Continue current medications. (4) Obstructive sleep apnea: Code(s): G47.33 - Obstructive sleep apnea (adult) (pediatric) Category: Medical Plan: Using a CPAP machine. Plan History of Present Illness The patient is a 38-year-old female presenting for management of her chronic conditions, including asthma, obesity post-bariatric surgery, major depressive disorder with associated anxiety, and obstructive sleep apnea. Her asthma has shown improvement with consistent medication use, though she requests a refill. Post-bariatric surgery on June 12, she has initiated recommended dietary changes and physical activity, leading to weight loss. Her major depressive disorder is managed with consistent use of buspirone and sertraline, although mood variability related to hormonal changes disrupts her sleep cycle. The use of a CPAP machine for obstructive sleep apnea has improved her alertness and daytime function. The patient also suffers from allergic rhinitis, with inadequate control from cetirizine, suggesting an addition of intranasal corticosteroids for management. 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 - Exercise: Incorporating regular walking and using a stationary bike at home. - Nutrition: Post-bariatric surgery diet focusing on reduced quantities, includes a protein bar in the evening. Review of Systems - Respiratory: Reports improvement in asthma symptoms. - Endocrine: Reports post-bariatric surgery weight loss. - Psychiatric: Reports mood fluctuations, particularly with ovulation and menses; experiencing anxiety and sleep disruption. - Sleep: Reports improvement with CPAP machine for obstructive sleep apnea. - Allergies: Reports runny nose and itchy eyes, current cetirizine use with limited effectiveness. - General: Denies significant stress at home; reports increased alertness with CPAP use. Physical Exam General: Cooperative and healthy appearing Nutritional Appearance: Well nourished Orientation/consciousness: Patient oriented x3 Limitations: No limitations Head: Normal to inspection General: Appearance normal, both eyes and all related structures Neck: Normal visual inspection Chest: Normal palpation of entire chest wall Respiratory: Patient reports improvement in asthma symptoms, but requires a refill on medications. Uses CPAP machine due to low oxygen levels during sleep, resulting in increased alertness upon waking. ormal respiratory effort Neurology: Patient oriented x3. Reports fluctuations in mood related to hormonal changes, particularly during ovulation and menstruation, leading to increased anxiety. Experiences difficulty sleeping when anxious. No stress at home, able to work and perform daily activities without problems. Results - Tests: CPAP therapy for obstructive sleep apnea based on polysomnography findings indicating low oxygen levels during sleep. Plan - Refill asthma medications as requested. - Prescribe Flonase for allergic rhinitis, with the continuation of cetirizine as needed. - Maintain buspirone and sertraline regimen for depression and assess for hormone-related mood changes. - Support ongoing weight management and activity post-bariatric surgery. - Promote continued CPAP usage for sustained improvement in sleep quality and daily alertness. Patient was informed and verbally consented to the use of an ambient scribe for clinic note documentation during this visit. Discussion Notes We discussed maintaining her current medication regimen for asthma and depression, with attention to the need for hormonal mood management. I recommended adding Flonase for her allergic symptoms, given her trials with cetirizine. The utility and benefit of regular CPAP use for her obstructive sleep apnea were reinforced, based on her improved daytime alertness. We explored the impact of the bariatric surgery on her overall health, focusing on dietary adherence and increased physical activity. We agreed on a follow-up in six months to reassess her chronic condition management, including any necessary medication adjustments. Patient Instructions - Take asthma medications as prescribed. - Use Flonase daily for allergy management. - Continue taking buspirone and sertraline as directed. - Engage in regular physical activity, such as walking daily for 45 minutes. - Follow prescribed diet post-bariatric surgery for ongoing weight loss and health improvement. - Use CPAP machine every night for sleep apnea. - Return in six months or sooner if new symptoms arise or current ones worsen.
[2024-07-12 15:46] VITALS: BP 140/60; PULSE 64; TEMP 36.3; O2SAT 98; BMI 51.3
--- OUTSIDE RECORDS SUMMARY | 2024-07-12 17:16 | XMS_ITS | Data Portability ---
Author Organization [place] - [facility], Allergy Address [address] [place] [address] Care Team Providers Care Telemetry Technician Name Role Phone KEON ANGEL Primary Care [...] Organization Details Recorded Time Abnormal auditory perception 43512230 Active 024 Clarice barakat [place] - [facility] 4 13:58:28 Benign paroxysmal positional vertigo 338506691 Active 024 FAUSTINO NAVARRO MD [address] [address], [place], [address], [facility] - [facility] 4 15:03:21 Vertigo of central origin 20914525 Active 024 FAUSTINO NAVARRO MD 100 [facility] 100, [place], [address], [facility] - [facility] 4 15:03:45 Migraine with aura 0433109 Active 024 FAUSTINO NAVARRO MD 100 [facility] 100, [place], [address], [facility] - [facility] 4 15:03:45 Snoring 83264342 Active 024 FAUSTINO NAVARRO MD 100 [facility] 100, [place], [address], [facility] - [facility] 4 15:07:31 Morbid obesity 597844621 Active 024 FAUSTINO NAVARRO MD 100 [facility] 100, [place], [address], [facility] - [facility] 4 15:07:36 Problem Notes None recorded. Procedures Surgical History Date Name Laterality Status Provider Name and Address Organization Details Recorded Time 11/15/2023 Comp Audio with Tymps - 21500 & 67467 completed Clarice Martin [place] - [facility] 11/15/2023 13:58:19 Imaging Results Imaging Date Name Status LastModified by Organiz ation Details LastModified Time 11/16/2023 audiogram completed [email or web address] Information no t available 11/16/2023 15:31:53 Procedure Notes None recorded. Medical Equipment None Reported. Allergies Allergen ID Allergen Name Allergen Category Reaction Reaction Severity Criticality Documentation Date Start Date Code Code System Note Provider Name and Address Organization Details Recorded Time 327034 Bactrim medicatio n Not available Not available Not available 11/15/2023 35720 9 RxNorm Yary barakat [place] - [facility] 4 14:18:42 878461 Keflex medicatio n Not available Not available Not available 11/15/2023 69472 7 RxNorm Yary barakat [place] - [facility] 4 14:18:50 Medications Name Sig Start Date [...] SNOMED-CT Code Diagnosis ICD10 Code Diagnosis Note [id number] FAUSTINO NAVARRO MD [facility] [address] [place] [address] 11/15/2023 13:38:03 11/15/2023 15:16:10 Abnormal auditory perception 77796939 H93.299 Audiologic al evaluation results: Right ear: [...] hermetic seal}} Benign par oxysmal positional vertigo 561960973 H81.10 Patient with recent history of episodic [...] and vestibular therapy. Vertigo of central origin 80926108 H81.4 The patient's history, physical exam and [...] low dose nortriptyl ine}} Migraine with aura 50932 06 G43.109 Snoring 02153940 R06.83 Patient does have chronic loud snoring at night and self-repor vickie sensation of apneic episodes. We discussed that this can be a trigger for migraine as well as exacerbate underlying psychologi lauren disturbanc e. Recommende d she contact her primary care physician to proceed with getting an updated sleep study. Morbid obesity 940530928 E66.01 Health Concerns Section Related Observation LastModified by Organization Detai ls LastModified Time None Recorded Concern Status LastModified by Organization Details LastModified Time None Recorded Advance Directives Directive None Recorded Payers Encounter Date Sequence Insurance Name Policy Number Policy Rey Covered Member ID Rey Member ID Guarantor Name 11/15/2023 1 [facility] [id number] 1 Jazmin Christian [id number] Jazmin Christian Notes Date Note Type Note [...] some mental health issues. FAUSTINO NAVARRO MD [address] [place] [address], [phone] - [facility] 11/15/2023 15:12:38 OBGyn Episode No OBEpisode recorded.
--- OUTSIDE RECORDS SUMMARY | 2024-07-12 17:16 | XMS_ITS | Clinical Summary ---
Author Organization [employer] Address [address] [facility] [address] [place] [address] Care Team Providers Care Dx Board Operator Name Role Phone Unavailable Primary Care [...] patient's age to complete this topic [place] [address] [place] [address] , [address] [place] [address]
== END 2024-07-12 16:27 | disposition home or self-care (01) ==
LOC: HO.HMCH 15:35
PROVIDERS: PCP Internal Medicine; Visit Provider Internal Medicine
DX: J45.909 Unspecified asthma, uncomplicated (principal); F33.1 Major depressive disorder, recurrent, moderate; E66.01 Morbid (severe) obesity due to excess calories; Z68.43 Body mass index [BMI] 50.0-59.9, adult; G47.33 Obstructive sleep apnea (adult) (pediatric)

== ENCOUNTER → 2024-07-12 15:35 | Outpatient (BNVA) | payer OTHER, SELFPAY | PROVIDERS: PCP Internal Medicine; Visit Provider Internal Medicine | DX: Z13.89 Encounter for screening for other disorder (principal) ==

== ENCOUNTER 2024-07-15 08:59 | Emergency (ER) | payer OTHER, SELFPAY ==
--- NOTE | ~2024-07-15 | XR_ITS ---
CLINICAL HISTORY: traumatic injury 5 view left wrist Comparison: None Findings: Bones intact. No dislocations. No significant arthritic change or erosions. No radiopaque foreign body. IMPRESSION: 1. No acute findings This document has been electronically signed by: Zohreh Dinero MD on 07/15/2024 10:39:46
--- NOTE | ~2024-07-15 | XR_ITS ---
CLINICAL HISTORY: traumatic injury 2 view left forearm Comparison: None Findings: No fractures or dislocations. No significant arthritic change. No radiopaque foreign body. IMPRESSION: 1. Normal left forearm This document has been electronically signed by: Zohreh Dinero MD on 07/15/2024 10:39:37
[2024-07-15 09:06] VITALS: BP 137/77; PULSE 69; RESP 18; TEMP 36.1; O2SAT 98; BMI 49.1
--- NOTE | 2024-07-15 11:09 | ED_ITS ---
HPI - Extremity Problem General Chief complaint: Extremity Injury, Upper Stated complaint: wrist inj Time Seen by Provider: 07/15/24 11:17 Source: patient and RN notes reviewed Mode of arrival: ambulatory Limitations: no limitations History of Present Illness ED Provider: Riri Angeles PA-C HPI Narrative: This is a 38-year-old female, with no known medical problems, who presents emergency department with concerns for left forearm pain since yesterday. Patient states that she was getting into her vehicle yesterday in the car door slammed on her left wrist/forearm region. She reports pain in his area as well as some numbness and tingling extending into her fingers. She also reports that the pain radiates up into her left elbow. Pain with movement, she denies taking any medications to treat her current symptoms. No former injury to her left wrist in the past. She was right-hand dominant. No other complaints or concerns at this time. MD Complaint: extremity pain Onset (ago): day(s) Pain Consistency: constant Location: left and upper extremity Quality: aching Relieving factors: rest Exacerbating factors: range of motion and palpation Associated symptoms: denies other symptoms Related Data Home Medications ?Medication ?Instructions ?Recorded ?Confirmed buspirone 10 mg tablet 10 mg PO TID PRN PMS symptoms 04/12/24 07/13/24 hydroxyzine HCl 25 mg tablet 25 mg PO BID PRN Anxiety 05/29/24 07/13/24 omeprazole 40 mg capsule,delayed 40 mg PO BEDTIME 05/29/24 07/13/24 release sertraline 100 mg tablet 200 mg PO BEDTIME 05/29/24 07/13/24 levonorgestrel 21 mcg/24 hr (up to intrauterine 06/05/24 07/13/24 8 years) 52 mg intrauterine device (Mirena) furosemide 20 mg tablet 20 mg PO DAILY PRN swelling 06/12/24 07/13/24 pantoprazole 40 mg tablet,delayed 40 mg PO DAILY@0630 06/12/24 07/13/24 release prazosin 1 mg capsule 1 mg PO BEDTIME 06/12/24 07/13/24 Previous Rx's ?Medication ?Instructions ?Recorded albuterol sulfate 90 mcg/actuation 2 puff inhalation Q6H PRN 02/10/24 aerosol inhaler shortness of breath or wheezing #6.7 grams budesonide-formoterol HFA 160 2 puff PO BID #10.2 grams 04/12/24 mcg-4.5 mcg/actuation aerosol inhaler (Symbicort) ondansetron 4 mg disintegrating 4 mg PO Q12H nausea and vomiting 06/01/24 tablet #20 tabs sucralfate 100 mg/mL oral 10 ml PO BID #600 mL 06/01/24 suspension acetaminophen 500 mg tablet 1,000 mg (2 x 500 mg) PO Q8H PRN 07/15/24 (Tylenol Extra Strength) pain #30 tabs ibuprofen 600 mg tablet 600 mg PO Q6H PRN pain #30 tabs 07/15/24 Allergies Allergy/AdvReac Type Severity Reaction Status Date / Time cephalexin [From KEFLEX] Allergy Severe ANAPHYLAXIS Verified 07/15/24 09:09 Sulfa (Sulfonamide Allergy Severe Anaphylaxis Verified 07/15/24 09:09 Antibiotics) sulfamethoxazole Allergy Severe ANAPHYLAXIS Verified 07/15/24 09:09 [From BACTRIM] trimethoprim [From BACTRIM] Allergy Severe ANAPHYLAXIS Verified 07/15/24 09:09 Review of Systems Review of Systems: Constitutional: No Weight loss, No Fever, No Chills, No Night Sweats, No Fatigue, No Malaise ENT/Mouth: No Hearing loss, No Ear Pain, No Nasal Congestion, No Sinus Pain, No Hoarseness, No sore throat, No Rhinorrhea, No Swallowing Difficulty Eyes: No Eye Pain, No Swelling, No Redness, No Foreign Body, No Discharge, No Vision Changes Cardiovascular: No Chest Pain, No SOB, No Dyspnea on Exertion, No Orthopnea, No Edema, No Palpitations Respiratory: No Cough, No Sputum, No Wheezing, No Smoke Exposure, No Dyspnea Gastrointestinal: No Nausea, No Vomiting, No Diarrhea, No Constipation, No Abdominal pain, No Hematochezia, No Melena Genitourinary: No irregular bleeding, No Dysuria, No Urinary Frequency, No Hematuria, No Urinary Incontinence/retention, No Urgency, No Flank Pain, No Urinary Flow Changes, No Hesitancy Musculoskeletal: + joint pain, No Myalgias, No Joint Swelling Skin: No Skin Lesions, No rash Neuro: No Weakness, + Numbness, +Paresthesias, No Loss of Consciousness, No Dizziness, No Headache Psych: No Anxiety/Panic, No Depression, No SI/HI/AH/VH, No Social Issues, Heme/Lymph: No Bruising, No Bleeding,No Lymphadenopathy Endocrine: No Polyuria, No Polydipsia, No Temperature Intolerance Yes all other systems are reviewed and are negative Constitutional: Constitutional: Reports as per [facility] Past Medical History Medical History (Updated 07/15/24 @ 11:22 by AJ Vizcarra) Obstructive sleep apnea Diarrhea Occipital neuralgia of right side Stabbing headache Excessive daytime sleepiness Loud snoring Headache Skin lesion LGSIL on Pap smear of cervix Dysplasia of cervix, low grade (KALEY 1) Screen for sexually transmitted diseases Immunization due Acute vaginitis Physical exam Otitis media Viral syndrome Conjunctivitis Screening for malignant neoplasm of cervix Encounter for well woman exam with routine gynecological exam Vaginal discharge Vaginal irritation Dizziness Complex ovarian cyst H/O methicillin resistant Staphylococcus aureus Pre-diabetes Panic attacks Anxiety PTSD (post-traumatic stress disorder) IUD (intrauterine device) in place Back pain Depression GERD (gastroesophageal reflux disease) Morbid obesity NATALIE (generalized anxiety disorder) Migraine with aura Allergic rhinitis Asthma Surgical History History of gastric surgery History of esophagogastroduodenoscopy (EGD) Family History Family History Father Diabetes mellitus HTN (hypertension) Mother Diabetes mellitus HTN (hypertension) Maternal Grandmother Diabetes mellitus Paternal Grandmother Diabetes mellitus Brother Diabetes mellitus Brother Diabetes mellitus Other Mental health disorder Substance use disorder Social History Social History Household Members: Family Household Members Other:: 2 minor children-will be with their father while mother having surgery Housing: Apartment Are you a primary care consultant to a significant other at home: No (shared care with children's father) Do you presently have visiting nurse or other home services: No Alcohol intake: current Alcohol intake frequency: does not drink Patient Tobacco Use Status: Never used Tobacco e-Cigarette/Vaping Use: Never Used Second Hand Smoke Exposure: No Advance Directives: No Advance Directives Information Provided: Yes service: No Current occupational status: employed 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 No acute distress. HEENT: Normal inspection CVS: Normal heart rate and rhythm. Pulses normal. Respiratory: No respiratory distress Skin: Warm, dry, no rashes noted to exposed skin. Normal skin color. Normal skin turgor. Extremities: Left wrist and forearm with no obvious bony deformity or swelling. No open wounds or lacerations. She has tenderness palpation along the left mid forearm lateral aspect. Strong radial pulse. Full ROM of the wrist and digits. Distal sensation circulation intact. No elbow pain. Neuro: Oriented X 3. No motor deficit. No sensory deficit. Medical Decision Making Medical Decision Making MDM Narrative: This is a 38-year-old female who presents emergency department with complaints of left elbow and forearm pain. On arrival, vital signs within normal limits. She is speaking in full sentences under no acute distress. Patient has tenderness palpation along the volar and radial aspect of the forearm, no open wounds or lacerations. X-ray of the forearm and wrist were obtained with no acute bony abnormalities. Differential diagnoses include contusion, sprain, strain, fracture. Placed wrist and forearm in velcro splint. Advised to rest, ice, take ibuprofen and or Tylenol. Advised follow-up with the orthopedic team if her symptoms persist after several weeks of resting. She understands and agrees with plan. Patient stable discharge. Differential Diagnosis Differential Diagnoses: The differential diagnosis associated with the presentation includes See above Radiology Impression Discussion of test interpretation with radiology: I have reviewed the radiologist's reading. Radiologist Impression: Findings: Bones intact. No dislocations. No significant arthritic change or erosions. No radiopaque foreign body. IMPRESSION: 1. No acute findings This document has been electronically signed by: Zohreh Dinero MD on 07/15/2024 10:39:46 Dictated By: Zohreh Dinero MD Findings: No fractures or dislocations. No significant arthritic change. No radiopaque foreign body. IMPRESSION: 1. Normal left forearm This document has been electronically signed by: Zohreh Dinero MD on 07/15/2024 10:39:37 Dictated By: Zohreh Dinero MD Procedures Orthopedic Splinting/Casting Injury #1: Side: left Upper Extremity Injury Location: forearm and wrist Upper Extremity Immobilizer: wrist splint Discharge Plan Discharge Clinical Impression: Contusion of left wrist, initial encounter Patient Disposition: Home, Self-Care Instructions: Wrist Injury (ED), Contusion in Adults (ED) Additional Instructions: You were seen in the emergency department due to left wrist and forearm pain. Your x-rays today do not reveal any broken bones. Please rest, ice, and use splint as needed. Alternate between ibuprofen and or Tylenol as needed for pain and inflammation. You may follow-up with the it communications specialist if you continue to have pain. If any new or worsening symptoms occur including but not limited to decreased range of motion of your wrist, decreased sensation in your wrist, and overlying skin changes to your wrist, please seek emergent care. Prescriptions: New ibuprofen 600 mg tablet 600 mg PO Q6H PRN (Reason: pain) Qty: 30 0RF acetaminophen [Tylenol Extra Strength] 500 mg tablet 1,000 mg PO Q8H PRN (Reason: pain) Qty: 30 0RF No Action sertraline 100 mg tablet 200 mg PO BEDTIME omeprazole 40 mg capsule,delayed release(DR/EC) 40 mg PO BEDTIME hydroxyzine HCl 25 mg tablet 25 mg PO BID PRN (Reason: Anxiety) prazosin 1 mg capsule 1 mg PO BEDTIME furosemide 20 mg tablet 20 mg PO DAILY PRN (Reason: swelling) pantoprazole 40 mg tablet,delayed release (DR/EC) 40 mg PO DAILY@0630 albuterol sulfate 90 mcg/actuation HFA aerosol inhaler 2 puff inhalation Q6H PRN (Reason: shortness of breath or wheezing) Qty: 6.7 0RF buspirone 10 mg tablet 10 mg PO TID PRN (Reason: PMS symptoms) budesonide-formoterol [Symbicort] 160-4.5 mcg/actuation HFA aerosol inhaler 2 puff PO BID Qty: 10.2 1RF sucralfate 100 mg/mL suspension 10 ml PO BID Qty: 600 2RF ondansetron 4 mg tablet,disintegrating 4 mg PO Q12H Qty: 20 0RF Rx Instructions: Only take one every 12 hours as needed if you have nausea Mirena 21 mcg/24hr (up to 8 yrs) 52 mg intrauterine device intrauterine Referrals: [facility] [place] [facility] [Provider Group] Interventions: ED Discharge Assessment Last Done: 07/15/24 11:33 Discharge Date/Time: 07/15/24 11:36 Print Language: Vietnamese
[2024-07-15 11:16] VITALS: BP 129/81; PULSE 77; RESP 18; TEMP 36; O2SAT 97
[2024-07-15 11:18] VITALS: PULSE 70
[2024-07-15 11:33] VITALS: BP 129/81; PULSE 77; RESP 18; TEMP 36; O2SAT 97
== END 2024-07-15 11:36 | disposition home or self-care (01) ==
PROVIDERS: Emergency Provider Emergency Medicine; PCP Internal Medicine
DX: S60.212A Contusion of left wrist, initial encounter (principal); M25.532 Pain in left wrist; Y29.XXXA Contact with blunt object, undetermined intent, initial encounter; Y93.9 Activity, unspecified; Y92.9 Unspecified place or not applicable; Y99.8 Other external cause status
CPT/HCPCS: 29125; 73090; 73100; 99283; 99284

== ENCOUNTER → 2024-07-15 09:28 | Outpatient (BNV) | payer OTHER, SELFPAY | PROVIDERS: PCP Internal Medicine; Visit Provider Radiology Diagnostic Radiology | DX: M25.532 Pain in left wrist (principal); M79.632 Pain in left forearm | CPT/HCPCS: 73090; 73100 ==

== ENCOUNTER 2024-07-25 13:33 | Outpatient (AMB) | payer OTHER, SELFPAY ==
--- NOTE | 2024-07-25 13:35 | A.OFFVIS_ITS ---
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 Doing well with no cullet crusher and washer concerns. Mirena user, no regular menses. Currently is sexually active. She denies vaginal itching or irritation. STI screening offered; she accepts. She tries to healthy, on solids since bariatric surgery last month, stays active with exercise. Denies family history of breast or ovarian cancer. FH colon cancer. Last pap smear 2023, negative. Hx. of abnormal pap. [facility] Medical History (Updated 07/25/24 @ 13:52 by Harmony Galicia CNM) Abnormal ultrasound of ovary Encounter for well woman exam with routine gynecological exam Obstructive sleep apnea Diarrhea Occipital neuralgia of right side Stabbing headache Excessive daytime sleepiness Loud snoring Headache Skin lesion LGSIL on Pap smear of cervix Dysplasia of cervix, low grade (KALEY 1) Screen for sexually transmitted diseases Immunization due Acute vaginitis Physical exam Otitis media Viral syndrome Conjunctivitis Screening for malignant neoplasm of cervix Vaginal discharge Vaginal irritation Dizziness Complex ovarian cyst H/O methicillin resistant Staphylococcus aureus Pre-diabetes Panic attacks Anxiety PTSD (post-traumatic stress disorder) IUD (intrauterine device) in place Back pain Depression GERD (gastroesophageal reflux disease) Morbid obesity NATALIE (generalized anxiety disorder) Migraine with aura Allergic rhinitis Asthma Surgical History History of gastric surgery History of esophagogastroduodenoscopy (EGD) Family History (Updated 07/25/24 @ 13:40 by RADHA Kraft) Father Diabetes mellitus HTN (hypertension) Mother Diabetes mellitus HTN (hypertension) Maternal Grandmother Diabetes mellitus Paternal Grandmother Diabetes mellitus Colon cancer Brother Diabetes mellitus Brother Diabetes mellitus Paternal Aunt Colon cancer Paternal Aunt Colon cancer Paternal Aunt Colon cancer Other Mental health disorder Substance use disorder Social History Household Members: Family Household Members Other:: 2 minor children-will be with their father while mother having surgery Housing: Apartment Are you a primary healthcare social worker to a significant other at home: No (shared care with children's father) Do you presently have visiting nurse or other home services: No Alcohol intake: current Alcohol intake frequency: does not drink Patient Tobacco Use Status: Never used Tobacco e-Cigarette/Vaping Use: Never Used Second Hand Smoke Exposure: No service: No Current occupational status: employed Current occupation: [employer]er Current occupational exposures/hazards: No Gender identity: Female Cognitive needs: No Hearing needs: No Vision needs: Yes (Glasses) Female Reproductive History Menstrual Age of Menarche: 12 Date of last menstrual period: 07/04/24 control method: progestin IUCD (Mirena 01/20/24) Total pregnancies: 2 Full term: 2 Number of Living Children: 2 Date of last pap smear: 04/14/23 (neg pap and hpv) History of abnormal pap smear: Yes (07/02 ascus 12/03 unsat 04/05 lgsil 04/05 colpo) Review of Systems Const All systems reviewed & are unremarkable except as noted in HPI and below Reports as per HPI Eyes Reports no additional complaints ENT Reports no additional complaints Card Reports no additional complaints Resp Reports no additional complaints GI Reports as per HPI and Reports no additional complaints Reports as per HPI Musc Reports no additional complaints Skin/Breast Reports as per HPI Neuro Reports no additional complaints Psych Reports no additional complaints Endo Reports no additional complaints Stoney/Lymph Reports no additional complaints Aller/Immun Reports no additional complaints Physical Exam Vital Signs: Last Vital Signs BP 114/74 07/25/24 13:36 BMI result Body Mass Index 47.9 Const General: cooperative, healthy appearing, no acute distress, well developed and alert Orientation/consciousness: patient oriented x3 HEENT Head: Yes normal to inspection Eyes General: appearance normal, both eyes and all related structures Neck Neck: Yes normal visual inspection Thyroid: Thyroid normal Chest Chest palpation & inspection: normal inspection of the chest and other (no puckering, dimpling, peau de orange, retraction, discharge, masses) Breast/axilla inspection: normal inspection of the breasts Breast/axilla palpation: normal palpation of the breasts Resp Effort & Inspection: normal respiratory effort GI Inspection: Yes normal to inspection and Yes scar Palpation (GI): Soft to palpation Rectal Exam - Female: deferred General: Yes bladder normal to palpation External Female Exam: normal external appearance and normal appearance of the urethra Speculum Exam - Vagina: normal appearance of the vagina, normal palpation and normal vaginal discharge Speculum Exam - Cervix: normal appearance of the cervix, normal palpation and Other cervical findings present (IUD strings at the os) Bimanual exam- vagina & uterus: normal bimanual exam, normal palpation, uterine size normal, bladder normal to palpation, normal palpation and non-tender Bimanual Exam- Adnexa, other: no masses Skin General skin exam: no rashes or lesions noted Rashes: no rashes Neuro General: patient oriented x3 Cognition (Neuro): normal cognition Extrem General: Yes normal to inspection Psych Attitude: cooperative Thought process: Normal thought process present Results Reviewed Results Reviewed: [place] [id number] Ultrasound Report Signed Patient: Jazmin Christian MR#: [id number] : 1985 Acct:[id number] Age/Sex: 38 / F ADM Date: 07/09/24 Loc: . Attending Dr: Harmony Galicia CNM Ordering Physician: Harmony Galicia CNM Date of Service: 07/09/24 Procedure(s): US pelvic and transvaginal Accession Number(s): [id number] cc: Harmony Galicia CNM; Efrem Jacobson MD~ EXAMINATION: US PELVIS TRANSABDOMINAL AND TRANSVAGINAL HISTORY: N83.299 - Other ovarian cyst, unspecified side COMPARISON: Comparison is made with the prior examination dated 05/03/2024. TECHNIQUE: Transabdominal and endovaginal real-time 2D saha-scale ultrasound was performed. FINDINGS: Uterus: The uterus is normal in size, measuring 8.2 x 3.7 x 4.5 cm. Myometrium has a normal echotexture. No fibroids are identified. Endometrium: The endometrial stripe measures 7 mm in thickness. An IUD is noted in the appropriate position in the endometrial cavity. Right ovary: The right ovary measures 2.3 x 1.5 x 1.1 cm. The right ovary again demonstrates an echogenic area measuring 9 x 7 x 5 mm (previously 5 x 5 x 6 mm). Left ovary: The left ovary measures 2.7 x 1.7 x 2.2 cm. The left ovary is normal in size and echotexture. Pelvic fluid: none. US/US pelvic and transvaginal IMPRESSION: 1. IUD in appropriate position in the endometrial cavity. 2. Echogenic focus in the right ovary which is larger than on the prior study. Follow-up is recommended. Electronically signed by: Edd Whitman MD 07/11/2024 11:32 AM EDT RP Dictated By: Edd Whitman MD Signed By: <Electronically signed by Edd Whitman MD in OV> 07/11/24 1132 DD/ 1150 TD/TT: 07/09/24 1206 Loan Review Analyst: Assessment & Plan Assessment & Plan (1) Encounter for well woman exam with routine gynecological exam: Code(s): Z01.419 - Encounter for gynecological examination (general) (routine) without abnormal findings Category: Medical Plan: Discussed: Current recommendations for pap smears per ASCCP guidelines. Breast awareness and periodic breast exams. Mammogram screening after her 40[age] birthday, order placed. Maintain a healthy lifestyle including a well balanced diet and routine exercise. Use condoms for STI and prevention. Patient verbalizes understanding and agrees to the plan of care. She was given opportunity to ask questions and all questions were answered to the best of my ability. RTO in one year for annual cullet crusher and washer examination. This note is constructed using voice recognition software. While every effort has been made to ensure accuracy, education program specialist errors may have been included. (2) Abnormal ultrasound of ovary: Code(s): R93.5 - Abnormal findings on diagnostic imaging of other abdominal regions, including retroperitoneum Category: Medical Plan Discussed: Ultrasound findings IMPRESSION: 1. IUD in appropriate position in the endometrial cavity. 2. Echogenic focus in the right ovary which is larger than on the prior study. Follow-up is recommended. Electronically signed by: Edd Whitman MD 07/11/2024 11:32 AM EDT Plan MRI follow up, referral to Gyne Onc if indicated. The patient expressed understanding and agreement with the plan of care. All of her questions and concerns were addressed to the best of my ability. Total time I personally spent on visit and management today: ?15 minutes. Time spent included review of pertinent office notes in the electronic health record; review of laboratory and imaging results; review of personal family medical history; performing physical exam; discussing diagnosis and plan of care with the patient; documenting the encounter in the EMR. This note is constructed using voice recognition software. While every effort has been made to ensure accuracy, education program specialist errors may have been included. Orders: Orders MR pelvis wo/w con 07/25/24 R93.5 - Abnormal findings on diagnostic imaging of other abdominal regions, including retroperitoneum Hepatitis C Antibody Reflex 07/25/24 Z20.2 - Contact with and (suspected) exposure to infections with a predominantly sexual mode of transmission Syphilis Screen 07/25/24 Z20.2 - Contact with and (suspected) exposure to infections with a predominantly sexual mode of transmission Pap Smear 07/25/24 Z01.419 - Encounter for gynecological examination (general) (routine) without abnormal findings MM tomosynthesis screening BI 10/22/24 Z12.31 - Encounter for screening mammogram for malignant neoplasm of breast HIV Ab/Ag 07/25/24 Z20.2 - Contact with and (suspected) exposure to infections with a predominantly sexual mode of transmission Hepatitis B Core Antibody 07/25/24 Z20.2 - Contact with and (suspected) exposure to infections with a predominantly sexual mode of transmission Bacterial Vaginosis Panel 07/25/24 Z20.2 - Contact with and (suspected) exposure to infections with a predominantly sexual mode of transmission CT NG by PCR 07/25/24 Z20.2 - Contact with and (suspected) exposure to infections with a predominantly sexual mode of transmission HPV High risk 07/25/24 Z01.419 - Encounter for gynecological examination (general) (routine) without abnormal findings Coding Level of Care Code Est Pt Prev Care 18-39y([id number]) Diagnoses Encounter for well woman exam with routine gynecological exam Z01.419 Abnormal ultrasound of ovary R93.5
[2024-07-25 13:36] VITALS: BP 114/74; BMI 47.9
--- OUTSIDE RECORDS SUMMARY | 2024-07-25 13:38 | XMS_ITS | Data Portability ---
Author Organization [place] - [facility], Allergy Address [address] [place] [phone] Care Team Providers Care Correspondence Representative Name Role Phone KEON ANGEL Primary Care Provider [phone] Assessment No assessment recorded. Plan of Treatment [...] Organization Details Recorded Time Abnormal auditory perception 33999413 Active 024 Clarice barakat [place] - [facility] 4 13:58:28 Benign paroxysmal positional vertigo 052440438 Active 024 FAUSTINO NAVARRO MD [address] [address], [place], [phone], [facility] - [facility] 4 15:03:21 Vertigo of central origin 75422206 Active 024 FAUSTINO NAVARRO MD 100 [facility] 100, [place], [address], [facility] - [facility] 4 15:03:45 Migraine with aura 1586366 Active 024 FAUSTINO NAVARRO MD 100 [facility] 100, [place], [address], [facility] - [facility] 4 15:03:45 Snoring 08697088 Active 024 FAUSTINO NAVARRO MD 100 [facility] 100, [place], [phone], [facility] - [facility] 4 15:07:31 Morbid obesity 775397801 Active 024 FAUSTINO NAVARRO MD 100 [facility] 100, [place], [address], [facility] - [facility] 4 15:07:36 Problem Notes None recorded. Procedures Surgical History Date Name Laterality Status Provider Name and Address Organization Details Recorded Time 11/15/2023 Comp Audio with Tymps - 36781 & 35510 completed Clarice Martin [place] - [facility] 11/15/2023 13:58:19 Imaging Results Imaging Date Name Status LastModified by Organiz ation Details LastModified Time 11/16/2023 audiogram completed [email or web address] Information no t available 11/16/2023 15:31:53 Procedure Notes None recorded. Medical Equipment None Reported. Allergies Allergen ID Allergen Name Allergen Category Reaction Reaction Severity Criticality Documentation Date Start Date Code Code System Note Provider Name and Address Organization Details Recorded Time 173107 Bactrim medicatio n Not available Not available Not available 11/15/2023 25487 9 RxNorm Yary barakat [place] - [facility] 4 14:18:42 527939 Keflex medicatio n Not available Not available Not available 11/15/2023 82807 7 RxNorm Yary barakat [place] - [facility] 4 14:18:50 Medications Name Sig Start Date [...] SNOMED-CT Code Diagnosis ICD10 Code Diagnosis Note [id number] FAUSTINO NAVARRO MD [facility] [address] [place] [address] 11/15/2023 13:38:03 11/15/2023 15:16:10 Abnormal auditory perception 71215901 H93.299 Audiologic al evaluation results: Right ear: [...] hermetic seal}} Benign par oxysmal positional vertigo 626210227 H81.10 Patient with recent history of episodic positional ly induced vertigo, now resolved. [place]-Hallpi ke was negative for vertigo and rotary [...] and vestibular therapy. Vertigo of central origin 73232312 H81.4 The patient's history, physical exam and [...] low dose nortriptyl ine}} Migraine with aura 91467 06 G43.109 Snoring 47422979 R06.83 Patient does have chronic loud snoring at night and self-repor vickie sensation of apneic episodes. We discussed that this can be a trigger for migraine as well as exacerbate underlying psychologi lauren disturbanc e. Recommende d she contact her primary care physician to proceed with getting an updated sleep study. Morbid obesity 516233288 E66.01 Health Concerns Section Related Observation LastModified by Organization Detai ls LastModified Time None Recorded Concern Status LastModified by Organization Details LastModified Time None Recorded Advance Directives Directive None Recorded Payers Insurance Date Sequence Insurance Name Policy Number Policy Rey Covered Member ID Rey Member ID Guarantor Name 11/15/2023 1 [facility] [id number] 1 Jazmin Christian [id number] Jazmin Christian Notes Date Note Type Note [...] some mental health issues. FAUSTINO NAVARRO MD [address] [place] [address], [phone], [facility] - [facility] 11/15/2023 15:12:38 OBGyn Episode No OBEpisode recorded.
--- OUTSIDE RECORDS SUMMARY | 2024-07-25 13:38 | XMS_ITS | Clinical Summary ---
Author Organization [employer] Address [address] [facility] [address] [place] [address] Care Team Providers Care Otorhinolaryngologist Name Role Phone Unavailable Primary Care Provider Unavailabl e Immunizations Immunization Administration Dates Next Due Influenza, seasonal, injectable, [...] patient's age to complete this topic [place] [address] , [address] [place] [address]
== END 2024-07-25 14:10 | disposition home or self-care (01) ==
LOC: HO.HWS 13:34
PROVIDERS: PCP Internal Medicine; Visit Provider Advanced Practice Midwife
DX: Z01.419 Encounter for gynecological examination (general) (routine) without abnormal findings (principal); R93.5 Abnormal findings on diagnostic imaging of other abdominal regions, including retroperitoneum
CPT/HCPCS: 99395; 99459

== ENCOUNTER 2024-07-25 13:33 | Outpatient (REF) | payer OTHER, SELFPAY ==
--- OUTSIDE RECORDS SUMMARY | 2024-07-25 14:11 | XMS_ITS | Clinical Summary ---
Author Organization [employer] Address [address] [facility] [address] [place] [address] Care Team Providers Care Drawbridge Operator Name Role Phone Unavailable Primary Care [...] patient's age to complete this topic Insurance [place] [address] , [address] [place] [address]
[2024-08-01 15:12] LABS: HPV Genotype 16 Negative (Negative); HPV Genotype 18 Negative (Negative); HPV High Risk Negative (Negative)
== END 2024-07-25 13:34 | disposition home or self-care (01) ==
LOC: HO.LNP 13:33
PROVIDERS: PCP Internal Medicine; Visit Provider Advanced Practice Midwife
DX: Z01.419 Encounter for gynecological examination (general) (routine) without abnormal findings (principal)
CPT/HCPCS: 87626; 88175

== ENCOUNTER 2024-07-25 14:04 | Outpatient (REF) | payer OTHER, SELFPAY ==
[2024-07-25 17:58] LABS: Bacterial Vaginosis PCR POSITIVE (Negative); Candida Group PCR NOT DETECTED (Not Detect); Candida glab krusei PCR NOT DETECTED (Not Detect); Trichomonas vaginalis PCR NOT DETECTED (Not Detect)
[2024-07-25 21:58] LABS: CT PCR NOT DETECTED (Not Detect.); NG PCR NOT DETECTED (Not Detect.)
== END 2024-07-25 14:05 | disposition home or self-care (01) ==
LOC: HO.LAB 14:04
PROVIDERS: Visit Provider Advanced Practice Midwife
DX: Z20.2 Contact with and (suspected) exposure to infections with a predominantly sexual mode of transmission (principal)
CPT/HCPCS: 81515; 87491; 87591

== ENCOUNTER 2024-07-30 07:30 | Outpatient (REF) | payer OTHER, SELFPAY ==
--- OUTSIDE RECORDS SUMMARY | 2024-07-30 07:32 | XMS_ITS | Data Portability ---
Author Organization [place] - [facility], Allergy Address [address] [place] [phone] Care Team Providers Care College Service Officer Name Role Phone KEON ANGEL Primary Care Provider [phone] Assessment No assessment recorded. Plan of Treatment [...] Organization Details Recorded Time Abnormal auditory perception 07444346 Active 024 Clarice barakat [place] - [facility] 4 13:58:28 Benign paroxysmal positional vertigo 813423773 Active 024 FAUSTINO NAVARRO MD [address] [address], [facility] [place], [phone], [facility] - [facility] 4 15:03:21 Vertigo of central origin 57187991 Active 024 FAUSTINO NAVARRO MD 100 [facility] 100, [facility] [place], [phone], [facility] - [facility] 4 15:03:45 Migraine with aura 4830082 Active 024 FAUSTINO NAVARRO MD 100 [facility] 100, [facility] [place], [address], [facility] - [facility] 4 15:03:45 Snoring 81940826 Active 024 FAUSTINO NAVARRO MD 100 [facility] 100, [facility] [place], [address], [facility] - [facility] 4 15:07:31 Morbid obesity 341436652 Active 024 FAUSTINO NAVARRO MD 100 [facility] 100, [facility] [place], [address], [facility] - [facility] 4 15:07:36 Problem Notes None recorded. Procedures Surgical History Date Name Laterality Status Provider Name and Address Organization Details Recorded Time 11/15/2023 Comp Audio with Tymps - 06648 & 22548 completed Clarice Martin [place] - [facility] 11/15/2023 13:58:19 Imaging Results Imaging Date Name Status LastModified by Organiz ation Details LastModified Time 11/16/2023 audiogram completed [email or web address] Information no t available 11/16/2023 15:31:53 Procedure Notes None recorded. Medical Equipment None Reported. Allergies Allergen ID Allergen Name Allergen Category Reaction Reaction Severity Criticality Documentation Date Start Date Code Code System Note Provider Name and Address Organization Details Recorded Time 819838 Bactrim medicatio n Not available Not available Not available 11/15/2023 47596 9 RxNorm Yary barakat [place] - [facility] 4 14:18:42 519188 Keflex medicatio n Not available Not available Not available 11/15/2023 05543 7 RxNorm Yary barakat [place] - [facility] 4 14:18:50 Medications Name Sig Start Date [...] SNOMED-CT Code Diagnosis ICD10 Code Diagnosis Note [id number] FAUSTINO NAVARRO MD [facility] [address] [place] [address] 11/15/2023 13:38:03 11/15/2023 15:16:10 Abnormal auditory perception 71704584 H93.299 Audiologic al evaluation results: Right ear: [...] hermetic seal}} Benign par oxysmal positional vertigo 886605308 H81.10 Patient with recent history of episodic positional ly induced vertigo, now resolved. [place]-Hallpi ke was negative for vertigo and rotary [...] and vestibular therapy. Vertigo of central origin 88572283 H81.4 The patient's history, physical exam and [...] low dose nortriptyl ine}} Migraine with aura 18632 06 G43.109 Snoring 66976076 R06.83 Patient does have chronic loud snoring at night and self-repor vickie sensation of apneic episodes. We discussed that this can be a trigger for migraine as well as exacerbate underlying psychologi lauren disturbanc e. Recommende d she contact her primary care physician to proceed with getting an updated sleep study. Morbid obesity 171653460 E66.01 Health Concerns Section Related Observation LastModified by Organization Detai ls LastModified Time None Recorded Concern Status LastModified by Organization Details LastModified Time None Recorded Advance Directives Directive None Recorded Payers Insurance Date Sequence Insurance Name Policy Number Policy Rey Covered Member ID Rey Member ID Guarantor Name 11/15/2023 1 [facility] [id number] 1 Jazmin Christian [id number] Jazmin Christian Notes Date Note Type Note [...] some mental health issues. FAUSTINO NAVARRO MD [address] [place] [address], [phone], [facility] - [facility] 11/15/2023 15:12:38 OBGyn Episode No OBEpisode recorded.
== END 2024-07-30 07:31 | disposition home or self-care (01) ==
LOC: HO.HOSX 07:30
DX: Z13.89 Encounter for screening for other disorder (principal)

== ENCOUNTER 2024-08-04 13:08 | Outpatient (REF) | payer OTHER, SELFPAY ==
--- NOTE | ~2024-08-04 | MR_ITS ---
EXAMINATION: MR PELVIS WITHOUT THEN WITH IV CONTRAST HISTORY: R93.5 - Abnormal findings on diagnostic imaging of other abdominal regio.... TECHNIQUE: Axial T1, fat-suppressed T1, fat-suppressed T2, and coronal and sagittal T2-weighted MR images of the pelvis were obtained. Subsequently, sagittal and axial fat-suppressed T1-weighted images were obtained after the intravenous administration of 10 mL Gadavist. COMPARISON: Correlation is made with a pelvic ultrasound dated 07/09/2024. FINDINGS: The uterus is normal in size measuring 8.1 x 5.0 x 4.6 cm. The junctional zone is thickened and indistinct measuring up to 1.5 cm in thickness. Findings can be seen in the setting of adenomyosis, although no cystic spaces are identified in the myometrium. The endometrium is normal in thickness. An IUD is noted in the endometrial canal. There is a nabothian cyst in the cervix. The cervix is otherwise unremarkable. The right ovary measures 2.7 x 1.5 x 2.4 cm and demonstrates multiple follicles. A tiny 3 mm hyperintense focus is seen within the right ovary on T1 weighted images which demonstrates fat suppression (series 5, image 17). This may represent a tiny focus of fat in a dermoid. The left ovary measures 3.1 x 1.6 x 2.3 cm and demonstrates multiple follicles. No ascites or pelvic lymphadenopathy is identified. The urinary bladder is collapsed. The visualized bones demonstrate normal signal intensity. MR/MR pelvis wo/w con IMPRESSION: 1. Tiny 3 mm T1 hyperintense focus in the right ovary which demonstrates fat suppression, and may represent a tiny focus of fat in a dermoid. It is uncertain whether this corresponds to the echogenic focus seen on ultrasound. Continued ultrasound follow-up is recommended. 2. Thickened, indistinct junctional zone of the uterus which can be seen in the setting of adenomyosis. No cystic spaces are identified, however. Clinical correlation is recommended. 3. IUD in the endometrial canal. Electronically signed by: Edd Whitman MD 08/07/2024 07:49 AM EDT
[2024-08-04] MEDS: gadobutroL 10 ML VIAL IVPUSH (13:43)
== END 2024-08-04 13:09 | disposition home or self-care (01) ==
LOC: HO.MRI 13:08
PROVIDERS: PCP Internal Medicine; Visit Provider Advanced Practice Midwife
DX: R93.5 Abnormal findings on diagnostic imaging of other abdominal regions, including retroperitoneum (principal)
CPT/HCPCS: 72197; A9585

== ENCOUNTER → 2024-08-04 13:13 | Outpatient (BNV) | payer OTHER, SELFPAY | PROVIDERS: PCP Internal Medicine; Visit Provider Radiology Diagnostic Radiology | DX: N85.8 Other specified noninflammatory disorders of uterus (principal) | CPT/HCPCS: 72197 ==

== ENCOUNTER 2024-08-09 15:23 | Outpatient (REF) | payer OTHER, SELFPAY ==
[2024-08-09 16:36] LABS: MANUAL DIFF FLAG NO
[2024-08-09 17:08] LABS: Basophils Percent Auto 0.3 % (0-2); Eosinophils Absolute Auto 0.1 X10*3/uL (0.0-0.4); Eosinophils Percent Auto 0.9 % (0-4); Hematocrit 40.8 % (37.0-47.0); Hemoglobin 13.3 g/dl (12.0-16.0); Imm Gran Abs Auto 0.02 X10*3/uL (0.00-0.03); Imm Gran Pct Auto 0.3 % (0.0-0.4); Lymphocytes Percent Auto 31.4 % (20-40); Mean Corpuscular HGB Conc 32.6 g/dl (31.0-35.0); Mean Corpuscular Hemoglobin 25.9 pg (27.0-33.0); Mean Corpuscular Volume 79.4 fL (80.0-98.0); Mean Platelet Volume 10.2 fL (9.4-12.3); Monocytes Absolute Auto 0.5 X10*3/uL (0.1-1.2); Neutrophils Absolute Auto 3.9 x10*3/uL (2.0-8.3); Neutrophils Percent Auto 60.1 % (45-73); Platelet Count 289 X10*3/uL (160-400); Red Blood Count 5.14 X10*6/uL (4.20-5.50); Red Cell Distribution Width 15.7 % (11.0-16.0); White Blood Count 6.4 X10*3/uL (4.8-10.8)
[2024-08-09 17:30] LABS: Estimated Average Glucose 103 mg/dL; Hemoglobin A1C 119.7427 umol/L; Hemoglobin A1c % 5.2 % (<6.0); Total Hemoglobin (HGBA1C) 3543.5086 umol/L
[2024-08-09 17:38] LABS: Alanine Aminotransferase 42 U/L (0-31); Albumin Level 4.5 g/dL (3.5-5.0); Alkaline Phosphatase 76 U/L (39-117); Anion Gap 15 (12-20); Aspartate Amino Transferase 40 U/L (5-31); Bilirubin Direct 0.2 mg/dL (0.0-0.5); Bilirubin Total 0.6 mg/dL (0.0-1.0); Blood Urea Nitrogen 8 mg/dL (9-16); C Reactive Protein 0.65 mg/dL (< or = 0.50); Calcium 9.8 mg/dL (8.4-10.2); Carbon Dioxide 25 mmol/L (22-29); Chloride 105 mmol/L (96-108); Estimated Glomerular Filt Rate > 60; Glucose Random 83 mg/dL (60-115); Magnesium 1.8 mg/dL (1.6-2.6); Potassium 3.9 mmol/L (3.3-5.1); Sodium 141 mmol/L (135-145); Total Protein 7.6 g/dL (6.5-8.0)
[2024-08-09 17:47] LABS: Erythrocyte Sedimentation Rate 17 MM/HR (0-20)
[2024-08-09 17:54] LABS: Vitamin D 25-OH Total 25.3 ng/mL (>30)
[2024-08-09 18:06] LABS: Folate 6.8 ng/mL (> or = 4.0); Vitamin B12 390 pg/mL (200-900)
[2024-08-10 08:09] LABS: Syphilis Screen Nonreactive (Nonreactive)
[2024-08-10 08:15] LABS: HBc Num1 0.07 S/CO (0.00-0.79); HIV AB/AG Nonreactive (Nonreactive); HIV Num 1 0.06 S/CO (0.00-0.99); Hepatitis B Core Antibody Nonreactive (Nonreactive); ~HepC Num1 0.12 S/CO (0.00-0.79); ~Hepatitis C Antibody Nonreactive (Nonreactive)
== END 2024-08-09 15:24 | disposition home or self-care (01) ==
LOC: HO.LAB 15:23
PROVIDERS: Advanced Practice Midwife; PCP Internal Medicine; Visit Provider Physician Assistant Medical
DX: Z00.00 Encounter for general adult medical examination without abnormal findings (principal); Z20.2 Contact with and (suspected) exposure to infections with a predominantly sexual mode of transmission; Z13.1 Encounter for screening for diabetes mellitus; Z13.29 Encounter for screening for other suspected endocrine disorder
CPT/HCPCS: 36415; 80053; 82248; 82306; 82607; 82746; 83036; 83735; 84443; 85025; 85652; 86140; 86704; 86780; 86803; 87389

== ENCOUNTER 2024-08-09 15:23 | Outpatient (AMB) | payer OTHER, SELFPAY ==
[2024-08-09 15:45] VITALS: BP 106/84; PULSE 84; RESP 17; TEMP 36.2; O2SAT 97; BMI 47.0
--- NOTE | 2024-08-09 15:45 | A.OFFPC_ITS ---
Vital Signs 08/09/24 15:45 Height 5 ft 5 in Weight 282 lb 4 oz BMI 47.0 BP 106/84 Blood Pressure Location Lt brachial Position Sitting Respiration 17 Pulse 84 Pulse Source Pulse Oximeter Temp 97.1 F Temp Source Temporal Artery Scan Pulse Oximetry (%) 97 Intake Visit Reasons: Vertigo Readiness Paraprofessional Required: No Accompanied by: Self / Same As Patient Allergies cephalexin [From KEFLEX] Allergy (Severe, Verified 08/09/24 16:52) ANAPHYLAXIS Sulfa (Sulfonamide Antibiotics) Allergy (Severe, Verified 08/09/24 16:52) Anaphylaxis sulfamethoxazole [From BACTRIM] Allergy (Severe, Verified 08/09/24 16:52) ANAPHYLAXIS trimethoprim [From BACTRIM] Allergy (Severe, Verified 08/09/24 16:52) ANAPHYLAXIS Medication List - Last Reconciled 08/09/24 by Jennifer Alex PA-C acetaminophen (Tylenol Extra Strength) 1,000 mg (2 x 500 mg) PO Q8H PRN albuterol sulfate 90 mcg/actuation 2 puffs inhalation Q6H PRN budesonide-formoterol 160-4.5 mcg/actuation (Symbicort) 2 puffs PO BID buspirone 10 mg PO TID PRN hbrbjnkzbk-sstwtpuulyzgc-aelq 50-325-40 mg 1 tab PO Q6H PRN furosemide 20 mg PO DAILY PRN hydroxyzine HCl 25 mg PO BID PRN levonorgestrel (Mirena) intrauterine meclizine 25 mg PO DAILY PRN 30 days metronidazole 0.75%(37.5mg/5gram) 1 appful vaginal DAILY 5 days omeprazole 40 mg PO BEDTIME ondansetron 4 mg PO Q12H pantoprazole 40 mg PO DAILY@0630 prazosin 1 mg PO BEDTIME sertraline 200 mg PO BEDTIME sucralfate 10 mL PO BID Tobacco use date assessed: 07/12/24 Dental Screening Dental Screen Date: 04/12/24 HPI Vertigo HPI Details The patient is a 38-year-old female presenting with dizziness and associated symptoms. She experienced an episode where she felt like she was going to pass out while sitting and working, followed by a persistent foggy feeling. The dizziness began on Tuesday and has been intermittent, worsening when lying down. The patient described a sensation of her head feeling like a balloon about to pop. She denied recent head trauma, travel, or recent illness with symptoms such as cough, congestion, or ear pain. She has a history of vertigo, which feels similar to her current episode, but also reports feeling lethargic and drained. Nausea and occasional blurry vision accompany her symptoms, which she associates with vertigo. The patient has a history of migraines but has not experienced one recently. Meclizine, her usual medication for dizziness, is not providing the usual relief. The patient underwent gastric sleeve surgery in June and feels she may be dehydrated, as she is unable to consume large volumes of fluids post-surgery. Her blood pressure was noted to be higher than usual, but she denied feeling faint during the visit. [facility] Medical History (Updated 08/09/24 @ 16:56 by Jennifer Alex PA-C) Dehydration Vertigo Abnormal ultrasound of ovary Encounter for well woman exam with routine gynecological exam Obstructive sleep apnea Diarrhea Occipital neuralgia of right side Stabbing headache Excessive daytime sleepiness Loud snoring Headache Skin lesion LGSIL on Pap smear of cervix Dysplasia of cervix, low grade (KALEY 1) Screen for sexually transmitted diseases Immunization due Acute vaginitis Physical exam Otitis media Viral syndrome Conjunctivitis Screening for malignant neoplasm of cervix Vaginal discharge Vaginal irritation Dizziness Complex ovarian cyst H/O methicillin resistant Staphylococcus aureus Pre-diabetes Panic attacks Anxiety PTSD (post-traumatic stress disorder) IUD (intrauterine device) in place Back pain Depression GERD (gastroesophageal reflux disease) Morbid obesity NATALIE (generalized anxiety disorder) Migraine with aura Allergic rhinitis Asthma Surgical History History of gastric surgery History of esophagogastroduodenoscopy (EGD) Family History Father Diabetes mellitus HTN (hypertension) Mother Diabetes mellitus HTN (hypertension) Maternal Grandmother Diabetes mellitus Paternal Grandmother Diabetes mellitus Colon cancer Brother Diabetes mellitus Brother Diabetes mellitus Paternal Aunt Colon cancer Paternal Aunt Colon cancer Paternal Aunt Colon cancer Other Mental health disorder Substance use disorder Social History Household Members: Family Household Members Other:: 2 minor children-will be with their father while mother having surgery Housing: Apartment Are you a primary home care manager to a significant other at home: No (shared care with children's father) Do you presently have visiting nurse or other home services: No Alcohol intake: current Alcohol intake frequency: does not drink Patient Tobacco Use Status: Never used Tobacco e-Cigarette/Vaping Use: Never Used Second Hand Smoke Exposure: No service: No Current occupational status: employed Current occupation: [employer] Current occupational exposures/hazards: No Gender identity: Female Cognitive needs: No Hearing needs: No Vision needs: Yes (Glasses) Female Reproductive History Menstrual Age of Menarche: 12 Questionnaire Thrive Questionnaire Date Thrive assessed: 04/05/24 I am a: Patient What is your living situation today?: I have a steady place to live Within the past 12 months, did the food you bought not last and you didn't have the money to get more?: Sometimes True Within the past 12 months, did you worry whether your food would run out before you got money to buy more?: Sometimes True Do you have trouble paying for medicines?: No Do you have trouble getting transportation to medical appointments?: No Do you have trouble paying your heating and electricity bill?: No Do you have trouble taking care of your child, family member or friend?: No Do you have trouble with day-to-day activities such as bathing, preparing meals, shopping, managing finances, etc.?: No Are you currently unemployed and looking for a job?: No Are you interested in more education?: Yes Please select the resources that you would like help with: None THRIVE Score: 2 NATALIE-7 AMB Questionnaire NATALIE-7 Date NATALIE - 7 assessed: 04/12/24 Source: Developed by Drs. Edd Madison, Bushra Burdick, El Esposito and colleagues, with an educational delmer from [employer]. Review of Systems Const Details: - Neurological: Reports dizziness, lethargy, and blurry vision intermittently. Denies numbness. - Cardiovascular: Denies chest pain and shortness of breath. - Gastrointestinal: Reports nausea and vomiting. - General: Denies fever. Physical exam (Primary Care) Vital Signs: Last Vital Signs Temp 97.1 F 08/09/24 15:45 Pulse 84 08/09/24 15:45 Resp 17 08/09/24 15:45 BP 106/84 08/09/24 15:45 Pulse Ox 97 08/09/24 15:45 Care Plan Goal for BP management: <140/90 at Goal BMI result Body Mass Index 47.0 Tobacco/Smoking Status: Tobacco use Status Tobacco use date assessed 07/12/24 08/09/24 15:45 Patient Tobacco Use Status Never used Tobacco 08/09/24 15:45 e-Cigarette/Vaping Use Never Used 08/09/24 15:45 Thrive Assessment: Date of Thrive Assessment Date Thrive assessed 04/05/24 08/09/24 15:45 Const Other: Appearance: Alert. Oriented X3. No acute distress. Head: Normal external exam. Normocephalic. Atraumatic. Eyes: Pupils are equal, round, and reactive to light. Extraocular movements intact. Conjunctiva and sclera normal. Eyelids normal. Ears: External auditory canal normal. Tympanic membranes normal. Throat: Pharynx normal. Uvula midline. Moist mucous membranes. Neck: Normal inspection. Neck supple. Full range of motion. No adenopathy. Thyroid Normal. No meningeal signs. No neck mass noted. Cardiovascular: Normal heart rate and rhythm. Heart sound normal. No murmurs noted. Pulses normal throughout. Respiratory: No respiratory distress. Painless inspiration. Breath sounds normal. No wheezes/rales/rhonchi noted. Chest nontender. No accessory muscle usage noted or decreased air movement noted. Abdomen: Soft and nontender. Bowel sounds normal in all 4 quadrants. No distention noted. No organomegaly noted. No visible injury noted. Back: No costovertebral angle tenderness. Full range of motion noted. Skin: Skin warm and dry. Normal skin color. Normal skin turgor. No rashes/lesions/lacerations noted. Extremities: No lower extremity edema. Extremities exhibit normal range of motion. Extremities nontender. Neuro: Oriented X 3. No motor deficit. No sensory deficit. Reflexes normal. negative pronator drift. Negative Romberg. Normal vbntkh-gq-rrqq test. Normal balance. Normal neuro exam no focal deficits are noted throughout. No weakness is noted. Results AMB Hemoglobin A1c AMB Hemoglobin A1c 4.9 % Last Edit by PARMJIT Mendez on 08/09/24 16:01 Results Reviewed Results Reviewed: Laboratory Last Values Hgb A1c (Clinic) 4.9 % (4.0-6.0) 08/09/24 16:00 Coding Level of Care Code Est Pt Level 4 (05600) Complex EM visit Add On G2211 Diagnoses Migraine with aura G43.109 Vertigo R42 Dehydration E86.0 Assessment & Plan Assessment & Plan (1) Migraine with aura: Code(s): G43.109 - Migraine with aura, not intractable, without status migrainosus Category: Medical Plan: Symptoms consistent with migraines treated with Fioricet. Advised against taking additional Tylenol with Fioricet. Neurology follow-up recommended for further management. Condition is chronic and stable continue to monitor. (2) Vertigo: Code(s): R42 - Dizziness and giddiness Category: Medical Plan: Symptoms consistent with migraines treated with Fioricet. Advised against taking additional Tylenol with Fioricet. Neurology follow-up recommended for further management. Condition is chronic and stable continue to monitor. (3) Dehydration: Code(s): E86.0 - Dehydration Category: Medical Plan: Likely due to gastric sleeve surgery. Advised to use IV hydration solutions and increase fluid intake. Blood work ordered to assess hydration and electrolytes. Plan Plan Patient was informed and verbally consented to the use of an ambient scribe for clinic note documentation during this visit. 1. Vertigo Management includes meclizine, though currently ineffective. Dehydration due to gastric sleeve surgery considered a contributing factor. Advised to increase fluid intake with IV hydration solutions and obtain blood work for electrolytes. Referral to neurology for further evaluation. 2. Migraine Headache Symptoms consistent with migraines treated with Fioricet. Advised against taking additional Tylenol with Fioricet. Neurology follow-up recommended for further management. 3. Dehydration Likely due to gastric sleeve surgery. Advised to use IV hydration solutions and increase fluid intake. Blood work ordered to assess hydration and electrolytes. I discussed with the patient the likely diagnosis of vertigo, potentially exacerbated by dehydration following her gastric sleeve surgery. Management options include increasing fluid intake with IV hydration solutions and performing blood work to check electrolyte levels. We discussed the use of Fioricet for her migraine symptoms, advising against additional Tylenol due to acetaminophen content. I recommended a neurology referral for further evaluation of her vertigo and migraine symptoms. The patient was advised to monitor her symptoms and seek emergency care if she experiences severe dizziness or neurological symptoms. Orders: Orders Comprehensive Met. Panel Today Z00.00 - Encounter for general adult medical examination without abnormal findings Complete Blood Count Auto Diff Today Z00.00 - Encounter for general adult medical examination without abnormal findings Magnesium Today Z00.00 - Encounter for general adult medical examination without abnormal findings Vitamin B12 and Folate Today Z00.00 - Encounter for general adult medical e xamination without abnormal findings TSH reflex Free T4 Today Z00.00 - Encounter for general adult medical examination without abnormal findings Erythrocyte Sedimentation Rate Today Z00.00 - Encounter for general adult medical examination without abnormal findings AMB Hemoglobin A1c Today R73.09 - Other abnormal glucose Liver Panel Today Z00.00 - Encounter for general adult medical examination without abnormal findings Vitamin D 25-OH Total Today Z00.00 - Encounter for general adult medical examination without abnormal findings C Reactive Protein Today Z00.00 - Encounter for general adult medical examination without abnormal findings Hemoglobin A1c Today Z00.00 - Encounter for general adult medical examination without abnormal findings Referrals Neurology Referral G43.109 - Migraine with aura, not intractable, without status migrainosus, R42 - Dizziness and giddiness Medications: New oacxyfpjsj-zndfwzdffzsuf-npja 50-325-40 mg 1 tab PO Q6H PRN 30 tabs 1RF pain Discontinued ibuprofen Discontinued Reason: Doctor's Order 600 mg PO Q6H PRN 30 tabs 0RF pain Patient Instructions: - Increase fluid intake using IV hydration solutions. - Take Fioricet as prescribed for migraine symptoms. - Avoid taking additional Tylenol with Fioricet. - Follow up with neurology for further evaluation of vertigo and migraines. - Complete blood work as ordered to assess electrolytes and hydration status. - Seek emergency care if experiencing severe dizziness or neurological changes.
== END 2024-08-09 16:12 | disposition home or self-care (01) ==
LOC: HO.HMCH 15:24
PROVIDERS: PCP Internal Medicine; Visit Provider Physician Assistant Medical
DX: G43.109 Migraine with aura, not intractable, without status migrainosus (principal); R42 Dizziness and giddiness; E86.0 Dehydration; R73.09 Other abnormal glucose

== ENCOUNTER 2024-09-06 15:33 | Outpatient (AMB) | payer OTHER, SELFPAY ==
--- NOTE | 2024-09-06 15:54 | MHC.PC.OV ---
Vital Signs 09/06/24 15:57 Height 5 ft 5 in Weight 273 lb 2 oz BMI 45.4 BP 126/80 Blood Pressure Location Lt brachial Position Sitting Pulse 74 Pulse Source Pulse Oximeter Temp 97.1 F Temp Source Temporal Artery Scan Pulse Oximetry (%) 98 Oxygen Delivery Method Room Air Intake Visit Reasons: 1 month f/u Intake Note: Patient is here to follow up on Vertigo. Data Processing Control Clerk Required: No Court Of Appeals Judge: Not Required per policy Accompanied by: Self / Same As Patient Allergies cephalexin (From KEFLEX) Allergy (Severe, Verified 09/06/24 15:56) ANAPHYLAXIS Sulfa (Sulfonamide Antibiotics) Allergy (Severe, Verified 09/06/24 15:56) Anaphylaxis sulfamethoxazole (From BACTRIM) Allergy (Severe, Verified 09/06/24 15:56) ANAPHYLAXIS trimethoprim (From BACTRIM) Allergy (Severe, Verified 09/06/24 15:56) ANAPHYLAXIS Tobacco use date assessed: 09/06/24 Dental Screening Dental Screen Date: 04/12/24 [facility] Medical History Pelvic pain Dermoid cyst Low mean corpuscular volume (MCV) Elevated C-reactive protein (CRP) Elevated ALT measurement Elevated AST (SGOT) Dehydration Vertigo Abnormal ultrasound of ovary Encounter for well woman exam with routine gynecological exam Obstructive sleep apnea Diarrhea Occipital neuralgia of right side Stabbing headache Excessive daytime sleepiness Loud snoring Headache Skin lesion LGSIL on Pap smear of cervix Dysplasia of cervix, low grade (KALEY 1) Screen for sexually transmitted diseases Immunization due Acute vaginitis Physical exam Otitis media Viral syndrome Conjunctivitis Screening for malignant neoplasm of cervix Vaginal discharge Vaginal irritation Dizziness Complex ovarian cyst H/O methicillin resistant Staphylococcus aureus Pre-diabetes Panic attacks Anxiety PTSD (post-traumatic stress disorder) IUD (intrauterine device) in place Back pain Depression GERD (gastroesophageal reflux disease) Morbid obesity NATALIE (generalized anxiety disorder) Migraine with aura Allergic rhinitis Asthma Surgical History History of gastric surgery History of esophagogastroduodenoscopy (EGD) Family History Father Diabetes mellitus HTN (hypertension) Mother Diabetes mellitus HTN (hypertension) Maternal Grandmother Diabetes mellitus Paternal Grandmother Diabetes mellitus Colon cancer Brother Diabetes mellitus Brother Diabetes mellitus Paternal Aunt Colon cancer Paternal Aunt Colon cancer Paternal Aunt Colon cancer Other Mental health disorder Substance use disorder Social History Household Members: Family Household Members Other:: 2 minor children-will be with their father while mother having surgery Housing: Apartment Are you a primary acute care nursing assistant to a significant other at home: No (shared care with children's father) Do you presently have visiting nurse or other home services: No Alcohol intake: current Alcohol intake frequency: does not drink Patient Tobacco Use Status: Never used Tobacco e-Cigarette/Vaping Use: Never Used Second Hand Smoke Exposure: No service: No Current occupational status: employed Current occupation: [employer] Current occupational exposures/hazards: No Gender identity: Female Cognitive needs: No Hearing needs: No Vision needs: Yes (Glasses) Female Reproductive History Menstrual Age of Menarche: 12 Questionnaire Thrive Questionnaire Date Thrive assessed: 04/05/24 I am a: Patient What is your living situation today?: I have a steady place to live Within the past 12 months, did the food you bought not last and you didn't have the money to get more?: Sometimes True Within the past 12 months, did you worry whether your food would run out before you got money to buy more?: Sometimes True Do you have trouble paying for medicines?: No Do you have trouble getting transportation to medical appointments?: No Do you have trouble paying your heating and electricity bill?: No Do you have trouble taking care of your child, family member or friend?: No Do you have trouble with day-to-day activities such as bathing, preparing meals, shopping, managing finances, etc.?: No Are you currently unemployed and looking for a job?: No Are you interested in more education?: Yes Please select the resources that you would like help with: None THRIVE Score: 2 NATALIE-7 AMB Questionnaire NATALIE-7 Date NATALIE - 7 assessed: 04/12/24 Source: Developed by Drs. Edd Madison, Bushra Burdick, El Esposito and colleagues, with an educational delmer from [employer]. Physical exam (Primary Care) Vital Signs: Last Vital Signs Temp 97.1 F 09/06/24 15:57 Pulse 74 09/06/24 15:57 BP 126/80 09/06/24 15:57 Pulse Ox 98 09/06/24 15:57 Oxygen Delivery Method Room Air 09/06/24 15:57 BMI result Body Mass Index 45.4 Tobacco/Smoking Status: Tobacco use Status Tobacco use date assessed 09/06/24 09/06/24 16:02 Patient Tobacco Use Status Never used Tobacco 09/06/24 15:55 e-Cigarette/Vaping Use Never Used 09/06/24 15:55 Thrive Assessment: Date of Thrive Assessment Date Thrive assessed 04/05/24 09/06/24 15:55 Coding Level of Care Code Est Pt Level 4 (34012) Complex EM visit Add On G2211 Diagnoses Hip pain M25.559 Assessment & Plan Assessment & Plan (1) Hip pain: Code(s): M25.559 - Pain in unspecified hip Plan: X rays ordered. Will call with results Plan History of Present Illness - The patient is a 38-year-old female presenting with vertigo, tinnitus, and back pain. - Vertigo: The patient reports dizziness, especially when turning her head while driving, persisting since July. - Tinnitus: Accompanying the dizziness, she experiences ringing in the ears. - Post-sleeve gastrectomy status: Underwent sleeve gastrectomy in June, managing well with fluid intake and smaller meals, though perceives slower weight loss. - Migraine: Previous migraines have resolved, but dizziness persists. - Vitamin D deficiency: Blood work showed low vitamin D, supplementation advised. - Back pain: Experiences episodes of back pain causing significant discomfort and impacting work ability. - Hip pain: Reports hip pain more bothersome than lower back pain, x-ray planned for further investigation. 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 Review of Systems - Neurological: Reports dizziness, tinnitus, and resolved migraines. Denies other neurological symptoms. - Musculoskeletal: Reports back pain and hip pain. Denies other musculoskeletal symptoms. Physical Exam General: Cooperative and healthy appearing Nutritional Appearance: Well nourished Orientation/consciousness: Patient oriented x3 Limitations: No limitations Head: Normal to inspection General: Appearance normal, both eyes and all related structures Neck: Normal visual inspection Chest: Normal palpation of entire chest wall Respiratory: N ormal respiratory effort Neurology: Patient oriented x3, reports dizziness and vertigo, ringing in the ear, and head pain described as a burning sensation. Results - Labs: Anemia and chemistry were normal. Kidney functions and sugar levels were normal. Liver function was slightly off but not concerning. Vitamin D was low. Plan 1. Vertigo - Plan: Follow up with neurologist managing sleep apnea for vertigo evaluation and management. 2. Tinnitus - Plan: No specific treatment plan discussed. 3. Post-Sleeve Gastrectomy Status - Plan: Continue dietary management and monitor weight loss. 4. Migraine - Plan: No further intervention needed as migraines resolved. 5. Vitamin D Deficiency - Plan: Take vitamin D supplements. 6. Back Pain - Plan: Discussed referral to specialist, physical therapy, and muscle relaxants. 7. Hip Pain - Plan: X-ray ordered to assess hip pain. Discussion Notes I discussed with the patient the management of her vertigo, advising her to follow up with her neurologist who is already treating her sleep apnea. We also talked about the importance of vitamin D supplementation due to her deficiency. For her back and hip pain, I recommended an x-ray for further evaluation and discussed the potential for specialist referral and physical therapy. We agreed on a follow-up in six months to reassess her condition and progress. Patient Instructions - Follow up with your neurologist for vertigo management. - Take vitamin D supplements as advised. - Continue with dietary management post-sleeve gastrectomy. - Attend the scheduled x-ray for hip evaluation. - Consider physical therapy and discuss specialist referral for back pain management. Orders: Orders XR hip RT min 2V 09/06/24 M25.551 - Pain in right hip
[2024-09-06 15:57] VITALS: BP 126/80; PULSE 74; TEMP 36.2; O2SAT 98; BMI 45.4
== END 2024-09-06 16:41 | disposition home or self-care (01) ==
LOC: HO.HMCH 15:34
PROVIDERS: PCP Internal Medicine; Visit Provider Internal Medicine
DX: M25.559 Pain in unspecified hip (principal)

== ENCOUNTER 2024-09-27 08:35 | Outpatient (AMB) | payer OTHER, SELFPAY ==
[2024-09-27 08:40] VITALS: BMI 44.4
--- NOTE | 2024-09-27 08:40 | A.OFFVIS_ITS ---
Vital Signs 09/27/24 08:40 Height 5 ft 5 in Weight 267 lb BMI 44.4 Intake Visit Reasons: ER f/u Left wrist contusion DOI 07/14/24 Intake Note: Jazmin is a 38 year old right hand dominant female who present today for an emergency department follow up for her left arm injury, DOI: 07/14/24. Per ED note, she was getting into her vehicle when the car door slammed on her left wrist/forearm region. Xrays were taken and she was given a wrist brace. States she was told she was negative for fracture. Currently states she is having a sharp pain radiating to her lateral aspect of her elbow. She is also experiencing tingling in her left hand which she did not have before. Allergies cephalexin (From KEFLEX) Allergy (Severe, Verified 09/27/24 08:43) ANAPHYLAXIS Sulfa (Sulfonamide Antibiotics) Allergy (Severe, Verified 09/27/24 08:43) Anaphylaxis sulfamethoxazole (From BACTRIM) Allergy (Severe, Verified 09/27/24 08:43) ANAPHYLAXIS trimethoprim (From BACTRIM) Allergy (Severe, Verified 09/27/24 08:43) ANAPHYLAXIS HPI HPI ER f/u Left wrist contusion DOI 07/14/24: Details: Jazmin is a 38 year old right hand dominant female who present today for an emergency department follow up for her left arm injury, DOI: 07/14/24. Per ED n ote, she was getting into her vehicle when the car door slammed on her left wrist/forearm region. Xrays were taken and she was given a wrist brace. States she was told she was negative for fracture. Currently states she is having a sharp pain radiating to her lateral aspect of her elbow. She is also experiencing tingling in her left hand which she did not have before. ON LICENSE OF [facility] Medical History Pelvic pain Dermoid cyst Low mean corpuscular volume (MCV) Elevated C-reactive protein (CRP) Elevated ALT measurement Elevated AST (SGOT) Dehydration Vertigo Abnormal ultrasound of ovary Encounter for well woman exam with routine gynecological exam Obstructive sleep apnea Diarrhea Occipital neuralgia of right side Stabbing headache Excessive daytime sleepiness Loud snoring Headache Skin lesion LGSIL on Pap smear of cervix Dysplasia of cervix, low grade (KALEY 1) Screen for sexually transmitted diseases Immunization due Acute vaginitis Physical exam Otitis media Viral syndrome Conjunctivitis Screening for malignant neoplasm of cervix Vaginal discharge Vaginal irritation Dizziness Complex ovarian cyst H/O methicillin resistant Staphylococcus aureus Pre-diabetes Panic attacks Anxiety PTSD (post-traumatic stress disorder) IUD (intrauterine device) in place Back pain Depression GERD (gastroesophageal reflux disease) Morbid obesity NATALIE (generalized anxiety disorder) Migraine with aura Allergic rhinitis Asthma Surgical History History of gastric surgery History of esophagogastroduodenoscopy (EGD) Family History Father Diabetes mellitus HTN (hypertension) Mother Diabetes mellitus HTN (hypertension) Maternal Grandmother Diabetes mellitus Paternal Grandmother Diabetes mellitus Colon cancer Brother Diabetes mellitus Brother Diabetes mellitus Paternal Aunt Colon cancer Paternal Aunt Colon cancer Paternal Aunt Colon cancer Other Mental health disorder Substance use disorder Social History (Updated 09/27/24 @ 08:44 by PARMJIT Berry) Household Members: Family Household Members Other:: 2 minor children-will be with their father while mother having surgery Housing: Apartment Are you a primary auto care center manager to a significant other at home: No (shared care with children's father) Do you presently have visiting nurse or other home services: No Alcohol intake: current Alcohol intake frequency: does not drink Patient Tobacco Use Status: Never used Tobacco e-Cigarette/Vaping Use: Never Used Second Hand Smoke Exposure: No service: No Current occupational status: employed 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 Neuro: Normal sensation of the tips of all digits of the left hand at this time Vascular: Cap refill brisk Pain: Tenderness to palpation of the insertion of the ECR be of the left wrist Pain with passive flexion and resisted active extension of the left wrist on the radial aspect ROM: Patient is able to make a closed fist and extend all digits of the left hand fully Full and intact range of motion of the left wrist Skin: No lacerations or abrasions. General: No ecchymosis, erythema, or evidence of infection. Psych: Appears grossly normal Affect normal Attitude cooperative Assessment & Plan Assessment & Plan (1) Extensor carpi radialis brevis tenosynovitis: Code(s): M65.939 - Unspecified synovitis and tenosynovitis, unspecified forearm Category: Medical Plan 1. ECRB tendinitis of the left wrist Patient is educated about this condition Patient is educated about the typical treatment course Patient is provided with a Velcro wrist splint to wear when her wrist is particularly painful Patient is also referred to occupational therapy for range of motion and strengthening of the left wrist in the setting of ECRB tendinitis Patient is educated on conservative pain management measures Follow-up as needed Orders: Orders OT Evaluation and Treatment Today M65.939 - Unspecified synovitis and tenosynovitis, unspecified forearm Coding Level of Care Code New Pt Level 3 (02818) Diagnoses Extensor carpi radialis brevis tenosynovitis M65.939
--- OUTSIDE RECORDS SUMMARY | 2024-09-27 08:42 | XMS_ITS | Data Portability ---
Author Organization [place] - [facility], Allergy Address [address] [place] [id number] Care Team Providers Care Predictive Maintenance Specialist Name Role Phone KEON ANGEL Primary [...] Organization Details Recorded Time Abnormal auditory perception 26651204 Active 024 Clarice barakat [place] - [facility] 4 13:58:28 Benign paroxysmal positional vertigo 321829050 Active 024 FAUSTINO NAVARRO MD [address] [address], [place], [phone], [facility] - [facility] 4 15:03:21 Vertigo of central origin 11906842 Active 024 FAUSTINO NAVARRO MD [address] [facility], [place], [address], [facility] - [facility] 4 15:03:45 Migraine with aura 5144197 Active 024 FAUSTINO NAVARRO MD [address] [address], [place], [phone], [facility] - [facility] 4 15:03:45 Snoring 33791373 Active 024 FAUSTINO NAVARRO MD [address] [address], [place], [phone], [place] - [facility] [place] 4 15:07:31 Morbid obesity 945956979 Active 024 FAUSTINO NAVARRO MD [address] [facility] [address], [place], [phone], [facility] - [facility] 4 15:07:36 Problem Notes None recorded. Procedures Surgical History Date Name Laterality Status Provider Name and Address Organization Details Recorded Time 11/15/2023 Comp Audio with Tymps - 63476 & 97806 completed Clarice Martin [place] - [facility] [place] 11/15/2023 13:58:19 Imaging Results None recorded. Procedure Notes None recorded. Medical Equipment None Reported. Allergies Allergen ID Allergen Name Allergen Category Reaction Reaction Severity Criticality Documentation Date Start Date Code Code System Note Provider Name and Address Organization Details Recorded Time 876081 Bactrim medicatio n Not available Not available Not available 11/15/2023 39846 9 RxNorm Yary barakat [place] - [facility] 4 14:18:42 273182 Keflex medicatio n Not available Not available Not available 11/15/2023 16639 7 RxNorm Yary barakat [place] - [facility] 4 14:18:50 Medications Name Sig Start [...] SNOMED-CT Code Diagnosis ICD10 Code Diagnosis Note [id number] FAUSTINO NAVARRO MD [facility] [address] [phone] 11/15/2023 13:38:03 11/15/2023 15:16:10 Abnormal auditory perception 81074639 H93.299 Audiologic al evaluation results: Right ear: Normal hearing with excellent word recognitio n. Left ear: Normal hearing with excellent word recognitio n. Tympanomet ry: Right Ear:Type As Left Ear:Type A Benign par oxysmal positional vertigo 926069905 H81.10 Patient with recent history of episodic positional ly induced vertigo, now resolved. Latia-Hallpi ke was negative for vertigo and rotary nystagmus. We discussed that the patient s previous pattern of symptoms are most [...] and vestibular therapy. Vertigo of central origin 00228950 H81.4 The patient's history, physical exam and [...] magnesium, vitamin B2, and feverfew. Follow up: As needed Migraine with aura 54050 06 G43.109 Snoring 43284973 R06.83 Patient does have chronic loud snoring at night and self-repor vickie sensation of apneic episodes. We discussed that this can be a trigger for migraine as well as exacerbate underlying psychologi lauren márquez she contact her primary care physician to proceed with getting an updated sleep study. Morbid obesity 849761120 E66.01 Health Concerns Section Related Observation LastModified by Organization Detai ls LastModified Time None Recorded Concern Status LastModified by Organization Details LastModified Time None Recorded Advance Directives Directive None Recorded Payers Insurance Date Sequence Insurance Name Policy Number Policy Rey Covered Member ID Rey Member ID Guarantor Name 11/15/2023 1 [facility] [id number] 1 Jazmin Christian [id number] Jazmin Chungo Notes Date Note Type Note Provider Name [...] some mental health issues. FAUSTINO NAVARRO MD [address] [place] [address], [phone], [place] - [facility] 11/15/2023 15:12:38 OBGyn Episode No OBEpisode recorded.
--- OUTSIDE RECORDS SUMMARY | 2024-09-27 08:43 | XMS_ITS | Clinical Summary ---
Author Organization [employer] Address [address] [facility] [address] [place] [address] Care Team Providers Care Coding Validator Name Role Phone Unavailable Primary Care Provider [...] 1984 Lipid Panel 1984 SDOH Screening 1984 Disability Screening 1984 Alcohol/Substance Use Screening 1996 Tobacco Screening 1996 Family Planning (PISQ) 10/16/1999 HPV Vaccines (1 - 3-dose series) 10/16/1999 Hepatitis C Screening 2002 Hepatitis B Vaccines (1 of 3 - 19+ 3-dose series) 10/16/2003 Pap Smear 2005 Cervical Cancer Screening 2014 HPV/Cotest 2014 COVID-19 Vaccine ( season) 2023 06/29/2023, 04/12/2021, 04/01/2020, Additional history exists Influenza Vaccine (#1) 2024 , 01/05/2023, 12/02/2022, Additional history exists DTaP/Tdap/Td Vaccines (2 - Td or Tdap) 06/28/2033 06/29/2023 Zoster Vaccines (1 of 2) 2034 RSV Patients and Patients Aged 60 years or older (1 - 1-dose 75+ series) 10/16/2059 HIB Vaccines Aged Out No longer eligi [...] Years) and At-Risk Patients (6 to 49) Years Aged Out No longer eligible based on patient's age to complete this topic RSV under 20 months Aged Out No longe r eligible based on patient's age to complete this topic Rotavirus Vaccines Aged Out No longer eligible based on patient's age to complete this topic Insurance
--- OUTSIDE RECORDS SUMMARY | 2024-09-27 08:43 | XMS_ITS ---
Author Name [facility] Organization Unknown Encounters Encounter Type Encounter Reason Primary Diagnosis Location Date Ambulatory [facility] 02/07/2024 Care Team Organization Name Specialty Phone Email Start Date End Da te [facility] 2024
== END 2024-09-27 08:54 | disposition home or self-care (01) ==
LOC: HO.HOS 08:35
PROVIDERS: PCP Internal Medicine
DX: M65.932 Unspecified synovitis and tenosynovitis, left forearm (principal)
CPT/HCPCS: 99203

== ENCOUNTER 2024-10-19 11:39 | Outpatient (REF) | payer OTHER, SELFPAY ==
--- OUTSIDE RECORDS SUMMARY | 2024-10-19 11:41 | XMS_ITS | Clinical Summary ---
Author Organization [email or web address] Address [address] [facility] [address] [place] [address] Care Team Providers Care Food Service Hotel Runner Name Role Phone Unavailable Primary Care Provider [...] 2023 06/29/2023, 04/12/2021, 04/01/2020, Additional history exists Mammogram 2024 Influenza Vaccine (#1) 2024 , 01/05/2023, 12/02/2022, [...]
== END 2024-10-19 11:40 | disposition home or self-care (01) ==
LOC: HO.MAMMO 11:39
PROVIDERS: PCP Internal Medicine; Visit Provider Advanced Practice Midwife
DX: Z12.31 Encounter for screening mammogram for malignant neoplasm of breast (principal)
CPT/HCPCS: 77063; 77067

== ENCOUNTER → 2024-10-19 11:41 | Outpatient (BNV) | payer OTHER, SELFPAY | PROVIDERS: PCP Internal Medicine; Visit Provider Internal Medicine | DX: Z12.31 Encounter for screening mammogram for malignant neoplasm of breast (principal) | CPT/HCPCS: 77063; 77067 ==

== ENCOUNTER 2024-11-09 07:27 | Outpatient (REF) | payer OTHER, SELFPAY ==
--- NOTE | ~2024-11-09 | US_ITS ---
EXAMINATIONS: 1. MM DIAGNOSTIC DIGITAL BREAST TOMOSYNTHESIS, RIGHT 2. Targeted ultrasound of the right breast CLINICAL INFORMATION: Callback from baseline screening for approximately 0.9 cm focal asymmetry in the lower inner quadrant at about COMPARISON: October 19, 2024 TECHNIQUE: Digital breast tomosynthesis is performed in full-field ML 90 degrees along with computer-aided detection (CAD). Synthesized 2D images are generated from the tomosynthesis. Spot compression tomosynthesis images were also obtained. FINDINGS: BREAST COMPOSITION: There are scattered areas of fibroglandular density (ACR BI-RADS breast composition Category b). RIGHT BREAST: Approximately 0.8 cm focal asymmetry in the lower inner quadrant at about 7 cm from the nipple persists on today's images (ML 90 degrees 50/90, spot CC 26/75). Targeted ultrasound of the right breast was performed at the location of the mammographic finding. The survey throughout the lower inner quadrant showed the 0.5 x 0.2 x 0.4 cm simple cyst at 5 o'clock position 7 cm from the nipple. No internal vascularity demonstrated with color Doppler evaluation. The cyst was probably incidental, and does not correlate with the mammographic finding. US/US breast RT limited mamm only IMPRESSION: RIGHT BREAST: 1. Focal asymmetry measuring 0.8 cm in the lower inner quadrant at about 7 cm from the nipple, without definite sonographic correlate. Probably benign. A 6-month follow-up mammogram is recommended. 2. Incidental simple cyst at measuring 0.5 cm located at 5 o'clock position 7 cm solid the nipple. Benign. No dedicated imaging follow-up needed for this finding. ASSESSMENT: BI-RADS 3 - Probably benign finding(s) - 6 month follow-up suggested RECOMMENDATION: 6 Month F/U Results were provided to the patient at time of visit by the technologist. This patient's information was entered into a reminder system with a target due date for their next mammogram. Electronically signed by: Jewel Garcia MD 11/09/2024 08:07 AM EDT
--- OUTSIDE RECORDS SUMMARY | 2024-11-09 07:30 | XMS_ITS | Clinical Summary ---
Author Organization [employer] Address [address] [facility] [address] [place] [address] Care Team Providers Care Senior Paralegal Name Role Phone Unavailable Primary Care Provider [...]
== END 2024-11-09 07:28 | disposition home or self-care (01) ==
LOC: HO.MAMMO 07:27
PROVIDERS: PCP Internal Medicine; Visit Provider Internal Medicine
DX: N64.89 Other specified disorders of breast (principal)
CPT/HCPCS: 76642; 77061; 77065

== ENCOUNTER → 2024-11-09 07:30 | Outpatient (BNV) | payer OTHER, SELFPAY | PROVIDERS: PCP Internal Medicine; Visit Provider Radiology Body Imaging | DX: R92.8 Other abnormal and inconclusive findings on diagnostic imaging of breast (principal) | CPT/HCPCS: 76642; 77061; 77065 ==

== ENCOUNTER 2025-01-07 10:10 | Outpatient (AMB) | payer OTHER, SELFPAY ==
--- NOTE | 2025-01-07 10:05 | MHC.OFFVISWM ---
VS Expanded 01/07/25 10:06 Height 5 ft 5 in Weight 260 lb BMI 43.3 Intake Visit Reasons: TV PO LSG 06/12/24 Allergies cephalexin (From KEFLEX) Allergy (Severe, Verified 09/27/24 08:43) ANAPHYLAXIS Sulfa (Sulfonamide Antibiotics) Allergy (Severe, Verified 09/27/24 08:43) Anaphylaxis sulfamethoxazole (From BACTRIM) Allergy (Severe, Verified 09/27/24 08:43) ANAPHYLAXIS trimethoprim (From BACTRIM) Allergy (Severe, Verified 09/27/24 08:43) ANAPHYLAXIS Medication List - Last Reconciled 01/07/25 by AJ Mclean acetaminophen (Tylenol Extra Strength) 1,000 mg (2 x 500 mg) PO Q8H PRN albuterol sulfate 90 mcg/actuation 2 puffs inhalation Q6H PRN budesonide-formoterol 160-4.5 mcg/actuation (Symbicort) 2 puffs PO BID buspirone 10 mg PO TID PRN yqtxedxelz-bcuhswzachprm-peaz 50-325-40 mg 1 tab PO Q6H PRN cholecalciferol (vitamin D3) 50 mcg PO DAILY furosemide 20 mg PO DAILY PRN hydroxyzine HCl 25 mg PO BID PRN levonorgestrel (Mirena) intrauterine meclizine 25 mg PO DAILY PRN 30 days metronidazole 0.75%(37.5mg/5gram) 1 appful vaginal DAILY 5 days omeprazole 40 mg PO BEDTIME prazosin 1 mg PO BEDTIME sertraline 200 mg PO BEDTIME terconazole 0.8% 1 appful vaginal BEDTIME 3 days HPI Comments Details: Patient is a pleasant 38-year-old female who returns to the office today in follow-up. She is 6 months post sleeve gastrectomy performed on 06/12/2024. She notes she has not followed up in office and the last time she communicated with Dr Middleton was a few months ago. Not following a structured plan. Uses Premier shakes, Gatorade protein bars. Doing a lot of walking and once a week does a cycling class. This [place]wood about 400 lauren. She has not been able to track calories while she walks due to Apple watch not working, but wants to correct this. She does take MVI. [facility] Medical History Pelvic pain Dermoid cyst Low mean corpuscular volume (MCV) Elevated C-reactive protein (CRP) Elevated ALT measurement Elevated AST (SGOT) Dehydration Vertigo Abnormal ultrasound of ovary Encounter for well woman exam with routine gynecological exam Obstructive sleep apnea Diarrhea Occipital neuralgia of right side Stabbing headache Excessive daytime sleepiness Loud snoring Headache Skin lesion LGSIL on Pap smear of cervix Dysplasia of cervix, low grade (KALEY 1) Screen for sexually transmitted diseases Immunization due Acute vaginitis Physical exam Otitis media Viral syndrome Conjunctivitis Screening for malignant neoplasm of cervix Vaginal discharge Vaginal irritation Dizziness Complex ovarian cyst H/O methicillin resistant Staphylococcus aureus Pre-diabetes Panic attacks Anxiety PTSD (post-traumatic stress disorder) IUD (intrauterine device) in place Back pain Depression GERD (gastroesophageal reflux disease) Morbid obesity NATALIE (generalized anxiety disorder) Migraine with aura Allergic rhinitis Asthma Surgical History History of gastric surgery History of esophagogastroduodenoscopy (EGD) Family History Father Diabetes mellitus HTN (hypertension) Mother Diabetes mellitus HTN (hypertension) Maternal Grandmother Diabetes mellitus Paternal Grandmother Diabetes mellitus Colon cancer Brother Diabetes mellitus Brother Diabetes mellitus Paternal Aunt Colon cancer Paternal Aunt Colon cancer Paternal Aunt Colon cancer Other Mental health disorder Substance use disorder Social History (Updated 09/27/24 @ 08:44 by PARMJIT Berry) Household Members: Family Household Members Other:: 2 minor children-will be with their father while mother having surgery Housing: Apartment Are you a primary care coordinator to a significant other at home: No (shared care with children's father) Do you presently have visiting nurse or other home services: No Alcohol intake: current Alcohol intake frequency: does not drink Patient Tobacco Use Status: Never used Tobacco e-Cigarette/Vaping Use: Never Used Second Hand Smoke Exposure: No service: No Current occupational status: employed 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 Current occupational exposures/hazards: No Gender identity: Female Cognitive needs: No Hearing needs: No Vision needs: Yes (Glasses) Female Reproductive History Menstrual Age of Menarche: 12 Telehealth Telehealth Telehealth Platform: Telephone Location of provider rendering services: practice address Location of patient: address on file Patient Identification confirmed using: Name, : Yes Telehealth method: voice only Patient verbally consented to treatment: Yes Patient verbally consented to billing insurance company: Yes Patient informed of any privacy concerns related to visit: Yes Minutes spent on Phone/Video with Pt.: 16 Assessment & Plan Assessment & Plan (1) Morbid obesity: Code(s): E66.01 - Morbid (severe) obesity due to excess calories Category: Medical (2) S/P laparoscopic sleeve gastrectomy: Code(s): Z98.84 - Bariatric surgery status Category: Surgical Plan New meal plan based on pt preferences. 7-9am Premier shake 6oz mixed with 2oz UAM 10a-12pm Gatorade protein bar 1pm lunch (4ff protein and up to 2ff veg, salad, or fruit) 3-5pm Gatorade protein bar 6-9pm Premier shake full 11oz Texted this plan to pt. She will text me weekly with weight measurements and any other questions. She will work on getting her smartwatch working to track exercise calories. Labs ordered. RTC 4mo. Orders: Orders Insulin Today Z.84 - Bariatric surgery status Comprehensive Met. Panel Today Z.84 - Bariatric surgery status Vitamin A Today Z.84 - Bariatric surgery status IRON PROFILE Today Z.84 - Bariatric surgery status Lipid Panel Today Z.84 - Bariatric surgery status Hemoglobin A1c Today Z98.84 - Bariatric surgery status Complete Blood Count Auto Diff Today Z98.84 - Bariatric surgery status TSH reflex Free T4 Today Z98.84 - Bariatric surgery status C Reactive Protein Today Z98.84 - Bariatric surgery status Ferritin Today Z98.84 - Bariatric surgery status Vitamin D 25-OH Total Today Z98.84 - Bariatric surgery status Vitamin B1 Today Z98.84 - Bariatric surgery status Vitamin B12 and Folate Today Z98.84 - Bariatric surgery status Zinc Today Z98.84 - Bariatric surgery status
[2025-01-07 10:06] VITALS: BMI 43.3
== END 2025-01-07 10:28 | disposition home or self-care (01) ==
LOC: HO.HBS 10:10
PROVIDERS: PCP Internal Medicine; Visit Provider Physician Assistant Surgical
DX: E66.01 Morbid (severe) obesity due to excess calories (principal); Z98.84 Bariatric surgery status
CPT/HCPCS: 99214; G2211

== ENCOUNTER 2025-01-11 10:39 | Outpatient (AMB) | payer OTHER, SELFPAY ==
--- NOTE | 2025-01-11 10:59 | MHC.OFFVIS ---
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 (Keshia) Accompanied by: Self / Same As Patient Allergies cephalexin (From KEFLEX) Allergy (Severe, Verified 01/11/25 11:05) ANAPHYLAXIS Sulfa (Sulfonamide Antibiotics) Allergy (Severe, Verified 01/11/25 11:05) Anaphylaxis sulfamethoxazole (From BACTRIM) Allergy (Severe, Verified 01/11/25 11:05) ANAPHYLAXIS trimethoprim (From BACTRIM) Allergy (Severe, Verified 01/11/25 11:05) ANAPHYLAXIS Medication List - Last Reconciled 01/11/25 by Cheryl Bailey CNM acetaminophen (Tylenol Extra Strength) 1,000 mg (2 x 500 mg) PO Q8H PRN albuterol sulfate 90 mcg/actuation 2 puffs inhalation Q6H PRN budesonide-formoterol 160-4.5 mcg/actuation (Symbicort) 2 puffs PO BID buspirone 10 mg PO TID PRN yqiodookfa-bnpmwsvdcuzcj-pcnu 50-325-40 mg 1 tab PO Q6H PRN cholecalciferol (vitamin D3) 50 mcg PO DAILY furosemide 20 mg PO DAILY PRN hydroxyzine HCl 25 mg PO BID PRN levonorgestrel (Mirena) intrauterine meclizine 25 mg PO DAILY PRN 30 days metronidazole 0.75%(37.5mg/5gram) 1 appful vaginal DAILY 5 days omeprazole 40 mg PO BEDTIME prazosin 1 mg PO BEDTIME sertraline 200 mg PO BEDTIME terconazole 0.8% 1 appful vaginal BEDTIME 3 days Is last menstrual period known: Yes Last menstrual period: 01/05/25 Post menopausal: No Patient : No HPI HPI lump on left breast: Details: Patient is here today because she was running her hand over breast on the weekend and felt a lump that she had not felt before. She had a mammogram in October that was fine ultimately. Initially they found something that they needed to recheck in the right breast and she thinks it was a cyst and she was told that everything is fine and she is to get yearly mammograms from now on. She had bariatric surgery last June and she has lost a lot of weight and she is continuing to keep up with all she can do and is continuing to lose gradually though not as quickly as her sister lost weight. She says the vitamins her challenging because they taste so chalky but they help her. She has a Mirena for control. Overall she feels like she is doing well. [facility] Medical History Pelvic pain Dermoid cyst Low mean corpuscular volume (MCV) Elevated C-reactive protein (CRP) Elevated ALT measurement Elevated AST (SGOT) Dehydration Vertigo Abnormal ultrasound of ovary Encounter for well woman exam with routine gynecological exam Obstructive sleep apnea Diarrhea Occipital neuralgia of right side Stabbing headache Excessive daytime sleepiness Loud snoring Headache Skin lesion LGSIL on Pap smear of cervix Dysplasia of cervix, low grade (KALEY 1) Screen for sexually transmitted diseases Immunization due Acute vaginitis Physical exam Otitis media Viral syndrome Conjunctivitis Screening for malignant neoplasm of cervix Vaginal discharge Vaginal irritation Dizziness Complex ovarian cyst H/O methicillin resistant Staphylococcus aureus Pre-diabetes Panic attacks Anxiety PTSD (post-traumatic stress disorder) IUD (intrauterine device) in place Back pain Depression GERD (gastroesophageal reflux disease) Morbid obesity NATALIE (generalized anxiety disorder) Migraine with aura Allergic rhinitis Asthma Surgical History History of gastric surgery History of esophagogastroduodenoscopy (EGD) Family History Father Diabetes mellitus HTN (hypertension) Mother Diabetes mellitus HTN (hypertension) Maternal Grandmother Diabetes mellitus Paternal Grandmother Diabetes mellitus Colon cancer Brother Diabetes mellitus Brother Diabetes mellitus Paternal Aunt Colon cancer Paternal Aunt Colon cancer Paternal Aunt Colon cancer Other Mental health disorder Substance use disorder Social History Household Members: Family Household Members Other:: 2 minor children-will be with their father while mother having surgery Housing: Apartment Are you a primary day care center director to a significant other at home: No (shared care with children's father) Do you presently have visiting nurse or other home services: No Alcohol intake: current Alcohol intake frequency: does not drink Patient Tobacco Use Status: Never used Tobacco e-Cigarette/Vaping Use: Never Used Second Hand Smoke Exposure: No Patient : No service: No Current occupational status: employed 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 Current occupational exposures/hazards: No Gender identity: Female Cognitive needs: No Hearing needs: No Vision needs: Yes (Glasses) Female Reproductive History Menstrual Age of Menarche: 12 Date of last menstrual period: 01/05/25 control method: progestin IUCD (Mirena ) Date of last pap smear: 07/25/24 (negative pap smear, negative hpv ) Date of Mammogram: 11/09/24 (bi rad 3) Physical Exam Vital Signs: Last Vital Signs BP 120/74 01/11/25 11:05 BMI result Body Mass Index 43.3 Chest Other: Patient had had some cyst re-evaluated in the right breast able to feel some fullness in that breast as well Small moe sized thickening of tissue left breast 11:00 above nipple feels like fatty tissue we will obtain diagnostic mammogram and ultrasound. Results Reviewed Results Reviewed: Patient: Jazmin Lincoln MR#: [id number] : 1985 Acct:[id number] Age/Sex: 39 / F ADM Date: 11/09/24 Loc: HO.MAMMO Attending Dr: Efrem Jacobson MD Ordering Physician: Efrem Jacobson MD Results: 3.6MProbably Benign Finding - Short 6 M F/U Suggested Date of Service: 11/09/24 Follow Up: 6 Month F/U Procedure(s): MM tomosynthesis added views R Accession Number(s): [id number] cc: Efrem Jacobson MD~ EXAMINATIONS: 1. MM DIAGNOSTIC DIGITAL BREAST TOMOSYNTHESIS, RIGHT 2. Targeted ultrasound of the right breast CLINICAL INFORMATION: Callback from baseline screening for approximately 0.9 cm focal asymmetry in the lower inner quadrant at about COMPARISON: October 19, 2024 TECHNIQUE: Digital breast tomosynthesis is performed in full-field ML 90 degrees along with computer-aided detection (CAD). Synthesized 2D images are generated from the tomosynthesis. Spot compression tomosynthesis images were also obtained. FINDINGS: BREAST COMPOSITION: There are scattered areas of fibroglandular density (ACR BI-RADS breast composition Category b). RIGHT BREAST: Approximately 0.8 cm focal asymmetry in the lower inner quadrant at about 7 cm from the nipple persists on today's images (ML 90 degrees 50/90, spot CC 26/75). Targeted ultrasound of the right breast was performed at the location of the mammographic finding. The survey throughout the lower inner quadrant showed the 0.5 x 0.2 x 0.4 cm simple cyst at 5 o'clock position 7 cm from the nipple. No internal vascularity demonstrated with color Doppler evaluation. The cyst was probably incidental, and does not correlate with the mammographic finding. MM/MM tomosynthesis added views R IMPRESSION: RIGHT BREAST: 1. Focal asymmetry measuring 0.8 cm in the lower inner quadrant at about 7 cm from the nipple, without definite sonographic correlate. Probably benign. A 6-month follow-up mammogram is recommended. 2. Incidental simple cyst at measuring 0.5 cm located at 5 o'clock position 7 cm solid the nipple. Benign. No dedicated imaging follow-up needed for this finding. ASSESSMENT: BI-RADS 3 - Probably benign finding(s) - 6 month follow-up suggested RECOMMENDATION: 6 Month F/U Results were provided to the patient at time of visit by the technologist. This patient's information was entered into a reminder system with a target due date for their next mammogram. 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 Message that she will be getting another appointment left on her machine. Code(s): N63.0 - Unspecified lump in unspecified breast Category: Medical Plan For the breast mass will obtain diagnostic mammogram of that breast and a left breast ultrasound. Any recommendations will be followed. Congratulated on her hard work and efforts and courage to approach the weight loss via the bariatric program and continue the hard work. We will see her for regularly scheduled visits after this. In reviewing the last diagnostic mammogram of the other breast the recommendation includes a recommendation to repeat studies in 6 months not 1 year. I asked the patient to call her primary care office and check on this it maybe the they were scheduling her automatically and she did not know and this would help her in planning. Initially I plan to review any findings and then decide on whether not any follow-up was necessary but given that she also has the issue with the other breast it might make more sense to actually place the referral to breast surgery for discussion of any findings for both now I did leave a message on her machine that she would be getting a notice of another appointment and to call us for detailed questions. Orders: Orders MM tomosynthesis diagnostic LT Today N63.0 - Unspecified lump in unspecified breast US breast LT complete Today N63.0 - Unspecified lump in unspecified breast Referrals Breast Surgery Referral N63.0 - Unspecified lump in unspecified breast Coding Level of Care Code Est Pt Level 3 (63698) Diagnoses Breast mass N63.0
[2025-01-11 11:05] VITALS: BP 120/74; BMI 43.3
== END 2025-01-11 15:44 | disposition home or self-care (01) ==
LOC: HO.HWS 10:39
PROVIDERS: PCP Internal Medicine; Visit Provider Advanced Practice Midwife
DX: N63.0 Unspecified lump in unspecified breast (principal)
CPT/HCPCS: 99213

== ENCOUNTER 2025-01-23 13:51 | Outpatient (AMB) | payer OTHER, SELFPAY ==
--- NOTE | 2025-01-23 13:53 | MHC.PC.OV ---
Vital Signs 01/23/25 13:55 Height 5 ft 5 in Weight 270 lb BMI 44.9 BP 140/80 H Blood Pressure Location Lt brachial Position Sitting Pulse 89 Pulse Source Pulse Oximeter Temp 97.1 F Temp Source Temporal Artery Scan Pulse Oximetry (%) 93 Oxygen Delivery Method Room Air Intake Visit Reasons: f/u Intake Note: Patient is here to follow up on AGUSTÍN, Asthma, GERD. Tie In Machine Operator Required: No Phlebotomy Specialist: Not Required per policy Accompanied by: Self / Same As Patient Allergies cephalexin (From KEFLEX) Allergy (Severe, Verified 01/23/25 13:54) ANAPHYLAXIS Sulfa (Sulfonamide Antibiotics) Allergy (Severe, Verified 01/23/25 13:54) Anaphylaxis sulfamethoxazole (From BACTRIM) Allergy (Severe, Verified 01/23/25 13:54) ANAPHYLAXIS trimethoprim (From BACTRIM) Allergy (Severe, Verified 01/23/25 13:54) ANAPHYLAXIS Tobacco use date assessed: 01/23/25 Dental Screening Dental Screen Date: 04/12/24 [facility] Medical History Pelvic pain Dermoid cyst Low mean corpuscular volume (MCV) Elevated C-reactive protein (CRP) Elevated ALT measurement Elevated AST (SGOT) Dehydration Vertigo Abnormal ultrasound of ovary Encounter for well woman exam with routine gynecological exam Obstructive sleep apnea Diarrhea Occipital neuralgia of right side Stabbing headache Excessive daytime sleepiness Loud snoring Headache Skin lesion LGSIL on Pap smear of cervix Dysplasia of cervix, low grade (KALEY 1) Screen for sexually transmitted diseases Immunization due Acute vaginitis Physical exam Otitis media Viral syndrome Conjunctivitis Screening for malignant neoplasm of cervix Vaginal discharge Vaginal irritation Dizziness Complex ovarian cyst H/O methicillin resistant Staphylococcus aureus Pre-diabetes Panic attacks Anxiety PTSD (post-traumatic stress disorder) IUD (intrauterine device) in place Back pain Depression GERD (gastroesophageal reflux disease) Morbid obesity NATALIE (generalized anxiety disorder) Migraine with aura Allergic rhinitis Asthma Surgical History History of gastric surgery History of esophagogastroduodenoscopy (EGD) Family History Father Diabetes mellitus HTN (hypertension) Mother Diabetes mellitus HTN (hypertension) Maternal Grandmother Diabetes mellitus Paternal Grandmother Diabetes mellitus Colon cancer Brother Diabetes mellitus Brother Diabetes mellitus Paternal Aunt Colon cancer Paternal Aunt Colon cancer Paternal Aunt Colon cancer Other Mental health disorder Substance use disorder Social History Household Members: Family Household Members Other:: 2 minor children-will be with their father while mother having surgery Housing: Apartment Are you a primary wild animal caretaker to a significant other at home: No (shared care with children's father) Do you presently have visiting nurse or other home services: No Alcohol intake: current Alcohol intake frequency: does not drink Patient Tobacco Use Status: Never used Tobacco e-Cigarette/Vaping Use: Never Used Second Hand Smoke Exposure: No service: No Current occupational status: employed 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 Current occupational exposures/hazards: No Gender identity: Female Cognitive needs: No Hearing needs: No Vision needs: Yes (Glasses) Female Reproductive History Menstrual Age of Menarche: 12 Questionnaire Thrive Questionnaire Date Thrive assessed: 04/05/24 I am a: Patient What is your living situation today?: I have a steady place to live Within the past 12 months, did the food you bought not last and you didn't have the money to get more?: Sometimes True Within the past 12 months, did you worry whether your food would run out before you got money to buy more?: Sometimes True Do you have trouble paying for medicines?: No Do you have trouble getting transportation to medical appointments?: No Do you have trouble paying your heating and electricity bill?: No Do you have trouble taking care of your child, family member or friend?: No Do you have trouble with day-to-day activities such as bathing, preparing meals, shopping, managing finances, etc.?: No Are you currently unemployed and looking for a job?: No Are you interested in more education?: Yes Please select the resources that you would like help with: None THRIVE Score: 2 NATALIE-7 AMB Questionnaire NATALIE-7 Date NATALIE - 7 assessed: 04/12/24 Source: Developed by Drs. Edd Madison, Bushra Burdick, El Esposito and colleagues, with an educational delmer from [employer]. Physical exam (Primary Care) Vital Signs: Last Vital Signs Temp 97.1 F 01/23/25 13:55 Pulse 89 01/23/25 13:55 BP 140/80 H 01/23/25 13:55 Pulse Ox 93 01/23/25 13:55 Oxygen Delivery Method Room Air 01/23/25 13:55 BMI result Body Mass Index 44.9 Tobacco/Smoking Status: Tobacco use Status Tobacco use date assessed 01/23/25 01/23/25 14:00 Patient Tobacco Use Status Never used Tobacco 01/23/25 14:00 e-Cigarette/Vaping Use Never Used 01/23/25 14:00 Thrive Assessment: Date of Thrive Assessment Date Thrive assessed 04/05/24 01/23/25 14:00 Coding Level of Care Code Est Pt Level 4 (89565) Complex EM visit Add On G2211 Diagnoses Obesity, morbid, BMI 40.0-49.9 E66.01 Assessment & Plan Assessment & Plan (1) Obesity, morbid, BMI 40.0-49.9: Code(s): E66.01 - Morbid (severe) obesity due to excess calories Category: Medical Plan: History of Present Illness - The patient is a 39-year-old female presenting for a routine visit and to 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 - She has a history of sleeve gastrectomy and is now getting back on track with her program. - Post-operatively, she reports an increased frequency of diarrhea. - Prior to the surgery, she experienced intermittent episodes of diarrhea alternating with constipation, which she attributed to her diet. - A couple of weeks ago, the patient felt a lump in her breast and was evaluated by her ETCHER HAND. - She is scheduled for a mammogram and a consultation. - The patient has received her flu and COVID-19 vaccinations. - She also reports having had a TB test performed at her place of employment. Social History - Employment: The patient works in [employer]. - Functional status: The patient drives but tries to avoid driving at night. - Exercise: The patient is resuming her exercise program after a lapse. Review of Systems - Breast: Reports feeling a new lump a couple of weeks ago. - Gastrointestinal: Reports increased frequency of diarrhea post-sleeve gastrectomy, with a history of alternating diarrhea and constipation prior to surgery. - Respiratory: Reports having a mild cold. - ENT: Reports hearing is okay. - General: Reports feeling good. Physical Exam General: Cooperative and healthy appearing Nutritional Appearance: Well nourished Orientation/consciousness: Patient oriented x3 Limitations: No limitations Head: Normal to inspection General: Appearance normal, both eyes and all related structures Neck: Normal visual inspection Chest: Normal palpation of entire chest wall Respiratory: Patient has a bit of a cold, instructed to take deep breaths. ormal respiratory effort Neurology: Patient oriented x3, hearing is okay. Results - Tests: The patient reports a prior mammogram was performed; results were not discussed. - Screenings: The patient reports a TB test was completed at her job; results were not discussed. 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 - The patient was encouraged to resume her exercise routine. - The patient was reassured that experiencing more frequent diarrhea is a normal adjustment for the body after a sleeve gastrectomy. - The patient will proceed with the mammogram and consultation as directed by her ETCHER HAND for evaluation of the breast lump. - A follow-up visit is scheduled in six months. 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 I advised her to resume her exercise routine for health maintenance. We discussed her concern about increased diarrhea following her sleeve gastrectomy. I explained that it can take time for the body to adjust to this type of surgery and reassured her that this is a normal finding and not something to worry about at this time. We acknowledged her upcoming mammogram and consultation for the recently discovered breast lump, which is being managed by her ETCHER HAND. I recommended she follow up here in six months. Patient Instructions - We will order blood tests to check your immunity for Measles, Mumps, Rubella (MMR), and chickenpox (Varicella), along with a T-spot test for tuberculosis, as required by your nursing program. - It is normal to have more frequent diarrhea after your stomach surgery; your body will get used to it over time and it is not a cause for concern right now. - Continue to get back into your exercise routine. - Follow up for the mammogram and consultation for the breast lump as planned with your ETCHER HAND. - Please schedule a follow-up appointment in six months. Orders: Orders Rubeola IgG (Measles) Today Z11.9 - Encounter for screening for infectious and parasitic diseases, unspecified Mumps Virus IgG Antibody Today Z11.9 - Encounter for screening for infectious and parasitic diseases, unspecified T Spot TB Today Z02.0 - Encounter for examination for admission to [facility] Rubella IgG Antibody Today Z11.9 - Encounter for screening for infectious and parasitic diseases, unspecified Varicella IgG Antibody Today Z11.9 - Encounter for screening for infectious and parasitic diseases, unspecified Medications: Refilled meclizine 25 mg PO DAILY PRN 30 tabs 1RF motion sickness 30 days albuterol sulfate 90 mcg/actuation 2 puffs inhalation Q6H PRN 6.7 grams 0RF shortness of breath or wheezing budesonide-formoterol 160-4.5 mcg/actuation (Symbicort) 2 puffs PO BID 10.2 grams 1RF
[2025-01-23 13:55] VITALS: BP 140/80; PULSE 89; TEMP 36.2; O2SAT 93; BMI 44.9
== END 2025-01-23 14:10 | disposition home or self-care (01) ==
LOC: HO.HMCH 13:51
PROVIDERS: PCP Internal Medicine; Visit Provider Internal Medicine
DX: E66.01 Morbid (severe) obesity due to excess calories (principal); Z68.41 Body mass index [BMI] 40.0-44.9, adult

== ENCOUNTER 2025-02-11 11:38 | Outpatient (REF) | payer OTHER, SELFPAY ==
[2025-02-11 13:13] LABS: MANUAL DIFF FLAG NO
[2025-02-11 13:39] LABS: Hematocrit 42.2 % (37.0-47.0); Hemoglobin 13.8 g/dl (12.0-16.0); Imm Gran Abs Auto 0.03 X10*3/uL (0.00-0.03); Imm Gran Pct Auto 0.5 % (0.0-0.4); Lymphocytes Absolute Auto 2.1 X10*3/uL (1.2-4.9); Mean Corpuscular HGB Conc 32.7 g/dl (31.0-35.0); Mean Corpuscular Hemoglobin 27.1 pg (27.0-33.0); Mean Corpuscular Volume 82.9 fL (80.0-98.0); NRBC Abs Auto 0.000 X10*3/uL (0.0-0.012); NRBC Pct Auto 0.0 /100WBC (0.0-0.2); Platelet Count 285 X10*3/uL (160-400); Red Blood Count 5.09 X10*6/uL (4.20-5.50); White Blood Count 6.6 X10*3/uL (4.8-10.8)
[2025-02-11 14:09] LABS: Ferritin 74 ng/mL (10-250); Iron 64 mcg/dL (30-160); Percent Iron Saturation 21 % (15-50); Total Iron Binding Capacity 304 mcg/dL (228-428); Unsaturated Iron Binding 240 ug/dL
[2025-02-11 14:21] LABS: Alanine Aminotransferase 21 U/L (0-31); Albumin Level 4.7 g/dL (3.5-5.0); Alkaline Phosphatase 104 U/L (39-117); Anion Gap 11 (12-20); Aspartate Amino Transferase 22 U/L (5-31); Blood Urea Nitrogen 9 mg/dL (9-16); Calcium 10.1 mg/dL (8.4-10.2); Carbon Dioxide 28 mmol/L (22-29); Chloride 105 mmol/L (96-108); Cholesterol 201 mg/dL (<200); Estimated Glomerular Filt Rate > 60; Ferritin 79 ng/mL (10-250); HDL Cholesterol 49 mg/dL (>40); Iron 64 mcg/dL (30-160); Percent Iron Saturation 21 % (15-50); Potassium 4.2 mmol/L (3.3-5.1); Sodium 140 mmol/L (135-145); Total Iron Binding Capacity 302 mcg/dL (228-428); Total Protein 7.9 g/dL (6.5-8.0); Triglycerides 126 mg/dL (<150); Unsaturated Iron Binding 238 ug/dL
[2025-02-11 14:26] LABS: Folate 4.2 ng/mL (> or = 4.0); Vitamin B12 264 pg/mL (200-900)
[2025-02-12 09:19] LABS: Rubeola IgG (Measles) 293.00 AU/mL
[2025-02-14 02:34] LABS: TS Negative Control Passed; TS Panel A 0; TS Panel B 2; TS Positive Control Passed; TSpotTB Negative (Negative)
== END 2025-02-11 11:39 | disposition home or self-care (01) ==
LOC: HO.HHCL 11:38
PROVIDERS: Physician Assistant Medical; Physician Assistant Surgical; PCP Internal Medicine; Visit Provider Internal Medicine
DX: Z02.0 Encounter for examination for admission to educational institution (principal); Z11.9 Encounter for screening for infectious and parasitic diseases, unspecified; Z13.6 Encounter for screening for cardiovascular disorders; Z13.1 Encounter for screening for diabetes mellitus; Z11.1 Encounter for screening for respiratory tuberculosis; D64.9 Anemia, unspecified; Z98.84 Bariatric surgery status
CPT/HCPCS: 36415; 80053; 80061; 82306; 82607; 82728; 82746; 83036; 83525; 83540; 84425; 84443; 84590; 85025; 86140; 86481; 86735; 86762; 86765; 86787

== ENCOUNTER 2025-02-25 11:28 | Outpatient (REF) | payer OTHER, SELFPAY ==
--- NOTE | ~2025-02-25 | MM_ITS ---
EXAMINATION(S): MM DIAGNOSTIC DIGITAL BREAST TOMOSYNTHESIS, BILATERAL CLINICAL INFORMATION: Right breast: Short term follow-up of right breast focal asymmetry in the lower inner quadrant at about 7 cm from the nipple without sonographic correlate. Left: Left breast mass at 11 o'clock position. However, the patient told us that the left lump went away. COMPARISON: Right diagnostic mammogram/ultrasound workup on November 09, 2024. Bilateral screening mammogram on October 19, 2024. TECHNIQUE: Digital breast tomosynthesis is performed in both the mediolateral oblique and craniocaudal views along with computer-aided detection (CAD). Synthesized 2D images are generated from the tomosynthesis. No skin marker indicating the location of the left breast lump was placed, as the patient told us that it has resolved. FINDINGS: BREAST COMPOSITION: There are scattered areas of fibroglandular density. RIGHT BREAST: Previously described 0.8-0.9 cm focal asymmetry in the lower inner quadrant at approximately 7 cm from the nipple is unchanged from prior studies in October 2024 (MLO 38/102 cc /). No new masses, suspicious calcifications or other abnormalities are seen. LEFT BREAST: No significant masses, suspicious calcifications or other abnormalities are seen. MM/MM tomosynthesis diagnostic BI IMPRESSION: RIGHT BREAST: 0.8-0.9 cm focal asymmetry in the lower inner quadrant at 7 cm from the nipple without definite sonographic correlate, unchanged from October 2024. Probably benign. A 6-month follow-up mammogram is recommended. LEFT BREAST: Negative, no mammographic evidence of malignancy. Clinical follow-up is recommended for the resolved lump. Otherwise, normal interval follow-up mammogram is recommended in 12 months. ASSESSMENT: BI-RADS: Category 3: Probably benign RECOMMENDATION: 6 Month F/U Results were provided to the patient at time of visit by the technologist. This patient's information was entered into a reminder system with a target due date for their next mammogram. Electronically signed by: Jewel Garcia MD 02/25/2025 12:[address] [facility]
== END 2025-02-25 11:29 | disposition home or self-care (01) ==
LOC: HO.MAMMO 11:28
PROVIDERS: PCP Internal Medicine; Visit Provider Internal Medicine
DX: N63.21 Unspecified lump in the left breast, upper outer quadrant (principal)
CPT/HCPCS: 77062; 77066

== ENCOUNTER → 2025-02-25 11:30 | Outpatient (BNV) | payer OTHER, SELFPAY | PROVIDERS: PCP Internal Medicine; Visit Provider Radiology Body Imaging | DX: R92.8 Other abnormal and inconclusive findings on diagnostic imaging of breast (principal) | CPT/HCPCS: 77062; 77066 ==